=== PATIENT | male | born 1970 | race Caucasian/White ===

== ENCOUNTER → 2020-01-13 08:57 | Outpatient (CLI) | payer OTHER, SELFPAY ==
[2017-11-20 22:08] VITALS: BMI 32.3
--- NOTE | 2020-01-13 09:07 | RAD_ITS ---
STUDY: X-RAY - LUMBAR SPINE REASON FOR EXAM: Male, 49 years old. chronic low back pain radiating into left leg, numbness and tingling COMPARISON: Sagittal reconstruction images from the CT scan of the abdomen and pelvis obtained on 01/11/2015 TECHNIQUE: 4 view FINDINGS: Studies of the lumbar spine in 4 projections shows the superior 4 lumbar vertebrae to be in excellent anatomic position and alignment. The intervertebral disc spaces are all well maintained. There are bilateral spondylitic defects noted at L5, with 5 mm of spondylolisthesis of L5 on S1. RAD/L/S Spine Min 4 Views IMPRESSION: Bilateral spondylitic defects are noted of L5 with grade 1 spondylolisthesis of L5 on S1.. Electronically Signed: Pérez Galvan, at 16:32 EST Tel , Service support ,
== END ==
PROVIDERS: PCP Nurse Practitioner; Referring Provider Nurse Practitioner; Visit Provider Nurse Practitioner
DX: M54.5 Low back pain (principal)
CPT/HCPCS: 72110

== ENCOUNTER → 2020-02-06 16:52 | Outpatient (CLI) | payer OTHER, SELFPAY ==
--- NOTE | 2020-02-06 17:30 | MRI_ITS ---
STUDY: MRI LUMBAR SPINE WITHOUT CONTRAST REASON FOR EXAM: Male, 49 years old. Spondylolisthesis grade 1, LBP, left thigh radiculopathy TECHNIQUE: Standardized fat and water weighted pulse sequences were obtained in the sagittal and axial planes. COMPARISON: None FINDINGS: There is narrowing of T11-12 disc space with desiccation of the disc and minor annular bulge mildly narrowing the central canal only viewed on sagittal images. T12-L1: Normal endplates. Normal disc height, hydration and morphology. Normal bilateral facet joints. Normal central canal and bilateral lateral recesses. Normal bilateral intervertebral neural foramina. Normal lumbar lordosis. There is no substantial scoliosis. Normal conus medullaris that terminates at T12-L1 L1-2: Minor endplate spurring. Normal disc height, desiccation and normal morphology. Normal bilateral facet joints. Normal central canal and bilateral lateral recesses. Normal bilateral intervertebral neural foramina. L2-3: Normal endplates. Normal disc height, desiccation and normal morphology. Normal bilateral facet joints. Normal central canal and bilateral lateral recesses. Normal bilateral intervertebral neural foramina. L3-4: Normal endplates. Normal disc height, desiccation and normal morphology. Normal bilateral facet joints. Normal central canal and bilateral lateral recesses. Normal bilateral intervertebral neural foramina. L4-5: Grade 1 retrolisthesis. Narrowed disc space with desiccation of disc and mild bulging disc osteophyte complex associated with small central disc extrusion with inferior migration of disc fragment. Bilateral facet arthropathy slightly greater on the left.. Mild narrowing of the central canal.. Mild right lateral recess and mild neural foraminal encroachment. Moderate left lateral recess and moderate neural foraminal stenosis L5-S1: Normal endplates. Normal disc height, desiccation and mild annular bulge.. Bilateral facet arthropathy.. Normal central canal and bilateral lateral recesses. Mild bilateral neural foraminal encroachment.. Normal visualized sacral ala. Normal visualized paraspinous soft tissue structures. MRI/Spine Lumbar (Routine) IMPRESSION: No evidence for acute fracture or subluxation.. Multilevel disc degeneration. Spinal stenosis at L4-5 secondary to disc disease and bony hypertrophy exaggerated by shortened pedicles greater on the left. Mild spinal stenosis at L5-S1 secondary to bulging annulus and mild facet arthropathy Electronically Signed: Jose Luis Munoz MD at 18:32 EDT , Service support ,
== END ==
PROVIDERS: PCP Nurse Practitioner; Referring Provider Nurse Practitioner; Visit Provider Nurse Practitioner
DX: M43.10 Spondylolisthesis, site unspecified (principal)
CPT/HCPCS: 72148

== ENCOUNTER → 2020-09-30 09:55 | Outpatient (CLI) | payer OTHER, SELFPAY ==
[2017-11-20 22:08] VITALS: BMI 32.3
--- NOTE | 2020-09-30 09:58 | RAD_ITS ---
STUDY: X-RAY - LUMBAR SPINE REASON FOR EXAM: Male, 49 years old. Low back pain, sharp when going from sitting to standing-intermittent TECHNIQUE: 5 view(s) of the lumbar spine were obtained including oblique views. COMPARISON: None FINDINGS: Normal lumbar lordosis. There is no substantial scoliosis. There is a normal alignment of the vertebrae. There is multilevel endplate spondylosis of the lumbar vertebrae. There is multi-level degenerative disc disease with multi-level disc space narrowing. The soft tissue structures are unremarkable. RAD/L/S Spine Min 4 Views IMPRESSION: Degenerative changes of the spine, as detailed above. Electronically Signed: Yoseph Lewis, at 10:46 EST , Service support ,
--- NOTE | 2020-09-30 09:58 | RAD_ITS ---
STUDY: X-RAY - CERVICAL SPINE REASON FOR EXAM: Male, 49 years old. Left side head and neck pain, into left shoulder TECHNIQUE: 3 view(s) of the cervical spine were obtained. COMPARISON: None FINDINGS: Normal anterior atlantoaxial articulation. Normal odontoid process. There is straightening of the normal cervical lordosis. Minimal anterior spondylosis at the C5-C6 level. Normal disc space heights. Normal visualized intervertebral neuroforamina. The soft tissue structures are unremarkable. RAD/Cerv Spine 2 or 3 Views IMPRESSION: There is straightening of the normal cervical lordosis. Electronically Signed: Yoseph Lewis, at 10:48 EST , Service support ,
== END ==
PROVIDERS: PCP Nurse Practitioner; Referring Provider Family Medicine; Visit Provider Family Medicine
DX: M54.2 Cervicalgia (principal); M54.5 Low back pain
CPT/HCPCS: 72040; 72110

== ENCOUNTER 2021-01-17 14:40 | Emergency (ER) | payer OTHER, SELFPAY ==
[2021-01-17 14:43] VITALS: BP 156/90; PULSE 88; RESP 18; TEMP 36.4; O2SAT 94; BMI 38.2
[2021-01-17 15:01] VITALS: BP 139/80; PULSE 79; RESP 14; O2SAT 97
--- NOTE | 2021-01-17 15:01 | EKG12_ITS ---
Test Reason : Blood Pressure : / mmHG Vent. Rate : 086 BPM Atrial Rate : 086 BPM P-R Int : 156 ms QRS Dur : 096 ms QT Int : 368 ms P-R-T Axes : 061 028 037 degrees QTc Int : 440 ms Normal sinus rhythm Possible Left atrial enlargement Borderline ECG Confirmed by CONRAD HILLMAN, ROB ([id number]), editor producer LIZA TRAVIS ([id number]) on 01/18/2021 10:50:34 AM Referred By: BURT Confirmed By:ROB MARTINES MD
[2021-01-17 15:02] VITALS: O2SAT 94
--- NOTE | 2021-01-17 15:04 | ED.VISSUMM ---
- ER Visit Summary Date of Service: 01/17/21 Chief Complaint: Chest pain History of Present Illness: The patient is a 50 M presenting with chest pain. Patient states this started approximately 1 hour ago. He began having left-sided chest pain that worsened when he took a deep breath. He has associated mild shortness of breath. He states currently he has no pain unless he is taking a deep breath. He denies recent fever or cough. Denies PE/DVT risk factors. He is not a smoker. No family history of early heart disease. Physical Examination: Vitals are stable. Patient is afebrile. Alert no acute distress. HEENT exam is unremarkable. Neck is supple. Lungs are clear and equal bilaterally. Heart is regular rate and rhythm. Abdomen is soft nontender nondistended. Extremities are unremarkable. Skin is warm and dry. No focal neurologic deficit. Remainder of exam is unremarkable. Emergency Department Course and Treatment: Patient was given aspirin on arrival. EKG is sinus rhythm rate of 86 with no acute ischemic changes. CBC, chemistries unremarkable. Troponin is negative. D-dimer normal. Chest x-ray read by myself and radiology shows no acute process. Patient has a heart score of 1. He is resting comfortably on reevaluation. Delta troponin will be obtained and is pending at this time. Disposition: pending Impression: Chest pain This note was generated with [employer] software. It may contain incorrect words, spelling, and punctuation that were not noted in review of the chart prior to signing <Tonya Hollis - Last Filed: 01/17/21 18:17> - ER Visit Summary Date of Service: 01/17/21 Chief Complaint: [] History of Present Illness: The patient is a 50 M [] Physical Examination: [] Test Results: [] Emergency Department Course and Treatment: The patient's repeat troponin was still less than 0.015. CT of the chest is unremarkable as well. His heart score is 1. I feel the pain is either musculoskeletal or pleuritic in nature. Patient will be treated with NSAIDs. He will follow-up with her PCP. Treatment Plan: [] Disposition: Discharge Impression: Chest pain This note was generated with [employer] software. It may contain incorrect words, spelling, and punctuation that were not noted in review of the chart prior to signing <Jordon Colunga - Last Filed: 01/17/21 20:01> ED Disposition <Gretta Hollisson - Last Filed: 01/17/21 18:17> <Jordon Colunga - Last Filed: 01/17/21 20:01> - Plan for ED Patient: Disposition: Home or Assisted Living Instructions: ED Chest Pain, Uncertain Cause Prescriptions: Naproxen [Naprosyn] 500 mg PO BID PRN #20 tab Prescription Printed Referrals: Leticia Matos MUTUEL CASHIER, MUTUEL CASHIER-C [Primary Care Provider] -
[2021-01-17] MEDS: Aspirin 81 MG TAB.CHEW 324 MG PO (15:11)
--- NOTE | 2021-01-17 15:25 | RAD_ITS ---
STUDY: X-RAY CHEST REASON FOR EXAM: Male, 50 years old. chest pain TECHNIQUE: Single AP portable view of the chest. COMPARISON: None. FINDINGS: The lungs are clear and expanded. There is no demonstrated pleural abnormality. Normal size heart. Normal mediastinum and mary jane. Normal visualized pulmonary arteries. Normal visualized aortic arch and descending thoracic aorta. Normal visualized thoracic spine. Normal visualized ribs, clavicles, and shoulders. There is no demonstrated abnormality of the visualized soft tissue structures of the upper abdomen. RAD/Chest 1 View (Portable) IMPRESSION: Normal x-ray examination of the chest. Electronically Signed: Keith Cabrera MD at 16:02 EST Tel , Service support ,
[2021-01-17 15:46] LABS: Absolute Lymphocyte Count 1.11 X10^3/uL (0.83-4.51); Absolute Neutrophil Count 5.5 X10^3/uL (2.0-7.7); Basophil# 0.07 X10^3/uL; Basophil% 0.9 % (0-1); Eosinophil# 0.35 X10^3/uL; Eosinophils% 4.6 % (0-5); Hematocrit 50.9 % (40-54); Hemoglobin 16.2 g/dL (13.0-16.5); Lymphocyte # 1.11 X10^3/ul (4.0); Lymphocyte % 14.6 % (19-41); Mean Corp Hgb Conc 31.8 g/dL (32-36); Mean Corpuscular Volume 87.9 fL (80-94); Mean Platelet Vol. 10.7 fl (6.2-12.0); Monocyte# 0.59 X10^3/uL; Monocyte% 7.7 % (0-10); NRBC Flagged by Analyzer 0 % (0-5); Neutrophil # 5.46 X10^3/uL (2.7-7.7); Neutrophil % 71.7 % (47-70); Platelet Count 225 K/mm3 (150-450); RBC Distribution Width CV 13.2 % (11.6-14.6); RBC Distribution Width SD 42.9 fl (35.1-43.9); Red Blood Count 5.79 M/mm3 (4.6-6.2); White Blood Count 7.6 K/mm3 (4.4-11.0)
[2021-01-17 15:55] LABS: Anion Gap 6 (5-15); BUN 12 mg/dL (7-18); BUN/Creat Ratio 10.2 RATIO (10-20); Calcium,Total 8.8 mg/dL (8.5-10.1); Chloride 109 mmol/L (98-107); Creatinine, Serum 1.18 mg/dL (0.70-1.30); EST Glomerular Filtration Rate 70 mL/min (>60); Est Glom Filt Rate - Afr Amer 85 mL/min (>60); Estimated Creatinine Clearance 81.54 ml/min; Glucose 115 mg/dL (74-106); Potassium 3.6 mmol/L (3.5-5.1); Sodium Level 142 mmol/L (136-145)
[2021-01-17 15:57] LABS: D-Dimer Quantitative (DVT/PE) <= 0.27 FEU/ug/m (0.27-0.49)
[2021-01-17 16:59] VITALS: BP 135/41; PULSE 74; RESP 23; O2SAT 94
[2021-01-17 18:39] VITALS: BP 122/71; PULSE 64; RESP 16; TEMP 36.9; O2SAT 95
--- NOTE | 2021-01-17 18:49 | CT_ITS ---
STUDY: CTA CHEST REASON FOR EXAM: Male, 50 years old. r/o PE RADIATION DOSAGE (If Supplied By Facility): CTDIvol = ( 19.79 ) mGy, DLP = ( 574.29 ) mGycm TECHNIQUE: The examination was performed with the intravenous administration of IV 100mL Isovue-370. Post-processing of the angiographic images was performed, with multiplanar reformation and 3D reconstruction. Individualized dose optimization techniques were used for this CT. COMPARISON: None. FINDINGS: Normal enhancement of the main pulmonary artery and right and left pulmonary arteries. Normal enhancement of the bilateral peripheral pulmonary arteries. There is no demonstrated pulmonary embolism. Normal thoracic aorta and visualized great vessels. There is no demonstrated aortic dissection. Normal heart and pericardium. Normal mediastinum. Normal hilar regions. Normal visualized trachea and bronchi. The lungs are well expanded. Normal pulmonary parenchyma. Normal pleura. Azygos lobe which is a normal variant. Normal chest wall structures. Normal osseous structures. Normal visualized upper abdomen. CT/CTA Chest W/WO Contrast IMPRESSION: Normal CTA chest examination, without a demonstrated pulmonary embolism or arterial dissection. Electronically Signed: Keith Cabrera MD at 19:44 EST Tel , Service support ,
[2021-01-17 20:07] VITALS: RESP 18
== END 2021-01-17 20:08 | disposition home or self-care (01) ==
PROVIDERS: Emergency Provider Emergency Medicine; PCP Nurse Practitioner
DX: R07.9 Chest pain, unspecified (principal); R06.00 Dyspnea, unspecified; J45.909 Unspecified asthma, uncomplicated; Z87.891 Personal history of nicotine dependence
CPT/HCPCS: 71045; 71275; 80048; 84484; 85025; 85379; 93005; 99285; Q9967; A4216

== ENCOUNTER → 2021-03-11 12:14 | Outpatient (CLI) | payer OTHER, SELFPAY | PROVIDERS: PCP Nurse Practitioner; Referring Provider Nurse Practitioner; Visit Provider Nurse Practitioner | DX: R07.89 Other chest pain (principal) | CPT/HCPCS: 93225; 93226 ==

== ENCOUNTER → 2021-07-19 15:50 | Outpatient (CLI) | payer OTHER, SELFPAY ==
--- NOTE | 2021-07-19 15:52 | US_ITS ---
STUDY: SCROTUM ULTRASOUND REASON FOR EXAM: Male, 50 years old. TESTICULAR PAIN,RIGHT TECHNIQUE: Ultrasound evaluation of the scrotum was performed with color Doppler and static mohamud-scale imaging. COMPARISON: None. FINDINGS: RIGHT TESTICLE INTRATESTICULAR: There is a normal size of the right testicle. The right testicle measures 4.1 x 2.8 x 2.3 cm. There is a homogenous echotexture. There is normal arterial and normal venous vascularity. There is no demonstrated right testicular mass or cyst. EXTRATESTICULAR: The epididymis is normal in size. The epididymis head measures 0.8 x 1.3 x 0.9 cm. There is normal vascularity of the epididymis. There is no demonstrated epididymal cystic structure. There is a mild complex hydrocele. There is no demonstrated varicocele. There is no demonstrated extratesticular mass or cyst. LEFT TESTICLE INTRATESTICULAR: There is a normal size of the left testicle. The left testicle measures 4.6 x 2.9 x 2.1 cm. There is a homogenous echotexture. There is normal arterial and normal venous vascularity. There is no demonstrated left testicular mass or cyst. EXTRATESTICULAR: The epididymis is normal in size. The epididymis head measures 0.9 x 1.1 x 1.3 cm. There is normal vascularity of the epididymis. There is a 5 x 7 mm epididymal cyst. There is a small complex hydrocele. There is no demonstrated varicocele. There is no demonstrated extratesticular mass or cyst. US/Testicular with Arterial Flow IMPRESSION: Normal bilateral testicles. Small complex hydroceles bilaterally. Small left epididymal cyst. Electronically Signed: Wilton Cook DO at 17:33 EDT Tel [phone], Service support ,
== END ==
PROVIDERS: PCP Nurse Practitioner; Referring Provider Nurse Practitioner; Visit Provider Nurse Practitioner
DX: N50.811 Right testicular pain (principal)
CPT/HCPCS: 76870; 93976

== ENCOUNTER → 2021-08-08 16:48 | Outpatient (CLI) | payer OTHER, SELFPAY ==
--- NOTE | 2021-08-08 16:49 | CT_ITS ---
STUDY: CT ABDOMEN AND PELVIS WITHOUT CONTRAST REASON FOR EXAM: Male, 50 years old. Flank pain RADIATION DOSAGE (If Supplied By Facility): CTDIvol = ( 17.26 ) mGy, DLP = ( 1430.01 ) mGycm TECHNIQUE: Transaxial images were obtained from the dome of the diaphragm to the symphysis pubis without oral contrast, and without intravenous contrast. Sagittal and coronal images were reconstructed. Individualized dose optimization techniques were used for this CT. COMPARISON: 01/11/15 FINDINGS: Evaluation of the abdominal viscera is limited in the absence of intravenous contrast. The visualized lung bases are clear. The visualized portions of the heart and pericardium are within normal limits. There are no calcified gallstones present. The liver demonstrates an unremarkable unenhanced appearance. The spleen is normal in size. The pancreas demonstrates an unremarkable unenhanced appearance. The adrenal glands are within normal limits. There is a 3 mm nonobstructing right renal stone. There are no additional renal or ureteral stones. There is no hydronephrosis. Normal visualized stomach. There is no bowel obstruction or inflammation. The appendix is visualized and appears normal. The aorta is normal in caliber. There is no abdominal or pelvic free air, free fluid, fluid collection or lymphadenopathy. There are no destructive osseous lesions. There are mild degenerative changes noted in the spine. 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 CT/Abdomen/Pelvis without Cont IMPRESSION: 3 mm nonobstructing right renal stone. No additional urinary calculi. No hydronephrosis. No bowel obstruction or inflammation. Normal appendix. Electronically Signed: Los Murphy MD at 10:15 EDT Tel , Service support ,
== END ==
LOC: CT 16:48
PROVIDERS: PCP Nurse Practitioner; Referring Provider Nurse Practitioner; Visit Provider Nurse Practitioner
DX: R10.9 Unspecified abdominal pain (principal)
CPT/HCPCS: 74176

== ENCOUNTER 2022-01-05 12:50 | Outpatient (CLI) | payer OTHER, SELFPAY ==
--- NOTE | 2022-01-05 12:52 | NM_ITS ---
CLINICAL: 51-year-old male with reported history of postprandial nausea-emesis. SEMI-SOLID PHASE 99m Tc SULFUR COLLOID GASTRIC EMPTYING STUDY COMPARISON: None available FINDINGS: The patient was administered 1.1 mCi of 99m Tc sulfur colloid mixed with oatmeal and consumed per os. Image acquisitions in the anterior-posterior projections for a total of 60 minutes. There is prompt visualization of the stomach. There is no gastroesophageal reflux identified. There is no discernible emptying of the radiopharmaceutical on review of sequential image acquisitions. The T ? linear fit was not calculable, (Normal: 12-56 minutes). NM/Gastric Emptying Study IMPRESSION: 1. MARKEDLY ABNORMAL 99m Tc sulfur colloid semi-solid phase (oatmeal) gastric emptying imaging examination. A. There is severely delayed semi-solid phase gastric emptying compared to normal controls with no effectual emptying of the radiopharmaceutical identified as described above. (Rudi et al, J Nucl Med Tech 38: 186, 2010). Electronically Signed: Keith Roman DO at 22:34 EST ,
== END 2022-01-05 23:59 | disposition home or self-care (01) ==
PROVIDERS: PCP Family Medicine; Referring Provider Internal Medicine Gastroenterology; Visit Provider Internal Medicine Gastroenterology
DX: K31.84 Gastroparesis (principal)
CPT/HCPCS: 78264; A9541

== ENCOUNTER 2022-02-23 08:49 | Day surgery (SDC) | payer OTHER, SELFPAY ==
[2022-02-23] VITALS (7 sets, daily range): BP systolic 100–149; BP diastolic 64–105; PULSE 72–84; RESP 16–18; TEMP 35.8–36.9; O2SAT 94–95; BMI 40.1
[2022-02-23] MEDS: Lactated Ringers 1,000 ML 15 ML IV (09:05)
[2022-02-23] MEDS: Lidocaine Jelly 2% 20 ML Syringe (URO-JET) 1 APPLIC (09:30)
--- NOTE | 2022-02-23 09:49 | PCM.HP.BLA ---
History and Physical Date of Admission: 02/23/22 LISA MEDINA, is a 51 M who presents to the ofA knot in the back of his throat. He is also having problems with nausea vomiting. This has been going on for approximately a year. His brother has the same symptoms of a knot in the back of his throat and then getting a feeling of nausea associated in the vomit. He did have a esophagram did not show any signs of achalasia or esophageal stricture. It did show hiatal hernia. His other past medical history is pruritus, gastroesophageal reflux disease and asthma. His asthma is controlled. Initially he had thought that his symptoms were associated with a poor diet. However when he changes his diet is still does not fix the problem with the knot in the back of his throat and the need to have relief by vomiting. His weight has been stable. He denies any esophageal dysphagia. He denies any chest pain or shortness of breath. He denies any weakness or fatigue. He denies any rash. He denies any arthralgia or arthritis. He has not started any new medicines. He is worried that his hiatal hernia is getting worse. He does take 40 mg of omeprazole which is helping his reflux symptoms but it is not helping the feeling in the back of his throat. ROS Gastro GI: Positive for feeling full early and other ( knot in the back of his throat) Exam Musc Musculoskeletal: No muscle weakness Coding Level of Care Code Off vis,new,level 4 Diagnoses Gastroesophageal reflux disease K21.9 Difficulty swallowing R13.10 Assessment and Plan Assessment and Plan (1) Gastroesophageal reflux disease: Plan - Dr. Grijalva Friend, DO: Diagnosis for his refractory GERD disease to 20 mg of omeprazole needing 40 mg omeprazole would be gastroparesis, worsening hiatal hernia, obesity, poor diet. (2) Difficulty swallowing: Status: Acute Plan - Dr. Grijalva Friend, DO: He does not have any dysphagia odynophagia is not throwing up. On the differential diagnosis for his not diagnosed her would be a gastric inlet patch, atypical reflux disease, hypertensive esophagus or esophageal dysmotility disorder. He will need to undergo gastric emptying study, EGD with endoscopy and a manometry study. Plan Details Other Orders: Orders: Gastric Emptying Study Today K31.84 I have re-examined the patient. There are no clinical changes since date of exam.
--- NOTE | 2022-02-23 10:45 | IMM_PTH ---
PATIENT: LISA MEDINA LOC: EN U#:[id number] AGE/SX: 51/M ROOM: RE02/23/[address]: Dr. Rudi Dyer DO : 1970 BED: DIS: 02/23/2022 SPEC #: [id number] RECD: 02/23/22 16:07 STATUS: BARB GUSTAVO #: [id number] CLEMENTINE: 02/23/22 10:[address]: Rudi Dyer DEPT: IMMUNOHISTOCHEMISTRY RECD BY: Rhiannon Diggs ENTERED: 02/23/22 16:08 SP TYPE: IMMUNO OTHR DR: Dr. Christiano Barreto MD Tissues: B - Stomach, NOS Procedures: H Pylori (initial) PHYSICIAN & INSTITUTION [place] [id number] SPECIMEN INFORMATION: Tissue Source: B ? Gastric antrum Clinical Info: GERD, difficulty swallowing Specimen Number: [id number] CPT code: 13903 METHODOLOGY: Deparaffinized sections of prefer/formalin-fixed tissue or PAP/DQ stained slides are incubated with monoclonal/polyclonal antibodies/oligonucleotide probes. Localization is made via biotin free immunoperoxidase method. Appropriate controls are performed and reacted as expected. Results on target cell population are indicated in the following table: RESULTS: ANTIBODY / CLONE RESULT Block B H Pylori (polyclonal) negative These tests were developed and their performance characteristics determined by [facility]. They may not have been cleared or approved by the U.S. Food and Drug Administration. The FDA has determined that such clearance or approval is not necessary. INTERPRETATION: B. Gastric antrum, biopsy: Negative for Helicobacter pylori organisms. AM:lakshmi 02/24/2022
--- NOTE | 2022-02-23 10:45 | EGD_PTH ---
PATIENT: LISA MEDINA LOC: EN U#:[id number] AGE/SX: 51/M ROOM: RE02/23/[address]: Dr. Rudi Dyer DO : 1970 BED: DIS: 02/23/2022 SPEC #: [id number] RECD: 02/23/22 11:30 STATUS: BARB GUSTAVO #: [id number] CLEMENTINE: 02/23/22 10:[address]: Rudi Dyer DEPT: SURGICAL PATHOLOGY RECD BY: Heather Montiel ENTERED: 02/23/22 12:31 SP TYPE: EGD BIOPSY LICO DR: Dr. Christiano Barreto MD Tissues: A - Duodenum, NOS B - Gastric mucous membrane C - Esophagus, NOS Procedures: Special Stain Group II Surgery Specimen Level IV Alcian Blue/PAS (control) HEADER OPERATION: EGD ([facility]) PRE-OP DIAGNOSIS: GERD, difficulty swallowing TISSUE SUBMITTED: A ? Duodenum biopsy, B ? Gastric antrum biopsy for H. pylori and pathology, C ? Distal esophagus biopsy MICROSCOPIC DIAGNOSIS A. Duodenum, biopsy: No pathologic change. B. Gastric antrum, biopsy: Chronic gastritis with focal acute gastritis. See comment. C. Distal esophagus, biopsy: Gastroesophageal junctional mucosa with chronic inflammation. No evidence of goblet cell metaplasia. See comment. AM:lakshmi 02/24/2022 COMMENT B. The results of immunohistochemistry for Helicobacter pylori will be reported separately ([id number]). C. Alcian blue/PAS stain with matched control supports the above diagnosis. MICROSCOPIC DESCRIPTION Slides are reviewed. GROSS DESCRIPTION A - Received in fixative is one container labeled with the patient's name and designated duodenum. The specimen consists of one irregular fragment of light garcia soft tissue that measures 0.3 x 0.3 x 0.1 cm. The specimen is totally submitted in one cassette. B - Received in fixative is one container labeled with the patient's name and designated gastric antrum. The specimen consists of two irregular fragments of light garcia soft tissue that in aggregate measure 0.7 x 0.5 x 0.1 cm. The specimen is totally submitted in one cassette. C - Received in fixative is one container labeled with the patient's name and designated distal esophagus. The specimen consists of two irregular fragments of light garcia soft tissue that in aggregate measure 1 x 0.5 x 0.1 cm. The specimen is totally submitted in one cassette. / AM:lakshmi 02/23/2022 TC:3 CPT: 47000 x3, 62367
--- NOTE | 2022-02-23 11:18 | OP.EGD_ITS ---
Patient Name: Crow Easton Procedure Date: 02/23/2022 10:46 AM Date of : 1970 Age: 51 Procedure: Upper GI endoscopy Indications: Failure to respond to medical treatment Providers: Rudi Dyer DO Medicines: See the Anesthesia note for documentation of the administered medications Patient Profile: This is a 51 year old male. Refer to note in patient chart for documentation of history and physical. Patient has symptoms of chronic epigastric abdominal pain, chronic nausea and chronic vomiting. Complications: No immediate complications. Procedure: Pre-Anesthesia Assessment: - Prior to the procedure, a History and Physical was performed, and patient medications and allergies were reviewed. The patient is competent. The risks and benefits of the procedure and the sedation options and risks were discussed with the patient. All questions were answered and informed consent was obtained. Patient identification and proposed procedure were verified by the physician in the pre-procedure area. Mental Status Examination: alert and oriented. Airway Examination: normal oropharyngeal airway and neck mobility. Respiratory Examination: clear to auscultation. CV Examination: normal. Prophylactic Antibiotics: The patient does not require prophylactic antibiotics. Prior Anticoagulants: The patient has taken no previous anticoagulant or antiplatelet agents. ASA Grade Assessment: II - A patient with mild systemic disease. After reviewing the risks and benefits, the patient was deemed in satisfactory condition to undergo the procedure. The anesthesia plan was to use moderate sedation / analgesia (conscious sedation). Immediately prior to administration of medications, the patient was re-assessed for adequacy to receive sedatives. The heart rate, respiratory rate, oxygen saturations, blood pressure, adequacy of pulmonary ventilation, and response to care were monitored throughout the procedure. The physical status of the patient was re-assessed after the procedure. After obtaining informed consent, the endoscope was passed under direct vision. Throughout the procedure, the patient's blood pressure, pulse, and oxygen saturations were monitored continuously. The gastroscope was introduced through the mouth, and advanced to the second part of duodenum. The upper GI endoscopy was accomplished without difficulty. The patient tolerated the procedure well. Moderate Sedation: Moderate (conscious) sedation was administered by the endoscopy nurse and supervised by the endoscopist. The patient's oxygen saturation, heart rate, blood pressure and response to care were monitored. Total physician intraservice time was 15 minutes. Scope In: 10:53:34 AM Scope Out: 11:01:25 AM Total Procedure Duration Time 0 hours 7 minutes 51 seconds Findings: LA Grade A (one or more mucosal breaks less than 5 mm, not extending between tops of 2 mucosal folds) esophagitis with no bleeding was found 38 to 40 cm from the incisors. Biopsies were taken with a cold forceps for histology. Verification of patient identification for the specimen was done. Estimated blood loss was minimal. Patchy mildly erythematous mucosa without bleeding was found in the gastric antrum. The minor ampulla was present in seen at the 3 o'clock position in the second portion of the duodenum Patchy mildly erythematous mucosa without active bleeding and with no stigmata of bleeding was found in the duodenal bulb. Biopsies were taken with a cold forceps for histology. Verification of patient identification for the specimen was done. Estimated blood loss was minimal. Impression: - LA Grade A reflux esophagitis. Biopsied. - Erythematous mucosa in the antrum. - Erythematous duodenopathy. Biopsied. Recommendation: - Discharge patient to home. - Resume previous diet. - Continue present medications. - Await pathology results. - MRI of the pancreas with MRCP Procedure Code(s): --- Professional --- 69661, Esophagogastroduodenoscopy, flexible, transoral; with biopsy, single or multiple 90360, 59, Moderate sedation services provided by the same physician or other qualified health account executive healthcare performing the diagnostic or therapeutic service that the sedation supports, requiring the presence of an independent trained observer to assist in the monitoring of the patient's level of consciousness and physiological status; initial 15 minutes of intraservice time, patient age 5 years or older CPT copyright 2017 [employer]. All rights reserved. The codes documented in this report are preliminary and upon vp security review may be revised to meet current compliance requirements. Rudi Dyer DO 02/23/2022 11:17:52 AM This report has been signed electronically. Number of Addenda: 1 Note Initiated On: 02/23/2022 10:46 AM Addendum Number: 1 Addendum Date: 08/17/2022 6:44:52 AM MAC was used as sedation for this procedure. Rudi Dyer DO 08/17/2022 6:44:56 AM This report has been signed electronically.
--- NOTE | 2022-02-23 11:19 | OP.CCLET_ITS ---
08/17/2022 Avinash Barreto [address] [place] [address] Re : Upper GI endoscopy procedure for Crow Easton Dear Dr. Barreto This procedure was performed on February. My impressions and recommendations are as follows: Impressions : - LA Grade A reflux esophagitis. Biopsied. - Erythematous mucosa in the antrum. - Erythematous duodenopathy. Biopsied. Recommendations : - Discharge patient to home. - Resume previous diet. - Continue present medications. - Await pathology results. - MRI of the pancreas with MRCP My findings are described in the full procedure note, which is enclosed. If I can be of further assistance, please feel free to contact me at . Sincerely, Rudi Dyer, 02/23/2022 11:17:52 AM This report has been signed electronically.
== END 2022-02-23 23:59 | disposition home or self-care (01) ==
LOC: EN 08:50 → AC 08:51
PROVIDERS: PCP Family Medicine; Referring Provider Internal Medicine Gastroenterology; Visit Provider Internal Medicine Gastroenterology
PROC: F00ZJWZ Instrumental Swallowing and Oral Function Assessment using Swallowing Equipment (ICD-10-PCS; CPT 43235; principal; 2022-02-23 09:25)
PROC: 0DJ08ZZ Inspection of Upper Intestinal Tract, Via Natural or Artificial Opening Endoscopic (ICD-10-PCS; CPT 43235; principal; 2022-02-23 10:40)
DX: K31.89 Other diseases of stomach and duodenum (principal); K29.50 Unspecified chronic gastritis without bleeding; K21.00 Gastro-esophageal reflux disease with esophagitis, without bleeding; J45.909 Unspecified asthma, uncomplicated; G47.30 Sleep apnea, unspecified; Z86.16 Personal history of COVID-19; Z79.899 Other long term (current) drug therapy
CPT/HCPCS: 43239; 87811; 88305; 88313; 88342; C9803; J7120; J2405

== ENCOUNTER → 2022-04-10 | Outpatient (CLI) | payer OTHER, SELFPAY ==
--- NOTE | 2022-04-10 06:41 | MRI_ITS ---
EXAM: MR ABDOMEN WITHOUT INTRAVENOUS CONTRAST, MRCP PROTOCOL CLINICAL INDICATION: GASTROPARESIS TECHNIQUE: Multiplanar and multisequence MR images of the abdomen without intravenous contrast obtained with MRCP sequence. Three-dimensional post-processing reconstructions were performed. This report was created using [employer] report generation technology. COMPARISON: None. FINDINGS: LOWER THORAX: Unremarkable. No pleural effusion. LIVER: 7 mm cyst noted within hepatic segment 5 with additional 2 to 3 mm cyst within the right lobe. Otherwise normal morphology. GALLBLADDER AND BILE DUCTS: Unremarkable. No gallstones. No gallbladder distention or wall edema. No intra- or extrahepatic biliary ductal dilation. No choledochal filling defect. PANCREAS: Unremarkable. No focal cystic mass. No pancreatic duct dilation. SPLEEN: Unremarkable. Non-enlarged. ADRENALS: Unremarkable. No nodules. KIDNEYS AND URETERS: Unremarkable. Normal renal size and position. No hydronephrosis. INTRAPERITONEAL SPACE: Unremarkable. No ascites or other fluid collection. VASCULATURE: Unremarkable. Abdominal aorta is non-dilated. LYMPH NODES: No enlarged lymph nodes. MRI/MRCP Abdomen without Contrast IMPRESSION: Unremarkable MRCP. No biliary dilation or choledocholithiasis. Electronically Signed: Pepe Jenkins MD at 9:11 EDT ,
== END | disposition home or self-care (01) ==
PROVIDERS: PCP Family Medicine; Referring Provider Internal Medicine Gastroenterology; Visit Provider Internal Medicine Gastroenterology
DX: K31.84 Gastroparesis (principal)
CPT/HCPCS: 74181

== ENCOUNTER → 2023-08-14 | Outpatient (CLI) | payer OTHER, SELFPAY ==
--- NOTE | 2023-08-14 09:47 | NEURO ---
NCS and/or EMG Patient Report Ordering Doctor: Rodolfo Avendaño DATE OF SERVICE: 08/14/23 History: This is a 52 year old female presenting with complaints of numbness/tingling in both hands. This EMG/NCS was performed to evaluate for right/left carpal tunnel syndrome. Nerve Conductions Summary: The median-D2 SNAP distal latency was prolonged bilaterally with reduced amplitude on the left. The left median-APB CMAP distal latency was prolonged. The median motor conduction velocity was reduced in the forearm segment bilaterally. The right ulnar-ADM CMAP amplitude was reduced diffusely. The right ulnar-FDI CMAP amplitude was reduced below the elbow and could not be obtained above the elbow. The right median F-wave onset latency was prolonged. Needle Examination Summary: There was a higher proportion of motor unit action potentials with increased amplitude, increased duration, polyphasia, and reduced recruitment in the left C7 myotome and bilateral abductor pollicis brevis muscles. 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
--- NOTE | 2023-08-14 11:03 | NEURO ---
NCS and/or EMG Patient Report Ordering Doctor: Rodolfo Avendaño DATE OF SERVICE: 08/14/23 Clinical Summary: This a 52 year old male presenting with complaints of numbness/tingling in both hands. This EMG/NCS was performed to evaluate for right/left carpal tunnel syndrome. Nerve Conductions Summary: The median-D2 SNAP distal latency was prolonged bilaterally with reduced amplitude on the left side. The left median-APB CMAP distal latency was prolonged. The right-ADM CMAP amplitude was reduced diffusely. The left median F-wave onset latency was prolonged. Needle Examination Summary: There was a higher proportion of motor unit action potentials with increased amplitude, increased duration, polyphasia, and reduced recruitment in the right first dorsal interosseous muscle. Reduced motor unit firing rates were seen in the left medial gastrocnemius muscle, which can be seen in the setting of pain intolerance and/or reduced effort. Impression: There is electrodiagnostic evidence of the following - 1) Moderate to severe, left median mononeuropathy at the wrist (carpal tunnel syndrome), with secondary motor fiber axonal loss and motor fiber demyelination 2) Mild, right median mononeuropathy at the wrist (carpal tunnel syndrome), with sensory fiber demyelination. Comment: the right ulnar-ADM motor amplitudes were diffusely reduced and neurogenic changes were seen in the right first dorsal interosseous muscle, which could indicate the presence of a non-localizing right ulnar neuropathy. A neuromuscular ultrasound is recommended to better evaluate for an ulnar nerve lesion. Multi Select Codes Neurology Neurology Interp Codes: 18694-78 Musc test done w/n test comp (interp) (2) and 22622-60 Nrv cndj test 11-12 studies (interp)
== END | disposition home or self-care (01) ==
LOC: PSN 08:17
PROVIDERS: PCP Family Medicine; Referring Provider Orthopaedic Surgery; Visit Provider Orthopaedic Surgery
DX: R20.2 Paresthesia of skin (principal)
CPT/HCPCS: 95886; 95912

== ENCOUNTER → 2023-09-25 | Outpatient (CLI) | payer OTHER, SELFPAY ==
--- NOTE | 2023-09-25 12:48 | RAD_ITS ---
HISTORY: asthma. TECHNIQUE: XR Chest 2 Views. COMPARISON: 05/31/2021. FINDINGS: CARDIOMEDIASTINAL BORDERS: Cardiac silhouette within normal limits in size. Mediastinal contour unremarkable. LUNGS: Radiographically clear. Azygous lobe incidentally noted. PLEURA: No pleural effusion or pneumothorax seen. OSSEOUS STRUCTURES: Unremarkable. RAD/Chest PA and Lateral IMPRESSION: No acute cardiopulmonary process identified. Electronically Signed: Nicol Ramos MD at 8:25 EST ,
== END | disposition home or self-care (01) ==
LOC: MTRAD 12:43
PROVIDERS: PCP Family Medicine; Referring Provider Family Medicine; Visit Provider Family Medicine
DX: J45.909 Unspecified asthma, uncomplicated (principal)
CPT/HCPCS: 71046

== ENCOUNTER 2023-10-18 12:26 | Observation (INO) | payer OTHER, SELFPAY ==
[2023-10-18] VITALS (10 sets, daily range): BP systolic 113–158; BP diastolic 81–113; PULSE 72–92; RESP 16–20; TEMP 35.8–36.8; O2SAT 93–100; BMI 39.1; BMI 38.3
--- NOTE | 2023-10-18 12:41 | EKG12_ITS ---
Test Reason : Blood Pressure : / mmHG Vent. Rate : 086 BPM Atrial Rate : 086 BPM P-R Int : 144 ms QRS Dur : 096 ms QT Int : 370 ms P-R-T Axes : 061 027 167 degrees QTc Int : 442 ms Normal sinus rhythm with sinus arrhythmia ST & Marked T wave abnormality, consider anterolateral ischemia Abnormal ECG Confirmed by BRAVO HILLMAN, RUTHANN ([id number]), social media editor HANY ALBARRAN ([id number]) on 10/19/2023 9:32:37 AM Referred By: MICHELE Confirmed By:RUTHANN CORDON MD
--- NOTE | 2023-10-18 12:42 | EDS_ITS ---
HPI History of Present Illness Chief Complaint: Syncope Detail of Chief Complaint: Near-syncope. Patient did not lose consciousness. Informant: patient and spouse/S.O. Onset/Context/Timing Onset: Today Context: Sudden Onset Current Severity: Mild Maximum Severity: Moderate Narrative Narrative: 53-year-old male history of asthma and hereditary angioedema. States he had a bronchitis over the last month. He was on several courses of prednisone and Zithromax. He has had diarrhea for several days which is improving. He has had excessive thirst over the last month and has been drinking increased amounts of fluid with a 20 pound weight loss that is not specifically trying to lose weight. There is no family history of diabetes that he is aware of. Today he was at [facility]. Said he felt fine when he got up this morning. When he was in line at the checkout he said he started feeling lightheaded, getting tunnel vision and felt like he was in a pass out. He leaned over the cart to keep from falling to the ground. He denies any chest pain, headache or abdominal pain. He denies any prior events like this before. He has no history of cardiac disease or abnormal rhythm. He denies any melena. Prior similar symptoms: No Recent Illness/Hospitalization: No PFSH [facility] Medical History Alcohol use Anxiety Asthma Back pain COVID Former smoker Gastric reflux Gastroparesis History of diverticulitis History of hiatal hernia History of Holter monitoring History of irregular heartbeat History of pain when walking Joint stiffness Restless legs Shortness of breath on exertion Vertigo Home Medications albuterol sulfate 90 mcg/actuation aerosol inhaler (Ventolin HFA) 2 puff inhalat ion Q6H PRN SOB 12/26/21 [History Last Taken Unknown] danazol 200 mg capsule 200 mg PO BID 12/26/21 [History Last Taken Unknown] loratadine 10 mg tablet (Claritin) 10 mg PO DAILY PRN ALLERGIES 02/21/22 [History Last Taken Unknown] omeprazole 20 mg capsule,delayed release 20 mg PO DAILY 10/18/23 [History Last Taken Unknown] Allergy/AdvReac Type Severity Reaction Status Date / Time No Known Allergies Allergy Verified 10/18/23 13:40 Family History Mother Arthritis Hypertension High cholesterol Angioedema Uncle Melanoma Surgical History History of excision of pilonidal cyst Social History Smoking Status: Former smoker alcohol intake: current alcohol intake frequency: a few times a month Alcohol type: beer substance use type: does not use what type of physical activity do you participate in: none ROS ROS ED ROS Narrative Diarrhea. Increased thirst. Increased urination. Unintentional weight loss. Review of Systems ROS Unobtainable: Denies due to encephalopathy Constitutional Constitutional ED: Denies chills or fever(s) Eyes Eyes: Denies blurry vision ENT ENT ED: Denies ear pain, rhinorrhea or sore throat Cardiovascular Cardiovascular: Denies chest pain, palpitations or racing heartbeat Respiratory/Chest Respiratory/Chest: Denies cough Gastrointestinal Gastrointestinal: Reports diarrhea; Denies abdominal pain, constipation, melena, nausea or vomiting Genitourinary Genitourinary ED: Reports urinary frequency; Denies dysuria or hematuria Musculoskeletal Musculoskeletal: Denies arthralgias or back pain Integumentary Denies abscess Neurologic Neurologic: Denies headache(s) Psychiatric Psychiatric: Denies anxiety Endocrine Endocrinology: Denies cold intolerance Hematologic/Lymphatic Hematologic/Lymphatic: Reports none Allergic/Immunologic Allergic/Immunologic ED: Denies mouth swelling, tongue swelling, urticaria or other EXAM Physical Exam Narrative Exam Narrative: Well-appearing 53-year-old male. Sitting upright in bed. No distress. at bedside. HEENT Shows mildly dry mucous membranes. Tongue midline. Pupils round react to light. No facial droop or trauma. Normal speech. Neck nontender. No lymphadenopathy. Lungs clear to auscultation bilaterally. Heart regular rhythm rate about 90 no murmur. Chest wall and ribs nontender. Abdomen soft nontender. Moving all 4 extremities. Trace edema in both lower extremities which is chronic. Back nontender. Neurologically is awake and alert with no focal motor deficits. Answering questions following commands. Normal strength. Const Vital Signs: 10/18/23 12:27 10/18/23 12:58 10/18/23 13:42 Temperature 96.8 F L Temperature Source Temporal Pulse Rate 91 81 Pulse Rate [Lying] Pulse Rate [Sitting (for 1 minute prior to obtaining)] Pulse Rate [Standing (for 1 minute prior to obtaining)] Respiratory Rate 18 20 H Respiratory Effort Respiratory Pattern Blood Pressure 154/113 H Blood Pressure [Lying] Blood Pressure [Sitting (for 1 minute prior to obtaining)] Blood Pressure [Standing (for 1 minute prior to obtaining)] Blood Pressure Mean 126 Blood Pressure Mean [Lying] Blood Pressure Mean [Sitting (for 1 minute prior to obtaining)] Blood Pressure Mean [Standing (for 1 minute prior to obtaining)] Pulse Ox 100 95 Oxygen Delivery Method Room Air Room Air Room Air 10/18/23 13:45 10/18/23 13:45 10/18/23 14:20 Temperature Temperature Source Pulse Rate 77 Pulse Rate [Lying] 76 Pulse Rate [Sitting (for 1 minute prior to obtaining)] 90 Pulse Rate [Standing (for 1 minute prior to obtaining)] 92 Respiratory Rate 18 Respiratory Effort Normal Respiratory Pattern Normal Blood Pressure 146/102 H Blood Pressure [Lying] 141/81 H Blood Pressure [Sitting (for 1 minute prior to obtaining)] 150/95 H Blood Pressure [Standing (for 1 minute prior to obtaining)] 150/94 H Blood Pressure Mean 116 Blood Pressure Mean [Lying] 101 Blood Pressure Mean [Sitting (for 1 minute prior to obtaining)] 113 Blood Pressure Mean [Standing (for 1 minute prior to obtaining)] 112 Pulse Ox 95 Oxygen Delivery Method Room Air Positive well nourished and well developed; Negative for cachectic, contractures or unkempt General Appearance ED: well developed and NAD; Negative for unkempt, cachectic, contractures, cyanotic, diaphoretic or pallor Nutritional Appearance: Negative for cachectic HEENT Reports moist mucous membranes; Denies TM's clear or dry mucous membranes Negative for trauma or tenderness Tympanic Membrane ED: Negative for TM's clear Mouth ED: No dry mucous membranes Mouth: No dry mucous membranes Eyes PERRL and EOMs intact bilaterally General Eye ED: Negative for pale conjunctiva or scleral icterus Neck no lymphadenopathy, supple and no JVD General: Negative for tenderness Lymph Lymphatic: Negative for other Chest Wall inspection of chest normal and palpation of chest normal Chest: Negative for other Resp normal respiratory effort and clear to auscultation bilaterally Effort and Inspection: Negative for retractions Auscultation: Negative for rales, rhonchi or wheezes Cardio regular rate, regular rhythm, S1 normal heart sound, S2 normal heart sound and no murmurs Palpation: Negative for palpable S3 or palpable S4 Rate: Negative for bradycardia or tachycardic Rhythm: Negative for abnormal rhythm GI normal to inspection, nondistended, normoactive bowel sounds, non-tender, non- distended and no masses Inspection: Negative for abdominal distention Auscultation: normoactive bowel sounds Palpation: soft; Negative for tender or guarding Back/Spine no CVA tenderness General Back: Negative for CVA tenderness Cervical Spine: Negative for cervical spine tenderness Thoracic Spine / Upper Back: Negative for thoracic spinal tenderness Lumbar Spine / Lower Back: Negative for lumbar spinal tenderness Extremity normal to inspection Extremity Narrative: Trace edema. Nontender. Normal strength. Normal range of motion. General Extremety ED: Yes edema; Negative for tenderness General Extremity: edema Neuro oriented x3 and CN's II-XII intact bilaterally Sensorium / Orientation: alert; Negative for orientation impaired, lethargic or stuporous Motor Exam: strength 5/5 throughout; Negative for general weakness or strength abnormal Psych mental status grossly normal Appearance: Negative for unkempt Attitude: No agitated Mood & Affect: Negative for depressed, anxious or tearful Skin no rashes or lesions noted, no wounds and skin turgor normal General Skin Exam: Negative for elasticity normal, jaundice or pallor Lesions: No lesion noted Rashes: No rashes noted Trauma: Negative for abrasion Wounds: Negative for wounds noted MDM MDM MDM Narrative Medical decision making narrative: 53-year-old male near syncopal episode. Recent diarrhea and excessive thirst and weight loss. Concern would be dehydration, dysrhythmia, possible new onset diabetes versus other etiologies. Labs and chest x-ray are being obtained. Repeat exam patient is doing well at 2:35 PM. I discussed at length with him and his his new onset diabetes Mychel bigger acute concern is his significant EKG abnormalities with deep symmetrical T wave inversions in leads V2 through V6. This is new from an EKG done in March of this year. After further discussion he has had significant exertional dyspnea and some mild exertional chest pain. I think this needs to be admitted for further evaluation. I have the hospitalist on page. He will also be given a liter of normal saline for the hyperglycemia. I discussed the patient's case with Dr. José Miguel Wu of cardiology. Most likely the patient will need a cardiac catheterization tomorrow. History & Record Review Discussion w/independent historian: Patient and Family Additional record(s) reviewed:: Prior inpatient record, Prior outpatient record, Prior ED visit and Prior labs Lab Data Attestation: I reviewed the patient's lab results. Lab results narrative: CBC unremarkable. White count 7.5. H&H is 16 and 49. Platelets 218. Chemistries show sodium 133. Gap of 5 normal BUN of 12 creatinine of 1. Glucose is elevated 386 consistent with new onset diabetes. Troponin is normal at 40. Labs: Laboratory Results - last 24 hr 10/18/23 10/18/23 13:03 13:10 WBC 7.5 RBC 5.81 Hgb 16.8 H Hct 49.0 MCV 84.3 MCH 28.9 MCHC 34.3 RDW Std Deviation 41.6 RDW Coeff of Darrel 13.5 Plt Count 218 MPV 10.5 Immature Gran % (Auto) 0.800 Neut % (Auto) 74.9 H Lymph % (Auto) 14.9 L Duval % (Auto) 5.6 Eos % (Auto) 3.1 Baso % (Auto) 0.7 Absolute Neuts (auto) 5.6 Absolute Lymphs (auto) 1.11 Nucleated RBC % 0 Sodium 133 L Potassium 4.1 Chloride 101 Carbon Dioxide 27.0 Anion Gap 5 BUN 12 Creatinine 1.07 Estim Creat Clear Calc 84.33 Est GFR (MDRD) Af Amer 94 Est GFR (MDRD) Non-Af 77 BUN/Creatinine Ratio 11.2 Glucose 386 H Calcium 8.6 Troponin I High Sens 40 POC Glucose 381 H Radiography Chest X-Ray - ED: 1 View, Read by ED Physician, Read by Radiologist, Heart, Lungs, Mediastinum, Bony Structures, No Acute Disease and Chronic Changes Diagnostic Testing: Clinical Impression(s) from Imaging Studies Chest X-Ray 10/18/23 13:04 IMPRESSION: No acute abnormality is present. Electronically Signed: Yoseph Lewis MD at 13:19 EST , Chest x-ray, portable, single view shows no acute abnormality. Chronic changes. Normal cardiac silhouette. Normal mediastinum. Interpreted both by myself and the radiologist. Rhythm Strip Rhythm Strip: Sinus Rhythm Rate: 86 Ectopy: None EKG Initial EKG: Attestation: I personally reviewed and interpreted this EKG as follows: Interpretation: Sinus Rhythm and No Acute Injury Pattern Comments: Normal sinus rhythm rate 86. Patient does have deep symmetrical T wave inversions in V2 through V6 also lead I and II which is all new from a prior EKG from January of this year which was basically normal. Prior EKG tracings: available for review Prior: Changed Discharge Plan Dx/Rx/DC Orders Clinical Impression: Near syncope, Abnormal ECG, Exertional chest pain, Diabetes mellitus, new onset Disposition Disposition: Acute Care Hospital [facility]
--- NOTE | 2023-10-18 13:04 | RAD_ITS ---
STUDY: X-RAY CHEST REASON FOR EXAM: Male, 53 years old. Syncopal episode. TECHNIQUE: Single AP portable view of the chest. COMPARISON: Comparison is made with prior study of September 25, 2023. FINDINGS: EKG electrodes are seen. Azygos lobe. No acute infiltrate is seen. There is no demonstrated pleural abnormality. Normal size heart. Normal mediastinum and mary jane. Normal visualized pulmonary arteries. Normal visualized aortic arch and descending thoracic aorta. Normal visualized thoracic spine. Normal visualized ribs, clavicles, and shoulders. There is no demonstrated abnormality of the visualized soft tissue structures of the upper abdomen. RAD/Chest 1 View (Portable) IMPRESSION: No acute abnormality is present. Electronically Signed: Yoseph Lewis MD at 13:19 EST ,
[2023-10-18 13:23] LABS: Absolute Lymphocyte Count 1.11 X10^3/uL (0.83-4.51); Absolute Neutrophil Count 5.6 X10^3/uL (2.0-7.7); Basophil# 0.05 X10^3/uL; Basophil% 0.7 % (0-1); Eosinophil# 0.23 X10^3/uL; Eosinophils% 3.1 % (0-5); Hemoglobin 16.8 g/dL (13.0-16.5); Lymphocyte # 1.11 X10^3/ul (0.83-4.51); Lymphocyte % 14.9 % (19-41); Mean Corp Hgb Conc 34.3 g/dL (32-36); Mean Corpuscular Hgb 28.9 pg (27.0-32.0); Mean Corpuscular Volume 84.3 fL (80-94); Mean Platelet Vol. 10.5 fl (6.2-12.0); Monocyte# 0.42 X10^3/uL; Monocyte% 5.6 % (0-10); NRBC Flagged by Analyzer 0 % (0-5); Neutrophil # 5.59 X10^3/uL (2.7-7.7); Neutrophil % 74.9 % (47-70); Platelet Count 218 K/mm3 (150-450); RBC Distribution Width CV 13.5 % (11.6-14.6); RBC Distribution Width SD 41.6 fl (35.1-43.9); Red Blood Count 5.81 M/mm3 (4.6-6.2); White Blood Count 7.5 K/mm3 (4.4-11.0)
[2023-10-18 13:56] LABS: Anion Gap 5 (5-15); BUN 12 mg/dL (7-18); BUN/Creat Ratio 11.2 RATIO (10-20); Calcium,Total 8.6 mg/dL (8.5-10.1); Chloride 101 mmol/L (98-107); Creatinine, Serum 1.07 mg/dL (0.70-1.30); EST Glomerular Filtration Rate 77 mL/min (>60); Est Glom Filt Rate - Afr Amer 94 mL/min (>60); Estimated Creatinine Clearance 84.33 ml/min; Glucose 386 mg/dL (74-106); Potassium 4.1 mmol/L (3.5-5.1); Sodium Level 133 mmol/L (136-145); Troponin-I HS 40 pg/mL (3.0-78.0)
[2023-10-18 14:07] LABS: Bedside Glucose 381 mg/dL (74-106)
--- NOTE | 2023-10-18 14:41 | PCM.HP.STD ---
HPI - General General Date of Admission: 10/18/23 Date of Service: 10/18/23 Chief Complaint: Episode of near syncope, new onset diabetes mellitus HPI Narrative LISA MEDINA, is a 53 M who presented to [facility] ED on 10/18/2023 after a near syncope episode at the store. Patient seen at bedside in the ED. Sitting comfortably in bed, conversing normally, no acute distress. Patient states that he was at [facility] today doing grocery shopping, when he had an episode of severe lightheadedness with tunnel vision. States he sat himself on a shopping cart for short time, did not lose consciousness. Patient states he has had several concerning symptoms over the past month or so. He began having upper respiratory symptoms about 1 month ago and was prescribed azithromycin and prednisone by his PCP. Patient states that after starting these medications, he began to have severe polyuria and polydipsia. States he was urinating about every 1/2 hour and was drinking 6-8 large water bottles per day. Patient also states he has lost about 20 pounds in the last few months without trying to. Denies any previous history of diabetes or prediabetes noted on outpatient lab work. No family history of diabetes. Patient states he actually received a second round of a short course of steroids because his symptoms were ongoing. Patient states over that timeframe he has had some chest discomfort and shortness of breath on exertion. No known history of cardiac disease. Patient currently states that he feels fatigued but otherwise denies any acute pain or discomfort. Denies any chest pain, shortness of breath, fevers chills, abdominal pain or discomfort. No other acute concerns at this time. [facility] Medical History Alcohol use Anxiety Asthma Back pain Chest pain COVID CPAP (continuous positive airway pressure) dependence Former smoker Gastric reflux Gastroparesis History of diverticulitis History of hiatal hernia History of Holter monitoring History of irregular heartbeat History of pain when walking Joint stiffness Restless legs Shortness of breath on exertion Sleep apnea Vertigo Home Medications albuterol sulfate 90 mcg/actuation aerosol inhaler (Ventolin HFA) 2 puff inhalation Q6H PRN SOB 12/26/21 [History Last Taken Unknown] danazol 200 mg capsule 200 mg PO BID 12/26/21 [History Last Taken Unknown] loratadine 10 mg tablet (Claritin) 10 mg PO DAILY PRN ALLERGIES 02/21/22 [History Last Taken Unknown] omeprazole 20 mg capsule,delayed release 20 mg PO DAILY 10/18/23 [History Last Taken Unknown] Allergy/AdvReac Type Severity Reaction Status Date / Time No Known Allergies Allergy Verified 10/18/23 13:40 Family History Mother Arthritis Hypertension High cholesterol Angioedema Uncle Melanoma Surgical History History of excision of pilonidal cyst Social History Smoking Status: Former smoker alcohol intake: current alcohol intake frequency: a few times a month Alcohol type: beer substance use type: does not use what type of physical activity do you participate in: none ROS Constitutional Constitutional: Reports change in weight and fatigue; Denies chills, fever(s), malaise or weakness Eyes Eyes: Reports blurry vision; Denies change in vision, discharge from eye(s), double vision, eye pain or loss of vision Cardiovascular Cardiovascular: Reports dyspnea on exertion and lightheadedness; Denies chest pain, edema, palpitations or syncope Respiratory/Chest Respiratory/Chest: Denies cough, excessive phlegm production, shortness of breath at rest or wheezing Gastrointestinal Gastrointestinal: Denies abdominal pain, constipation, diarrhea, nausea or vomiting Genitourinary Genitourinary: Reports nocturia and urinary frequency; Denies dysuria, urinary hesitancy or urinary incontinence Endocrine Endocrinology: Reports polydipsia and polyuria Vital Signs Vital Signs Vital Signs: 10/18/23 12:27 10/18/23 12:58 10/18/23 13:42 Temperature 96.8 F L Temperature Source Temporal Pulse Rate 91 81 Pulse Rate [Lying] Pulse Rate [Sitting (for 1 minute prior to obtaining)] Pulse Rate [Standing (for 1 minute prior to obtaining)] Respiratory Rate 18 20 H Respiratory Effort Respiratory Pattern Blood Pressure 154/113 H Blood Pressure [Lying] Blood Pressure [Sitting (for 1 minute prior to obtaining)] Blood Pressure [Standing (for 1 minute prior to obtaining)] Blood Pressure Mean 126 Blood Pressure Mean [Lying] Blood Pressure Mean [Sitting (for 1 minute prior to obtaining)] Blood Pressure Mean [Standing (for 1 minute prior to obtaining)] Pulse Ox 100 95 Oxygen Delivery Method Room Air Room Air Room Air 10/18/23 13:45 10/18/23 13:45 10/18/23 14:20 Temperature Temperature Source Pulse Rate 77 Pulse Rate [Lying] 76 Pulse Rate [Sitting (for 1 minute prior to obtaining)] 90 Pulse Rate [Standing (for 1 minute prior to obtaining)] 92 Respiratory Rate 18 Respiratory Effort Normal Respiratory Pattern Normal Blood Pressure 146/102 H Blood Pressure [Lying] 141/81 H Blood Pressure [Sitting (for 1 minute prior to obtaining)] 150/95 H Blood Pressure [Standing (for 1 minute prior to obtaining)] 150/94 H Blood Pressure Mean 116 Blood Pressure Mean [Lying] 101 Blood Pressure Mean [Sitting (for 1 minute prior to obtaining)] 113 Blood Pressure Mean [Standing (for 1 minute prior to obtaining)] 112 Pulse Ox 95 Oxygen Delivery Method Room Air Weight Weight: 123.785 kg Body Mass Index (BMI) 39.1 Physical Exam Const alert, oriented x3, no apparent distress, healthy appearing and well nourished Constitutional Narrative: Pleasant middle-age male, obese, sitting comfortably in bed, conversing normally, no acute distress. General Appearance: cooperative and comfortable HEENT normocephalic, head/scalp atraumatic, hearing grossly normal bilaterally, nasal mucous membranes and turbinates normal and moist oral mucous membranes Eyes PERRL, EOMs intact bilaterally and conjunctivae normal Neck full ROM, no lymphadenopathy and supple Lymph Lymphatic: no lymphadenopathy noted Chest inspection of chest normal Resp normal respiratory effort, normal air movement, no use of accessory muscles and clear to auscultation bilaterally Cardio regular rate, regular rhythm, no murmurs and peripheral pulses 2+ throughout GI normal to inspection, nondistended, normoactive bowel sounds, soft to palpation, non-tender and non-distended Back/Spine normal ROM Extremity normal to inspection, full ROM and no pedal edema Skin no rashes or lesions noted Neuro moves all extremities and no focal motor deficits Speech: speech normal Psych mental status grossly normal Results Lab / Micro Data 10/18/23 13:10 10/18/23 13:10 Labs: Laboratory Results - last 24 hr 10/18/23 13:03: POC Glucose 381 H 10/18/23 13:10: WBC 7.5, RBC 5.81, Hgb 16.8 H, Hct 49.0, MCV 84.3, MCH 28.9, MCHC 34.3, RDW Std Deviation 41.6, RDW Coeff of Darrel 13.5, Plt Count 218, MPV 10.5, Immature Gran % (Auto) 0.800, Neut % (Auto) 74.9 H, Lymph % (Auto) 14.9 L, Peach % (Auto) 5.6, Eos % (Auto) 3.1, Baso % (Auto) 0.7, Absolute Neuts (auto) 5.6, Absolute Lymphs (auto) 1.11, Nucleated RBC % 0, Sodium 133 L, Potassium 4.1, Chloride 101, Carbon Dioxide 27.0, Anion Gap 5, BUN 12, Creatinine 1.07, Estim Creat Clear Calc 84.33, Est GFR (MDRD) Af Amer 94, Est GFR (MDRD) Non-Af 77, BUN/Creatinine Ratio 11.2, Glucose 386 H, Calcium 8.6, Troponin I High Sens 40 Rhythm Strip Rhythm Strip: Sinus Rhythm Rate: 86 Ectopy: None Imagaing Radiology Impression Chest X-Ray 10/18/23 13:04 IMPRESSION: No acute abnormality is present. Electronically Signed: Yoseph Lewis MD at 13:19 EST , Assessment & Plan Assessment/Plan (1) Diabetes mellitus, new onset: (2) Abnormal ECG: (3) Near syncope: PLAN: Plan Patient is a 53-year-old male who presented to [facility] ED on 10/18/2023 after an episode of near syncope while at the store. 1. Episode of near syncope, abnormal EKG findings Seemed most likely secondary to orthostatic hypotension in setting of volume depletion from excessive urination in setting of new onset diabetes. However, patient notes intermittent exertional chest pain over the past few weeks. Was recently treated for an upper respiratory tract infection with azithromycin and steroids, with some improvement in symptoms. EKG in ED showed significant T wave inversions in the precordial leads and lateral leads. Initial troponin negative, repeat pending. A1c of 11.4% in the ED. ? Admit under inpatient status to PCU. Cardiology consulted. Evaluated by Dr. Wu on admission, noted patient's markedly abnormal EKG and given newly diagnosed diabetes, plan is for left heart catheterization tomorrow to rule out coronary ischemia. N.p.o. at midnight. Orthostatic vital signs ordered. Lipid panel ordered. Follow-up a.m. labs. 2. Presumed new onset type 2 diabetes mellitus A1c of 11.4% on admission. No previously diagnosed history of diabetes. Patient reports excessive polyuria and polydipsia over the last 4 to 6 weeks. Suspect patient has new onset type 2 diabetes that was exacerbated by his recent short course of steroids prescribed by his PCP for an upper respiratory tract infection. BG 386 on admit. ? Will initiate patient on high?medium dosing of sliding-scale insulin for now. Given his very elevated A1c, suspect patient will need to be started on insulin on discharge. S/p 1 L bolus of IV fluids in the ED, encouraged p.o. intake going forward. 3. Pseudohyponatremia ? Sodium 133 on admit, corrected sodium of 136-137 in setting of hyperglycemia. Chronic medical conditions: ? Obesity: BMI 38 on admit. Encouraged lifestyle modifications. Complicates patient's care and prognosis. ? Hereditary angioedema: Continue home danazol, loratadine, albuterol inhaler as needed. ? GERD: Continue home PPI. DVT prophylaxis: Lovenox CODE STATUS: Full code, verified Expected disposition: Home, TBD Total clinical time spent by myself addressing the patient's medical issues, reviewing all the data, and collaborating with patient's care team: 55 minutes. Charges/Coding Visit Charges Inpatient E&M: 05270 Init Hosp L2
[2023-10-18] MEDS: Aspirin 325 MG Tablet PO (15:04)
--- NOTE | 2023-10-18 15:20 | NURSING ---
PCU MOSTELLER NEAR SYNCOPE, ABNORMAL EKGS
--- NOTE | 2023-10-18 17:05 | ECHOCS_ITS ---
Reason For Study: Chest Pain Procedure This was a 2D Doppler, Color Flow transthoracic echocardiogram. Contrast injection was performed. Exam performed portable in patient room. Left Ventricle Normal LV size. Apical hypertrophy. Left ventricular systolic function is normal. The left ventricular ejection fraction is 75 %. No regional wall motion abnormalities noted. Right Ventricle Normal RV size. Normal systolic function. Atria Normal left atrium. Normal right atrium. Mitral Valve Mitral valve not well visualized. Tricuspid Valve The tricuspid valve is not well visualized. Mild tricuspid valve insufficiency. Pulmonary artery systolic pressure is 20 mmHg. Aortic Valve The aortic valve is not well visualized. Pulmonic Valve Normal pulmonic valve. Great Vessels Normal aortic root. The pulmonary artery is normal size. Normal inferior vena cava. Pericardium/Pleural No pericardial effusion. Medication Diluted definity 3ml given slow IV push to enhance endocardial definition. MMode/2D Measurements & Calculations LVIDd: 4.5 cm IVSd: 1.00 cm Ao root diam: 3.7 cm LVIDs: 3.0 cm LVPWd: 1.2 cm RVDd: 4.0 cm FS: 34.7 % LAV(MOD-bp): 28.2 ml LVAd ap4: 31.2 cm2 SV(MOD-sp4): 71.2 ml LAV(MOD-bp) Indexed: 12.0 ml/m2 LVLd ap4: 8.7 cm LAV(MOD-sp2): 30.1 ml EDV(MOD-sp4): 94.3 ml LAV(MOD-sp4): 25.1 ml EDV(sp4-el): 95.0 ml LVAs ap4: 12.9 cm2 LVLs ap4: 6.4 cm ESV(MOD-sp4): 23.1 ml ESV(sp4-el): 22.3 ml EF(MOD-sp4): 75.5 % EF(sp4-el): 76.5 % SV(sp4-el): 72.7 ml LA A4 area: 12.4 cm2 LA dimension(2D): 3.4 cm RA A4 area: 15.3 cm2 TAPSE: 2.8 cm Time Measurements MV dec time: 0.21 sec Doppler Measurements & Calculations MV E max david: 63.3 cm/sec Lat Peak E' David: 8.3 cm/sec Med Peak E' David: 8.5 cm/sec MV A max david: 49.7 cm/sec E/E' lat: 7.6 E/E' med: 7.5 MV E/A: 1.3 MV dec slope: 306.7 cm/sec2 Ao V2 max: 140.5 cm/sec LV V1 max: 130.6 cm/sec Ao max P.9 mmHg LV V1 max P.8 mmHg Ao V2 mean: 107.1 cm/sec LV V1 mean P.7 mmHg Ao mean P.9 mmHg LV V1 mean: 91.5 cm/sec Ao V2 VTI: 25.7 cm LV V1 VTI: 23.7 cm AV (velocity ratio): 0.92 PA V2 max: 75.5 cm/sec TR max david: 202.1 cm/sec TR max P.3 mmHg ECHO/Echo Complete W/ Contrast Interpretation Summary Normal LV size. Left ventricular systolic function is normal. The left ventricular ejection fraction is 75 %. Pulmonary artery systolic pressure is 20 mmHg. Apical hypertrophy Ordering Physician: Andrew Brown Referring Physician: Christiano Barreto Performed By: Lillian Maynard, ROBERTA, RVT
[2023-10-18 17:55] LABS: Hemoglobin A1c 11.4 % (3.8-5.6)
[2023-10-18] MEDS: Lactated Ringers 1,000 ML 999 ML IV (18:00)
[2023-10-18] MEDS: Acetaminophen 325 MG Tablet 650 MG PO (18:05)
[2023-10-18] MEDS: Insulin Lispro 100 UNIT/ML INSULN.PEN SC ×2 (18:07→22:44)
[2023-10-18 18:18] LABS: Bedside Glucose 257 mg/dL (74-106)
--- NOTE | 2023-10-18 18:42 | PCM.CONS.C ---
Assessment & Plan Assessment/Plan (1) Abnormal ECG: PLAN: He has a markedly abnormal EKG with T wave inversions across the precordium. With his newly documented and diagnosed diabetes we need to exclude coronary ischemia. Hypertrophic cardiomyopathy especially of the apical variety cannot be completely excluded and an echocardiogram should be performed to exclude the above. I will also recommend invasive cardiac catheterization. The risk benefits alternatives of been explained to him he understands and agrees to proceed. Depending on those findings further recommendations will be made. Thank you for allowing me to participate in the care of your patient. Please don't hesitate to call if any issues arise. HPI Consult Data Date of Consult: 10/18/23 HPI Narrative HPI Narrative: LISA MEDINA, is a 53 M who presents to the emergency room after having a near syncopal spell while he was checking out of [employer]. He says that he only has a history of asthma and hereditary angioedema. He has noted a 20 pound weight loss and has been drinking a significant amount of fluid as well as increased thirst. He got lightheaded with tunnel vision and had to lean over his cart to prevent him from falling. He presented to the emergency room after denying any chest pain paroxysmal nocturnal dyspnea palpitations, or pedal edema. An EKG was done which demonstrated diffuse T wave inversions. Cardiology was called for further evaluation and management. Blood work further reviewed that his blood sugar was noted to be markedly elevated and his hemoglobin A1c was over 11. He has previously been on diagnosed diabetic. [facility] Medical History Alcohol use Anxiety Asthma Back pain Chest pain COVID CPAP (continuous positive airway pressure) dependence Former smoker Gastric reflux Gastroparesis History of diverticulitis History of hiatal hernia History of Holter monitoring History of irregular heartbeat History of pain when walking Joint stiffness Restless legs Shortness of breath on exertion Sleep apnea Vertigo Home Medications albuterol sulfate 90 mcg/actuation aerosol inhaler (Ventolin HFA) 2 puff inhalation Q6H PRN SOB 12/26/21 [History Last Taken Unknown] danazol 200 mg capsule 200 mg PO BID 12/26/21 [History Last Taken Unknown] loratadine 10 mg tablet (Claritin) 10 mg PO DAILY PRN ALLERGIES 02/21/22 [History Last Taken Unknown] omeprazole 20 mg capsule,delayed release 20 mg PO DAILY 10/18/23 [History Last Taken Unknown] Allergy/AdvReac Type Severity Reaction Status Date / Time No Known Allergies Allergy Verified 10/18/23 13:40 Family History Mother Arthritis Hypertension High cholesterol Angioedema Uncle Melanoma Surgical History History of excision of pilonidal cyst Social History Smoking Status: Former smoker alcohol intake: current alcohol intake frequency: a few times a month Alcohol type: beer substance use type: does not use what type of physical activity do you participate in: none ROS Constitutional Constitutional: Denies fever(s) or weight loss Eyes Eyes: Reports systems reviewed and no addt'l complaints, except as documented ENT HEENT: Reports systems reviewed and no addt'l complaints, except as documented Cardiovascular Cardiovascular: Denies chest pain at rest, chest pain with activity, dyspnea at rest, dyspnea on exertion, edema, palpitations or paroxysmal nocturnal dyspnea Respiratory/Chest Respiratory/Chest: Denies dyspnea on exertion, productive cough, shortness of breath at rest or shortness of breath with exertion Gastrointestinal Gastrointestinal: Denies change in bowel habits, nausea, vomiting or weight changes Genitourinary Genitourinary: Denies difficulty urinating Musculoskeletal Musculoskeletal: Denies joint stiffness or muscle weakness Integumentary Integumentary: Denies lesions Neurologic Neurologic: Denies dizziness or syncope Psychiatric Psychiatric: Denies anxiety Endocrine Endocrinology: Denies excessive sweating or fatigue Hematologic/Lymphatic Hematologic/Lymphatic: Denies anemia Allergic/Immunologic Allergic/Immunologic: Denies seasonal rhinorrhea Physical Exam Const alert, oriented x3 and no apparent distress General Appearance: cooperative HEENT hearing grossly normal bilaterally Head and Scalp: atraumatic Eyes EOMs intact bilaterally Neck General: normal visual inspection Chest inspection of chest normal and palpation of chest normal Resp normal respiratory effort Auscultation: clear to auscultation bilaterally Cardio regular rate, regular rhythm, S1 normal heart sound and S2 normal heart sound Jugular Venous Distention: JVD GI normal to inspection, nondistended, normoactive bowel sounds Extremity normal capillary refill and no pedal edema Peripheral Pulses: Yes pulses 2+ throughout and femoral pulses present Skin no rashes or lesions noted Neuro oriented x3 and CN's II-XII intact bilaterally Psych Appearance: grossly normal and appropriate Risk Stratification Risk Stratification Applicable: No Objective Data Vital Signs: Vital Signs Temp Pulse Resp BP Pulse Ox O2 Del Method 97.9 F 78 18 134/87 H 98 Room Air 10/18/23 16:36 10/18/23 16:36 10/18/23 16:36 10/18/23 16:36 10/18/23 16:36 10/18/23 16:36 Oxygen Delivery Method Room Air Weight: 267 lb 6.731 oz Body Mass Index (BMI) 38.3 Lab / Micro Data 10/18/23 13:10 10/18/23 13:10 Labs: Laboratory Results - last 24 hr 10/18/23 13:03: POC Glucose 381 H 10/18/23 13:10: WBC 7.5, RBC 5.81, Hgb 16.8 H, Hct 49.0, MCV 84.3, MCH 28.9, MCHC 34.3, RDW Std Deviation 41.6, RDW Coeff of Darrel 13.5, Plt Count 218, MPV 10.5, Immature Gran % (Auto) 0.800, Neut % (Auto) 74.9 H, Lymph % (Auto) 14.9 L, Robertson % (Auto) 5.6, Eos % (Auto) 3.1, Baso % (Auto) 0.7, Absolute Neuts (auto) 5.6, Absolute Lymphs (auto) 1.11, Nucleated RBC % 0, Sodium 133 L, Potassium 4.1, Chloride 101, Carbon Dioxide 27.0, Anion Gap 5, BUN 12, Creatinine 1.07, Estim Creat Clear Calc 84.33, Est GFR (MDRD) Af Amer 94, Est GFR (MDRD) Non-Af 77, BUN/Creatinine Ratio 11.2, Glucose 386 H, Hemoglobin A1c 11.4 H, Calcium 8.6, Troponin I High Sens 40 10/18/23 17:58: POC Glucose 257 H Rhythm Strip Rhythm Strip: Sinus Rhythm Rate: 86 Ectopy: None and - (Deep T waves noted symmetrically throughout the precordium) Cardiology Labs/Tests 10/18/23 13:10: WBC 7.5, RBC 5.81, Hgb 16.8 H, Hct 49.0, MCV 84.3, MCH 28.9, MCHC 34.3, Plt Count 218, MPV 10.5, Immature Gran % (Auto) 0.800, Neut % (Auto) 74.9 H, Lymph % (Auto) 14.9 L, Robertson % (Auto) 5.6, Eos % (Auto) 3.1, Baso % (Auto) 0.7, Absolute Neuts (auto) 5.6, Nucleated RBC % 0, Sodium 133 L, Potassium 4.1, Chloride 101, Carbon Dioxide 27.0, Anion Gap 5, BUN 12, Creatinine 1.07, Est GFR (MDRD) Af Amer 94, Est GFR (MDRD) Non-Af 77, BUN/Creatinine Ratio 11.2, Glucose 386 H, Hemoglobin A1c 11.4 H, Calcium 8.6 Rhythm: EKG: ECHO: Stress Test: Cardiac Cath: PCI: CT Surgery: Holter monitor: EPS: PPM: CXR: Chest CT Scan: Radiography Diagnostic Testing: Radiology Impression Chest X-Ray 10/18/23 13:04 IMPRESSION: No acute abnormality is present. Electronically Signed: Yoseph Lewis MD at 13:19 EST ,
[2023-10-18] MEDS: 0.9% Normal Saline (1000mL) 1,000 ML 15 ML IV (19:46)
[2023-10-18] MEDS: 0.9% Saline Lock 10 ML Syringe IV (19:48)
[2023-10-18 21:38] LABS: Cholesterol 196 mg/dL (200); High Density Lipoprotein 14 mg/dL; Thyroid Stim Hormone (TSH) 0.97 uIU/mL (0.358-3.74); Triglycerides 420 mg/dL
[2023-10-18 23:07] LABS: Bedside Glucose 389 mg/dL (74-106)
[2023-10-19] VITALS (13 sets, daily range): BP systolic 106–139; BP diastolic 61–95; PULSE 63–86; RESP 16–18; TEMP 36.3–36.6; O2SAT 95–99
[2023-10-19] MEDS: Insulin Lispro 100 UNIT/ML INSULN.PEN SC ×2 (03:20→11:29)
[2023-10-19 03:59] LABS: Bedside Glucose 254 mg/dL (74-106)
[2023-10-19 04:44] LABS: Hematocrit 47.9 % (40-54); Hemoglobin 15.8 g/dL (13.0-16.5); Mean Corpuscular Hgb 28.6 pg (27.0-32.0); Mean Corpuscular Volume 86.6 fL (80-94); Mean Platelet Vol. 10.8 fl (6.2-12.0); Platelet Count 215 K/mm3 (150-450); RBC Distribution Width CV 13.4 % (11.6-14.6); RBC Distribution Width SD 42.5 fl (35.1-43.9); Red Blood Count 5.53 M/mm3 (4.6-6.2); White Blood Count 8.8 K/mm3 (4.4-11.0)
[2023-10-19 05:17] LABS: Anion Gap 5 (5-15); BUN 12 mg/dL (7-18); BUN/Creat Ratio 12.6 RATIO (10-20); Calcium,Total 7.8 mg/dL (8.5-10.1); Chloride 104 mmol/L (98-107); Creatinine, Serum 0.95 mg/dL (0.70-1.30); EST Glomerular Filtration Rate 89 mL/min (>60); Est Glom Filt Rate - Afr Amer 108 mL/min (>60); Estimated Creatinine Clearance 94.99 ml/min; Glucose 270 mg/dL (74-106); Potassium 3.9 mmol/L (3.5-5.1); Sodium Level 137 mmol/L (136-145)
--- NOTE | 2023-10-19 05:55 | EKG12_ITS ---
Test Reason : AM EKG Blood Pressure : / mmHG Vent. Rate : 069 BPM Atrial Rate : 069 BPM P-R Int : 158 ms QRS Dur : 094 ms QT Int : 420 ms P-R-T Axes : 059 023 178 degrees QTc Int : 450 ms Normal sinus rhythm ST & Marked T wave abnormality, consider anterolateral ischemia Abnormal ECG When compared with ECG of 18-OCT-2023 12:54, MANUAL COMPARISON REQUIRED, DATA IS UNCONFIRMED Confirmed by BRAVO HILLMAN, RUTHANN ([id number]), clinical editor LIZA TRAVIS ([id number]) on 10/19/2023 1:57:36 PM Referred By: ROSANA Confirmed By:RUTHANN CORDON MD
[2023-10-19 07:07] LABS: Bedside Glucose 237 mg/dL (74-106)
--- NOTE | 2023-10-19 08:13 | PN.CARD_ITS ---
Subjective Subjective Patient seen and evaluated. Doing well. Underwent cardiac catheterization today. Objective Data Vital Signs: Vital Signs Temp Pulse Resp BP Pulse Ox O2 Del Method 97.5 F L 65 18 138/95 H 97 Room Air 10/19/23 06:30 10/19/23 06:30 10/19/23 06:30 10/19/23 06:30 10/19/23 06:30 10/19/23 06:30 Oxygen Delivery Method Room Air Weight: 267 lb 6.731 oz Body Mass Index (BMI) 38.3 Intake & Output: Intake and Output for Last 24 Hours 10/17/23 10/18/23 10/19/23 23:59 23:59 23:59 Intake Total 1240 / 1240 Balance 1240 / 1240 Lab / Micro Data 10/19/23 04:25 10/19/23 04:25 Labs: Laboratory Results - last 24 hr 10/18/23 13:03: POC Glucose 381 H 10/18/23 13:10: WBC 7.5, RBC 5.81, Hgb 16.8 H, Hct 49.0, MCV 84.3, MCH 28.9, MCHC 34.3, RDW Std Deviation 41.6, RDW Coeff of Darrel 13.5, Plt Count 218, MPV 10.5, Immature Gran % (Auto) 0.800, Neut % (Auto) 74.9 H, Lymph % (Auto) 14.9 L, Liberty % (Auto) 5.6, Eos % (Auto) 3.1, Baso % (Auto) 0.7, Absolute Neuts (auto) 5.6, Absolute Lymphs (auto) 1.11, Nucleated RBC % 0, Sodium 133 L, Potassium 4.1, Chloride 101, Carbon Dioxide 27.0, Anion Gap 5, BUN 12, Creatinine 1.07, Estim Creat Clear Calc 84.33, Est GFR (MDRD) Af Amer 94, Est GFR (MDRD) Non-Af 77, BUN/Creatinine Ratio 11.2, Glucose 386 H, Hemoglobin A1c 11.4 H, Calcium 8.6, Troponin I High Sens 40, Triglycerides 420 H, Cholesterol 196, LDL Cholesterol TNP, VLDL Cholesterol TNP, HDL Cholesterol 14 L, TSH 0.97 10/18/23 17:58: POC Glucose 257 H 10/18/23 22:31: POC Glucose 389 H 10/19/23 03:19: POC Glucose 254 H 10/19/23 04:25: WBC 8.8, RBC 5.53, Hgb 15.8, Hct 47.9, MCV 86.6, MCH 28.6, MCHC 33.0, RDW Std Deviation 42.5, RDW Coeff of Darrel 13.4, Plt Count 215, MPV 10.8, Sodium 137, Potassium 3.9, Chloride 104, Carbon Dioxide 28.0, Anion Gap 5, BUN 12, Creatinine 0.95, Estim Creat Clear Calc 94.99, Est GFR (MDRD) Af Amer 108, Est GFR (MDRD) Non-Af 89, BUN/Creatinine Ratio 12.6, Glucose 270 H, Calcium 7.8 L 10/19/23 06:35: POC Glucose 237 H Rhythm Strip Rhythm Strip: Sinus Rhythm Rate: 86 Ectopy: None and - (Deep T waves noted symmetrically throughout the precordium) Cardiology Labs/Tests 10/18/23 13:10: WBC 7.5, RBC 5.81, Hgb 16.8 H, Hct 49.0, MCV 84.3, MCH 28.9, MCHC 34.3, Plt Count 218, MPV 10.5, Immature Gran % (Auto) 0.800, Neut % (Auto) 74.9 H, Lymph % (Auto) 14.9 L, Liberty % (Auto) 5.6, Eos % (Auto) 3.1, Baso % (Auto) 0.7, Absolute Neuts (auto) 5.6, Nucleated RBC % 0, Sodium 133 L, Potassium 4.1, Chloride 101, Carbon Dioxide 27.0, Anion Gap 5, BUN 12, Creatinine 1.07, Est GFR (MDRD) Af Amer 94, Est GFR (MDRD) Non-Af 77, BUN/Creatinine Ratio 11.2, Glucose 386 H, Hemoglobin A1c 11.4 H, Calcium 8.6, Triglycerides 420 H, Cholesterol 196, LDL Cholesterol TNP, VLDL Cholesterol TNP, HDL Cholesterol 14 L 10/19/23 04:25: WBC 8.8, RBC 5.53, Hgb 15.8, Hct 47.9, MCV 86.6, MCH 28.6, MCHC 33.0, Plt Count 215, MPV 10.8, Sodium 137, Potassium 3.9, Chloride 104, Carbon Dioxide 28.0, Anion Gap 5, BUN 12, Creatinine 0.95, Est GFR (MDRD) Af Amer 108, Est GFR (MDRD) Non-Af 89, BUN/Creatinine Ratio 12.6, Glucose 270 H, Calcium 7.8 L Rhythm: EKG: ECHO: Stress Test: Cardiac Cath: PCI: CT Surgery: Holter monitor: EPS: PPM: CXR: Chest CT Scan: Radiography Diagnostic Testing: Radiology Impression Chest X-Ray 10/18/23 13:04 IMPRESSION: No acute abnormality is present. Electronically Signed: Yoseph Lewis MD at 13:19 EST , Physical Exam Const alert, oriented x3 and no apparent distress General Appearance: cooperative HEENT hearing grossly normal bilaterally Head and Scalp: atraumatic Eyes EOMs intact bilaterally Neck General: normal visual inspection Chest inspection of chest normal and palpation of chest normal Resp normal respiratory effort Auscultation: clear to auscultation bilaterally Cardio regular rate, regular rhythm, S1 normal heart sound and S2 normal heart sound Jugular Venous Distention: JVD GI normal to inspection, nondistended, normoactive bowel sounds Extremity normal capillary refill and no pedal edema Peripheral Pulses: Yes pulses 2+ throughout and femoral pulses present Skin no rashes or lesions noted Neuro oriented x3 and CN's II-XII intact bilaterally Psych Appearance: grossly normal and appropriate Assessment & Plan Assessment/Plan (1) Abnormal ECG: PLAN: He has a markedly abnormal EKG with T wave inversions across the precordium. With his newly documented and diagnosed diabetes we need to exclude coronary ischemia. Hypertrophic cardiomyopathy especially of the apical variety cannot be completely excluded and an echocardiogram should be performed to exclude the above. Cardiac catheterization demonstrated the following: Normal coronary arteries. Left ventricular hypertrophy with apical spade like configuration consistent with hypertrophic cardiomyopathy of the apical variety. We will recommend beta-blockers. Thank you for allowing me to participate in the care of your patient. Please don't hesitate to call if any issues arise.
--- NOTE | 2023-10-19 08:25 | CL.D_ITS ---
Patient Name: LISA MEDINA Study Date: 10/19/2023 Performing: José Miguel Wu MD Ht: 70 inches 177.8 cm : 1970 Wt: 267.42 lbs 121.3 kg Age: 53 Gender: male BSA: 2.36 PROCEDURE(S) PERFORMED [id number]-([id number])LHC/COR/LV CLINICAL PROFILE AND INDICATIONS Indications: Suspected CAD Heart Failure: None Stress/Imaging Stress/Image Study Performed: No CAD Presentations: No Sxs, no angina. CONCLUSIONS Normal coronary arteries Normal LV size, wall motion,and systolic function RECOMMENDATIONS Medical therapy DESCRIPTION OF PROCEDURE The patient arrived to the procedure lab. The risks and benefits of the procedure as well as a full description of our services here and current unavailability of surgical backup were fully explained to the patient and/or their significant other prior to the catheterization. The Timeout was completed, verifying the correct patient and procedure. The patient's procedural site was prepped and draped in the usual fashion. Local anesthetic was given subcutaneously to right radial region with Lidocaine 2%. Using a modified Seldinger technique, arterial access was obtained via the right radial artery, a 6Fr sheath was inserted. Right Coronary Artery selective angiography was then performed in multiple views using a 5 Fr. 4.0 Horn[place] catheter. Left Coronary Artery selective angiography was performed in multiple views using a 5 Fr. 4.0 [place] catheter. Left Ventriculography was performed in ZAMORA projection using a 5 Fr. Pigtail catheter. LV to AO pullback pressures were then recorded.The arterial sheath was pulled and a TR Band was applied for hemostasis CORONARY ANGIOGRAPHY DOMINANCE: Right Dominant LEFT HEART ASSESSMENT Left Ventricular Ejection Fraction: by LV Gram 75 % Normal LV wall motion Cardiomyopathy: Hypertrophic Apical hypertrophy noted LEFT MAIN: Angiographically normal LEFT ANTERIOR DESCENDING ARTERY: Angiographically normal CIRCUMFLEX ARTERY: Angiographically normal RIGHT CORONARY ARTERY: Angiographically normal COMPLICATIONS No Complications PROCEDURE MEDICATIONS Versed 1 mg IV Fentanyl 50 mcg IV Versed 1 mg IV Oxygen: 2 L/min via nasal cannula Baby Aspirin (81mg) 1 Tabs PO @ 10/19/2023 07:39:10 Heparin given IA 10/19/2023 07:56:13 Verapamil 2.5mg, Ntg 200mcgs, 2000 units of Heparin given IA 10/19/2023 07:56:13 SUMMARY OF HEMODYNAMIC DATA Time AIR REST AO 120/88 (104) SA 07:57:26 LV 125/14, 26 08:06:31 LV 124/18, 25 08:06:40 LV 125/13, 23 08:07:11 LV 122/16, 24 08:07:19 LVp 120/13, 23 08:07:28 AOp 0/0 (66) 08:07:35 ECG 08:21:29 AIR REST 08:21:29 Signed By José Miguel Wu MD On 10/19/2023 08:24:15 José Miguel Wu MD
--- NOTE | 2023-10-19 09:52 | CASEMGMT ---
Social Work As per admitting e merchant, pt does not have LW/POA and declined further information. IRIS Pantoja
[2023-10-19] MEDS: Pantoprazole Sodium 20 MG Tablet PO (10:52)
[2023-10-19] MEDS: Metoprolol(XL)Succ 50 MG Tablet PO (10:52)
--- NOTE | 2023-10-19 10:55 | CASEMGMT ---
RN CM Face to Face with patient for initial transition planning/care coordination assessment. RN CM introduced self and role at [facility]. Patient lying in bed, alert and oriented. Patient willing to participate in assessment and is able to answer all questions appropriately. Care providers, pharmacy, and demographics verified. Patient wishes to discharge home, denies need for home health at this time. Patient states he has no further needs or concerns at this time. CM to follow for discharge planning needs that may arise. PCP: Estevan Specialists: benedicto ANDERSON Pharmacy: [facility] Insurance: MMO Prescription Benefit: yes Living Will/HPOA: none LNOK: Living Arrangements: Patient lives with in a 2 story home. Patient is independent and able to ambulate stairs. Transportation: self, DME/HHC: Patient has cpap and nebulizer at home. No previous HHC or SNF. Patient will benefit from glucometer at discharge, CM to assist with obtaining script Disposition Plan: Patient to discharge home with family support and follow-up plans in place. Holli GARNICA, RN, CM
[2023-10-19] MEDS: Insulin Glargine-YFGN 100 UNIT/ML Pen 7 UNIT SC (11:04)
[2023-10-19 11:57] LABS: Bedside Glucose 261 mg/dL (74-106)
--- NOTE | 2023-10-19 13:32 | CASEMGMT ---
Patient discharging on insulin and will need glucometer at discharge. Script received and provided to patient. Patient denied further needs or concerns at discharge. in nurse and able to assist with care if needed. Patient had no further questions.
--- NOTE | 2023-10-19 14:44 | DCINST_ITS ---
Discharge Instructions Diet Discharge Diet: Carb Control Diet Activity Discharge Activity: - (Increase activity as tolerated) Follow Up Care Test Results: Test results from this visit will be discussed in further detail at your follow- up appointment, if applicable. Discharge Plan Admission Admit Date/Time: 10/18/23 15:43 Primary Reason for Your Visit: Lightheaded episode Attending Provider: Lissy Goel Primary Care Provider: Avinash Barreto Consulting Providers: José Miguel Wu; Andrew Brown Instructions Patient Instructions: Insulin How To Use Where Inject, Injection Pens Dc, Insulin Pen Clear Insulin Steps, ED Using an Injection Pen Additional Instructions / Restrictions: DISCHARGE INSTRUCTIONS PLEASE READ *Please take this with you to your next doctors appointment* -You will be discharged on long-acting insulin, 10 units, and will likely need further adjustments on an outpatient basis so please check your blood glucose daily and take this log with you at your next primary care physician appointment -You will also be started on metoprolol, please take this as prescribed -Please follow-up with an eye doctor upon discharge -You will need to follow-up with cardiology upon discharge, please call the office of Dr. Wu upon discharge to schedule your hospital follow-up appointment ) -Please call your primary care provider's office upon discharge to schedule a hospital follow up within 1 week. -For any concerning signs or symptoms please call 911 or proceed to the nearest emergency department Discharge Orders/Prescriptions Prescriptions: New metoprolol succinate 50 mg Tablet Extended Release 24 Hr 50 mg PO DAILY Qty: 30 0RF (DME) pen needle, diabetic [BD Ultra-Fine Short Pen Needle] 31 gauge x 5/16 needle See Rx Instructions .Route Qty: 100 3RF Rx Instructions: As directed insulin glargine-yfgn 100 unit/mL (3 mL) Insulin Pen 10 unit subcut DAILY Qty: 15 0RF Rx Instructions: Inject 10 u daily Continued albuterol sulfate [Ventolin HFA] 90 mcg/actuation HFA aerosol inhaler 2 puff inhalation Q6H PRN (Reason: SOB) danazol 200 mg capsule 200 mg PO BID Patient Comments: loratadine [Claritin] 10 mg Tablet 10 mg PO DAILY PRN (Reason: ALLERGIES) omeprazole 20 mg capsule,delayed release(DR/EC) 20 mg PO DAILY Referrals / Follow Up: José Miguel Wu MD [Med Staff - Active Staff] - Avinash Barreto MD [Primary Care Provider] - Within 1 Week Disposition Disposition (needs filled in before D/C Order can be placed): Home, Self Care
--- NOTE | 2023-10-19 14:49 | PCM.DC.SUM ---
Providers Date of Admission: 10/18/23 Date of Discharge: 10/19/23 Primary Care Physician: Dr. Avinash Barreto MD Consultations 10/18/23 17:05 Consult: Cardiology Routine Consulting Provider: José Miguel Wu Reason for Consult: Ischemic EKG changes, rule out ACS EMERGENT Consult: No MD Notified: Yes Date Notified: 10/18/23 Time Notified: 17:18 Method of Notification: Text Reason For Visit: NEAR SNYCOPE WITH EKG CHANGES/NEW ONSET DIABETES Diagnosis Discharge Diagnosis (1) Abnormal ECG: Status: Acute Code(s): R94.31 - Abnormal electrocardiogram [ECG] [EKG] (2) HOCM (hypertrophic obstructive cardiomyopathy): Status: Acute Code(s): I42.1 - Obstructive hypertrophic cardiomyopathy (3) New onset type 2 diabetes mellitus: Status: Acute Code(s): E11.9 - Type 2 diabetes mellitus without complications Plan #Apical HOCM #New onset DMII Medications at Discharge Home Medications albuterol sulfate 90 mcg/actuation aerosol inhaler (Ventolin HFA) 2 puff inhalation Q6H PRN SOB 12/26/21 danazol 200 mg capsule 200 mg PO BID hormones 12/26/21 loratadine 10 mg tablet (Claritin) 10 mg PO DAILY PRN ALLERGIES 02/21/22 omeprazole 20 mg capsule,delayed release 20 mg PO DAILY reflux 10/18/23 insulin glargine-yfgn 100 unit/mL (3 mL) subcutaneous pen 10 unit (0.1 mL) subcut DAILY #15 mL 10/19/23 metoprolol succinate 50 mg tablet,extended release 24 hr 50 mg PO DAILY #30 tabs 10/19/23 pen needle, diabetic 31 gauge x 5/16 (BD Ultra-Fine Short Pen Needle) #100 ea 10/19/23 Hospital Course Procedures Cardiac catheterization Summary of Care Provided Minutes Spent on Discharge: 32 Hospital Course: 53-year-old male history of NEREIDA with CPAP, GERD, asthma, anxiety presented to [facility] 10/18/2023 after near syncopal episode at the store. He was at the grocery store and had an episode of lightheadedness and tunnel vision but did not lose consciousness. He has had similar episodes several times over the past few months and was admitted and cardiology consulted with plan for heart catheter patient. Additionally patient with new onset type 2 diabetes with an A1c of 11.4 and glucose 386 on admit. Patient had cardiac cath, discussed with residential caregiver and patient has HOCM, it is advised to be started on a beta-laly and follow-up outpatient for further monitoring and management. Patient discharged home in stable condition on beta-laly and insulin. Physical Exam Narrative General: Alert, oriented, no apparent distress HEENT: Atraumatic, normocephalic Eyes: Anicteric, normal conjunctiva, extraocular movements grossly intact Neck: Supple Respiratory: Clear to auscultation bilaterally, normal respiratory effort Cardiovascular: Regular rate and rhythm GI: Soft, nontender, nondistended Extremities: No edema Musculoskeletal: Moving all extremities Neuro: No overt focal neurological deficits Skin: No rashes appreciated Psych: Cooperative Weight / BMI Weight Weight: 121.3 kg Body Mass Index (BMI) 38.3 ABG / Lab / Microbiology Data 10/19/23 04:25 10/19/23 04:25 Laboratory: Laboratory Results - last 24 hr 10/18/23 13:10: Hemoglobin A1c 11.4 H, Triglycerides 420 H, Cholesterol 196, LDL Cholesterol TNP, VLDL Cholesterol TNP, HDL Cholesterol 14 L, TSH 0.97 10/18/23 17:58: POC Glucose 257 H 10/18/23 22:31: POC Glucose 389 H 10/19/23 03:19: POC Glucose 254 H 10/19/23 04:25: WBC 8.8, RBC 5.53, Hgb 15.8, Hct 47.9, MCV 86.6, MCH 28.6, MCHC 33.0, RDW Std Deviation 42.5, RDW Coeff of Darrel 13.4, Plt Count 215, MPV 10.8, Sodium 137, Potassium 3.9, Chloride 104, Carbon Dioxide 28.0, Anion Gap 5, BUN 12, Creatinine 0.95, Estim Creat Clear Calc 94.99, Est GFR (MDRD) Af Amer 108, Est GFR (MDRD) Non-Af 89, BUN/Creatinine Ratio 12.6, Glucose 270 H, Calcium 7.8 L 10/19/23 06:35: POC Glucose 237 H 10/19/23 11:25: POC Glucose 261 H Radiography Diagnostic Testing: Radiology Impression Echocardiogram 10/18/23 17:05 Interpretation Summary Normal LV size. Left ventricular systolic function is normal. The left ventricular ejection fraction is 75 %. Pulmonary artery systolic pressure is 20 mmHg. Apical hypertrophy Ordering Physician: Andrew Brown Referring Physician: Christiano Barreto Performed By: Lillian Maynard, ROBERTA, RVT D/C Instructions Discharge Diet: Carb Control Diet Meaningful Use Info Meaningful Use Diagnoses (Choose all that apply): None applicable Discharge Plan Admission Admit Date/Time: 10/18/23 15:43 Primary Reason for Your Visit: Lightheaded episode Attending Provider: Lissy Goel Primary Care Provider: Avinash Barreto Consulting Providers: José Miguel Wu; Andrew Brown Instructions Patient Instructions: Insulin How To Use Where Inject, Injection Pens Dc, Insulin Pen Clear Insulin Steps, ED Using an Injection Pen Additional Instructions / Restrictions: DISCHARGE INSTRUCTIONS PLEASE READ *Please take this with you to your next doctors appointment* -You will be discharged on long-acting insulin, 10 units, and will likely need further adjustments on an outpatient basis so please check your blood glucose daily and take this log with you at your next primary care physician appointment -You will also be started on metoprolol, please take this as prescribed -Please follow-up with an eye doctor upon discharge -You will need to follow-up with cardiology upon discharge, please call the office of Dr. Wu upon discharge to schedule your hospital follow-up appointment (ph [phone]) -Please call your primary care provider's office upon discharge to schedule a hospital follow up within 1 week. -For any concerning signs or symptoms please call 911 or proceed to the nearest emergency department Discharge Orders/Prescriptions Prescriptions: New metoprolol succinate 50 mg Tablet Extended Release 24 Hr 50 mg PO DAILY Qty: 30 0RF (DME) pen needle, diabetic [BD Ultra-Fine Short Pen Needle] 31 gauge x 5/16 needle See Rx Instructions .Route Qty: 100 3RF Rx Instructions: As directed insulin glargine-yfgn 100 unit/mL (3 mL) Insulin Pen 10 unit subcut DAILY Qty: 15 0RF Rx Instructions: Inject 10 u daily Continued albuterol sulfate [Ventolin HFA] 90 mcg/actuation HFA aerosol inhaler 2 puff inhalation Q6H PRN (Reason: SOB) danazol 200 mg capsule 200 mg PO BID Patient Comments: loratadine [Claritin] 10 mg Tablet 10 mg PO DAILY PRN (Reason: ALLERGIES) omeprazole 20 mg capsule,delayed release(DR/EC) 20 mg PO DAILY Referrals / Follow Up: José Miguel Wu MD [Med Staff - Active Staff] - Avinash Barreto MD [Primary Care Provider] - Within 1 Week Disposition Disposition (needs filled in before D/C Order can be placed): Home, Self Care Charges/Coding Visit Charges Inpatient E&M: 27338 Disch Hosp >30min
--- NOTE | 2023-10-19 15:58 | PHA.DC_ITS ---
Pharmacy [facility] has performed discharge medication reconciliation and counseling for this patient. The patient's discharge medication list was reviewed for discrepancies and discrepancies were resolved. The patient was counseled on the following discharge medications and changes in medications for homegoing were reviewed. The Reason for Use, instructions for use, and potential side effects were reviewed for all new medications. The patient's questions regarding all of their medications were answered. 1. Insulin glargine 10 units subcutaneous daily 2. Metoprolol succinate 50 mg PO daily The patient was able to verbally demonstrate an understanding of their discharge medications. Medications at Discharge Home Medications albuterol sulfate 90 mcg/actuation aerosol inhaler (Ventolin HFA) 2 puff inhalation Q6H PRN SOB 12/26/21 danazol 200 mg capsule 200 mg PO BID hormones 12/26/21 loratadine 10 mg tablet (Claritin) 10 mg PO DAILY PRN ALLERGIES 02/21/22 omeprazole 20 mg capsule,delayed release 20 mg PO DAILY reflux 10/18/23 insulin glargine-yfgn 100 unit/mL (3 mL) subcutaneous pen 10 unit (0.1 mL) subcut DAILY #15 mL 10/19/23 metoprolol succinate 50 mg tablet,extended release 24 hr 50 mg PO DAILY #30 tabs 10/19/23 pen needle, diabetic 31 gauge x 5/16 (BD Ultra-Fine Short Pen Needle) #100 ea 10/19/23
== END 2023-10-19 16:31 | disposition home or self-care (01) | DRG 287 ==
LOC: ED 14:39 → PCU 10-19 07:02
PROVIDERS: Admitting Provider Hospitalist; Emergency Provider Emergency Medicine; PCP Family Medicine; Visit Provider Internal Medicine
DX: I42.1 Obstructive hypertrophic cardiomyopathy (principal); E11.65 Type 2 diabetes mellitus with hyperglycemia; R94.31 Abnormal electrocardiogram [ECG] [EKG]; R55 Syncope and collapse; K21.9 Gastro-esophageal reflux disease without esophagitis; G47.33 Obstructive sleep apnea (adult) (pediatric); E66.9 Obesity, unspecified; Z87.891 Personal history of nicotine dependence; Z86.16 Personal history of COVID-19; Z68.38 Body mass index [BMI] 38.0-38.9, adult; J45.909 Unspecified asthma, uncomplicated; Z79.899 Other long term (current) drug therapy
CPT/HCPCS: 36415; 71045; 80048; 80061; 82962; 83036; 84443; 84484; 85025; 85027; 93005; 93306; 93458; 94668; 96360; 97802; 99152; 99153; 99221; 99252; 99285; J7030; J7120; Q9957; Q9967; A4216; C1769; C1894; C8929; G0378; G0463

== ENCOUNTER → 2023-12-20 | Outpatient (CLI) | payer OTHER, SELFPAY ==
[2023-12-20 16:52] LABS: AST(SGOT) 19 U/L (15-37); Alanine Aminotransfer ALT/SGPT 52 U/L (16-61); Albumin, Serum 3.6 g/dL (3.2-5.0); Alkaline Phosphatase 55 U/L (45-117); Bilirubin, Direct 0.19 mg/dL (0.00-0.30); Cholesterol 172 mg/dL (200); Globulin 3.5 g/dL (2.2-4.2); High Density Lipoprotein 25 mg/dL; Protein, Total 7.1 g/dL (6.4-8.2); Triglycerides 160 mg/dL; Very Low Density Lipoprotein 32 mg/dL (5-40)
== END | disposition home or self-care (01) ==
LOC: LAB 14:58
PROVIDERS: PCP Family Medicine; Visit Provider Nurse Practitioner Gerontology
DX: E78.5 Hyperlipidemia, unspecified (principal)
CPT/HCPCS: 36415; 80061; 80076

== ENCOUNTER 2024-02-26 17:05 | Emergency (ER) | payer OTHER, SELFPAY ==
[2024-02-26 17:06] VITALS: BP 138/93; PULSE 74; RESP 16; TEMP 36.4; O2SAT 95; BMI 36.3
--- NOTE | 2024-02-26 17:41 | EKG12_ITS ---
Test Reason : DIZZINESS Blood Pressure : / mmHG Vent. Rate : 073 BPM Atrial Rate : 073 BPM P-R Int : 170 ms QRS Dur : 096 ms QT Int : 392 ms P-R-T Axes : 006 046 -08 degrees QTc Int : 431 ms Normal sinus rhythm Nonspecific T wave abnormality Abnormal ECG Confirmed by Karan Aparicio ([id number]), manager editorial LIZA TRAVIS ([id number]) on 02/27/2024 10:34:32 AM Referred By: Confirmed By:Karan Aparicio
--- NOTE | 2024-02-26 17:53 | ED.RN ---
verbal order from Dr. Montgomery for CT head and CTA head on patient in triage, patient denies kidney problems, nothing found in chart. Dr. Montgomery aware patient is diabetic.
--- NOTE | 2024-02-26 17:54 | CT_ITS ---
STUDY: CTA HEAD AND NECK WITH CONTRAST REASON FOR EXAM: Male, 53 years old. NEURO SYMPTOMS RADIATION DOSAGE (If Supplied By Facility): CTDIvol = ( 28.29 ) mGy, DLP = ( 1659.65 ) mGycm TECHNIQUE: CT angiography was performed with a multi-detector CT scanner. Data acquisition was obtained from the skull base through the vertex following intravenous administration of IV 100mL Isovue-370. MIP images were reconstructed from the axial data set. Post-processing of the angiographic images was performed, with multiplanar reformation and 3D reconstruction. Individualized dose optimization techniques were used for this CT. COMPARISON: No relevant priors. FINDINGS: Normal bilateral petrous carotid arteries. Normal right cavernous carotid artery with a normal supraclinoid bifurcation. Normal left cavernous carotid artery with a normal supraclinoid bifurcation. Normal right A1 segments of the anterior cerebral artery. Normal left A1 segments of the anterior cerebral artery. Normal intact anterior communicating artery (ACOM). Normal bilateral A2 segments of the anterior cerebral arteries. Normal right M1 and M2 segments of the middle cerebral arteries, with a normal M1 bifurcation. Normal left M1 and M2 segments of the middle cerebral arteries, with a normal M1 bifurcation. Normal right posterior communicating artery (PCOM). Normal left posterior communicating artery (PCOM). Normal bilateral vertebral arteries. Normal basilar artery with a normal basilar bifurcation. The visualized bilateral superior cerebellar (SCA) arteries are normal. Normal bilateral P1, P2 and visualized P3 segments of the posterior cerebral arteries. There is no demonstrated aneurysm of the [place]. There is no demonstrated abnormality of the visualized brain. AORTIC ARCH: Normal visualized aortic arch. Normal origins of the brachiocephalic, left common carotid, and left subclavian arteries. RIGHT CAROTID ARTERIES: Normal right common carotid artery (CCA). Normal right common carotid bulb. Normal origin of the right internal carotid (ICA) artery without a hemodynamically significant stenosis. There is atherosclerotic tortuous elongation of the cervical portion of the right internal carotid artery. Normal origin of the right external carotid artery (ECA). LEFT CAROTID ARTERIES: Normal left common carotid artery (CCA). Normal left common carotid bulb. Normal origin of the left internal carotid (ICA) artery without a hemodynamically significant stenosis. There is atherosclerotic tortuous elongation of the cervical portion of the left internal carotid artery. Normal origin of the left external carotid artery (ECA). VERTEBRAL ARTERIES: Normal bilateral vertebral arteries. CT/CTA Head AND Neck W/ Contrast IMPRESSION: Normal CTA Head and neck with contrast. No aneurysm or large vessel occlusion. No internal carotid artery stenosis. Electronically Signed: Quang Olson MD at 19:48 EDT ,
[2024-02-26 18:00] LABS: Absolute Neutrophil Count 5.8 X10^3/uL (2.0-7.7); Basophil# 0.07 X10^3/uL; Basophil% 0.9 % (0-1); Eosinophil# 0.17 X10^3/uL; Eosinophils% 2.1 % (0-5); Hematocrit 53.3 % (40-54); Hemoglobin 17.1 g/dL (13.0-16.5); Lymphocyte % 16.3 % (19-41); Mean Corp Hgb Conc 32.1 g/dL (32-36); Mean Corpuscular Hgb 27.9 pg (27.0-32.0); Mean Corpuscular Volume 86.9 fL (80-94); Mean Platelet Vol. 10.6 fl (6.2-12.0); Monocyte# 0.55 X10^3/uL; Monocyte% 6.9 % (0-10); NRBC Flagged by Analyzer 0 % (0-5); Neutrophil # 5.84 X10^3/uL (2.7-7.7); Neutrophil % 73.2 % (47-70); Platelet Count 204 K/mm3 (150-450); RBC Distribution Width CV 13.5 % (11.6-14.6); RBC Distribution Width SD 42.8 fl (35.1-43.9); Red Blood Count 6.13 M/mm3 (4.6-6.2)
[2024-02-26 18:09] LABS: Partial Thromboplast Time 23.8 Seconds (24.1-36.2); Prothrombin Time (Protime)PT. 13.4 SECONDS (11.7-14.9)
[2024-02-26 18:23] VITALS: BP 130/80; PULSE 68; RESP 12; O2SAT 96
--- NOTE | 2024-02-26 18:33 | EX.ED.DYSGE1 ---
HPI History of Present Illness Chief Complaint: Neuro S/Sx Informant: patient Onset/Context/Timing Onset: Today and Hours Context: Sudden Onset Timing: Continuous Current Severity: Gone Maximum Severity: Moderate Narrative Narrative: 53-year-old male history of diabetes and familial angioedema. Was sitting at work today look at his computer screen that he felt dizzy and he got blurred vision in his left eye on the left lateral peripheral field. This occurred around 4 PM. He denied any headache. No chest pain. No shortness of breath. Denies any recent illness. He said did not want to both eyes he does have blurry vision bilaterally. This whole episode lasted about 45 minutes. Coworker took him to the urgent care urgent care said he had normal vital signs and a blood sugar of 83 at that time and seen in the ER. Currently says he is feeling fine. His visual disturbance has resolved. He had no weakness in his arms or legs. He had tingling in the left side of his face which is resolved also. No history of stroke or mini stroke. No history of dysrhythmia. Prior similar symptoms: No Recent Illness/Hospitalization: No PFSH PFSH Medical History Alcohol use Anxiety Asthma Back pain Chest pain COVID CPAP (continuous positive airway pressure) dependence Exertional chest pain Former smoker Gastric reflux Gastroparesis History of diverticulitis History of hiatal hernia History of Holter monitoring History of irregular heartbeat History of pain when walking Joint stiffness Restless legs Shortness of breath on exertion Sleep apnea Vertigo Home Medications albuterol sulfate 90 mcg/actuation aerosol inhaler (Ventolin HFA) 2 puff inhalation Q6H PRN SOB 12/26/21 [History Last Taken Unknown] danazol 200 mg capsule 200 mg PO BID hormones 12/26/21 [History Last Taken Unknown] loratadine 10 mg tablet (Claritin) 10 mg PO DAILY PRN ALLERGIES 02/21/22 [History Last Taken Unknown] insulin glargine-yfgn 100 unit/mL (3 mL) subcutaneous pen 10 unit (0.1 mL) subcut DAILY #15 mL 10/19/23 [Rx Last Taken Unknown] pen needle, diabetic 31 gauge x 5/16 (BD Ultra-Fine Short Pen Needle) #100 ea 10/19/23 [Rx Last Taken Unknown] metoprolol succinate 50 mg tablet,extended release 24 hr 50 mg PO DAILY #30 tabs 10/30/23 [Rx Last Taken Unknown] losartan 25 mg tablet 25 mg PO DAILY #30 tabs 12/14/23 [Rx Last Taken Unknown] Allergy/AdvReac Type Severity Reaction Status Date / Time Environmental Allergies: Allergy Mild Other Verified 12/14/23 15:09 Uncoded metformin Allergy Mild Rash Verified 12/14/23 15:09 Family History Mother Arthritis Hypertension High cholesterol Angioedema Uncle Melanoma Surgical History History of excision of pilonidal cyst Social History Smoking Status: Former smoker alcohol intake: current alcohol intake frequency: a few times a month Alcohol type: beer substance use type: does not use what type of physical activity do you participate in: none ROS ROS ED ROS Narrative Denies recent illness. Review of Systems ROS Unobtainable: Denies due to encephalopathy Constitutional Constitutional ED: Denies chills or fever(s) Eyes Eyes: Denies blurry vision Cardiovascular Cardiovascular: Denies chest pain Respiratory/Chest Respiratory/Chest: Denies cough or dyspnea Gastrointestinal Gastrointestinal: Denies abdominal pain, nausea or vomiting Genitourinary Genitourinary ED: Denies dysuria or hematuria Musculoskeletal Musculoskeletal: Denies arthralgias Integumentary Denies abscess or Abrasions Neurologic Neurologic: Denies headache(s) Psychiatric Psychiatric: Denies anxiety or depression Endocrine Endocrinology: Denies cold intolerance Hematologic/Lymphatic Hematologic/Lymphatic: Reports none Allergic/Immunologic Allergic/Immunologic ED: Denies mouth swelling, tongue swelling or urticaria EXAM Physical Exam Narrative Exam Narrative: Well-appearing 53-year-old male. Vital signs stable afebrile. Initial blood pressure 138/93. Pulse ox 95%. He does not look septic toxic. He is sitting upright in bed. Significant other at bedside. He is in no distress. HEENT exam normal. Pupils round react to light his motions are intact. No facial droop. Tongue midline. Normal speech. Lungs clear to auscultation bilaterally. Heart regular rhythm no murmur. Abdomen is soft and nontender. Extremities moving all 4. 5 out of 5 shipping and receiving material handler strength. Dorsi and plantarflexion intact. NIH is 0. Const Vital Signs: 02/26/24 17:06 02/26/24 18:22 02/26/24 18:23 Temperature 97.6 F L Temperature Source Temporal Pulse Rate 74 68 Respiratory Rate 16 12 Blood Pressure 138/93 H 130/80 H Blood Pressure Mean 108 96 Pulse Ox 95 96 Oxygen Delivery Method Room Air Room Air Room Air 02/26/24 19:05 Temperature Temperature Source Pulse Rate 61 Respiratory Rate 15 Blood Pressure 134/84 H Blood Pressure Mean 100 Pulse Ox 93 Oxygen Delivery Method Room Air Positive well nourished and well developed; Negative for cachectic, contractures or unkempt General Appearance ED: well developed and NAD; Negative for unkempt, cachectic, contractures, cyanotic, diaphoretic or pallor Nutritional Appearance: Negative for cachectic HEENT Reports moist mucous membranes; Denies dry mucous membranes Negative for trauma or tenderness Mouth ED: No dry mucous membranes Mouth: No dry mucous membranes Eyes PERRL and EOMs intact bilaterally General Eye ED: Negative for pale conjunctiva, scleral icterus or other Neck no lymphadenopathy, supple and no JVD General: Negative for tenderness Lymph Lymphatic: Negative for other Chest Wall inspection of chest normal and palpation of chest normal Chest: Negative for other Resp normal respiratory effort and clear to auscultation bilaterally Effort and Inspection: Negative for retractions Auscultation: Negative for rales, rhonchi or wheezes Cardio regular rate, regular rhythm, S1 normal heart sound, S2 normal heart sound and no murmurs Palpation: Negative for palpable S3 or palpable S4 Rate: Negative for bradycardia or tachycardic Rhythm: Negative for abnormal rhythm GI normal to inspection, nondistended, normoactive bowel sounds, non-tender, non-distended and no masses Inspection: Negative for abdominal distention Auscultation: normoactive bowel sounds Palpation: soft; Negative for tender, guarding or rebound tenderness present Back/Spine no CVA tenderness General Back: Negative for CVA tenderness Cervical Spine: Negative for cervical spine tenderness Thoracic Spine / Upper Back: Negative for thoracic spinal tenderness or paraspinal muscle tenderness Lumbar Spine / Lower Back: Negative for lumbar spinal tenderness Extremity General Extremety ED: Negative for edema or tenderness General Extremity: Negative for edema Neuro oriented x3, CN's II-XII intact bilaterally and no sensory deficits noted Neuro Narrative: Awake alert and oriented. Normal speech. No facial droop. Pupils round reactive light. Bilateral shipping and receiving material handler strength. Bilateral dorsi plantarflexion. Fingertip to nose and [id number] within normal limits. NIH 0. Sensorium / Orientation: alert; Negative for orientation impaired, lethargic or stuporous Sensory Exam: No sensory level loss detected Motor Exam: strength 5/5 throughout Psych mental status grossly normal Appearance: Negative for unkempt Attitude: No agitated Mood & Affect: Negative for depressed, anxious or tearful Skin no rashes or lesions noted, no wounds and skin turgor normal General Skin Exam: Negative for jaundice, pallor or other Lesions: No lesion noted Rashes: No rashes noted Trauma: Negative for abrasion Wounds: Negative for wounds noted MDM MDM MDM Narrative Medical decision making narrative: 53-year-old male with acute vision change initially left eye then right with some left-sided facial tingling that is now resolved. No prior history. Normal exam and normal normal neurologic exam at this time. Will undergo a stroke workup. Repeat exam patient doing well at 830. No complaints. No symptoms. His neurologic exam remains normal. His vital signs are stable. We discussed all his test results. He and his are comfortable with him being discharged home. With outpatient follow-up. I have Dr. James Ji on-call for the patient's primary care physician and Dr. Sean Dumont. History & Record Review Discussion w/independent historian: Patient Additional record(s) reviewed:: Prior inpatient record, Prior outpatient record, Prior ED visit and Prior labs Lab Data Attestation: I reviewed the patient's lab results. Lab results narrative: CBC white count 8. H&H 17 and 53. Platelets 204. PT INR and PTT are 13, 1 and 23. Electrolytes unremarkable gap 6. Normal BUN and creatinine. Glucose 112. CT of his brain and CTA of his head and neck shows no acute abnormality. Labs: Laboratory Results - last 24 hr 02/26/24 17:50 WBC 8.0 RBC 6.13 Hgb 17.1 H Hct 53.3 MCV 86.9 MCH 27.9 MCHC 32.1 RDW Std Deviation 42.8 RDW Coeff of Darrel 13.5 Plt Count 204 MPV 10.6 Immature Gran % (Auto) 0.600 Neut % (Auto) 73.2 H Lymph % (Auto) 16.3 L [place] % (Auto) 6.9 Eos % (Auto) 2.1 Baso % (Auto) 0.9 Absolute Neuts (auto) 5.8 Absolute Lymphs (auto) 1.30 Nucleated RBC % 0 PT 13.4 INR 1.0 APTT 23.8 L Sodium 139 Potassium 3.9 Chloride 108 H Carbon Dioxide 25.0 Anion Gap 6 BUN 11 Creatinine 0.91 Estim Creat Clear Calc 122.00 Est GFR (MDRD) Af Amer 112 Est GFR (MDRD) Non-Af 93 BUN/Creatinine Ratio 12.0 Glucose 112 H Calcium 9.4 Radiography Diagnostic Testing: Clinical Impression(s) from Imaging Studies Head/Neck CTA 02/26/24 17:54 IMPRESSION: Normal CTA Head and neck with contrast. No aneurysm or large vessel occlusion. No internal carotid artery stenosis. Electronically Signed: Quang Olson MD at 19:48 EDT Reading Location ID and State: [address] [place] [address] , Service support , Rhythm Strip Rhythm Strip: Sinus Rhythm Rate: 73 Ectopy: None EKG Initial EKG: Attestation: I personally reviewed and interpreted this EKG as follows: Interpretation: Sinus Rhythm and No Acute Injury Pattern Comments: Normal sinus rhythm rate 73 no acute signs of TN or ischemia. Discharge Plan Triage Chief Complaint: Neuro S/Sx ED Provider: Eduardo Montgomery Dx/Rx/DC Orders Clinical Impression: Dizziness, Near syncope, History of diabetes mellitus Instructions: ED Dizziness, Uncertain Cause Prescriptions: No Action albuterol sulfate [Ventolin HFA] 90 mcg/actuation HFA aerosol inhaler 2 puff inhalation Q6H PRN (Reason: SOB) losartan 25 mg tablet 25 mg PO DAILY Qty: 30 11RF danazol 200 mg capsule 200 mg PO BID Patient Comments: loratadine [Claritin] 10 mg Tablet 10 mg PO DAILY PRN (Reason: ALLERGIES) (DME) pen needle, diabetic [BD Ultra-Fine Short Pen Needle] 31 gauge x 5/16 needle See Rx Instructions .Route Qty: 100 3RF Rx Instructions: As directed insulin glargine-yfgn 100 unit/mL (3 mL) Insulin Pen 10 unit subcut DAILY Qty: 15 0RF Rx Instructions: Inject 10 u daily metoprolol succinate 50 mg tablet extended release 24 hr 50 mg PO DAILY Qty: 30 11RF Primary Care Provider: Christiano Barreto Referrals: Christiano Barreto MD [Primary Care Provider] - As soon as possible Activity Restrictions/Additional Instructions: Your tests and CAT scan and EKG were unremarkable tonight. No specific cause for your dizziness. Follow-up with your primary care physician. I will contact the physician on-call for them tonight so that they know you are in the ER and will need follow-up. Disposition Disposition: Home, Self Care
[2024-02-26 18:39] LABS: Anion Gap 6 (5-15); BUN 11 mg/dL (7-18); Calcium,Total 9.4 mg/dL (8.5-10.1); Chloride 108 mmol/L (98-107); Creatinine, Serum 0.91 mg/dL (0.70-1.30); EST Glomerular Filtration Rate 93 mL/min (>60); Est Glom Filt Rate - Afr Amer 112 mL/min (>60); Glucose 112 mg/dL (74-106); Potassium 3.9 mmol/L (3.5-5.1); Sodium Level 139 mmol/L (136-145)
[2024-02-26 19:05] VITALS: BP 134/84; PULSE 61; RESP 15; O2SAT 93
[2024-02-26 20:33] VITALS: BP 112/81; PULSE 69; RESP 16; TEMP 36.4; O2SAT 95
== END 2024-02-26 20:44 | disposition home or self-care (01) ==
PROVIDERS: Emergency Provider Emergency Medicine; PCP Family Medicine; Visit Provider Emergency Medicine
DX: R42 Dizziness and giddiness (principal); E11.9 Type 2 diabetes mellitus without complications; Z79.4 Long term (current) use of insulin; R55 Syncope and collapse; Z87.891 Personal history of nicotine dependence; G47.30 Sleep apnea, unspecified; Z99.89 Dependence on other enabling machines and devices
CPT/HCPCS: 70496; 70498; 80048; 85025; 85610; 85730; 93005; 99283; Q9967

== ENCOUNTER → 2024-12-03 | Outpatient (CLI) | payer OTHER, SELFPAY ==
[2024-12-03 10:00] LABS: AST(SGOT) 25 U/L (15-37); Alanine Aminotransfer ALT/SGPT 46 U/L (16-61); Albumin, Serum 3.5 g/dL (3.2-5.0); Alkaline Phosphatase 62 U/L (45-117); Bilirubin, Direct 0.15 mg/dL (0.00-0.30); Globulin 3.2 g/dL (2.2-4.2); Protein, Total 6.7 g/dL (6.4-8.2)
[2024-12-03 10:10] LABS: AST(SGOT) 25 U/L (15-37); Alanine Aminotransfer ALT/SGPT 45 U/L (16-61); Albumin, Serum 3.4 g/dL (3.2-5.0); Alkaline Phosphatase 63 U/L (45-117); Anion Gap 5 (5-15); BUN 12 mg/dL (7-18); BUN/Creat Ratio 14.8 RATIO (10-20); Calcium,Total 8.5 mg/dL (8.5-10.1); Chloride 110 mmol/L (98-107); Cholesterol 140 mg/dL (200); Creatinine, Serum 0.81 mg/dL (0.70-1.30); EST Glomerular Filtration Rate 106 mL/min (>60); Est Glom Filt Rate - Afr Amer 128 mL/min (>60); Globulin 3.3 g/dL (2.2-4.2); Glucose 97 mg/dL (74-106); High Density Lipoprotein 27 mg/dL; PSA,Total - Annual Screen 0.67 ng/mL (0.00-4.00); Potassium 4.2 mmol/L (3.5-5.1); Protein, Total 6.7 g/dL (6.4-8.2); Sodium Level 140 mmol/L (136-145); Triglycerides 108 mg/dL; Very Low Density Lipoprotein 22 mg/dL (5-40)
== END | disposition home or self-care (01) ==
LOC: LAB 08:50
PROVIDERS: Nurse Practitioner Gerontology; PCP Family Medicine; Referring Provider Family Medicine; Visit Provider Family Medicine
DX: Z12.5 Encounter for screening for malignant neoplasm of prostate (principal); E11.9 Type 2 diabetes mellitus without complications; E78.00 Pure hypercholesterolemia, unspecified
CPT/HCPCS: 36415; 80053; 80061; 80076; 84153; 84403; 84443; G0103

== ENCOUNTER 2025-01-30 07:29 | Day surgery (SDC) | payer OTHER, SELFPAY ==
--- NOTE | 2025-01-29 16:33 | PAT.ANESEVAL ---
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 When Was Last Pacemaker Check QUESTION #4 FULL TEXT: You/Your Family Experience fever (hyperthermia) with Anesthesia Last Oral Intake Last Oral intake: Last Oral Intake NPO since Meds taken in AM with sips of water? Meds patient instructed to take am of surgery PONV PONV - wrapper leaf inspector: PONV - wrapper leaf inspector Female No 01/29/25 15:12 HX of Motion Sickness No 01/29/25 15:12 HX of N/V After Surgery No 01/29/25 15:12 Non-Smoker Yes 01/29/25 15:12 Duration of Surgery greater No 01/29/25 15:12 than 60 minutes Number of Risk Factors 1 01/29/25 15:12 PONV Score Low Risk 01/29/25 15:12 Height & Weight Height & Weight: Anesthesia: Height & Weight Height 5 ft 10 in 01/05/25 14:11 Respiratory Assessment Respiratory Assessment - wrapper leaf inspector: Respiratory Tract Infection Hx - wrapper leaf inspector Hx Respiratory Tract Infection No 01/29/25 15:12 STOP Sleep Apnea STOP Sleep Apnea - wrapper leaf inspector: STOP Sleep Apnea - wrapper leaf inspector Hx Hypertension Yes 01/29/25 15:12 Hx Sleep Apnea Yes 01/29/25 15:12 CPAP Yes 01/29/25 15:12 BIPAP No 01/29/25 15:12 Do you snore loudly (louder than talking or can be heard Do you often feel tired/ fatigued/ sleepy during daytime? Has anyone observed you stop breathing during sleep? STOP Results Positive 01/29/25 15:12 QUESTION #5 FULL TEXT : Do you snore loudly (louder than talking or can be heard through closed doors)? 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 Specify any problems Hx of Preganancy in last 3 N/A 01/29/25 15:12 Months Nurse Filling Out Transfusion [facility] 01/29/25 15:12 & Questions: Date: 01/29/25 01/29/25 15:12 Time: 15:20 01/29/25 15:12 Patient unable to answer at this time (ie. confused, unrespo /Reproduction History /Reproductive History - wrapper leaf inspector: /Reproductive Hx- wrapper leaf inspector Hx Now Gestational Age (in weeks): EDC: Hx Hx Para Hx Section SAB No 02/21/22 15:40 PFSH Medical History (Updated 01/29/25 @ 15:19 by Ines Calderon) Wears glasses Diabetes Dietary restriction History of echocardiogram Cardiology follow-up encounter Sleep apnea CPAP (continuous positive airway pressure) dependence Exertional chest pain COVID Anxiety Alcohol use Joint stiffness Restless legs Back pain Vertigo History of hiatal hernia Gastric reflux History of diverticulitis Former smoker Asthma Shortness of breath on exertion History of pain when walking History of irregular heartbeat History of Holter monitoring Gastroparesis Home Medications ?Medication ?Instructions ?Recorded ?Last Taken ?Type albuterol sulfate 90 mcg/actuation 2 puff inhalation Q6H PRN SOB 12/26/21 Unknown History aerosol inhaler (Ventolin HFA) danazol 200 mg capsule 200 mg PO BID hormones 12/26/21 Unknown History pen needle, diabetic 31 gauge x #100 ea 10/19/23 Unknown Rx 04/03 (BD Ultra-Fine Short Pen Needle) losartan 25 mg tablet 25 mg PO DAILY #90 tabs 11/04/24 Unknown Rx metoprolol succinate 50 mg 50 mg PO DAILY #90 tabs 09/22/24 Unknown Rx tablet,extended release 24 hr semaglutide 1 mg/dose (4 mg/3 mL) 1 mg subcut QWEEK 01/05/25 01/19/25 History subcutaneous pen injector (Ozempic) Allergy/AdvReac Type Severity Reaction Status Date / Time cephalexin (From Keflex) Allergy Intermediate Hives Verified 01/29/25 15:08 Environmental Allergies: Allergy Mild Other Verified 01/29/25 15:08 Uncoded metformin Allergy Mild Rash Verified 01/29/25 15:08 Family History (Updated 01/05/25 @ 14:11 by Leticia Sexton) Mother Arthritis Hypertension High cholesterol Angioedema Uncle Melanoma Angioedema Daughter Angioedema Surgical History (Updated 01/29/25 @ 15:19 by Ines Calderon) History of cardiac catheterization History of excision of pilonidal cyst Social History Smoking Status: Former smoker alcohol intake: current alcohol intake frequency: a few times a month Alcohol type: beer substance use type: does not use what type of physical activity do you participate in: none Audit: Pertinent Findings Pertinent Findings EKG Perinent findings: Normal sinus rhythm Nonspecific T wave abnormality Echo (EF%) pertinent findings: Normal LV, LV systolic normal, EF 75%, PASP 20, apical hypertrophy Heart catheterization pertinent findings: WNL Additional pertinent findings: Patient has a history of hypertrophic obstructive cardiomyopathy. Recommendation Anesthesia Recommendation Anesthesia recommendation: OPTIMIZED for anesthesia (The patient has a MODERATE risk for periprocedural complications secondary to his cardiac status, but is cleared to proceed with anesthesia. )
[2025-01-30] VITALS (7 sets, daily range): BP systolic 99–108; BP diastolic 70–81; PULSE 73–772; RESP 16–18; TEMP 36.2–36.8; O2SAT 84–99; BMI 33.1
--- NOTE | 2025-01-30 07:47 | PCM.PRE.AN2 ---
ASA Classification* ASA Classification ASA Classification: 2 Assessment & Plan Anesthesia* Anesthesia Assessment Anesthesia Assessment: Discussed sedation and/or anesthesia options, risks, benefits, and alternatives with patient/parents/legal guardian/POA. Questions invited. The patient/parents/legal guardian/POA seems to understand and agrees to proceed with anesthesia plan. Reviewed the physical assessment, medical history, allergy history and patient home medications list prior to surgery/procedure/anesthetic and documented any changes. Performed airway and anesthesia risk assessments. Anesthesia Type Anesthesia Type: MAC Anesthesia Focused Assessment* Airway Assessment Mouth opens: >3 cm Mallampati Score: II Focused Labs Anesthesia Preop lab: CBC WBC 8.0 K/mm3 (4.4-11.0) 02/26/24 17:50 02/26/24 RBC 6.13 M/mm3 (4.6-6.2) 02/26/24 17:50 02/26/24 Hgb 17.1 g/dL (13.0-16.5) H 02/26/24 17:50 02/26/24 Hct 53.3 % (40-54) 02/26/24 17:50 02/26/24 Plt Count 204 K/mm3 (150-450) 02/26/24 17:50 02/26/24 CHEMISTRY Potassium 4.2 mmol/L (3.5-5.1) 12/03/24 08:56 12/03/24 Sodium 140 mmol/L (136-145) 12/03/24 08:56 12/03/24 BUN 12 mg/dL (7-18) 12/03/24 08:56 12/03/24 Creatinine 0.81 mg/dL (0.70-1.30) 12/03/24 08:56 12/03/24 Glucose 97 mg/dL (74-106) 12/03/24 08:56 12/03/24 POC Glucose 261 mg/dL (74-106) H 10/19/23 11:25 10/19/23 TSH 1.720 uIU/mL (0.358-3.740) 12/03/24 08:56 12/03/24 COAG PT 13.4 SECONDS (11.7-14.9) 02/26/24 17:50 02/26/24 Pre-Assessment Diagnosis/Proposed Procedure Planned Operative Procedure(s): COLONOSCOPY Anesthesia History 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 When Was Last Pacemaker Check QUESTION #4 FULL TEXT: You/Your Family Experience fever (hyperthermia) with Anesthesia Last Oral Intake Last Oral intake: Last Oral Intake NPO since Meds taken in AM with sips of water? 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 technician Female No 01/29/25 15:12 HX of Motion Sickness No 01/29/25 15:12 HX of N/V After Surgery No 01/29/25 15:12 Non-Smoker Yes 01/29/25 15:12 Duration of Surgery greater No 01/29/25 15:12 than 60 minutes Number of Risk Factors 1 01/29/25 15:12 PONV Score Low Risk 01/29/25 15:12 Height & Weight Height & Weight: Anesthesia: Height & Weight Height 5 ft 10 in 01/05/25 14:11 Respiratory Assessment Respiratory Assessment - hazardous materials waste technician: Respiratory Tract Infection Hx - hazardous materials waste technician Hx Respiratory Tract Infection No 01/29/25 15:12 STOP Sleep Apnea STOP Sleep Apnea - hazardous materials waste technician: STOP Sleep Apnea - hazardous materials waste technician Hx Hypertension Yes 01/29/25 15:12 Hx Sleep Apnea Yes 01/29/25 15:12 CPAP Yes 01/29/25 15:12 BIPAP No 01/29/25 15:12 Do you snore loudly (louder than talking or can be heard Do you often feel tired/ fatigued/ sleepy during daytime? Has anyone observed you stop breathing during sleep? STOP Results Positive 01/29/25 15:12 QUESTION #5 FULL TEXT : Do you snore loudly (louder than talking or can be heard through closed doors)? 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 Specify any problems Hx of Preganancy in last 3 N/A 01/29/25 15:12 Months Nurse Filling Out Transfusion [facility] 01/29/25 15:12 & Questions: Date: 01/29/25 01/29/25 15:12 Time: 15:20 01/29/25 15:12 Patient unable to answer at this time (ie. 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: /Reproductive Hx- hazardous materials waste technician Hx Now Gestational Age (in weeks): EDC: Hx Hx Para Hx Section SAB No 02/21/22 15:40 PFSH Medical History Wears glasses Diabetes Dietary restriction History of echocardiogram Cardiology follow-up encounter Sleep apnea CPAP (continuous positive airway pressure) dependence Exertional chest pain COVID Anxiety Alcohol use Joint stiffness Restless legs Back pain Vertigo History of hiatal hernia Gastric reflux History of diverticulitis Former smoker Asthma Shortness of breath on exertion History of pain when walking History of irregular heartbeat History of Holter monitoring Gastroparesis Home Medications ?Medication ?Instructions ?Recorded ?Last Taken ?Type albuterol sulfate 90 mcg/actuation 2 puff inhalation Q6H PRN SOB 12/26/21 Unknown History aerosol inhaler (Ventolin HFA) danazol 200 mg capsule 200 mg PO BID hormones 12/26/21 Unknown History pen needle, diabetic 31 gauge x #100 ea 10/19/23 Unknown Rx 5/16 (BD Ultra-Fine Short Pen Needle) losartan 25 mg tablet 25 mg PO DAILY #90 tabs 09/22/24 Unknown Rx metoprolol succinate 50 mg 50 mg PO DAILY #90 tabs 09/22/24 Unknown Rx tablet,extended release 24 hr semaglutide 1 mg/dose (4 mg/3 mL) 1 mg subcut QWEEK 01/05/25 01/19/25 History subcutaneous pen injector (Ozempic) Allergy/AdvReac Type Severity Reaction Status Date / Time cephalexin (From Keflex) Allergy Intermediate Hives Verified 01/29/25 15:08 Environmental Allergies: Allergy Mild Other Verified 01/29/25 15:08 Uncoded metformin Allergy Mild Rash Verified 01/29/25 15:08 Family History Mother Arthritis Hypertension High cholesterol Angioedema Uncle Melanoma Angioedema Daughter Angioedema Surgical History History of cardiac catheterization History of excision of pilonidal cyst Social History Smoking Status: Former smoker alcohol intake: current alcohol intake frequency: a few times a month Alcohol type: beer substance use type: does not use what type of physical activity do you participate in: none Review of Systems (Anesthesia) ROS Narrative System reviewed and no additional complaints, except as documented.
--- NOTE | 2025-01-30 08:19 | PCM.HP.BLA ---
History and Physical Date of Admission: 01/30/25 Intake Vital Signs 09/22/2415:24 01/05/2514:11 Height 5 ft 10 in 5 ft 10 in Weight: 244 lb BMI 34.9 BP 129/77 H Blood Pressure Location Rt brachial Position Sitting Respiration 18 Pulse 58 L Pulse Source Monitor Pulse Oximetry (%) 92 Oxygen Delivery Method room air Intake Visit Reasons: SCOPE - CONSTIPATION Chief Complaint: c-scope /constipation Is patient in pain?: No Allergies cephalexin (From Keflex) Allergy (Intermediate, Verified 01/05/25 14:13) HivesEnvironmental Allergies: Uncoded Allergy (Mild, Verified 01/05/25 14:13) Othermetformin Allergy (Mild, Verified 01/05/25 14:13) Rash Medications ?Medication ?Instructions ?Recorded ?Confirmed ?Type albuterol sulfate 90 mcg/actuation 2 puff inhalation Q6H PRN SOB 12/26/21 01/05/25 History aerosol inhaler (Ventolin HFA) danazol 200 mg capsule 200 mg PO BID hormones 12/26/21 01/05/25 History loratadine 10 mg tablet (Claritin) 10 mg PO DAILY PRN ALLERGIES 02/21/22 01/05/25 History pen needle, diabetic 31 gauge x #100 ea 10/19/23 09/22/24 Rx 5/16 (BD Ultra-Fine Short Pen Needle) losartan 25 mg tablet 25 mg PO DAILY #90 tabs 09/22/24 01/05/25 Rx metoprolol succinate 50 mg 50 mg PO DAILY #90 tabs 09/22/24 01/05/25 Rx tablet,extended release 24 hr semaglutide 1 mg/dose (4 mg/3 mL) 1 mg subcut QWEEK 01/05/25 01/05/25 History subcutaneous pen injector (Ozempic) PFSH Medical History Sleep apnea CPAP (continuous positive airway pressure) dependence Chest pain Exertional chest pain COVID Anxiety Alcohol use Joint stiffness Restless legs Back pain Vertigo History of hiatal hernia Gastric reflux History of diverticulitis Former smoker Asthma Shortness of breath on exertion History of pain when walking History of irregular heartbeat History of Holter monitoring Gastroparesis Surgical History History of excision of pilonidal cyst Family History (Updated 01/05/25 @ 14:11 by Leticia Sexton) Mother Arthritis Hypertension High cholesterol AngioedemaUncle Melanoma AngioedemaDaughter Angioedema Social History Smoking Status: Former smoker alcohol intake: current alcohol intake frequency: a few times a month Alcohol type: beer substance use type: does not use what type of physical activity do you participate in: none HPI HPI HPI: Patient is a 54-year-old male here for colonoscopy. He has never had a colonoscopy in the past. He denies abdominal pain or blood in the stool. He does have an issue with constipation but he believes that was his Ozempic and ever since stopping Ozempic he has been having regular bowel movements. He has no family history of colon cancer. ROS General General: No weight change, appetite, fatigue, colon cancer, breast cancer or weakness HEENT HEENT: No difficulty swallowing, eye injury, eye surgery, swollen glands or hoarseness Endo Endocrine: Yes diabetes mellitus; No thyroid disease, thyroid cancer, Hair loss, heat intolerance or cold intolerance Skin Skin: No rash or changing moles Musc Musculoskeletal: No back problems, arthritis, rheumatoid arthritis, gout or joint pain Cardio Cardiovascular: Yes high blood pressure; No murmur, pacemaker, heart disease, atrial fibrillation, heart attack, heart stent, palpitations, shortness of breat with exertion or chest pain Psych Psychiatric: No depression, anxiety or hearing voices Resp Respiratory: No shortness of breath, Yes sleep apnea, No cough, No COPD, Yes asthma, No emphysema and No wheezing Gastro Gastrointestinal: No abdominal pain, No nausea or vomiting, Yes diarrhea, Yes constipation, Yes blood in stool, No acid reflux, No hemorrhoids, No ulcers, No gallbladder problem and No black,tarry stools Romel Hematologic: No blood thinners, No blood disorders, No bleeding, No anemia and No blood clots Neuro Neurologic: No system reviewed and no additional complaints, except as documented, No as per HPI, No abnormal gait, No abnormal hearing, No abnormal movements, No abnormal speech, No behavioral changes, No burning sensations, No confusion, No convulsions, No disequilibrium, No dizziness, No localized weakness, No frequent falls, No headache(s), No lack of coordination, No loss of vision, No memory loss, No numbness, No other visual disturbances, No radicular pain, No restless legs, No sensory deficit, No syncope, No tingling, No tremor(s), No weakness and No other Exam Const General: cooperative Orientation: alert and oriented x3 HENMT Head: normal to inspection Neck Neck: normal visual inspection and full ROM Chest Chest palpation & inspection: normal inspection of the chest Resp Effort & Inspection: normal respiratory effort Auscultation: clear to auscultation bilaterally Cardio Rate: regular rate Rhythm: regular rhythm GI Inspection: non-distended Palpation: soft and nontender Skin General: no rashes or lesions noted Neuro General: patient alert and patient oriented x3 Extrem General: full ROM Psych Appearance: grossly normal Mental Status: mental status grossly normal Assessment and Plan Assessment and Plan (1) Screening for malignant neoplasm of colon: Status: Acute Plan: I explained endoscopy in detail to the patient. I explained the risks including but not limited to stroke or heart attack with anesthesia, perforation of the GI tract, bleeding, infection. I explained that any of these could necessitate further emergency surgery. The patient understands and all questions were answered sufficiently. The patient wishes to proceed with procedure. Abiel Smith MD Pager: [facility] [address] [place] [address], [address] [place] [address] Office: I have examined the patient and the H&P has been reviewed. There are no clinical changes since date of exam.
[2025-01-30 08:22] LABS: Bedside Glucose 87 mg/dL (74-106)
--- NOTE | 2025-01-30 09:44 | OP.CCLET_ITS ---
01/30/2025 Avinash Barreto [address] [place] [address] Re : Colonoscopy procedure for Crow Easton Dear Dr. Barreto This procedure was performed on Thursday, January 30, 2025. My impressions and recommendations are as follows: Impressions : - The entire examined colon is normal on direct and retroflexion views. - No specimens collected. Recommendations : - Discharge patient to home. - Resume previous diet. - Continue present medications. - Repeat colonoscopy in 10 years for screening purposes. My findings are described in the full procedure note, which is enclosed. If I can be of further assistance, please feel free to contact me at Doctor phone number(s): , Work: . Sincerely, Abiel Smith MD 01/30/2025 9:43:41 AM This report has been signed electronically.
--- NOTE | 2025-01-30 09:44 | OP.COLON_ITS ---
Patient Name: Crow Easton Procedure Date: 01/30/2025 8:45 AM Date of : 1970 Age: 54 Procedure: Colonoscopy Indications: Screening for colorectal malignant neoplasm Providers: Abiel Smith MD Referring MD: Avinsah Barreto Medicines: Propofol per Anesthesia Patient Profile: This is a 54 year old male. Refer to note in patient chart for documentation of history and physical. Last Colonoscopy: none. The patient's first colonoscopy is today. Complications: No immediate complications. Procedure: Pre-Anesthesia Assessment: - Prior to the procedure, a History and Physical was performed, and patient medications and allergies were reviewed. The patient's tolerance of previous anesthesia was also reviewed. The risks and benefits of the procedure and the sedation options and risks were discussed with the patient. All questions were answered, and informed consent was obtained. Prior Anticoagulants: The patient has taken no anticoagulant or antiplatelet agents. After reviewing the risks and benefits, the patient was deemed in satisfactory condition to undergo the procedure. After I obtained informed consent, the scope was passed under direct vision. Throughout the procedure, the patient's blood pressure, pulse, and oxygen saturations were monitored continuously. The Colonoscope was introduced through the anus and advanced to the cecum, identified by appendiceal orifice and ileocecal valve. The colonoscopy was performed without difficulty. The patient tolerated the procedure well. The quality of the bowel preparation was good. Anatomical landmarks were photographed. Scope In: 9:30:36 AM Scope Withdrawal Time 0 hours 6 minutes 14 seconds Scope Out: 9:39:30 AM Total Procedure Duration Time 0 hours 8 minutes 54 seconds Findings: The entire examined colon appeared normal on direct and retroflexion views. Impression: - The entire examined colon is normal on direct and retroflexion views. - No specimens collected. Recommendation: - Discharge patient to home. - Resume previous diet. - Continue present medications. - Repeat colonoscopy in 10 years for screening purposes. Procedure Code(s): --- Professional --- 45174, Colonoscopy, flexible; diagnostic, including collection of specimen(s) by brushing or washing, when performed (separate procedure) Diagnosis Code(s): --- Professional --- Z12.11, Encounter for screening for malignant neoplasm of colon CPT copyright 2021 [employer]. All rights reserved. The codes documented in this report are preliminary and upon line fixer review may be revised to meet current compliance requirements. Abiel Smith MD 01/30/2025 9:43:41 AM This report has been signed electronically. Number of Addenda: 0 Note Initiated On: 01/30/2025 8:45 AM
--- NOTE | 2025-01-30 09:47 | PCM.POST.ANE ---
Anesthesia: Postop Eval I Current Vital Signs Temperature: 97.4 F Pulse Rate: 87 Blood Pressure: 103/70 Respiratory Rate: 16 Pulse Ox: 93 Oxygen Delivery Method: Room Air Assessment Airway patent: Yes Spontaneous unlabored respirations: Yes Mental status: Asleep nausea: No Vomiting: No Anesthesia Complication: No Fluid Hydration Crystalloid volume administer (ml): 40 Total IV fluid infused: 40 Progress Note Anesthesia document: Postop Eval 1 completed: Yes
--- NOTE | 2025-01-30 14:43 | PCM.POSTANE2 ---
Anesthesia Postop Eval I Sum Postop Eval Completion status Anesthesia document: Postop Eval 1 completed: Yes Anesthesia Postop Eval I Summary Anesthesia Postop Eval I Summary: Anesthesia Postop Eval I: Assessment Summary Airway patent Yes 01/30/25 09:47 [email or web address] Spontaneous unlabored Yes 01/30/25 09:47 [email or web address] respirations Mental status Asleep 01/30/25 09:47 [email or web address] nausea No 01/30/25 09:47 [email or web address] Vomiting No 01/30/25 09:47 [email or web address] Anesthesia Postop Eval I: Fluid Summary Crystalloid volume administer 40 01/30/25 09:47 [email or web address] (ml) Colloids volume administered ( ml) Blood Product volume administered (ml) Total IV fluid infused 40 01/30/25 09:47 [email or web address] Anesthesia Postop Eval I: Summary Notes Anesthesia Complication No 01/30/25 09:47 [email or web address] Anesthesia Complication Comment: Post-operative progress note Anesthesia: Postop Eval II Evaluation Mental status: Awake Pain Level: 0 nausea: No Vomiting: No
== END 2025-01-30 10:35 | disposition home or self-care (01) ==
LOC: EN 07:29 → AC 07:30
PROVIDERS: PCP Family Medicine; Referring Provider Family Medicine; Visit Provider Surgery
PROC: 0DJD8ZZ Inspection of Lower Intestinal Tract, Via Natural or Artificial Opening Endoscopic (ICD-10-PCS; CPT 45378; principal; 2025-01-30 08:25)
DX: Z12.11 Encounter for screening for malignant neoplasm of colon (principal); E11.9 Type 2 diabetes mellitus without complications; Z87.891 Personal history of nicotine dependence; G47.30 Sleep apnea, unspecified; Z99.89 Dependence on other enabling machines and devices
CPT/HCPCS: 45378; 82962; A4216; J2405

== ENCOUNTER 2025-08-03 07:39 | Outpatient (CLI) | payer OTHER, SELFPAY ==
--- NOTE | 2025-08-03 07:43 | CT_ITS ---
PROCEDURE: LIMITED CHEST CT CARDIAC ONLY 08/03/2025 REASON FOR EXAM: DYSLIPIDEMIA, HTN, HOCM TECHNIQUE: Procedure Code: [id number] Modality: CT Procedure: LIMITED CHEST CT CARDIAC ONLY CONTRAST: None One or more dose reduction techniques were used (e.g., Automated exposure control, adjustment of the mA and/or kV according to patient size, use of iterative reconstruction technique). RADIATION DOSE SUMMARY: CTDlvol: 12.19 mGy DLP: 219.42 mGycm COMPARISON: None FINDINGS: No coronary artery calcification is seen. The heart is nonenlarged. The lungs are clear. CT/Limited Chest CT Cardiac Only IMPRESSION: No coronary artery calcification seen. Reading Location: [place] [address]
--- NOTE | 2025-08-06 11:35 | CA.SCORE ---
Calcium Scoring Date of Study:: 08/03/25 Indications Indications: Hypertension Coronary Calcium Scoring: High-resolution Computed Tomographic imaging of the chest was performed on [08/03/2025], with particular attention paid to the coronary arteries. Images from the examination were analyzed for the presence and extent of coronary artery calcification , using coronary calcium quantification software. The patient tolerated the procedure well and there were no complications. The results of the coronary calcification analysis are provided below. Findings Coronary Artery Left Main (LM): 0 Left Anterior Descending (LAD): 0 Left Circumflex (LCX): 0 Right Coronary Artery (RCA): 4.77 Total Agatston Score: 4.77 Percentile Rankin-50 Calcium Scoring Interpretation: Different methods to categorize the overall amount of coronary plaque. Overall amount CAC SIS Visual of coronary plaque P1 Mild -100 <2 1-2 vessels with mild amount of plaque P2 Moderate 101-300 3-4 1-2 vessels with moderate amount, 3 vessels with mild amount of plaque P3 Severe 301-999 5-7 3 vessels with moderate amount, 1 vessel with severe amount of plaque P4 Extensive >1000 >8 2-3 vessels with severe amount of plaque Calcium Score: Mild: 1-2 vessels w/mild amount of plaque Conclusion: Mild single-vessel atherosclerotic plaquing present
== END 2025-08-03 23:59 | disposition home or self-care (01) ==
LOC: CT 07:41
PROVIDERS: PCP Family Medicine; Referring Provider Family Medicine; Visit Provider Family Medicine
DX: E78.5 Hyperlipidemia, unspecified (principal)
CPT/HCPCS: 75571; 76380

== ENCOUNTER → 2025-11-13 | Outpatient (CLI) | payer OTHER, SELFPAY ==
--- NOTE | 2025-11-13 07:50 | ECHOCS_ITS ---
Reason For Study Reason For Study: EVALUATE HOCM Procedure This was a 2D Doppler, Color Flow transthoracic echocardiogram. Contrast injection was performed. Exam performed in department. Left Ventricle Normal size and thickness. The left ventricular ejection fraction is 65 %. No evidence for diastolic dysfunction. Right Ventricle Normal right ventricle. Atria The left and right atria are normal. Mitral Valve Mild (1+) mitral valve insufficiency. Tricuspid Valve Trivial tricuspid valve insufficiency. Unable to estimate RV systolic pressure due to insufficient tricuspid regurgitant envelope. Aortic Valve Trisinus/trileaflet aortic valve. Trivial aortic valve insufficiency. Pulmonic Valve The pulmonic valve is not well visualized. Great Vessels Normal sized aortic root. Pericardium/Pleural No pericardial effusion. Medication 22 gauge I.V. with prn adaptor inserted into left arm. Diluted definity 1.5ml given slow IV push to enhance endocardial definition. MMode/2D Measurements & Calculations LVIDd: 4.6 cm IVSd: 0.84 cm asc Aorta Diam: 3.6 cm LVIDs: 2.7 cm LVPWd: 0.92 cm RVDd: 3.3 cm FS: 40.0 % LAV(MOD-bp): 34.9 ml LVAd ap4: 32.4 cm2 LVAd ap2: 33.6 cm2 LAV(MOD-bp) Indexed: 15.4 ml/m2 LVLd ap4: 9.4 cm LVLd ap2: 9.6 cm LAV(MOD-sp2): 36.9 ml EDV(MOD-sp4): 92.8 ml EDV(MOD-sp2): 97.5 ml LAV(MOD-sp4): 28.3 ml EDV(sp4-el): 94.8 ml EDV(sp2-el): 99.7 ml LVAs ap4: 17.9 cm2 LVAs ap2: 18.8 cm2 LVLs ap4: 7.9 cm LVLs ap2: 8.7 cm ESV(MOD-sp4): 33.3 ml ESV(MOD-sp2): 35.8 ml ESV(sp4-el): 34.7 ml ESV(sp2-el): 34.4 ml EF(MOD-sp4): 64.2 % EF(MOD-sp2): 63.3 % EF(sp4-el): 63.3 % SV(MOD-sp4): 59.6 ml SV(MOD-sp2): 61.7 ml EDV(MOD-bp): 96.8 ml SI(MOD-sp4): 26.3 ml/m2 SI(MOD-sp2): 27.2 ml/m2 ESV(MOD-bp): 34.5 ml EF(MOD-bp): 64.3 % SV(sp4-el): 60.0 ml LA A4 area: 14.3 cm2 LA dimension(2D): 3.5 cm RA A4 area: 16.1 cm2 TAPSE: 2.1 cm Time Measurements MV dec time: 0.23 sec Doppler Measurements & Calculations MV E max david: 55.9 cm/sec Lat Peak E' David: 12.7 cm/sec Med Peak E' David: 10.4 cm/sec MV A max david: 43.4 cm/sec E/E' lat: 4.4 E/E' med: 5.4 MV E/A: 1.3 MV dec slope: 245.7 cm/sec2 Ao V2 max: 122.9 cm/sec LV V1 max: 119.2 cm/sec Ao max P.0 mmHg LV V1 max P.7 mmHg Ao V2 mean: 85.4 cm/sec LV V1 mean P.2 mmHg Ao mean P.4 mmHg LV V1 mean: 85.2 cm/sec Ao V2 VTI: 25.7 cm LV V1 VTI: 23.2 cm AV (velocity ratio): 0.91 PA V2 max: 74.7 cm/sec ECHO/Echo Complete W/ Contrast Interpretation Summary The left ventricular ejection fraction is 65 %. No evidence for diastolic dysfunction. Mild (1+) mitral valve insufficiency. Ordering Physician: Pérez Maynard Referring Physician: Christiano Barreto Performed By: Kiki Winter RDCS
--- OUTSIDE RECORDS SUMMARY | 2025-11-13 08:04 | XMS RPT_ITS | CCD ---
Author Organization [facility] Care Team Providers Care Deputy Brand Inspector Name Role Phone Leticia Matos Unavailable Akash Meyers Unavailable Cara Snow Unavailable Chris Santana Unavailable Unavailable Unavailable Unavailable Jade Thompson Unavailable Unavailable Kishan Ji Unavailable Unavailable Jacki Moran Unavailable Elvie Bhakta Unavailable Omari, Krystin Unavailable Unavailable Kishan Sanchez Unavailable Unavailable Unavailable Unavailable CiLeticia carmichael CNP Unavailable Yony Elvie Unavailable Jacki Moran Unavailable Omari RAMON, Krystin Unavailable Unavailable Kishan Sanchez LPN Unavailable Unavailable Unavailable Unavailable Harshad CARDIAC REHAB NURSEAshley Unavailable Unavailable Jhoan CARDIAC REHAB NURSE, Genet Unavailable Unavailable Friend, Dr. Grijalva Attending Provider Dr. Avinash Barreto Primary Care Provider [phone] Dr. Avinash Barreto Referring Provider Friend, Dr. Grijalva Referring Provider Friend, Dr. Grijalva Other Provider Carlo Leticia Unavailable Dr. Avinash Barreto Primary Care Provider Dr. Rodolfo Avendaño Referring Provider Dr. Rodolfo Avendaño Other Provider [phone] Harjinder, Dr. Grande Attending Provider Dr. Avinash Barreto Primary Care Provider Dr. Rodolfo Avendaño Referring Provider Dr. Rodolfo Avendaño Other Provider [phone] Harjinder, Dr. Grande Attending Provider Dr. Eduardo Montgomery Emergency Provider Stephanie, Dr. Morales Admit Provider [phone] Dr. Andrew Brown Other Provider [phone] Dr. José Miguel Wu Attending Provider Dr. José Miguel Wu Other Provider Dr. Lissy Goel Other Provider Dr. Christiano Barreto Primary Care Provider [phone] Dr. Christiano Barreto Referring Provider [phone] Justin MEDICAL DEVICE SALES CONSULTANT, MEDICAL DEVICE SALES CONSULTANT-C Chris Attending Provider Unavailable Primary Care Provider Unavailabl e Estevan HILLMAN, Dr. Alvarado Primary Care Provider Estevan HILLMAN, Dr. Alvarado Attending Provider Estevan HILLMAN, Dr. Alvarado Referring Provider [phone] Dr. Abiel Smith MD Attending Provider Dr. Abiel Smith MD Other Provider Estevan HILLMAN, Dr. Alvarado Primary Care Provider Estevan HILLMAN, Dr. Alvarado Referring Provider Aleyda CHILD-Pérez Figueroa Attending Provider Christiano Barreto Referring Unavailable Christiano Barreto Primary Care Unavailable Christiano Barreto Attending Unavailable Christiano Barreto Primary Care Unavailable Christiano Barreto Attending Unavailable Christiano Barreto Referring Unavailable Chris Ventura Attending Unavailable Christiano Barreto Primary Care Unavailable Christiano Barreto Referring Unavailable Abiel Smith Attending Unavailable Christiano Barreto Primary Care Unavailable Christiano Barreto Referring Unavailable Christiano Barreto Referring Unavailable Abiel Smith Attending Unavailable Christiano Barreto Primary Care Unavailable Abiel Smith Consulting Unavailable José Miguel Wu Attending Unavailable Estevan, Christiano Referring Unavailable Ranvaleriy, Christiano Primary Care Unavailable Christiano Barreto Consulting Unavailable Estevan, Christiano Referring Unavailable Estevan, Christiano Primary Care Unavailable Roof MEDICAL DEVICE SALES CONSULTANT, Pérez Toth Attending Unavailable Christiano Barreto Referring Unavailable Abiel Smith Attending Unavailable Christiano Barreto Primary Care Unavailable Estevan HILLMAN, Dr. Alvarado Primary Care Physicia n Aleyda MEDICAL DEVICE SALES CONSULTANT-C, Pérez Toth Attending Physician [phone] Bryce HILLMAN, Dr. Valdez Attending Physician [phone] Estevan HILLMAN, Dr. Alvarado Attending Physician Estevan HILLMAN, Dr. Alvarado Nurse Practitioner Allergies Allergy Classification Reported Allergen(s) Allergy Type Date of Onset Reaction(s) Facility (1 source) allergy to substance [facility] Work Phone: (20 sources) cats (Renamed from Betadine) allergy to substance [facility] Work Phone: (5 sources) metFORMIN Drug Allergy 4 [facility] (5 sources) Environmental Allergies: Uncoded; Translations: [Environmental Allergies: Uncoded] Allergy to substance 4 Other [facility] (3 sources) Cephalexin Drug Allergy 5 [facility] (1 source) Cephalexin Drug Allergy 5 [facility] (1 source) metFORMIN Drug Allergy 5 [facility] Medications Current Medications Medication Drug Class(es) Dates Sig (Normalized) Sig (Original) Albuterol Sulfate (20 sources) beta2-Adrenergic Agonist Start: 12-26-2021 take 1 puff(s) by inhalation every six hours Albuterol Sulfate (Ventolin Hfa) 90 mcg/actuation HFA aerosol inhaler Active 2 PUFF INHALATION EVERY 6 HOURS December 26, 2021 4:22pm Start: 12-26-2021 Start: 12-26-2021 take 1 puff(s) by in halation every six hours Albuterol Sulfate (Ventolin Hfa) 90 mcg/actuation HFA aerosol inhaler Active 2 PUFF INHALATION EVERY 6 HOURS December 26, 2021 1:00am Start: 05-31-2021 Albuterol Sulf ate (2.5 MG/3ML) 0.083% Inhalation Nebulization Solution 1 (one) Milliliter tid prn for 0 days Quantity: 1 {Box} Refills: 3 Ordered: 31-May-2021 Krystin Salcido LPN Start : 31-May-2021 Active Comments: Mail order. Start: 05-31-2021 ProAir HFA 108 (90 Base) MCG/ACT Inhalation Aerosol Solution 2 (two) Puff tid or qid prn cough for 0 days Quantity: 1 {Inhaler} Refills: 3 Ordered: 31-May-2021 Leticia Matos Mary Start : 31-May-2021 Active Comments: Mail order. Start: 11-29-2020 ProAir HFA 108 (90 Base) MCG/ACT Inhalation Aerosol Solution 2 (two) Puff tid or qid prn cough for 0 days Quantity: 1 {Inhaler} Refills: 3 Ordered: 29-Nov-2020 Leticia Matos CNP, CNP Lillian Start : 29-Nov-2020 Active Comments: Mail order. Start: 11-29-2020 ProAir HFA 108 (90 Base) MCG/ACT Inhalation Aerosol Solution 2 (two) Puff tid or qid prn cough for 0 days Quantity: 1 {Inhaler} Refills: 3 Ordered: 29-Nov-2020 Carlo TAI Leticia Prado Carlo TAI Leticia Prado Start : 29-Nov-2020 Active Comments: Mail order. Start: 09-16-2019 End: 01-13-2020 Albuterol Sulfate (2.5 MG/3M L) 0.083% Inhalation Nebulization Solution 1 (one) Milliliter one time dose for 0 days Quantity: 1 {Ampule} Refills: 0 Ordered: 13-Jan-2020 Kishan Sanchez LPN Start : 16-Sep-2019 End : 13-Jan-2020 Inactive Start: 09-16-2019 ProAir HFA 108 (90 Base) MCG/ACT Inhalation Aerosol Solution 2 (two) Puff tid or qid prn cough for 0 days Quantity: 1 {Inhaler} Refills: 3 Ordered: 16-Sep-2019 Leticia Matos CNP, CNP, Mary E Start : 16-Sep-2019 Active Start: 09-28-2016 ProAir HFA 108 (90 Base) MCG/ACT Inhalation Aerosol Solution 2 (two) Aerosol Soln q 6 hr prn for 0 days Quantity: 1 {Inhaler} Refills: 0 Ordered: 28-Sep-2016 Jade Thompson Start : 28-Sep-2016 Active Comment on above: Mail order. Semaglutide (3 sources) Start: 01-05-2025 Start: 01-05-2025 Semaglutide (O zempic) 1 mg/dose (4 mg/3 mL) pen injector Active 1 mg SC EVERY WEEK January 05, 2025 1:00am Completed/Discontinued Medications Medication Drug Class(es) Dates Sig (Normalized) Sig (Original) amoxicillin 500 mg / clavulanate 125 mg oral tablet (20 sources) Penicillin-class Antibacterial Start: 03-15-2021 End: 03-25-2021 take 1 tablet by mouth twice daily Augmentin 500-125 MG Oral Tablet 1 (one) Tablet bid for 10 days Quantity: 20 {Tablet} Refills: 0 Ordered: 15-Mar-2021 Kishan Sanchez LPN Start : 15-Mar-2021 End : 25-Mar-2021 Inactive Comments: or generic Start: 09-27-2015 End: 10-07-2015 take 1 tablet by mouth twice daily AUGMENTIN, 875-125MG (Oral Tablet) 1 (one) Tablet bid for 10 days Quantity: 20 {Tablet} Refills: 0 Ordered: 27-Sep-2015 Leticia Matos Mary Start : 27-Sep-2015 End : 07-Oct-2015 Inactive Comment on above: or generic azithromycin 250 mg oral tablet (20 sources) Macrolide Antimicrobial Start: 02-03-20 End: 07-13-20 15 take 1 tablet by mouth once daily ZITHROMAX Z-MARIO, 250MG (Oral Tablet) uad Tablet qd until gone for 0 days Quantity: 1 {Package} Refills: 0 Ordered: 13-Jul-2015 Jennifer Rodriguez LPN Start : 02-Feb-2015 End : 13-Jul-2015 Discontinued benzonatate 100 mg oral capsule (20 sources) Non-narcotic Antitussive Start: 05-31-20 End: 06-21-20 take 1 capsule by mouth three times daily as needed for cough Tessalon Perles 100 MG Oral Capsule 1 Capsule tid prn cough for 0 days Quantity: 30 {Capsule} Refills: 1 Ordered: 21-Jun-2021 Krystin Salcido LPN Start : 31-May-2021 End : 21-Jun-2021 Inactive Comments: or generic Start: 09-16-2019 End: 01-13-2020 take 1 capsule by mouth three times daily as needed for cough Tessalon Perles 100 MG Oral Capsule 1 Capsule tid prn cough for 0 days Quantity: 30 {Capsule} Refills: 0 Ordered: 13-Jan-2020 Kishan Sanchez LPN Start : 16-Sep-2019 End : 13-Jan-2020 Inactive Comments: or generic Start: 10-08-2012 End: 02-19-2013 take 1 capsule by mouth three times daily as needed for cough TESSALON PERLES, 100MG (Oral Capsule) 1 Capsule tid prn cough for 0 days Quantity: 30 {Capsule} Refills: 0 Ordered: 19-Feb-2013 Jennifer Rodriguez LPN Start : 08-Oct-2012 End : 19-Feb-2013 Inactive Comment on above: or generic clarithromycin 500 mg oral tablet (20 sources) Macrolide Antimicrobial Start: 016 End: take 1 tablet by mouth twice daily Clarithromycin 500 MG Oral Tablet 1 (one) Tablet bid for 0 days Quantity: 20 {Tablet} Refills: 0 Ordered: 01-Apr-2019 Start : 28-Sep-2016 End : 01-Apr-2019 Inactive codeine phosphate 2 mg/ml / guaiFENesin 20 mg/ml oral solution (19 sources) Opioid Agonist Start: End: take 5-10 mL by mouth before mealtime Cheratussin AC 100-10 MG/5ML Oral Syrup 5-10 Milliliter q3-4 times per day for 0 days Quantity: 280 {Milliliter} Refills: 0 Ordered: 13-Jan-2020 Kishan Sanchez LPN Start : 16-Sep-2019 End : 13-Jan-2020 Inactive danazol 200 mg oral capsule (20 sources) Androgen Start: 024 danazol (DANOCRINE) 200 mg capsule Start: 06-02-2022 take 1 capsule by mo ut twice daily Danazol 200 MG Oral Capsule 1 Capsule bid for 0 days Quantity: 180 {Capsule} Refills: 3 Ordered: 02-Jun-2022 Yanique Pineda CNP Start : 02-Jun-2022 Active Comments: Mail order. Start: 12-26-2021 take 1 capsule by mo ut twice daily Start: 05-31-2021 take 1 capsule by mo ut twice daily Danazol 200 MG Oral Capsule 1 Capsule bid for 0 days Quantity: 180 {Capsule} Refills: 3 Ordered: 31-May-2021 Carlo TAI, Lillian Carlo TAI, Lillian Start : 31-May-2021 Active Comments: Mail order. Start: 11-29-2020 take 1 capsule by ri ut twice daily Danazol 200 MG Oral Capsule 1 Capsule bid for 0 days Quantity: 180 {Capsule} Refills: 3 Ordered: 29-Nov-2020 Carlo TAI, LillianJohan Matos CNP, Lillian Start : 29-Nov-2020 Active Comments: Mail order. Start: 04-01-2019 take 1 capsule by [facility] twice daily Danazol 200 MG Oral Capsule 1 Capsule bid for 0 days Quantity: 180 {Capsule} Refills: 3 Ordered: 01-Apr-2019 Sabi Morris MD Start : 01-Apr-2019 Active Comments: Mail order. Start: 11-20-2017 End: 12-26-2021 take 1 capsule by mouth once daily Danazol 200 MG capsule Discontinued 1 {tbl} PO DAILY November 20, 2017 1:00am December 26, 2021 4:23pm Comment on above: Mail order. fluticasone propionate 0.05 mg/actuat metered dose nasal spray (20 sources) Corticosteroid Start: 07-28-20 End: 01-13-20 take 1 spray(s) nasal route once daily Flonase Allergy Relief 50 MCG/ACT Nasal Suspension 1 (one) [place] each nostril daily for 0 days Quantity: 1 {Container} Refills: 0 Ordered: 13-Jan-2020 Kishan Sanchez LPN Start : 28-Jul-2019 End : 13-Jan-2020 Inactive 60 actuat fluticasone propionate 0.1 mg/actuat / salmeterol 0.05 mg/actuat dry powder inhaler (20 sources) Corticosteroid, beta2-Adrenergic Agonist Start: 10-08-20 End: 01-11-20 15 take 2 puff(s) by inhalation once daily ADVAIR DISKUS, 100-50MCG/DOSE (Inhalation Aerosol Powder Breath Activated) 2 (two) Puff(s) daily for 0 days Quantity: 1 {Aero_Pow_Br_Act} Refills: 0 Ordered: 11-Jan-2015 Rustam RAMON Jennifer Start : 08-Oct-2012 End : 11-Jan-2015 Discontinued Insulin Glargine-Yfgn (5 sources) Start: 10-19-20 End: 03-13-20 Insulin Glargine-Yfgn 100 unit/mL (3 mL) Insulin Pen Discontinued 10 U SC DAILY October 19, 2023 1:00am March 13, 2024 3:22pm Inject 10 u daily Start: 10-19-2023 End: 03-13-2024 Insulin Glargine-Yfgn 100 un it/mL (3 mL) Insulin Pen Discontinued 10 U SC DAILY October 19, 2023 1:00am March 13, 2024 3:22pm Inject 10 u daily Start: 10-19-2023 Insulin Glargi ne-Yfgn Active 10 UNIT SC DAILY October 19, 2023 1:00am Inject 10 u daily Start: 10-19-2023 Insulin Glargi ne-Yfgn Active 10 UNIT SC DAILY October 19, 2023 12:00am Inject 10 u daily ketorolac tromethamine 10 mg oral tablet (20 sources) Nonsteroidal Anti-inflammatory Drug, Cyclooxygenase Inhibitor Start: 01-13-2020 End: 01-15-2020 take 1 tablet by mouth every six hours Ketorolac Tromethamine 10 MG Oral Tablet 1 (one) Tablet q 6hrs for 2 days Quantity: 8 {Tablet} Refills: 0 Ordered: 13-Jan-2020 Leticia Matos Mary Start : 13-Jan-2020 End : 15-Jan-2020 Inactive Comments: Lizeth Lebron M54.32 Start: 01-11-2015 End: 01-13-2015 take 1 tablet by mouth every six hours KETOROLAC TROMETHAMINE, 10MG (Oral Tablet) 1 (one) Tablet q 6hrs for 2 days Quantity: 8 {Tablet} Refills: 0 Ordered: 11-Jan-2015 Leticia Matos CNP, CNP, Mary E Start : 11-Jan-2015 End : 13-Jan-2015 Inactive Comment on above: Lizeth Lebron M 54.32 loratadine 10 mg oral tablet (9 sources) Start: 2 End: 5 take 1 tablet by mouth once daily as needed Loratadine (Claritin) 10 mg Tablet Discontinued 10 mg PO DAILY as needed for ALLERGIES February 21, 2022 12:00am January 29, 2025 3:09pm 24 hr loratadine 10 mg / pseudoephedrine sulfate 240 mg extended release oral tablet (20 sources) alpha-Adrenergic Agonist Start: 1 take 10-240 mg by mouth every twenty-four hours Claritin-D 24 Hour 10-240 MG Oral Tablet Extended Release 24 Hour 1 Tablet ER 24HR daily for 0 days Quantity: 30 {Tablet_ER_24HR} Refills: 0 Ordered: 21-Mar-2021 Leticia Matos Mary Start : 21-Mar-2021 Active Start: 07-18-2013 End: 11-21-2013 take 5-120 mg by mouth every twelve hours CLARITIN-D 12 HOUR, 5-120MG (Oral Tablet Extended Release 12 Hour) 1 Tablet ER 12HR q 12 hr for 0 days Quantity: 1 {Tablet_ER_12HR} Refills: 0 Ordered: 21-Nov-2013 Jennifer Rodriguez LPN Start : 18-Jul-2013 End : 21-Nov-2013 Inactive Start: 07-03-2011 End: 01-13-2020 take 10-240 mg by mouth every twenty-four hours Claritin-D 24 Hour 10-240 MG Oral Tablet Extended Release 24 Hour 1 Tablet ER 24HR daily for 0 days Quantity: 30 {Tablet_ER_24HR} Refills: 0 Ordered: 13-Jan-2020 Kishan Sanchez LPN Start : 03-Jul-2011 End : 13-Jan-2020 Inactive losartan potassium 25 mg oral tablet (11 sources) Angiotensin 2 Receptor Mely Start: 12-14-2023 End: 09-22-2024 take 1 tablet by mouth once daily Losartan 25 mg tablet Discontinued 25 mg PO DAILY 90 March 13, 2024 3:49pm September 22, 2024 4:56pm Comment on above: Take 1 tablet by leno th every afternoon. meclizine hydrochloride 25 mg oral tablet (20 sources) Antiemetic Start: 07-28-2019 End: 01-13-2020 take 1 tablet by mouth every eight hours as needed Meclizine HCl 25 MG Oral Tablet 1 (one) Tablet q8hr prn dizzy for 0 days Quantity: 20 {Tablet} Refills: 0 Ordered: 13-Jan-2020 Kishna Sanchez LPN Start : 28-Jul-2019 End : 13-Jan-2020 Inactive Start: 07-03-2011 End: 02-13-2012 take 1 tablet by mouth every eight hours as needed for dizziness ANTIVERT, 12.5MG (Oral Tablet) 1 Tablet q8hrs prn dizziness for 0 days Quantity: 30 {Tablet} Refills: 0 Ordered: 13-Feb-2012 Jennifer Rodriguez LPN Start : 03-Jul-2011 End : 13-Feb-2012 Inactive metaxalone 800 mg oral tablet (17 sources) Start: 01-13-2020 End: 11-29-2020 Metaxalone 800 MG Oral Tablet 1 (one) Tablet q6-8hr prn form muscle relaxant for 0 days Quantity: 60 {Tablet} Refills: 0 Ordered: 29-Nov-2020 Krystin Salcido LPN Start : 13-Jan-2020 End : 29-Nov-2020 Inactive metoclopramide 5 mg oral tablet (9 sources) Dopamine-2 Receptor Antagonist Start: 03-09-2022 End: 10-18-2023 take 1 tablet by mouth 30 minutes before mealtime Metoclopramide Hcl (Reglan) 5 mg tablet Discontinued 5 mg PO before meals 90 March 09, 2022 12:00am October 18, 2023 2:41pm administer 30 minutes before meals 24 hr metoprolol succinate 50 mg extended release oral tablet (16 sources) beta-Adrenergic Mely Start: 02-08-2024 take 1 tablet by mouth every hour metoprolol succinate ER (TOPROL XL) 50 mg 24 hr tablet Take 1 tablet by mouth every afternoon. 0 02/08/2024 Active Start: 10-19-2023 End: 09-22-2024 take 1 tablet by mouth once daily Metoprolol Succinate 50 mg tablet extended release 24 hr Discontinued 50 mg PO DAILY 18 10October 30, 2023 9:27am March 13, 2024 3:50pm Comment on above: [facility] mometasone furoate 0.05 mg/actuat metered dose nasal spray (20 sources) Corticosteroid Start: 07-18-20 13 End: 01-11-20 15 NASONEX, 50MCG/ACT (Nasal Suspension) 2 (two) Puff(s) daily for 0 days Quantity: 1 {Suspension} Refills: 0 Ordered: 11-Jan-2015 Jennifer Rodriguez LPN Start : 18-Jul-2013 End : 11-Jan-2015 Discontinued naproxen 500 mg oral tablet (20 sources) Nonsteroidal Anti-inflammatory Drug Start: 01-18-20 21 End: 12-26-19 22 take 1 tablet by mouth twice daily as needed Naproxen 500 MG tablet Discontinued 500 mg PO TWICE DAILY NEEDED January 17, 2021 1:00am December 26, 2021 4:23pm omeprazole 20 mg delayed release oral capsule (9 sources) Proton Pump Inhibitor Start: 10-18-20 End: 12-14-19 24 take 1 capsule by mouth once daily Omeprazole 20 mg capsule,delayed release(DR/EC) Discontinued 20 mg PO DAILY October 18, 2023 1:00am December 14, 2023 3:52pm reflux Start: 05-31-2021 take 1 capsule by [facility] once daily 30 minutes before mealtime Omeprazole 40 MG Oral Capsule Delayed Release 1 (one) Capsule daily 30 min before a meal for 0 days Quantity: 30 {Capsule} Refills: 1 Ordered: 31-May-2021 Krystin Salcido LPN Start : 31-May-2021 Active OZEMPIC 0.25 mg or 0.5 mg (2 mg/3 mL) pen (1 source) Start: 11-13-2023 OZEMPIC 0.25 m g or 0.5 mg (2 mg/3 mL) pen INJECT 0.25MG SUBCUTANEOUSLY ONCE A WEEK 0 11/13/2023 Active Comment on above: INJECT 0.25MG SUBCUT ANEOUSLY ONCE A WEEK pantoprazole 40 mg delayed release oral tablet (20 sources) Proton Pump Inhibitor Start: 03-09-2022 End: 10-18-2023 Pantoprazole 40 mg tablet,delayed release (DR/EC) Discontinued 40 mg PO TWICE A DAY 60 2 March 09, 2022 3:52pm October 18, 2023 2:41pm take two times a day for eight weeks then once a day. Start: 12-26-2021 End: 03-09-2022 take 1 tablet by mouth once daily Pantoprazole 40 mg tablet,delayed release (DR/EC) Discontinued 40 mg PO DAILY December 26, 2021 1:00am March 09, 2022 3:53pm Start: 09-27-2015 End: 09-28-2016 Protonix 40 MG Oral Tablet D elayed Release [address] daily for 0 days Quantity: 30 {Tablet} Refills: 0 Ordered: 28-Sep-2016 Chris Santana RN Start : 27-Sep-2015 End : 28-Sep-2016 Inactive predniSONE 10 mg oral tablet (20 sources) Start: 05-31-2021 End: 06-21-2021 predniSONE 10 MG Oral Tablet 1 (one) Tablet bid x 3 days then 1 daily x 3 days then 1/2 daily x 3 days for 0 days Quantity: 12 {Tablet} Refills: 0 Ordered: 21-Jun-2021 Krystin Salcido LPN Start : 31-May-2021 End : 21-Jun-2021 Inactive Comments: with food Start: 01-18-2021 End: 03-01-2021 predniSONE 10 MG Oral Tablet 1 (one) Tablet bid x 3 days then 1 daily x 3 days then 1/2 daily x 3 days for 0 days Quantity: 12 {Tablet} Refills: 0 Ordered: 01-Mar-2021 Start : 18-Jan-2021 End : 01-Mar-2021 Inactive Comments: with food Start: 11-20-2017 End: 12-26-2021 take 3 tablets by mouth once daily as needed Prednisone 20 MG tablet Discontinued 60 mg PO DAILY NEEDED as needed for Angioedema January 17, 2021 4:03pm December 26, 2021 4:23pm With food Start: 11-20-2017 End: 12-26-2021 take 60 mg by mouth once daily as needed Prednisone Discontinued 60 MG PO DAILY NEEDED January 17, 2021 4:03pm December 26, 2021 4:23pm With food Comment on above: with food Semaglutide (3 sources) Start: 024 End: 025 Semaglutide (Ozempic) 0.25 mg or 0.5 mg (2 mg/3 mL) pen injector Discontinued 0.25 mg SC EVERY WEEK March 13, 2024 12:00am January 05, 2025 3:13pm for 4 weeks sucralfate 100 mg/ml oral suspension (9 sources) Aluminum Complex Start: 022 End: take 1 mL by mouth three times daily 1 hour(s) before mealtime Sucralfate 100 mg/mL suspension Discontinued 10 mL PO before meals 1000 0 March 09, 2022 12:00am October 18, 2023 2:42pm take three times a day, one hour before meals on an empty stomach and two hours away from other medications. sulfacetamide sodium 100 mg/ml ophthalmic solution (20 sources) Sulfonamide Antibacterial Start: 013 End: BLEPH-10, 10% (Ophthalmic Solution) 1-2 Drop(s) q2-3 hs for 7 days Quantity: 1 {Solution} Refills: 0 Ordered: 18-Jul-2013 Leticia Matos Mary Start : 18-Jul-2013 End : 25-Jul-2013 Inactive sulfamethoxazole 800 mg / trimethoprim 160 mg oral tablet (20 sources) Dihydrofolate Reductase Inhibitor Antibacterial, Sulfonamide Antimicrobial Start: 012 End: 012 take 1 tablet by mouth twice daily BACTRIM DS, 800-160MG (Oral Tablet) 1 Tablet bid for 7 days Quantity: 14 {Tablet} Refills: 0 Ordered: 06-Aug-2012 Leticia Matos Mary Start : 06-Aug-2012 End : 13-Aug-2012 Inactive triamcinolone acetonide 0.055 mg/actuat metered dose nasal spray (20 sources) Corticosteroid Start: 015 End: 019 Nasacort Allergy 24HR 55 MCG/ACT Nasal Aerosol 2 (two) Puff Puff daily for 0 days Quantity: 1 {Bottle} Refills: 0 Ordered: 01-Apr-2019 Start : 27-Sep-2015 End : 01-Apr-2019 Inactive Problems Active Problems Problem Classification Problem Date Documented Date Episodic/Chronic Abdominal hernia (20 sources) Hiatal hernia; Translations: [Hiatal hernia] 09-28-2016 Episodic Abdominal pain (20 sources) Abdominal pain; Translations: [Abdominal pain in male] Resolved: 6 09-28-2016 Episodic Comment on above: gallbladder vs appen dicitis ? 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 Asthma (9 sources) Asthma; Translations: [Unspecified asthma, uncomplicated] 12-26-2021 Chronic Blindness and vision defects (1 source) Eye / vision finding; Translations: [Unspecified visual disturbance] 02-26-2024 Episodic Calculus of urinary tract (20 sources) Kidney stone; Translations: [Kidney stone] 09-28-2016 Episodic Comment on above: 3mm Rt calculus midp ole calyx rt kidney and bladder wall thickening Cardiac dysrhythmias (5 sources) Palpitations; Translations: [Palpitations] 12-14-2023 Episodic Chronic obstructive pulmonary disease and bronchiectasis (20 sources) Bronchitis; Translations: [Bronchitis] Resolved: 6 09-28-2016 Episodic Chronic obstructive pulmonary disease and bronchiectasis (15 sources) Chronic obstructive pulmonary disease and bronchiectasis Conditions associated with dizziness or vertigo (20 sources) Vertigo; Translations: [Benign paroxysmal positional vertigo] 09-28-2016 Episodic Comment on above: Doing Epleys Diabetes mellitus without complication (12 sources) Newly diagnosed diabetes; Translations: [Type 2 diabetes mellitus without complications] 10-18-2023 Chronic Digestive congenital anomalies (20 sources) Congenital hiatus hernia; Translations: [HIATUS HERNIA, CONGENITAL] 09-28-2016 Chronic Disorders of lipid metabolism (8 sources) Dyslipidemia; Translations: [Hyperlipidemia, unspecified] Onset: 5 12-14-2023 Chronic Diverticulosis and diverticulitis (13 sources) Diverticular disease of colon; Translations: [Diverticulosis of large intestine] 09-28-2016 Chronic Esophageal disorders (20 sources) Gastroesophageal reflux disease; Translations: [GERD (gastroesophageal reflux disease)] 09-28-2016 Chronic Inflammation; infection of eye (except that caused by tuberculosis or sexually transmitteddisease) (20 sources) Serous conjunctivitis; Translations: [Acute conjunctivitis] 09-28-2016 Episodic Nausea and vomiting (20 sources) Vomiting; Translations: [Vomiting] Resolved: 6 09-28-2016 Episodic Comment on above: after meal vomiting Neoplasms of unspecified nature or uncertain behavior (20 sources) Neoplasm of uncertain behavior of skin; Translations: [Neoplasm of uncertain behavior of skin] 09-28-2016 Episodic Comment on above: left ring finger Nonspecific chest pain (20 sources) Atypical chest pain; Translations: [Chest pain, atypical] 01-18-2021 Episodic Comment on above: ER notes reviewed ? pleurisy musculoskeletal vs o ther? had ER work up and normal lasts 15 min to 1 hr musculoskeletal vs other? had ER work up and normal, troponin neg and sed and crp neg, suggest Dr. 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 Comment on above: of the pars interart icularis of the L5 Vertebrae Other acquired deformities (17 sources) Spondylolisthesis, grade 1; Translations: [Spondylolisthesis, grade 1] 11-29-2020 Episodic Comment on above: Bilateral spondyliti c defects L5 and S1, on xray low back pain for years, now with flare 4 times per year, has seen chiropracter and other, has had nsaids.MRI to determine if need spinal surgeon Other acquired deformities (10 sources) Spondylolysis; Translations: [Spondylolysis] 03-07-2021 Episodic Comment on above: of the pars interart icularis of the L5 Vertebrae Other aftercare (14 sources) Patient encounter status; Translations: [Therapeutic drug monitoring] 03-07-2021 Episodic Other circulatory disease (20 sources) Other specified symptoms and signs involving the circulatory and respiratory systems; Translations: [Abnormal chest sounds] 09-28-2016 Episodic Other congenital anomalies (20 sources) Unspecified anomaly of eye; Translations: [Eye abnormality] 09-28-2016 Chronic Other connective tissue disease (20 sources) Pain in lower limb; Translations: [Bilateral pain of leg and foot] 09-28-2016 Episodic Comment on above: suspect plantar fasc iitis Other disorders of stomach and duodenum (9 sources) Gastroparesis syndrome; Translations: [Gastroparesis] 12-26-2021 Episodic Other disorders of stomach and duodenum (9 sources) Indigestion; Translations: [Functional dyspepsia] 12-26-2021 Episodic Other disorders of stomach and duodenum (1 source) Gastroparesis; Translations: [Gastroparesis] Episodic Other ear and sense organ disorders (9 sources) Tinnitus; Translations: [Tinnitus, unspecified ear] 12-26-2021 Episodic Other gastrointestinal disorders (20 sources) Abdominal wind pain; Translations: [Gas pain] Resolved: 6 09-28-2016 Episodic Other gastrointestinal disorders (9 sources) Dysphagia; Translations: [Dysphagia, unspecified] 12-26-2021 Episodic Other gastrointestinal disorders (2 sources) Dysphagia, unspecified; Translations: [Dysphagia, unspecified] Episodic Other hematologic conditions (11 sources) Erythrocytosis; Translations: [Polycythemia] 03-02-2021 Episodic Other hereditary and degenerative nervous system conditions (9 sources) Restless legs; Translations: [Restless legs syndrome] 12-26-2021 Chronic Other injuries and conditions due to external causes (20 sources) Angioneurotic edema, not elsewhere classified; Translations: [ANGIOEDEMA, NOS] 09-28-2016 Episodic Comment on above: hereditary Angioedem a diagnosed Dr. Montiel at [facility] on danozol for this consider Orladeyoher editary Angioedema diagnosed Dr. Montiel at [facility] on danozol for this Other injuries and conditions due to external causes (9 sources) Angioedema; Translations: [Angioneurotic edema, initial encounter] 12-26-2021 Episodic Other lower respiratory disease (20 sources) Wheezing; Translations: [Wheezing] Resolved: 6 09-28-2016 Episodic Other lower respiratory disease (20 sources) Cough; Translations: [Cough] Resolved: 6 09-28-2016 Episodic Comment on above: improving, suggest u sing spirometry Other lower respiratory disease (20 sources) Persistent cough; Translations: [Cough, persistent] 09-28-2016 Episodic Other lower respiratory disease (9 sources) Dyspnea; Translations: [Shortness of breath] 12-26-2021 Episodic Other lower respiratory disease (9 sources) Difficulty breathing; Translations: [Other abnormalities of breathing] 12-26-2021 Episodic Other male genital disorders (2 sources) Pain of right testicle; Translations: [Testicular pain, right] 07-20-2021 Episodic Other nervous system disorders (9 sources) Tremor; Translations: [Tremor, unspecified] 12-26-2021 Episodic Other non-traumatic joint disorders (9 sources) Joint pain; Translations: [Pain in unspecified joint] 12-26-2021 Episodic Other nutritional; endocrine; and metabolic disorders (20 sources) Body mass index 30+ - obesity; Translations: [BMI 35.0-35.9,adult] Resolved: 1 07-28-2019 Chronic Other nutritional; endocrine; and metabolic disorders (4 sources) H/O: diabetes mellitus; Translations: [Personal history of other endocrine, nutritional and metabolic disease] 02-26-2024 Episodic Other upper respiratory disease (20 sources) Allergic rhinitis; Translations: [Allergic rhinitis] 09-28-2016 Chronic Other upper respiratory disease (20 sources) Allergic rhinitis due to other allergen Chronic Other upper respiratory disease (9 sources) Allergy to pollen; Translations: [Allergic rhinitis due to pollen] 12-26-2021 Chronic Other upper respiratory disease (20 sources) Nasal congestion; Translations: [Nasal congestion] 03-15-2021 Episodic Other upper respiratory disease (9 sources) Congestion of nasal sinus; Translations: [Nasal congestion] 12-26-2021 Episodic Other upper respiratory disease (9 sources) Hoarse; Translations: [Dysphonia] 12-26-2021 Episodic Other upper respiratory infections (20 sources) Chronic sinusitis, unspecified; Translations: [Bacterial sinusitis] 09-28-2016 Chronic Other upper respiratory infections (20 sources) Acute sinusitis; Translations: [Pharyngitis] 09-28-2016 Episodic Tracie-; endo-; and myocarditis; cardiomyopathy (except that caused by tuberculosis or sexually transmitted disease) (8 sources) Hypertrophic obstructive cardiomyopathy; Translations: [Obstructive hypertrophic cardiomyopathy] Onset: 5 10-19-2023 Chronic Pleurisy; pneumothorax; pulmonary collapse (20 sources) Atelectasis; Translations: [Pleurisy] 09-28-2016 Episodic Comment on above: use incentive spirom eter vs other ? pericardi tis will add prednisone and if not better to return and do echo Residual codes; unclassified (10 sources) Non-smoker; Translations: [Non-smoker] 03-07-2021 Episodic Residual codes; unclassified (10 sources) Sensation of being cold; Translations: [Sensation of feeling cold] 03-07-2021 Episodic Residual codes; unclassified (5 sources) Abnormal sensation; Translations: [Facial pressure] 03-21-2021 Episodic Spondylosis; intervertebral disc disorders; other back problems (20 sources) Sciatica; Translations: [Low back pain] 11-29-2020 Episodic Comment on above: suspect sciatica claudio l rule out stone, urine neg for blood Syncope (12 sources) Near syncope; Translations: [Syncope and collapse] 10-18-2023 Episodic Unclassified (20 sources) Unclassified (20 sources) Non-smoker; Translations: [Non-smoker] 07-28-2019 Unclassified (19 sources) ANGIOEDEMA, NOS Unclassified (20 sources) BMI 35.0-35.9,adult Unclassified (20 sources) Chest pain, atypical Unclassified (10 sources) Sensation of feeling cold Unclassified (10 sources) BRONCHITIS, NOT SPECIFIED ACUTE OR CHRONIC (490.) Past or Other Problems Problem Classification Problem Date Documented Date Episodic/Chronic Bacterial infection; unspecified site (2 sources) Bacterial upper respiratory infection; Translations: [Sinusitis, bacterial] 09-28-2016 Episodic Conditions associated with dizziness or vertigo (20 sources) Conditions associated with dizziness or vertigo Diverticulosis and diverticulitis (12 sources) Diverticulosis of large intestine; Translations: [Diverticula, colon] 07-28-2019 Other connective tissue disease (20 sources) Foot pain; Translations: [Acute foot pain] Resolved: 09-28-2016 09-28-2016 Episodic Other screening for suspected conditions (not mental disorders or infectious disease) (10 sources) Electrocardiogram abnormal; Translations: [Abnormal electrocardiogram [ECG] [EKG]] Onset: 12-25-2024 10-18-2023 Episodic Unclassified (20 sources) Diverticula, colon Unclassified (20 sources) Abnormal lung sounds Unclassified (20 sources) ANGIOEDEMA, NOS (995.1) Unclassified (20 sources) Lesion-Unknown behavior (238.2) Unclassified (20 sources) Cough, persistent Unclassified (20 sources) Therapeutic drug monitoring; Translations: [Drug therapy finding] 09-28-2016 Unclassified (20 sources) Abdominal pain in male Unclassified (20 sources) Sinusitis, bacterial Unclassified (20 sources) Acute foot pain Unclassified (20 sources) Bilateral pain of leg and foot Unclassified (20 sources) BMI 38.0-38.9,adult Unclassified (19 sources) Viral URI Unclassified (20 sources) BMI 39.0-39.9,adult Unclassified (20 sources) Sciatica, left side Unclassified (17 sources) Left low back pain Unclassified (20 sources) Spondylolisthesis, grade 1 Unclassified (11 sources) Polycythemia Unclassified (10 sources) BPV (benign positional vertigo), bilateral Unclassified (5 sources) Facial pressure Unclassified (4 sources) Testicular pain, right Results Test Name Value Interpretation Reference Range Facility Coronary Angiography CTon Coronary Angiography CT [facility] Imaging Services [address] [place] [address] 08/06/25 1135 MR#: [id number] Acct: [id number] Name: LISA RODRIGUEZ Rep #: [id number] : 1970 54 From: Jsoé Miguel Wu MD PCP: Dr. Christiano Barreto MD Status:REG [facility] Location: CT Calcium Scoring Date of Study:: 08/03/25 Indications Indications: Hypertension Coronary Calcium Scoring: High-resolution Computed Tomographic imaging of the chest was performed on [08/03/2025], with particular attention paid to the coronary arteries. Images from the examination were analyzed for the presence and extent of coronary artery calcification , using coronary calcium quantification software. The patient tolerated the procedure well and there were no complications. The results of the coronary calcification analysis are provided below. Findings Coronary Artery Left Main (LM): 0 Left Anterior Descending (LAD): 0 Left Circumflex (LCX): 0 Right Coronary Artery (RCA): 4.77 Total Agatston Score: 4.77 Percentile Rankin-50 Calcium Scoring Interpretation: Different methods to categorize the overall amount of coronary plaque. Overall amount CAC SIS Visual of coronary plaque P1 Mild -100 <2 1-2 vessels with mild amount of plaque P2 Moderate 101-300 3-4 1-2 vessels with moderate amount, 3 vessels with mild amount of plaque P3 Severe 301-999 5-7 3 vessels with moderate amount, 1 vessel with severe amount of plaque P4 Extensive >1000 >8 2-3 vessels with severe amount of plaque Calcium Score: Mild: 1-2 vessels w/mild amount of plaque Conclusion: Mild single-vessel atherosclerotic plaquing present 08/06/25 1136 Date José Miguel Stuartignwillie Signature (if applicable): Date CC: Dr. Christiano Barreto MD; Dr. José Miguel Wu MD Signed Normal [facility] Limited Chest CT Cardiac Onl yon 08-03-[address] Cardiac Only [facility] Imaging Services [address] [place] [id number] Cardiac Only MR#: [id number] Acct: [id number] Name: LISA RODRIGUEZ Rep #: [id number] : 1970 M 54 From: Yoseph orourke MD PCP: Dr. Christiano Barreto MD Status: [facility] Study: Limited Chest CT Cardiac Only Date of Exam: Exam# [id number] Ordering Dr: Christiano Barreto PROCEDURE: LIMITED CHEST CT CARDIAC ONLY 08/03/2025 REASON FOR EXAM: DYSLIPIDEMIA, HTN, HOCM TECHNIQUE: Procedure Code: CTCCTACHLIM Modality: CT Procedure: LIMITED CHEST CT CARDIAC ONLY CONTRAST: None One or more dose reduction techniques were used (e.g., Automated exposure control, adjustment of the mA and/or kV according to patient size, use of iterative reconstruction technique). RADIATION DOSE SUMMARY: CTDlvol: 12.19 mGy DLP: 219.42 mGycm COMPARISON: None FINDINGS: No coronary artery calcification is seen. The heart is nonenlarged. The lungs are clear. CT/Limited Chest CT Cardiac Only IMPRESSION: No coronary artery calcification seen. Reading Location: [place] [address] CC: Dr. Christiano Barreto MD Framing Consultant: Signed Normal [facility] Cardiology Visit Reporton Cardiology Visit Report [facility] [address] [place] [address] OFFICE VISIT Date of Service: 07/06/25 MR#: [id number] Acct: [id number] Name: LISA RODRIGUEZ Rep #: [id number] : 1970 Provider: YUKO hennessy Age/Sex: 54/M Location[place] [facility] Status: Signed HPI HPI History of Present Illness Details: LISA RODRIGUEZ, is a 54 M who presents to the office today for a cardiovascular follow-up visit. He had presented to the emergency room on 10/18/2023 after having a near syncopal spell while he was checking out of [employer]. He says that he only has a history of asthma and hereditary angioedema. He has noted a 20 pound weight loss and has been drinking a significant amount of fluid as well as increased thirst. He got lightheaded with tunnel vision and had to lean over his cart to prevent him from falling. He presented to the emergency room after denying any chest pain paroxysmal nocturnal dyspnea palpitations, or pedal edema. An EKG was done which demonstrated diffuse T wave inversions. Cardiology was called for further evaluation and management. Blood work further reviewed that his blood sugar was noted to be markedly elevated and his hemoglobin A1c was over 11. He has previously been on diagnosed diabetic. His echocardiogram at that time demonstrated ejection fraction of 75%, and apical hypertrophy. His cardiac catheterization from 10/19/2023 demonstrated normal coronary arteries, and apical hypertrophy. He was started on metoprolol succinate 50 mg daily. He denies chest, arm, jaw, or neck discomfort. He denies palpitations. He states intermittent, mild bilateral lower extremity edema. He denies claudication. He states shortness of breath with activity such walking long distances. It is intermittent. He states shortness of breath at rest on occasion depending on weather that he attributes to asthma history. He denies orthopnea or PND. He denies chronic cough. He denies significant, sudden weight gain. He states lightheadedness and dizziness. He denies near-syncope or syncope. He denies blood in urine, blood in stool, or epistaxis. He denies fever with chills. He denies myalgia. He states fatigue that he attributes to sleep related issues. His exercise level has remained stable. He notes vision changes when looking at a bright light. He states aura related migraines associated with dizziness and lightheadedness that improves with darkening the room and rest. 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 Required: No Is patient in pain?: No Allergies cephalexin (From Keflex) Allergy (Intermediate, Verified 07/06/25 15:24) Hives Environmental Allergies: Uncoded Allergy (Mild, Verified 07/06/25 15:24) Other metformin Allergy (Mild, Verified 07/06/25 15:24) Rash Medications ???Medication ???Instructions ???Recorded ???Confirmed ???Type albuterol sulfate 90 mcg/actuation 2 puff inhalation Q6H PRN SOB 07/06/25 History aerosol inhaler (Ventolin HFA) danazol 200 mg capsule 200 mg PO BID hormones 12/26/21 History pen needle, diabetic 31 gauge x #100 ea 10/19/23 09/22/24 Rx 5/16 (BD Ultra-Fine Short Pen Needle) losartan 25 mg tablet 25 mg PO DAILY #90 tabs 09/22/24 0 07/06/25 Rx metoprolol succinate 50 mg 50 mg PO DAILY #90 tabs 09/22/24 0 07/06/25 Rx tablet,extended release 24 hr semaglutide 1 mg/dose (4 mg/3 mL) 1 mg subcut QWEEK 01/05/25 History subcutaneous pen injector (Ozempic) Ejection fraction %: 75 Have you fallen in the past year?: No PFSH Medical History Wears glasses Diabetes Dietary restriction History of echocardiogram Cardiology follow-up encounter Sleep apnea CPAP (continuous positive airway pressure) dependence Exertional chest pain COVID Anxiety Alcohol use Joint stiffness Restless legs Back pain Vertigo History of hiatal hernia Gastric reflux History of diverticulitis Former smoker Asthma Shortness of breath on exertion History of pain when walking History of irregular heartbeat History of Holter monitoring Gastroparesis Surgical History History of cardiac catheterization History of excision of pilonidal cyst Family History Mother Arthritis Hypertension High cholesterol Angioedema Uncle Melanoma Angioedema Daughter Angioedema Social History Smoking Status: Former smoker alcohol inta (more content not included)... Normal [facility] Bedside Glucoseon 01-30-2025 FINGERSTICK GLU 87 mg/dL Normal 74-106 [facility] Comment on above: Result Comment: BOBBI PABLO OF PATIENT CARE PER NURSING PROTOCOL Performed By: #### L 501.080 #### [facility] [address] [facility] [place], [address] Colonoscopy Reporton 025 Colonoscopy Report [facility] Medical Records Department [address] [place] [address] Colonoscopy Report MR#: [id number] Acct: [id number] Name: LISA RODRIGUEZ Rep #: [id number] : 1970 54 From: Abiel Smith MD PCP: Dr. Christiano Barreto MD Status:[facility] Patient Name: Lisa Rodriguez Procedure Date: 01/30/2025 8:45 AM Date of : 1970 Age: 54 Procedure: Colonoscopy Indications: Screening for colorectal malignant neoplasm Providers: Abiel Smith MD Referring MD: Avinash Barreto Medicines: Propofol per Anesthesia Patient Profile: This is a 54 year old male. Refer to note in patient chart for documentation of history and physical. Last Colonoscopy: none. The patient's first colonoscopy is today. Complications: No immediate complications. Procedure: Pre-Anesthesia Assessment: - Prior to the procedure, a History and Physical was performed, and patient medications and allergies were reviewed. The patient's tolerance of previous anesthesia was also reviewed. The risks and benefits of the procedure and the sedation options and risks were discussed with the patient. All questions were answered, and informed consent was obtained. Prior Anticoagulants: The patient has taken no anticoagulant or antiplatelet agents. After reviewing the risks and benefits, the patient was deemed in satisfactory condition to undergo the procedure. After I obtained informed consent, the scope was passed under direct vision. Throughout the procedure, the patient's blood pressure, pulse, and oxygen saturations were monitored continuously. The Colonoscope was introduced through the anus and advanced to the cecum, identified by appendiceal orifice and ileocecal valve. The colonoscopy was performed without difficulty. The patient tolerated the procedure well. The quality of the bowel preparation was good. Anatomical landmarks were photographed. Scope In: 9:30:36 AM Scope Withdrawal Time 0 hours 6 minutes 14 seconds Scope Out: 9:39:30 AM Total Procedure Duration Time 0 hours 8 minutes 54 seconds Findings: The entire examined colon appeared normal on direct and retroflexion views. Impression: - The entire examined colon is normal on direct and retroflexion views. - No specimens collected. Recommendation: - Discharge patient to home. - Resume previous diet. - Continue present medications. - Repeat colonoscopy in 10 years for screening purposes. Procedure Code(s): --- Professional --- 10748, Colonoscopy, flexible; diagnostic, including collection of specimen(s) by brushing or washing, when performed (separate procedure) Diagnosis Code(s): --- Professional --- Z12.11, Encounter for screening for malignant neoplasm of colon CPT copyright 2021 [employer]. All rights reserved. The codes documented in this report are preliminary and upon senior living sales counselor review may be revised to meet current compliance requirements. Abiel Smith MD 01/30/2025 9:43:41 AM This report has been signed electronically. Number of Addenda: 0 Note Initiated On: 01/30/2025 8:45 AM 01/30/25 0943 Date Abiel Smith MD Cosigner Signature: Date (if indicated) CC: Dr. Abiel Smith MD; Dr. Christiano Barreto MD Date Dictated: 01/30/25844 Date Transcribed: Framing Consultant: Signed [facility] Glucose measurement at [facility] deOrdered By: Abiel Smith on 01-30-2025 [facility] 87 mg/dL 74-106 [facility] Comment on above: MANAGEMENT OF PATIEN T CARE PER NURSING PROTOCOL MR/POSTOP.ANEon 01-30-2025 MR/POSTOP.ANE [facility] Medical Records Department [address] [place] [address] Anesthesia Postop Eval I 01/30/25946 MR#: [id number] Acct: [id number] Name: LISA RODRIGUEZ Rep #: [id number] : 1970 54 From: Markus Arango PCP: Dr. Christiano Barreto MD Status:[facility] Y Race: C Location: [facility] Anesthesia: Postop Eval I Current Vital Signs Temperature: 97.4 F Pulse Rate: 87 Blood Pressure: 103/70 Respiratory Rate: 16 Pulse Ox: 93 Oxygen Delivery Method: Room Air Assessment Airway patent: Yes Spontaneous unlabored respirations: Yes Mental status: Asleep nausea: No Vomiting: No Anesthesia Complication: No Fluid Hydration Crystalloid volume administer (ml): 40 Total IV fluid infused: 40 Progress Note Anesthesia document: Postop Eval 1 completed: Yes 01/30/25946 Date Markus Quinteros Signature: Date CC: Signed [facility] MR/[id number] 01-30-2025 MR/POSTOPAN2 [facility] Medical Records Department [address] [facility] [address] Anesthesia Postop Eval II 01/30/25 1443 MR#: [id number] Acct: [id number] Name: LISA RODRIGUEZ Rep #: [id number] : 1970 54 From: Andrei Burgess MD PCP: Dr. Christiano Barreto MD Status:[facility] Y Race: C Location: EN Anesthesia Postop Eval I Sum Postop Eval Completion status Anesthesia document: Postop Eval 1 completed: Yes Anesthesia Postop Eval I Summary Anesthesia Postop Eval I Summary: Anesthesia Postop Eval I: Assessment Summary Airway patent Yes 01/30/25 09:47 [email or web address] Spontaneous unlabored Yes 01/30/25 09:47 [email or web address] respirations Mental status Asleep 01/30/25 09:47 [email or web address] nausea No 01/30/25 09:47 [email or web address] Vomiting No 01/30/25 09:47 [email or web address] Anesthesia Postop Eval I: Fluid Summary Crystalloid volume administer 40 01/30/25 09:47 [email or web address] (ml) Colloids volume administered ( ml) Blood Product volume administered (ml) Total IV fluid infused 40 01/30/25 09:47 [email or web address] Anesthesia Postop Eval I: Summary Notes Anesthesia Complication No 01/30/25 09:47 [email or web address] Anesthesia Complication Comment: Post-operative progress note Anesthesia: Postop Eval II Evaluation Mental status: Awake Pain Level: 0 nausea: No Vomiting: No 01/30/25 1443 Date [facility] Signature: Date CC: Signed [facility] MR/Harish 01-29-2025 MR/DERRICK [facility] Medical Records Department [address] [place], [place] [address] [address] PAT - Anesthesia 01/29/25 1633 MR#: [id number] Acct: [id number] Name: LISA RODRIGUEZ Rep #: [id number] : 1970 54 From: Song Thakkar MD PCP: Dr. Christiano Barreto MD Status:PRE SD Y Race: C Location: EN Pre-Assessment Diagnosis/Proposed Procedure Planned Operative Procedure(s): COLONOSCOPY Anesthesia History Anesthesia History - high reach 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 When Was Last Pacemaker Check QUESTION #4 FULL TEXT: You/Your Family Experience fever (hyperthermia) with Anesthesia Last Oral Intake Last Oral intake: Last Oral Intake NPO since Meds taken in AM with sips of water? Meds patient instructed to take am of surgery PONV PONV - high reach operator: PONV - high reach operator Female No 01/29/25 15:12 HX of Motion Sickness No 01/29/25 15:12 HX of N/V After Surgery No 01/29/25 15:12 Non-Smoker Yes 01/29/25 15:12 Duration of Surgery greater No 01/29/25 15:12 than 60 minutes Number of Risk Factors 1 01/29/25 15:12 PONV Score Low Risk 01/29/25 15:12 Height Weight Height Weight: Anesthesia: Height Weight Height 5 ft 10 in 01/05/25 14:11 Respiratory Assessment Respiratory Assessment - high reach operator: Respiratory Tract Infection Hx - high reach operator Hx Respiratory Tract Infection No 01/29/25 15:12 STOP Sleep Apnea STOP Sleep Apnea - high reach operator: STOP Sleep Apnea - high reach operator Hx Hypertension Yes 01/29/25 15:12 Hx Sleep Apnea Yes 01/29/25 15:12 CPAP Yes 01/29/25 15:12 BIPAP No 01/29/25 15:12 Do you snore loudly (louder than talking or can be heard Do you often feel tired/ fatigued/ sleepy during daytime? Has anyone observed you stop breathing during sleep? STOP Results Positive 01/29/25 15:12 QUESTION #5 FULL TEXT : Do you snore loudly (louder than talking or can be heard through closed doors)? 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 Specify any problems Hx of Preganancy in last 3 N/A 01/29/25 15:12 Months Nurse Filling Out Transfusion [facility] 01/29/25 15:12 Questions: Date: 01/29/25 01/29/25 15:12 Time: 15:20 01/29/25 15:12 Patient unable to answer at this time (ie. 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: /Reproductive Hx- high reach operator Hx Now Gestational Age (in weeks): EDC: Hx Hx Para Hx Section SAB No 02/21/22 15:40 PFSH Medical History (Updated 01/29/25 @ 15:19 by Ines Calderon) Wears glasses Diabetes Dietary restriction History of echocardiogram Cardiology follow-up encounter Sleep apnea CPAP (continuous positive airway pressure) dependence Exertional chest pain COVID Anxiety Alcohol use Joint stiffness Restless legs Back pain Vertigo History of hiatal hernia Gastric reflux History of diverticulitis Former smoker Asthma Shortness of breath on exertion History of pain when walking History of irregular heartbeat History of Holter monitoring Gastroparesis Home Medications ???Medication ???Instructions ???Recorded ???Last Taken ???Type albuterol sulfate 90 mcg/actuation 2 puff inhalation Q6H PRN SOB Unknown History aerosol inhaler (Ventolin HFA) danazol 200 mg capsule 200 mg PO BID hormones 12/26/21 Un known History pen needle, diabetic 31 gauge x #100 ea (more content not included)... Normal [facility] Surgery Visit Reporton 01-05 Surgery Visit Report [facility] [address] [place] [address] OFFICE VISIT Date of Service: 01/05/25 MR#: [id number] Acct: [id number] Name: LISA RODRIGUEZ Rep #: [id number] : 1970 Provider: Dr. Abiel elena MD Age/Sex: 54/M Location: [facility] Status: Signed Intake Vital Signs 09/22/24 15:24 01/05/25 14:11 Height 5 ft 10 in 5 ft 10 in Weight: 244 lb BMI 34.9 BP 129/77 H Blood Pressure Location Rt brachial Position Sitting Respiration 18 Pulse 58 L Pulse Source Monitor Pulse Oximetry (%) 92 Oxygen Delivery Method room air Intake Visit Reasons: SCOPE - CONSTIPATION Chief Complaint: c-scope /constipation Is patient in pain?: No Allergies cephalexin (From Keflex) Allergy (Intermediate, Verified 01/05/25 14:13) Hives Environmental Allergies: Uncoded Allergy (Mild, Verified 01/05/25 14:13) Other metformin Allergy (Mild, Verified 01/05/25 14:13) Rash Medications ???Medication ???Instructions ???Recorded ???Confirmed ???Type albuterol sulfate 90 mcg/actuation 2 puff inhalation Q6H PRN SOB 01/05/25 History aerosol inhaler (Ventolin HFA) danazol 200 mg capsule 200 mg PO BID hormones 12/26/21 History loratadine 10 mg tablet (Claritin) 10 mg PO DAILY PRN ALLERGIES 04/0901/05/25 History pen needle, diabetic 31 gauge x #100 ea 10/19/23 09/22/24 Rx 5/16 (BD Ultra-Fine Short Pen Needle) losartan 25 mg tablet 25 mg PO DAILY #90 tabs 09/22/24 0 01/05/25 Rx metoprolol succinate 50 mg 50 mg PO DAILY #90 tabs 09/22/24 0 01/05/25 Rx tablet,extended release 24 hr semaglutide 1 mg/dose (4 mg/3 mL) 1 mg subcut QWEEK 01/05/25 History subcutaneous pen injector (Ozempic) PFS Medical History (Reviewed 09/22/24 @ 16:14 by Chris Ventura MEDICAL DEVICE SALES CONSULTANT, MEDICAL DEVICE SALES CONSULTANT-C) Sleep apnea CPAP (continuous positive airway pressure) dependence Chest pain Exertional chest pain COVID Anxiety Alcohol use Joint stiffness Restless legs Back pain Vertigo History of hiatal hernia Gastric reflux History of diverticulitis Former smoker Asthma Shortness of breath on exertion History of pain when walking History of irregular heartbeat History of Holter monitoring Gastroparesis Surgical History History of excision of pilonidal cyst Family History (Updated 01/05/25 @ 14:11 by Leticia Sexton) Mother Arthritis Hypertension High cholesterol Angioedema Uncle Melanoma Angioedema Daughter Angioedema Social History Smoking Status: Former smoker alcohol intake: current alcohol intake frequency: a few times a month Alcohol type: beer substance use type: does not use what type of physical activity do you participate in: none HPI HPI HPI: Patient is a 54-year-old male here for colonoscopy. He has never had a colonoscopy in the past. He denies abdominal pain or blood in the stool. He does have an issue with constipation but he believes that was his Ozempic and ever since stopping Ozempic he has been having regular bowel movements. He has no family history of colon cancer. ROS General General: No weight change, appetite, fatigue, colon cancer, breast cancer or weakness HEENT HEENT: No difficulty swallowing, eye injury, eye surgery, swollen glands or hoarseness Endo Endocrine: Yes diabetes mellitus; No thyroid disease, thyroid cancer, Hair loss, heat intolerance or cold intolerance Skin Skin: No rash or changing moles Musc Musculoskeletal: No back problems, arthritis, rheumatoid arthritis, gout or joint pain Cardio Cardiovascular: Yes high blood pressure; No murmur, pacemaker, heart disease, atrial fibrillation, heart attack, heart stent, palpitations, shortness of breat with exertion or chest pain Psych Psychiatric: No depression, anxiety or hearing voices Resp Respiratory: No shortness of breath, Yes sleep apnea, No cough, No COPD, Yes asthma, No emphysema and No wheezing Gastro Gastrointestinal: No abdominal pain, No nausea or vomiting, Yes diarrhea, Yes constipation, Yes blood in stool, No acid reflux, No hemorrhoids, No ulcers, No gallbladder problem and No black,tarry stools Romel Hematologic: No blood thinners, No blood disorders, No bleeding, No anemia and No blood clots Neuro Neurologic: No system reviewed and no additional complaints, except as documented, No as per HPI, No abnormal gait, No abnormal hearing, No abnormal movements, No abnormal speech, No behavioral changes, No burning sensations, No confusion, No convulsions, No disequilibrium, No dizziness, No localized weakness, No frequent falls, No headache(s), No lack of coordination, No loss of vision, No memory loss, No numbness, No other visual dis (more content not included)... Normal [facility] Albumin to globulin ratioOrd ered By: Christiano Barreto on 12-03-2024 Albumin/Globulin [Mass ratio] 1.0 {ratio} 0.9-2.4 [facility] Bilirubin directOrdered By: Chris Ventura on 12-03-2024 Bilirubin.direct [Mass/Vol] 0.15 mg/dL Normal 0.00-0.30 [facility] Comment on above: Order Comment: DR. 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 CHRIS VENTURA ORDERED LIVER, LIPID Performed By: #### L 500.3400 #### [facility] [address] [place], [address] Bilirubin, totalOrdered By: Christiano Barreto on 12-03-2024 Bilirubin [Mass/Vol] 0.80 mg/dL 0.20-1.00 [facility] Comment on above: For patients on eltr ombopag therapy, use of Dimension [place] TBIL is not recommended. Blood urea nitrogen (BUN)/cr eatinine ratioOrdered By: Christiano Barreto on 12-03-2024 Urea nitrogen/Creatinine [Mass ratio] 14.8 mg/mg 10-20 [facility] Carbon dioxide measurementOr dered By: Christiano Barreto on 12-03-2024 CO2 [Moles/Vol] 25.0 mmol/L 21.0-32.0 [facility] Chloride measurementOrdered By: Christiano Barreto on 12-03-2024 Chloride [Moles/Vol] 110 mmol/L High 98-107 [facility] Comprehensive Metabolic Prof ilon 12-03-2024 Albumin [Mass/Vol] 3.4 g/dL Normal 3.2-5.0 [facility] Comment on above: Order Comment: DR. 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 CHRIS VENTURA ORDERED LIVER, LIPID Order Date: 11/26/24 Order Info: [id number] - CMP Order Info: - LIPID Order Info: [id number] - TSH Order Info: [id number] - PSA Performed By: #### L 509.3000, L500.4050, L500.4100, L501.9520, L501.9910 #### [facility] [address] [place], [address] Albumin/Globulin [Mass ratio] 1.0 {ratio} Normal 0.9-2.4 [facility] Comment on above: Order Comment: DR. 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 CHRIS VENTURA ORDERED LIVER, LIPID Order Date: 11/26/24 Order Info: [id number] - CMP Order Info: - LIPID Order Info: [id number] - TSH Order Info: [id number] - PSA Performed By: #### L 509.3000, L500.4050, L500.4100, L501.9520, L501.9910 #### [facility] [address] [place], [address] ALK P 63 U/L Normal 45-117 [facility] Comment on above: Order Comment: DR. 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 CHRIS VENTURA ORDERED LIVER, LIPID Order Date: 11/26/24 Order Info: [id number] - CMP Order Info: - LIPID Order Info: [id number] - TSH Order Info: [id number] - PSA Performed By: #### L 509.3000, L500.4050, L500.4100, L501.9520, L501.9910 #### [facility] [address] [place], [address] ALT [Catalytic activity/Vol] 45 U/L Normal 16-61 [facility] Comment on above: Order Comment: DR. 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 CHRIS VENTURA ORDERED LIVER, LIPID Order Date: 11/26/24 Order Info: [id number] - CMP Order Info: - LIPID Order Info: [id number] - TSH Order Info: [id number] - PSA Performed By: #### L 509.3000, L500.4050, L500.4100, L501.9520, L501.9910 #### [facility] [address] [place], [address] AST [Catalytic activity/Vol] 25 U/L Normal 15-37 [facility] Comment on above: Order Comment: DR. 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 CHRIS VENTURA ORDERED LIVER, LIPID Order Date: 11/26/24 Order Info: [id number] - CMP Order Info: - LIPID Order Info: [id number] - TSH Order Info: [id number] - PSA Performed By: #### L 509.3000, L500.4050, L500.4100, L501.9520, L501.9910 #### [facility] [address] [place] [place], [address] Bilirubin [Mass/Vol] 0.80 mg/dL Normal 0.20-1.00 [facility] Comment on above: Order Comment: DR. 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 CHRIS VENTURA ORDERED LIVER, LIPID Order Date: 11/26/24 Order Info: [id number] - CMP Order Info: - LIPID Order Info: [id number] - TSH Order Info: [id number] - PSA Result Comment: For patients on eltrombopag therapy, use of Dimension [place] TBIL is not recommended. Performed By: #### L 509.3000, L500.4050, L500.4100, L501.9520, L501.9910 #### [facility] [address] [place], [address] BUN/CRE 14.8 RATIO Normal 10-20 [facility] Comment on above: Order Comment: DR. 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 CHRIS VENTURA ORDERED LIVER, LIPID Order Date: 11/26/24 Order Info: [id number] - CMP Order Info: - LIPID Order Info: [id number] - TSH Order Info: [id number] - PSA Performed By: #### L 509.3000, L500.4050, L500.4100, L501.9520, L501.9910 #### [facility] [address] [place], [address] CA,Total 8.5 mg/dL Normal 8.5-10.1 [facility] Comment on above: Order Comment: DR. 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 CHRIS VENTURA ORDERED LIVER, LIPID Order Date: 11/26/24 Order Info: [id number] - CMP Order Info: - LIPID Order Info: [id number] - TSH Order Info: [id number] - PSA Performed By: #### L 509.3000, L500.4050, L500.4100, L501.9520, L501.9910 #### [facility] [address] [place], [address] Chloride [Moles/Vol] 110 mmol/L High 98-107 [facility] Comment on above: Order Comment: DR. 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 CHRIS VENTURA ORDERED LIVER, LIPID Order Date: 11/26/24 Order Info: [id number] - CMP Order Info: - LIPID Order Info: [id number] - TSH Order Info: [id number] - PSA Performed By: #### L 509.3000, L500.4050, L500.4100, L501.9520, L501.9910 #### [facility] [address] [place], [address] CO2 [Moles/Vol] 25.0 mmol/L Normal 21.0-32.0 [facility] Comment on above: Order Comment: DR. 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 CHRIS VENTURA ORDERED LIVER, LIPID Order Date: 11/26/24 Order Info: [id number] - CMP Order Info: - LIPID Order Info: [id number] - TSH Order Info: [id number] - PSA Performed By: #### L 509.3000, L500.4050, L500.4100, L501.9520, L501.9910 #### [facility] [address] [place], [address] Creatinine [Mass/Vol] 0.81 mg/dL Normal 0.70-1.30 [facility] Comment on above: Order Comment: DR. 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 CHRIS VENTURA ORDERED LIVER, LIPID Order Date: 11/26/24 Order Info: [id number] - CMP Order Info: - LIPID Order Info: [id number] - TSH Order Info: [id number] - PSA Result Comment: The validity of the calculated GFR GFRAA in patients over 70 years has not been determined. Clinical correlation is essential. Performed By: #### L 509.3000, L500.4050, L500.4100, L501.9520, L501.9910 #### [facility] [address] [place], [address] EST GFR - AA 128 mL/min Normal >60 [facility] Comment on above: Order Comment: DR. 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 CHRIS VENTURA ORDERED LIVER, LIPID Order Date: 11/26/24 Order Info: [id number] - CMP Order Info: - LIPID Order Info: [id number] - TSH Order Info: [id number] - PSA Result Comment: Afri can Georgian GFR Calc Performed By: #### L 509.3000, L500.4050, L500.4100, L501.9520, L501.9910 #### [facility] [address] [place], [address] GAP 5 Normal 5-15 [facility] Comment on above: Order Comment: DR. 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 CHRIS VENTURA ORDERED LIVER, LIPID Order Date: 11/26/24 Order Info: [id number] - CMP Order Info: - LIPID Order Info: 3 - TSH Order Info: [id number] - PSA Performed By: #### L 509.3000, L500.4050, L500.4100, L501.9520, L501.9910 #### [facility] [address] [place], [address] GFR/1.73 sq M.predicted among non-blacks MDRD (S/P/Bld) [Vol rate/Area] 106 mL/min/{1.73_m2} Normal >60 [facility] Comment on above: Order Comment: DR. 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 CHRIS VENTURA ORDERED LIVER, LIPID Order Date: 11/26/24 Order Info: [id number] - CMP Order Info: - LIPID Order Info: [id number] - TSH Order Info: [id number] - PSA Result Comment: Non- GFR Calc Performed By: #### L 509.3000, L500.4050, L500.4100, L501.9520, L501.9910 #### [facility] [address] [place], [address] Globulin (S) [Mass/Vol] 3.3 g/dL Normal 2.2-4.2 [facility] Comment on above: Order Comment: DR. 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 CHRIS VENTURA ORDERED LIVER, LIPID Order Date: 11/26/24 Order Info: [id number] - CMP Order Info: [id number] - LIPID Order Info: [id number] - TSH Order Info: [id number] - PSA Performed By: #### L 509.3000, L500.4050, L500.4100, L501.9520, L501.9910 #### [facility] [address] [place], [address] Glucose [Mass/Vol] 97 mg/dL Normal 74-106 [facility] Comment on above: Order Comment: DR. 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 CHRIS VENTURA ORDERED LIVER, LIPID Order Date: 11/26/24 Order Info: [id number] - CMP Order Info: - LIPID Order Info: [id number] - TSH Order Info: [id number] - PSA Performed By: #### L 509.3000, L500.4050, L500.4100, L501.9520, L501.9910 #### [facility] [address] [place], [address] Potassium [Moles/Vol] 4.2 mmol/L Normal 3.5-5.1 [facility] Comment on above: Order Comment: DR. 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 CHRIS VENTURA ORDERED LIVER, LIPID Order Date: 11/26/24 Order Info: [id number] - CMP Order Info: - LIPID Order Info: [id number] - TSH Order Info: [id number] - PSA Performed By: #### L 509.3000, L500.4050, L500.4100, L501.9520, L501.9910 #### [facility] [address] [place], [address] Sodium [Moles/Vol] 140 mmol/L Normal 136-145 [facility] Comment on above: Order Comment: DR. 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 CHRIS VENTURA ORDERED LIVER, LIPID Order Date: 11/26/24 Order Info: [id number] - CMP Order Info: - LIPID Order Info: [id number] - TSH Order Info: [id number] - PSA Performed By: #### L 509.3000, L500.4050, L500.4100, L501.9520, L501.9910 #### [facility] [address] [place], [address] T PROT 6.7 g/dL Normal 6.4-8.2 [facility] Comment on above: Order Comment: DR. 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 CHRIS VENTURA ORDERED LIVER, LIPID Order Date: 11/26/24 Order Info: [id number] - CMP Order Info: - LIPID Order Info: [id number] - TSH Order Info: [id number] - PSA Performed By: #### L 509.3000, L500.4050, L500.4100, L501.9520, L501.9910 #### [facility] [address] [place], [place], [address] Order Comment: DR. 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 CHRIS VENTURA ORDERED LIVER, LIPID Performed By: #### L 500.3400 #### [facility] [address] [place], [address] Urea nitrogen [Mass/Vol] 12 mg/dL Normal 7-18 [facility] Comment on above: Order Comment: DR. 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 CHRIS VENTURA ORDERED LIVER, LIPID Order Date: 11/26/24 Order Info: [id number] - CMP Order Info: - LIPID Order Info: [id number] - TSH Order Info: [id number] - PSA Performed By: #### L 509.3000, L500.4050, L500.4100, L501.9520, L501.9910 #### [facility] [address] [place], [address] Estimated glomerular filtrat ion rate (GFR) AmericanOrdered By: Christiano Barreto on 12-03-2024 Estimated GFR (MDRD) Amer 128 mL/min >60 [facility] Comment on above: GFR Calc Glomerular filtration rate ( GFR) estimationOrdered By: Christiano Barreto on 12-03-2024 Estimated GFR (MDRD) Non-Af Amer 106 mL/min >60 [facility] Comment on above: Non- GFR Calc Glucose measurementOrdered B y: Christiano Barreto on 12-03-2024 Glucose [Mass/Vol] 97 mg/dL 74-106 [facility] High density lipoprotein (HD L) measurementOrdered By: Christiano Barreto on 12-03-2024 Cholesterol in HDL [Mass/Vol] 27 mg/dL Low >40 [facility] Comment on above: The drugs N-Acetylcy steine and Metamizole may falsely depress this assay. Reference Range HDL <40 mg/dL Low HDL Cholesterol HDL >or= 60 mg/dL High HDL Cholesterol Lipid Profileon 12-03-2024 Cholesterol [Mass/Vol] 140 mg/dL Normal 200 [facility] Comment on above: Order Comment: DR. 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 CHRIS VENTURA ORDERED LIVER, LIPID Order Date: 11/26/24 Order Info: [id number] - CMP Order Info: - LIPID Order Info: [id number] - TSH Order Info: [id number] - PSA Result Comment: <200 mg/dL Desirable 200-240 mg/dL Borderline >240 mg/dL High Risk Performed By: #### L 509.3000, L500.4050, L500.4100, L501.9520, L501.9910 #### [facility] [address] [facility] [place], [address] Cholesterol in HDL [Mass/Vol] 27 mg/dL Low [facility] Comment on above: Order Comment: DR. 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 CHRIS VENTURA ORDERED LIVER, LIPID Order Date: 11/26/24 Order Info: [id number] - CMP Order Info: [id number] - LIPID Order Info: [id number] - TSH Order Info: [id number] - PSA Result Comment: The drugs N-Acetylcysteine and Metamizole may falsely depress this assay. Reference Range HDL <40 mg/dL Low HDL Cholesterol HDL >or= 60 mg/dL High HDL Cholesterol Performed By: #### L 509.3000, L500.4050, L500.4100, L501.9520, L501.9910 #### [facility] [address] [place], [address] Cholesterol in LDL [Mass/Vol] 91 mg/dL Normal 0-130 [facility] Comment on above: Order Comment: DR. 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 CHRIS VENTURA ORDERED LIVER, LIPID Order Date: 11/26/24 Order Info: [id number] - CMP Order Info: - LIPID Order Info: [id number] - TSH Order Info: [id number] - PSA Performed By: #### L 509.3000, L500.4050, L500.4100, L501.9520, L501.9910 #### [facility] [address] [place], [address] Cholesterol in VLDL [Mass/Vol] 22 mg/dL Normal 5-40 [facility] Comment on above: Order Comment: DR. 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 CHRIS VENTURA ORDERED LIVER, LIPID Order Date: 11/26/24 Order Info: [id number] - CMP Order Info: - LIPID Order Info: [id number] - TSH Order Info: [id number] - PSA Performed By: #### L 509.3000, L500.4050, L500.4100, L501.9520, L501.9910 #### [facility] [address] [place], [address] Triglyceride [Mass/Vol] 108 mg/dL Normal [facility] Comment on above: Order Comment: DR. 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 CHRIS VENTURA ORDERED LIVER, LIPID Order Date: 11/26/24 Order Info: [id number] - CMP Order Info: - LIPID Order Info: [id number] - TSH Order Info: [id number] - PSA Result Comment: The drugs N-Acetylcysteine and Metamizole may falsely depress this assay. Serum Triglycerides Reference Interval Normal <150 mg/dL Borderline high 150 - 199 mg/dL High 200 - 499 mg/dL Very High > or = 500 mg/dL Performed By: #### L 509.3000, L500.4050, L500.4100, L501.9520, L501.9910 #### [facility] [address] [place], [address] Liver Profileon 12-03-2024 Albumin [Mass/Vol] 3.5 g/dL Normal 3.2-5.0 [facility] Comment on above: Order Comment: DR. 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 CHRIS VENTURA ORDERED LIVER, LIPID Performed By: #### L 500.3400 #### [facility] [address] [place], [address] ALK P 62 U/L Normal 45-117 [facility] Comment on above: Order Comment: DR. 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 CHRIS VENTURA ORDERED LIVER, LIPID Performed By: #### L 500.3400 #### [facility] [address] [place], [address] ALT [Catalytic activity/Vol] 46 U/L Normal 16-61 [facility] Comment on above: Order Comment: DR. 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 CHRIS VENTURA ORDERED LIVER, LIPID Performed By: #### L 500.3400 #### [facility] [address] [place], [address] Bilirubin [Mass/Vol] 0.60 mg/dL Normal 0.20-1.00 [facility] Comment on above: Order Comment: DR. Kristie JMI ORDERED PSA, KIPID,CMP,TSH TEST MEDICAL DEVICE SALES CONSULTANT. CHRIS VENTURA ORDERED LIVER, LIPID Result Comment: For patients on eltrombopag therapy, use of Dimension Hitchita TBIL is not recommended. Performed By: #### L 500.3400 #### [facility] [address] [place], [address] Globulin (S) [Mass/Vol] 3.2 g/dL Normal 2.2-4.2 [facility] Comment on above: Order Comment: DR. 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 CHRIS VENTURA ORDERED LIVER, LIPID Performed By: #### L 500.3400 #### [facility] [address] [place], [address] Liver ProfileOrdered By: Carolyn Barreto on 12-03-2024 AST [Catalytic activity/Vol] 25 U/L Normal 15-37 [facility] Comment on above: Order Comment: DR. 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 CHRIS VENTURA ORDERED LIVER, LIPID Performed By: #### L 500.3400 #### [facility] [address] [place], [place], [id number] Low density lipoprotein (LDL ) cholesterol measurementOrdered By: Christiano Barreto on 12-03-2024 Cholesterol in LDL [Mass/Vol] 91 mg/dL 0-130 [facility] PSA,Total - Annual Screenon 12-03-2024 PSA,TOT SCREEN 0.67 ng/mL Normal 0.00-4.00 [facility] Comment on above: Order Comment: DR. 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 CHRIS VENTURA ORDERED LIVER, LIPID Order Date: 11/26/24 Order Info: [id number] - CMP Order Info: [id number] - LIPID Order Info: [id number] - TSH Order Info: [id number] - PSA Result Comment: This test was performed using the TPSA assay method for the [employer] chemistry system. Values obtained with different assay methods cannot be used interchangably. When changing PSA assays in the course of monitoring a patient, additional sequential testing should be carried out to confirm baseline values. Performed By: #### L 509.3000, L500.4050, L500.4100, L501.9520, L501.9910 #### [facility] [address] [place], [address] Potassium measurementOrdered By: Christiano Barreto on 12-03-2024 Potassium [Moles/Vol] 4.2 mmol/L 3.5-5.1 [facility] Screening prostate specific antigen (PSA) measurementOrdered By: Christiano Barreto on 12-03-2024 Prostate Specific Antigen Screen 0.67 ng/mL 0.00-4.00 [facility] Comment on above: This test was perfor med using the TPSA assay method for the[employer] chemistry system. Values obtained with differentassay methods cannot be used interchangably.When changing PSA assays in the course of monitoring apatient, additional sequential testing should be carriedout to confirm baseline values. Serum anion gap measurementO rdered By: Christiano Barreto on 12-03-2024 Anion gap [Moles/Vol] 5 mmol/L 5-15 [facility] Serum globulin measurementOr dered By: Christiano Barreto on 12-03-2024 Globulin (S) [Mass/Vol] 3.3 g/dL 2.2-4.2 [facility] Serum or plasma alanine carpio otransferase (ALT) measurementOrdered By: Christiano Barreto on 12-03-2024 ALT [Catalytic activity/Vol] 45 U/L 16-61 [facility] Serum or plasma albumin criss urement (mass/volume)Ordered By: Christiano Barreto on 12-03-2024 Albumin [Mass/Vol] 3.4 g/dL 3.2-5.0 [facility] Serum or plasma alkaline celi sphatase measurementOrdered By: Christiano Barreto on 12-03-2024 ALP [Catalytic activity/Vol] 63 U/L 45-117 [facility] Serum or plasma calcium criss urement (mass/volume)Ordered By: Christiano Barreto on 12-03-2024 Calcium [Mass/Vol] 8.5 mg/dL 8.5-10.1 [facility] Serum or plasma cholesterol measurement (mass/volume)Ordered By: Christiano Barreto on 12-03-2024 Cholesterol [Mass/Vol] 140 mg/dL <200 [facility] Comment on above: <200 mg/dL Desirable 200-240 mg/dL Borderline >240 mg/dL High Risk Serum or plasma creatinine m easurement (mass/volume)Ordered By: Christiano Barreto on 12-03-2024 Creatinine [Mass/Vol] 0.81 mg/dL 0.70-1.30 [facility] Comment on above: The validity of the calculated GFR & GFRAA in patients over 70 years has not been determined. Clinical correlation is essential. Serum or plasma urea nitroge n measurement (mass/volume)Ordered By: Christiano Barreto on 12-03-2024 Urea nitrogen [Mass/Vol] 12 mg/dL 7-18 [facility] Sodium levelOrdered By: Martine Barreto on 12-03-2024 Sodium [Moles/Vol] 140 mmol/L 136-145 [facility] TSH QnOrdered By: Avinash Barreto on 12-03-2024 Thyroid Stimulating Hormone (TSH) 1.720 uIU/mL 0.358-3.74 0 [facility] Testosterone, Serum Totalon 12-03-2024 Testosterone [Mass/Vol] 79.38 ng/dL Normal [facility] Comment on above: Order Comment: DR. 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 CHRIS VENTURA ORDERED LIVER, LIPID Order Date: 11/26/24 Order Info: [id number] - JESUS Result Comment: CENT RAL 90% REFERENCE RANGES MALE AGE <50 197.44 - 669.58 ng/dL MALE AGE > or = 50 187.72 - 684.19 ng/dL FEMALE AGE <50 8.38 - 35.01 ng/dL FEMALE AGE > or = 50 <7.00 - 35.92 ng/dL Effective as of 06/14/21 Performed By: #### L 509.3000, L500.4050, L500.4100, L501.9520, L501.9910 #### [facility] [address] [place], [place], [address] Testosterone, totalOrdered B y: Christiano Barreto on 12-03-2024 Testosterone [Mass/Vol] 79.38 ng/dL [facility] Comment on above: CENTRAL 90% REFERENC E RANGES MALE AGE <50 197.44 - 669.58 ng/dL MALE AGE > or = 50 187.72 - 684.19 ng/dL FEMALE AGE <50 8.38 - 35.01 ng/dL FEMALE AGE > or = 50 <7.00 - 35.92 ng/dL Effective as of 06/14/21 Thyroid Stim Hormone (TSH)on 12-03-2024 TSH 1.720 uIU/mL Normal 0.358-3.74 0 [facility] Comment on above: Order Comment: DR. 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 CHRIS VENTURA ORDERED LIVER, LIPID Order Date: 11/26/24 Order Info: [id number] - CMP Order Info: [id number] - LIPID Order Info: [id number] - TSH Order Info: [id number] - PSA Performed By: #### L 509.3000, L500.4050, L500.4100, L501.9520, L501.9910 #### [facility] [address] [place], [place], [address] Total proteinOrdered By: Carolyn Barreto on 12-03-2024 Protein [Mass/Vol] 6.7 g/dL 6.4-8.2 [facility] Triglycerides measurementOrd ered By: Christiano Barreto on 12-03-2024 Triglyceride [Mass/Vol] 108 mg/dL <199 [facility] Comment on above: The drugs N-Acetylcy steine and Metamizole may falsely depress this assay.Serum Triglycerides Reference Interval Normal <150 mg/dL Borderline high 150 - 199 mg/dL High 200 - 499 mg/dL Very High > or = 500 mg/dL Very low density lipoprotein (VLDL) cholesterol measurementOrdered By: Christiano Barreto on 12-03-2024 VLDL Cholesterol 22 mg/dL 5-40 [facility] Cardiology Visit Reporton Cardiology Visit Report [facility] [address] [place], [place] [address] OFFICE VISIT Date of Service: 09/22/24 MR#: [id number] Acct: [id number] Name: LISA RODRIGUEZ Rep #: [id number] : 1970 Provider: YUKO staples Age/Sex: 53/M [place] [facility] Status: Signed HPI HPI History of Present Illness Details: LISA RODRIGUEZ, is a 53 M who presents to the office today for a cardiovascular follow-up visit. He had presented to the emergency room on 10/18/2023 after having a near syncopal spell while he was checking out of [employer]. He says that he only has a history of asthma and hereditary angioedema. He has noted a 20 pound weight loss and has been drinking a significant amount of fluid as well as increased thirst. He got lightheaded with tunnel vision and had to lean over his cart to prevent him from falling. He presented to the emergency room after denying any chest pain paroxysmal nocturnal dyspnea palpitations, or pedal edema. An EKG was done which demonstrated diffuse T wave inversions. Cardiology was called for further evaluation and management. Blood work further reviewed that his blood sugar was noted to be markedly elevated and his hemoglobin A1c was over 11. He has previously been on diagnosed diabetic. His echocardiogram at that time demonstrated ejection fraction of 75%, and apical hypertrophy. His cardiac catheterization from 10/19/2023 demonstrated normal coronary arteries, and apical hypertrophy. He was started on metoprolol succinate 50 mg daily. From a cardiac standpoint, the patient is doing well. He denies any palpitations, chest pain, pressure or heaviness. He does acknowledge asthma related SOB. He denies Orthopnea, and PND. He does wear his CPAP nightly. He does not have bleeding issues; no blood in urine, stool or nosebleeds. He does acknowledge fatigue-he attributes this to not sleeping well. He denies myalgias, or claudication. He does not have edema, or sudden weight gain. He does have occasional lightheadedness with quick positional changes. He denies dizziness, syncopal or near syncopal episodes, and headaches. 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 Is patient in pain?: No Allergies Environmental Allergies: Uncoded Allergy (Mild, Verified 09/22/24 15:55) Other metformin Allergy (Mild, Verified 09/22/24 15:55) Rash Medications ???Medication ???Instructions ???Recorded ???Confirmed ???Type albuterol sulfate 90 mcg/actuation 2 puff inhalation Q6H PRN SOB 12/26/21 09/22/24 History aerosol inhaler (Ventolin HFA) danazol 200 mg capsule 200 mg PO BID hormones 12/26/21 09/22/24 History loratadine 10 mg tablet (Claritin) 10 mg PO DAILY PRN ALLERGIES 02/21/22 09/22/24 History pen needle, diabetic 31 gauge x #100 ea 10/19/23 09/22/24 Rx /16 (BD Ultra-Fine Short Pen Needle) semaglutide 0.25 mg or 0.5 mg (2 0.25 mg subcut QWEEK 03/13/24 09/22/24 History mg/3 mL) subcutaneous pen injector (Declara) losartan 25 mg tablet 25 mg PO DAILY #90 tabs 09/22/24 09/22/24 Rx metoprolol succinate 50 mg 50 mg PO DAILY #90 tabs 09/22/24 09/22/24 Rx tablet,extended release 24 hr PFSH Medical History Sleep apnea CPAP (continuous positive airway pressure) dependence Chest pain Exertional chest pain COVID Anxiety Alcohol use Joint stiffness Restless legs Back pain Vertigo History of hiatal hernia Gastric reflux History of diverticulitis Former smoker Asthma Shortness of breath on exertion History of pain when walking History of irregular heartbeat History of Holter monitoring Gastroparesis Surgical History History of excision of pilonidal cyst Family History Mother Arthritis Hypertension High cholesterol Angioedema Uncle Melanoma Social History Smoking Status: Former smoker alcohol intake: current alcohol intake frequency: a few times a month Alcohol type: beer substance use type: does not use what type of physical activity do you participate in: none ROS Const Const: Positive for fatigue; Negative for weakness, fever(s), headache(s), chills, frequent falls, weight gain or weight loss Eyes Eyes: Negative for blind spots, loss of peripheral vision, transient loss of vision, blurry vision, change in vision, double vision, floaters or tunn (more content not included)... Normal [facility] Absolute lymphocyte countOrd ered By: ED PROVIDER on 02-26-2024 Lymphocytes Auto (Unsp spec) [#/Vol] 1.30 10*3/uL 0.83-4.51 [facility] Activated partial thrombopla stin time (aPTT) in platelet poor plasma by coagulation aOrdered By: ED PROVIDER on 02-26-2024 aPTT Coag (PPP) [Time] 23.8 s 24.1-36.2 [facility] Automated lymphocyte count a s percentage of total leukocytesOrdered By: ED PROVIDER on 02-26-2024 Lymphocytes/100 WBC Auto (Unsp spec) 16.3 % 19-41 [facility] Basophil percentageOrdered B y: ED PROVIDER on 02-26-2024 Basophils/100 WBC (Bld) 0.9 % 0-1 [facility] Eosinophils/100 WBC (Bld) 2.1 % 0-5 [facility] Hemoglobin (Bld) [Mass/Vol] 17.1 g/dL 13.0-16.5 [facility] Monocytes/100 WBC (Bld) 6.9 % 0-10 [facility] Neutrophils (Bld) [#/Vol] 5.8 10*3/uL 2.0-7.7 [facility] Neutrophils/100 WBC (Bld) 73.2 % 47-70 [facility] WBC (Bld) [#/Vol] 8.0 10*3/uL 4.4-11.0 [facility] Basophil percentageOrdered B y: Eduardo Montgomery on 02-26-2024 Chloride [Moles/Vol] 108 mmol/L 98-107 [facility] Glucose [Mass/Vol] 112 mg/dL 74-106 [facility] Comment on above: Fasting Glucose resu lt from 100 to 125 mg/dL suggests IMPAIRED HOMEOSTASIS per A.D.A. criteria. Potassium [Moles/Vol] 3.9 mmol/L 3.5-5.1 [facility] Sodium [Moles/Vol] 139 mmol/L 136-145 [facility] ([facility] ) LISA RODRIGUEZ ([id number]) 1970 M Date Time Provider Department 02/26/24 4:45 PM JULY ANDERSON [facility] During your visit today, we recorded the following information about you: Temperature Pulse Respiration Blood pressure 97.1 degrees 76/minute 16/minute 122/72 Weight 114.7 kg July Anderson APRN.[facility] 02/26/2024 5:18 PM Addendum Subjective Dizziness Associated symptoms include dizziness. Pertinent negatives include no abdominal pain, fever, headaches, nausea or vomiting. Lisa Rodriguez is a 53 year old male who presents with concern that his blood sugar is low. He was at work and suddenly felt dizzy, and lightheaded and has flashing lights in his left eye/visual field. When he looked at his computer screen it looked like it was underwater. He denies fever, nausea or vomiting. He viewed the eclipse yesterday but was wearing solar glasses. He was diagnosed with T2DM in October. He has been on Ozempic for 3 weeks. He states he has lost 45 lbs since starting this medication. Review of Systems Constitutional: Negative for chills and fever. Eyes: Flashing lights in his left eye Respiratory: Negative. Cardiovascular: Negative. Gastrointestinal: Negative for abdominal pain, diarrhea, nausea and vomiting. Musculoskeletal: Negative. Neurological: Positive for dizziness. Negative for headaches. Psychiatric/Behavioral: The patient is nervous/anxious. BP 122/72 Pulse 76 Temp 36.2 ?C (97.1 ?F) Resp 16 Wt 114.7 kg (252 lb 13.9 oz) SpO2 95% No past medical history on file. No past surgical history on file. ALLERGIES Metformin MEDICATIONS danazol (DANOCRINE) 200 mg capsule OZEMPIC 0.25 mg or 0.5 mg (2 mg/3 mL) pen INJECT 0.25MG SUBCUTANEOUSLY ONCE A WEEK metoprolol succinate ER (TOPROL XL) 50 mg 24 hr tablet Take 1 tablet by mouth every afternoon. losartan (COZAAR) 25 mg tablet Take 1 tablet by mouth every afternoon. No family history on file. Objective Physical Exam Vitals and nursing note reviewed. Constitutional: General: He is not in acute distress. Appearance: Normal appearance. He is not ill-appearing. Cardiovascular: Rate and Rhythm: Normal rate and regular rhythm. Heart sounds: Normal heart sounds. Pulmonary: Effort: Pulmonary effort is normal. No respiratory distress. Breath sounds: Normal breath sounds. No wheezing or rales. Skin: General: Skin is warm and dry. Findings: No erythema or rash. Neurological: Mental Status: He is alert. Psychiatric: Mood and Affect: Mood normal. Behavior: Behavior normal. ASSESSMENT/PLAN: 1. Lightheaded - ICD9: 780.4, ICD10: R42 (primary diagnosis) - GLUCOSE, BLOOD (POC) Office Visit on 02/26/2024 Component Date Value Ref Range Status Glucose, Point of Care 02/26/2024 83 74 - 99 mg/dL Final Comment: Location:[address], [place], [address] The Accu-Chek Inform II glucose meter has not been approved for testing on patients receiving intensive medical intervention or therapy and results from this point of care glucose test should not be used for patient management decisions in these cases. Inaccurate results may also occur from other interfering factors, such as N-acetylcysteine (blood concentrations of greater than 5mg/dL), galactose, extremes of hematocrit (<10 or >65), or high doses of ascorbic acid (vitamin C) greater than 3mg/dL. Consider alternate testing mechanisms (e.g. core lab, blood gas instrument) in the above situations. - likely due to Ozempic but cannot rule out other more serious causes in Express [facility]. 2. Visual changes - ICD9: 368.9, ICD10: H53.9 - referred to ER for further evaluation and treatment. Patient agreeable. Coworker will drive him there. July Anderson APRN.[employer]ODUCT DEMONSTR[employer] Allergies As of Date: 02/26/2024 Noted Allergy Reaction METFORMIN 02/26/2024 4 - Hives Date Reviewed: Never Reviewed Reason for Visit: Dizziness [36] Cmt: blurred vision x today Primary Visit Diagnosis:Lightheaded [R42] Other Visit Diagnosis:Visual changes [H53.9] Order(s):GLUCOSE, BLOOD (POC) [8605881] Order #: [id number]. #:[id number] Prescriptions as of 02/26/2024 - danazol (DANOCRINE) 200 mg capsule - OZEMPIC 0.25 mg or 0.5 mg (2 mg/3 mL) pen INJECT 0.25MG SUBCUTANEOUSLY ONCE A WEEK - metoprolol succinate ER (TOPROL XL) 50 mg 24 hr tablet Take 1 tablet by mouth every afternoon. - losartan (COZAAR) 25 mg tablet Take 1 tablet by mouth every afternoon. Problem List As Of Date: 02/26/2024 (None) Follow-up and Disposition History for Encounter Date Provider Department Center 02/26/2024 [id number], KA*[facility] Encounter Status:Closed by JULY ANDERSON on 02/26/24 Normal [facility] Determination of erythrocyte mean corpuscular volume (MCV)Ordered By: ED PROVIDER on 02-26-2024 MCV (RBC) [Entitic vol] 86.9 fL 80-94 [facility] Erythrocyte distribution wid th ratioOrdered By: ED PROVIDER on 02-26-2024 Erythrocyte distribution width (RBC) [Ratio] 13.5 % 11.6-14.6 [facility] Erythrocyte distribution wid th standard deviationOrdered By: ED PROVIDER on 02-26-2024 Erythrocyte distribution width (RBC) [Entitic vol] 42.8 fL 35.1-43.9 [facility] GLUCOSE, BLOOD (POC)on 02-25 Glucose [Mass/Vol] 83 mg/dL 74 - 99 mg/dL [facility] Hematocrit Auto (Bld) [Volum e fraction]Ordered By: ED PROVIDER on 02-26-2024 Hematocrit (Bld) [Volume fraction] 53.3 % 40-54 [facility] Immature granulocytes/100 WB C Auto (Bld)Ordered By: ED PROVIDER on 02-26-2024 Immature granulocytes/100 WBC (Bld) 0.600 % 0.0-0.9 [facility] Comment on above: IG% - Immature Granu locytes (promyelocytes, myelocytes and metamyelocytes) > 1% indicates that a LEFT SHIFT is Present. Laboratory - Chemistry and C hemistry - challengeOrdered By: Eduardo Montgomery on 02-26-2024 CO2 [Moles/Vol] 25.0 mmol/L 21.0-32.0 [facility] Urea nitrogen/Creatinine [Mass ratio] 12.0 mg/mg 10-20 [facility] - CoagulationOrde red By: ED PROVIDER on 02-26-2024 INR Coag (Bld) [Relative time] 1.0 {INR} [facility] PT Coag (PPP) [Time] 13.4 s 11.7-14.9 [facility] - Hematology and Cell countsOrdered By: ED PROVIDER on 02-26-2024 MCH (RBC) [Entitic mass] 27.9 pg 27.0-32.0 [facility] MCHC (RBC) [Mass/Vol] 32.1 g/dL 32-36 [facility] Nucleated RBC/100 WBC (Bld) [Ratio] 0 % 0-5 [facility] Platelet mean volume (Bld) [Entitic vol] 10.6 fL 6.2-12.0 [facility] Platelets (Bld) [#/Vol] 204 10*3/uL 150-450 [facility] No Panel InformationOrdered By: Eduardo Montgomery on 02-26-2024 Estimated Creatinine Clearance Calc 122.00 ml/min [facility] Estimated GFR (MDRD) Amer 112 mL/min >60 [facility] Comment on above: GFR Calc Estimated GFR (MDRD) Non-Af Amer 93 mL/min >60 [facility] Comment on above: Non- GFR Calc RBC Auto (Bld) [#/Vol]Ordere d By: ED PROVIDER on 02-26-2024 RBC (Bld) [#/Vol] 6.13 10*6/uL 4.6-6.2 [facility] Serum or plasma calcium criss urement (mass/volume)Ordered By: Eduardo Montgomery on 02-26-2024 Calcium [Mass/Vol] 9.4 mg/dL 8.5-10.1 [facility] Serum or plasma creatinine m easurement (mass/volume)Ordered By: Eduardo Montgomery on 02-26-2024 Creatinine [Mass/Vol] 0.91 mg/dL 0.70-1.30 [facility] Comment on above: The validity of the calculated GFR & GFRAA in patients over 70 years has not been determined. Clinical correlation is essential. Serum or plasma urea nitroge n measurement (mass/volume)Ordered By: Eduardo Montgomery on 02-26-2024 Urea nitrogen [Mass/Vol] 11 mg/dL 7-18 [facility] Thin prep Papanicolaou smear with manual screeningOrdered By: Eduardo Montgomery on 02-26-2024 Thin prep Papanicolaou smear with manual screening 6 5-15 [facility] Basophil percentageOrdered B y: Chris Ventura on 12-20-2023 Bilirubin [Mass/Vol] 0.60 mg/dL 0.20-1.00 [facility] Comment on above: For patients on eltr ombopag therapy, use of Dimension Hitchita TBIL is not recommended. Cholesterol [Mass/Vol] 172 mg/dL <200 [facility] Comment on above: <200 mg/dL Desirable 200-240 mg/dL Borderline >240 mg/dL High Risk Protein [Mass/Vol] 7.1 g/dL 6.4-8.2 [facility] Triglyceride [Mass/Vol] 160 mg/dL <199 [facility] Comment on above: The drugs N-Acetylcy steine and Metamizole may falsely depress this assay.Serum Triglycerides Reference Interval Normal <150 mg/dL Borderline high 150 - 199 mg/dL High 200 - 499 mg/dL Very High > or = 500 mg/dL Direct bilirubinOrdered By: Chris Ventura on 12-20-2023 Bilirubin.direct [Mass/Vol] 0.19 mg/dL 0.00-0.30 [facility] - Chemistry and C hemistry - challengeOrdered By: Chris Ventura on 12-20-2023 ALP [Catalytic activity/Vol] 55 U/L 45-117 [facility] ALT [Catalytic activity/Vol] 52 U/L 16-61 [facility] Cholesterol in HDL (Body fld) [Mass/Vol] 25 mg/dL >40 [facility] Comment on above: The drugs N-Acetylcy steine and Metamizole may falsely depress this assay. Reference Range HDL <40 mg/dL Low HDL Cholesterol HDL >or= 60 mg/dL High HDL Cholesterol Cholesterol in LDL (Body fld) [Moles/Vol] 115 mg/dL 0-130 [facility] Cholesterol in VLDL Calc [Moles/Vol] 32 mg/dL 5-40 [facility] Globulin (S) [Mass/Vol] 3.5 g/dL 2.2-4.2 [facility] Thin prep Papanicolaou smear with manual screeningOrdered By: Chris Ventura on 12-20-2023 Thin prep Papanicolaou smear with manual screening 3.6 g/dL 3.2-5.0 [facility] Thin prep Papanicolaou smear with manual screening 19 U/L 15-37 [facility] Basophil percentageOrdered B y: Andrew Brown on 10-19-2023 Chloride [Moles/Vol] 104 mmol/L 98-107 [facility] Glucose [Mass/Vol] 270 mg/dL 74-106 [facility] Comment on above: Glucose result great er than or equal to 200 mg/dLsuggests DIABETES MELLITUS per A.D.A. criteria. Potassium [Moles/Vol] 3.9 mmol/L 3.5-5.1 [facility] Sodium [Moles/Vol] 137 mmol/L 136-145 [facility] WBC (Bld) [#/Vol] 8.8 10*3/uL 4.4-11.0 [facility] Blood erythrocytes count (nu mber/volume)Ordered By: Andrew Brown on 10-19-2023 RBC (Bld) [#/Vol] 5.53 10*6/uL 4.6-6.2 [facility] Blood hemoglobin measurement (mass/volume)Ordered By: Andrew Brown on 10-19-2023 Hemoglobin (Bld) [Mass/Vol] 15.8 g/dL 13.0-16.5 [facility] Blood platelet mean volumeOr dered By: Andrew Brown on 10-19-2023 Platelet mean volume (Bld) [Entitic vol] 10.8 fL 6.2-12.0 [facility] [facility] Determination of erythrocyte mean corpuscular volume (MCV)Ordered By: Andrew Brown on 10-19-2023 MCV (RBC) [Entitic vol] 86.6 fL 80-94 [facility] Glucose Glucometer (BldC) [M ass/Vol]Ordered By: Lissy Goel on 10-19-2023 Glucose [Mass/Vol] 261 mg/dL 74-106 [facility] Comment on above: MANAGEMENT OF PATIEN T CARE PER NURSING PROTOCOL Hematocrit Auto (Bld) [Volum e fraction]Ordered By: Andrew Brown on 10-19-2023 Hematocrit (Bld) [Volume fraction] 47.9 % 40-54 [facility] Laboratory - Chemistry and C hemistry - challengeOrdered By: Andrew Brown on 10-19-2023 CO2 [Moles/Vol] 28.0 mmol/L 21.0-32.0 [facility] Urea nitrogen/Creatinine [Mass ratio] 12.6 mg/mg 10-20 [facility] - Hematology and Cell countsOrdered By: Andrew Brown on 10-19-2023 Erythrocyte distribution width (RBC) [Entitic vol] 42.5 fL 35.1-43.9 [facility] Erythrocyte distribution width (RBC) [Ratio] 13.4 % 11.6-14.6 [facility] MCH (RBC) [Entitic mass] 28.6 pg 27.0-32.0 [facility] MCHC Auto (RBC) [Mass/Vol]Or dered By: Andrew Brown on 10-19-2023 MCHC (RBC) [Mass/Vol] 33.0 g/dL 32-36 [facility] No Panel InformationOrdered By: Andrew Brown on 10-19-2023 Estimated Creatinine Clearance Calc 94.99 ml/min [facility] Estimated GFR (MDRD) Amer 108 mL/min >60 [facility] Comment on above: GFR Calc Estimated GFR (MDRD) Non-Af Amer 89 mL/min >60 [facility] Comment on above: Non- GFR Calc Platelets bldOrdered By: Alejandra Brown on 10-19-2023 Platelets (Bld) [#/Vol] 215 10*3/uL 150-450 [facility] Serum or plasma calcium criss urement (mass/volume)Ordered By: Andrew Brown on 10-19-2023 Calcium [Mass/Vol] 7.8 mg/dL 8.5-10.1 [facility] Serum or plasma creatinine m easurement (mass/volume)Ordered By: Andrew Brown on 10-19-2023 Creatinine [Mass/Vol] 0.95 mg/dL 0.70-1.30 [facility] Comment on above: The validity of the calculated GFR & GFRAA in patients over 70 years has not been determined. Clinical correlation is essential. Serum or plasma urea nitroge n measurement (mass/volume)Ordered By: Andrew Brown on 10-19-2023 Urea nitrogen [Mass/Vol] 12 mg/dL 7-18 [facility] Thin prep Papanicolaou smear with manual screeningOrdered By: Andrew Brown on 10-19-2023 Thin prep Papanicolaou smear with manual screening 5 5-15 [facility] Absolute lymphocyte countOrd ered By: Eduardo Montgomery on 10-18-2023 Lymphocytes Auto (Unsp spec) [#/Vol] 1.11 10*3/uL 0.83-4.51 [facility] Basophil percentageOrdered B y: Eduardo Montgomery on 10-18-2023 Basophils/100 WBC (Bld) 0.7 % 0-1 [facility] Chloride [Moles/Vol] 101 mmol/L 98-107 [facility] Eosinophils/100 WBC (Bld) 3.1 % 0-5 [facility] Glucose [Mass/Vol] 386 mg/dL 74-106 [facility] Comment on above: Glucose result great er than or equal to 200 mg/dLsuggests DIABETES MELLITUS per A.D.A. criteria. Neutrophils (Bld) [#/Vol] 5.6 10*3/uL 2.0-7.7 [facility] Neutrophils/100 WBC (Bld) 74.9 % 47-70 [facility] Potassium [Moles/Vol] 4.1 mmol/L 3.5-5.1 [facility] Sodium [Moles/Vol] 133 mmol/L 136-145 [facility] WBC (Bld) [#/Vol] 7.5 10*3/uL 4.4-11.0 [facility] Basophil percentageOrdered B y: Andrew Brown on 10-18-2023 Cholesterol [Mass/Vol] 196 mg/dL <200 [facility] Comment on above: <200 mg/dL Desirable 200-240 mg/dL Borderline >240 mg/dL High Risk Triglyceride [Mass/Vol] 420 mg/dL <199 [facility] Comment on above: The drugs N-Acetylcy steine and Metamizole may falsely depress this assay. TRIGLYCERIDE IS GREATER THAN 400 mg/dL. LDL RESULT IS INVALID AND WILL NOT BE REPORTED.Serum Triglycerides Reference Interval Normal <150 mg/dL Borderline high 150 - 199 mg/dL High 200 - 499 mg/dL Very High > or = 500 mg/dL Blood erythrocytes count (nu mber/volume)Ordered By: Eduardo Montgomery on 10-18-2023 RBC (Bld) [#/Vol] 5.81 10*6/uL 4.6-6.2 [facility] Blood hemoglobin measurement (mass/volume)Ordered By: Eduardo Montgomery on 10-18-2023 Hemoglobin (Bld) [Mass/Vol] 16.8 g/dL 13.0-16.5 [facility] Blood lymphocytes/100 leukoc ytesOrdered By: Eduardo Montgomery on 10-18-2023 Lymphocytes/100 WBC (Bld) 14.9 % 19-41 [facility] Blood monocytes/100 leukocyt esOrdered By: Eduardo Montgomery on 10-18-2023 Monocytes/100 WBC (Bld) 5.6 % 0-10 [facility] Blood platelet mean volumeOr dered By: Eduardo Montgomery on 10-18-2023 Platelet mean volume (Bld) [Entitic vol] 10.5 fL 6.2-12.0 [facility] Determination of erythrocyte mean corpuscular volume (MCV)Ordered By: Eduardo Montgomery on 10-18-2023 MCV (RBC) [Entitic vol] 84.3 fL 80-94 [facility] Glucose Glucometer (BldC) [M ass/Vol]Ordered By: Eduardo Montgomery on 10-18-2023 Glucose [Mass/Vol] 381 mg/dL 74-106 [facility] Comment on above: MANAGEMENT OF PATIEN T CARE PER NURSING PROTOCOL Hematocrit Auto (Bld) [Volum e fraction]Ordered By: Eduardo Montgomery on 10-18-2023 Hematocrit (Bld) [Volume fraction] 49.0 % 40-54 [facility] - Chemistry and C hemistry - challengeOrdered By: Eduardo Montgomery on 10-18-2023 CO2 [Moles/Vol] 27.0 mmol/L 21.0-32.0 [facility] Urea nitrogen/Creatinine [Mass ratio] 11.2 mg/mg 10-20 [facility] - Hematology and Cell countsOrdered By: Eduardo Montgomery on 10-18-2023 Erythrocyte distribution width (RBC) [Entitic vol] 41.6 fL 35.1-43.9 [facility] Erythrocyte distribution width (RBC) [Ratio] 13.5 % 11.6-14.6 [facility] Immature granulocytes/100 WBC (Bld) 0.800 % 0.0-0.9 [facility] Comment on above: IG% - Immature Granu locytes (promyelocytes, myelocytes and metamyelocytes) > 1% indicates that a LEFT SHIFT is Present. MCH (RBC) [Entitic mass] 28.9 pg 27.0-32.0 [facility] Nucleated RBC/100 WBC (Bld) [Ratio] 0 % 0-5 [facility] MCHC Auto (RBC) [Mass/Vol]Or dered By: Eduardo Montgomery on 10-18-2023 MCHC (RBC) [Mass/Vol] 34.3 g/dL 32-36 [facility] No Panel InformationOrdered By: Eduardo Montgomery on 10-18-2023 Estimated Creatinine Clearance Calc 84.33 ml/min [facility] Estimated GFR (MDRD) Amer 94 mL/min >60 [facility] Comment on above: GFR Calc Estimated GFR (MDRD) Non-Af Amer 77 mL/min >60 [facility] Comment on above: Non- GFR Calc Troponin I High Sensitivity 40 pg/mL 3.0-78.0 [facility] Comment on above: Please Note: New Jesus t Units and Gender Specific Reference Ranges. For more information see Policy Stat Procedure [place] High Sensitivity Troponin (TNIH) and attachments. No Panel InformationOrdered By: Andrew Brown on 10-18-2023 Thyroid Stimulating Hormone (TSH) 0.97 uIU/mL 0.358-3.74 [facility] Platelets bldOrdered By: Dennis Montgomery on 10-18-2023 Platelets (Bld) [#/Vol] 218 10*3/uL 150-450 [facility] Serum or plasma calcium criss urement (mass/volume)Ordered By: Eduardo Montgomery on 10-18-2023 Calcium [Mass/Vol] 8.6 mg/dL 8.5-10.1 [facility] Serum or plasma cholesterol in HDL measurement (mass/volume)Ordered By: Andrew Brown on 10-18-2023 Cholesterol in HDL [Mass/Vol] 14 mg/dL >40 [facility] Comment on above: The drugs N-Acetylcy steine and Metamizole may falsely depress this assay. Reference Range HDL <40 mg/dL Low HDL Cholesterol HDL >or= 60 mg/dL High HDL Cholesterol Serum or plasma cholesterol in VLDL measurement (mass/volume)Ordered By: Andrew Brown on 10-18-2023 Cholesterol in VLDL [Mass/Vol] [facility] Comment on above: Test not performed Serum or plasma creatinine m easurement (mass/volume)Ordered By: Eduardo Montgomery on 10-18-2023 Creatinine [Mass/Vol] 1.07 mg/dL 0.70-1.30 [facility] Comment on above: The validity of the calculated GFR & GFRAA in patients over 70 years has not been determined. Clinical correlation is essential. Serum or plasma low density lipoprotein (LDL) cholesterol measurement (mass/volume)Ordered By: Andrew Brown on 10-18-2023 Cholesterol in LDL [Mass/Vol] [facility] Comment on above: Test not performed Serum or plasma urea nitroge n measurement (mass/volume)Ordered By: Eduardo Montgomery on 10-18-2023 Urea nitrogen [Mass/Vol] 12 mg/dL 7-18 [facility] Thin prep Papanicolaou smear with manual screeningOrdered By: Eduardo Montgomery on 10-18-2023 Thin prep Papanicolaou smear with manual screening 5 5-15 [facility] Whole blood hemoglobin A1c/t otal hemoglobin ratio (mass fraction)Ordered By: Andrew Brown on 10-18-2023 HbA1c (Bld) [Mass fraction] 11.4 % 3.8-5.6 [facility] Comment on above: Normal < 5.7 % Predi abetic 5.7 - 6.4 % Diabetic >or= 6.5 % Please note range changes. CBC & PLATELETS (AUTO) ([id number])Ordered By: Still Operator Gin on 07-19-2021 Erythrocyte distribution width (RBC) [Ratio] 13.1 % Normal 11.6-15.4 [facility]; [facility] Work Phone: Comment on above: PATIENT NOT FASTINGP ERFORMED BY: CRIS [facility] Almanzar[address]ublin [place] [id number] Hematocrit (Bld) [Volume fraction] 51.6 % Abnormal 37.5-51.0 [facility]; [facility] Work Phone: Comment on above: PATIENT NOT FASTINGP ERFORMED BY: CB [facility] Ndggob[address]Dublin [place] [id number] Hemoglobin (Bld) [Mass/Vol] 17.1 g/dL Normal 13.0-17.7 [facility]; [facility] Work Phone: Comment on above: PATIENT NOT FASTINGP ERFORMED BY: CRIS [facility] Tqsine[address]bl[address] [place] [id number] MCH (RBC) [Entitic mass] 28.5 pg Normal 26.6-33.0 [facility]; [facility] Work Phone: Comment on above: PATIENT NOT FASTINGP ERFORMED BY: CRIS [facility] Kjuxgy[address] [place] [id number] MCHC (RBC) [Mass/Vol] 33.1 g/dL Normal 31.5-35.7 [facility]; [facility] Work Phone: Comment on above: PATIENT NOT FASTINGP ERFORMED BY: CB [facility] Suphtz[address] [facility] [place] [id number] MCV (RBC) [Entitic vol] 86 fL Normal 79-97 [facility]; [facility] Work Phone: Comment on above: PATIENT NOT FASTINGP ERFORMED BY: CRIS [facility] [address] [facility]bl[facility] [place] [id number] Platelets (Bld) [#/Vol] 215 10*3/uL Normal 150-450 [facility]; [facility] Work Phone: Comment on above: PATIENT NOT FASTINGP ERFORMED BY: CRIS [facility] Hegjom[address]Dublin [place] [id number] RBC (Bld) [#/Vol] 6.00 10*6/uL Abnormal 4.14-5.80 [facility]; [facility] Work Phone: Comment on above: PATIENT NOT FASTINGP ERFORMED BY: CB [facility] Sjvvec[address]Dublin [place] [id number] WBC (Bld) [#/Vol] 8.7 10*3/uL Normal 3.4-10.8 [facility]; [facility] Work Phone: Comment on above: PATIENT NOT FASTINGP ERFORMED BY: CB [facility] Yihlmt[address] [facility] HospitalD[place] [id number] PSA, TOTAL - DIAGNOSTIC ([id number])Ordered By: Still Operator Gin on 07-19-2021 Prostate specific Ag [Mass/Vol] 0.7 ng/mL Normal 0.0-4.0 [facility]; [facility] Work Phone: Comment on above: Tyshawn ECLIA methodol ogy. .According to the [employer], Serum PSA shoulddecrease and remain at undetectable levels after radicalprostatectomy. The AUA defines biochemical recurrence as an initialPSA value 0.2 ng/mL or greater followed by a subsequent confirmatoryPSA value 0.2 ng/mL or greater.Values obtained with different assay methods or kits cannot be usedinterchangeably. Results cannot be interpreted as absolute evidenceof the presence or absence of malignant disease. PATIENT NOT FASTINGP ERFORMED BY: CB [facility] Cuyycq[address] [facility] HospitalD[facility] [place] [id number] RENAL FUNCTION PANEL ([id number]) Ordered By: Still Operator Gin on 07-19-2021 Albumin [Mass/Vol] 4.4 g/dL Normal 4.0-5.0 [facility]; [facility] Work Phone: Comment on above: PATIENT NOT FASTINGP ERFORMED BY: CB [facility] Pydzze[address] [place] [id number] Calcium [Mass/Vol] 9.5 mg/dL Normal 8.7-10.2 [facility]; [facility] Work Phone: Comment on above: PATIENT NOT FASTINGP ERFORMED BY: [facility] Thntie[address] [place] [id number] Chloride [Moles/Vol] 105 mmol/L Normal 96-106 [facility]; [facility] Work Phone: Comment on above: PATIENT NOT FASTINGP ERFORMED BY: CB [facility] Zwuxdf[address] [place] [id number] CO2 [Moles/Vol] 24 mmol/L Normal 20-29 [facility]; [facility] Work Phone: Comment on above: PATIENT NOT FASTINGP ERFORMED BY: [facility] Xrdvof[address]Person [facility] [id number] Creatinine [Mass/Vol] 1.16 mg/dL Normal 0.76-1.27 [facility]; [facility] Work Phone: Comment on above: PATIENT NOT FASTINGP ERFORMED BY: [facility] [address]jkd[address] [facility] [id number] GFR/1.73 sq M.predicted among blacks CKD-EPI (S/P/Bld) [Vol rate/Area] 86 mL/min/1.73 Normal [facility]; [facility] Work Phone: Comment on above: [facility] currently reports eGFR in compliance with the current recommendations of the National Kid[employer]. [facility] will update reporting as new guidelines are published from the NKF-ASN Task force. PATIENT NOT FASTINGP ERFORMED BY: [facility] Kadcwq[address] [facility] Centerin [place] [id number] GFR/1.73 sq M.predicted among non-blacks CKD-EPI (S/P/Bld) [Vol rate/Area] 74 mL/min/1.73 Normal [facility]; [facility] Work Phone: Comment on above: PATIENT NOT FASTINGP ERFORMED BY: [facility] Tsiser[address]Person [facility] Hospital [id number] Glucose [Mass/Vol] 120 mg/dL Abnormal 65-99 [facility]; [facility] Work Phone: Comment on above: PATIENT NOT FASTINGP ERFORMED BY: CB [facility] Gfpdbx[address]Dublin [place] [id number] Phosphate [Mass/Vol] 2.5 mg/dL Abnormal 2.8-4.1 [facility]; [facility] Work Phone: Comment on above: PATIENT NOT FASTINGP ERFORMED BY: CB [facility] Oillhx[address] RoadDublin [place] [id number] Potassium [Moles/Vol] 4.4 mmol/L Normal 3.5-5.2 [facility]; [facility] Work Phone: Comment on above: PATIENT NOT FASTINGP ERFORMED BY: CB [facility] Aclbtt[address]Dublin [place] [id number] Sodium [Moles/Vol] 142 mmol/L Normal 134-144 [facility]; [facility] Work Phone: Comment on above: PATIENT NOT FASTINGP ERFORMED BY: CB [facility] Rdpuan[address]Dublin [place] [id number] Urea nitrogen [Mass/Vol] 10 mg/dL Normal 6-24 [facility]; [facility] Work Phone: Comment on above: PATIENT NOT FASTINGP ERFORMED BY: CB [facility] Wxpgeq[address] [place] [id number] Urea nitrogen/Creatinine [Mass ratio] 9 mg/mg Normal 9-20 [facility]; [facility] Work Phone: Comment on above: PATIENT NOT FASTINGP ERFORMED BY: CB [facility] Vgzygu[address] [place] [id number] Urinalysis, Office ([id number])Or dered By: Genet Staples on 07-19-2021 Bilirubin Ql (U) Negative Normal [facility]; [facility] Work Phone: Glucose Test strip (U) [Mass/Vol] Negative Normal [facility]; [facility] Work Phone: Hemoglobin Ql (U) Negative Normal [facility]; [facility] Work Phone: Ketones Ql (U) Negative Normal [facility]; [facility] Work Phone: Leukocyte esterase Test strip Ql (U) Negative Normal [facility]; [facility] Work Phone: Nitrite Ql (U) Negative Normal [facility]; [facility] Work Phone: pH (U) 6.0 [pH] Normal [facility]; [facility] Work Phone: Protein Ql (U) Negative Normal [facility]; [facility] Work Phone: Specific gravity (U) [Rel density] 1.020 1 Normal [facility]; [facility] Work Phone: Urobilinogen (24H U) [Mass/Time] Normal Normal [facility]; [facility] Work Phone: 2018 Novel Coronavirus (COVI D-19), CHRISTINE ([id number])Ordered By: Still Operator Gin on 03-15-20212018 Novel Coronavirus (COVID-19), CHRISTINE ([id number]) Not detected Normal [facility]; [facility] Work Phone: Comment on above: This nucleic acid am plification test was developed and its performancecharacteristics determined by [employer]. Nucleic acidamplification tests include RT-PCR and TMA. This test has not beenFDA cleared or approved. This test has been authorized by FDA underan Emergency Use Authorization (EUA). This test is only authorizedfor the duration of time the declaration that circumstances existjustifying the authorization of the emergency use of in vitrodiagnostic tests for detection of SARS-CoV-2 virus and/or diagnosisof COVID-19 infection under section 564(b)(1) of the Act, 21 U.S.C.360bbb-3(b) (1), unless the authorization is terminated or revokedsooner.When diagnostic testing is negative, the possibility of a falsenegative result should be considered in the context of a patient'srecent exposures and the presence of clinical signs and symptomsconsistent with COVID-19. An individual without symptoms of COVID-19and who is not shedding SARS-CoV-2 virus would expect to have anegative (not detected) result in this assay. PATIENT NOT FASTINGP ERFORMED BY: Ge[employer] [id number] ERYTHROPOIETIN ([id number])Ordere d By: Still Operator Gin on 03-04-2021 Erythropoietin (EPO) Qn 9.0 m[iU]/mL Normal 2.6-18.5 [facility]; [facility] Work Phone: Comment on above: [employer] D[employer] 800 Immunoassay System .Values obtained with different assay methods or kits cannot be usedinterchangeably. Results cannot be interpreted as absolute evidenceof the presence or absence of malignant disease. PATIENT WAS FASTINGP ERFORMED BY: [employer] [id number] BY: [employer] Companieston1447 [facility] [id number] TESTOSTERONE FREE ([id number])Ord ered By: Still Operator Gin on 03-04-2021 Testosterone Free [Mass/Vol] >50.0 Abnormal 6.8-21.5 [facility]; [facility] Work Phone: Comment on above: PATIENT WAS FASTINGP ERFORMED BY: [employer] [id number] BY: [employer] [address] [id number] C-Reactive Protein ([id number])Or dered By: Still Operator Gin on 03-01-2021 CRP [Mass/Vol] mg/L Normal 0-10 [facility]; [facility] Work Phone: Comment on above: PATIENT NOT FASTINGP ERFORMED BY: Ge[employer]ender[address] [id number] CRP [Mass/Vol] mg/L Normal 0-10 [facility]; [facility] Work Phone: Comment on above: PATIENT NOT FASTINGP ERFORMED BY: CRIS [facility] Mnypaz[address] [place] [id number] CBC, Platelets & Auto Diff ( [id number])Ordered By: Still Operator Gin on 03-01-2021 Basophils (Bld) [#/Vol] 0.1 {x10E3/uL} Normal 0.0-0.2 [facility]; [facility] Work Phone: Comment on above: PATIENT NOT FASTINGP ERFORMED BY: CB [facility] Mjpdaz[address] [place] [id number] Basophils (Bld) [#/Vol] 0.1 10*3/uL Normal 0.0-0.2 [facility]; [facility] Work Phone: Comment on above: PATIENT NOT FASTINGP ERFORMED BY: CRIS [facility] Xkwhfm[address] [place] [id number] Basophils/100 WBC (Bld) 1 % Normal [facility]; [facility] Work Phone: Comment on above: PATIENT NOT FASTINGP ERFORMED BY: CB [facility] Yytjnc23[address] [place] [id number] Eosinophils (Bld) [#/Vol] 0.3 {x10E3/uL} Normal 0.0-0.4 [facility]; [facility] Work Phone: Comment on above: PATIENT NOT FASTINGP ERFORMED BY: CB [facility] Qkvfig[address] [place] [id number] Eosinophils (Bld) [#/Vol] 0.3 10*3/uL Normal 0.0-0.4 [facility]; [facility] Work Phone: Comment on above: PATIENT NOT FASTINGP ERFORMED BY: CB [facility] Nfvxsq9844 [address] RoadDublin [place] [id number] Eosinophils/100 WBC (Bld) 4 % Normal [facility]; [facility] Work Phone: Comment on above: PATIENT NOT FASTINGP ERFORMED BY: CB [facility] Arsepy[address] [place] [id number] Erythrocyte distribution width (RBC) [Ratio] 12.9 % Normal 11.6-15.4 [facility]; [facility] Work Phone: Comment on above: PATIENT NOT FASTINGP ERFORMED BY: CRIS Almanzar[address] [facility] [id number] Hematocrit (Bld) [Volume fraction] 52.7 % Abnormal 37.5-51.0 [facility]; [facility] Work Phone: Comment on above: PATIENT NOT FASTINGP ERFORMED BY: CRIS Garberlin[address] [id number] Hemoglobin (Bld) [Mass/Vol] 17.4 g/dL Normal 13.0-17.7 [facility]; [facility] Work Phone: Comment on above: PATIENT NOT FASTINGP ERFORMED BY: CRIS Garberlin[address] [id number] Immature granulocytes (Bld) [#/Vol] 0.0 {x10E3/uL} Normal 0.0-0.1 [facility]; [facility] Work Phone: Comment on above: PATIENT NOT FASTINGP ERFORMED BY: CRIS Almanzar[address] [id number] Immature granulocytes (Bld) [#/Vol] 0.0 10*3/uL Normal 0.0-0.1 [facility]; [facility] Work Phone: Comment on above: PATIENT NOT FASTINGP ERFORMED BY: CRIS Garberlin[address] [id number] Immature granulocytes/100 WBC (Bld) 0 % Normal [facility]; [facility] Work Phone: Comment on above: PATIENT NOT FASTINGP ERFORMED BY: CRIS Garberlin[address] [id number] Lymphocytes (Bld) [#/Vol] 1.6 {x10E3/uL} Normal 0.7-3.1 [facility]; [facility] Work Phone: Comment on above: PATIENT NOT FASTINGP ERFORMED BY: CB [facility] Bsciej[address] [place] [id number] Lymphocytes (Bld) [#/Vol] 1.6 10*3/uL Normal 0.7-3.1 [facility]; [facility] Work Phone: Comment on above: PATIENT NOT FASTINGP ERFORMED BY: CB [facility] Rcllll[address] [place] [id number] Lymphocytes/100 WBC (Bld) 22 % Normal [facility]; [facility] Work Phone: Comment on above: PATIENT NOT FASTINGP ERFORMED BY: CB [facility] Wygghe[address] [place] [id number] MCH (RBC) [Entitic mass] 28.7 pg Normal 26.6-33.0 [facility]; [facility] Work Phone: Comment on above: PATIENT NOT FASTINGP ERFORMED BY: CB [facility] Igvgsv[address] [place] [id number] MCHC (RBC) [Mass/Vol] 33.0 g/dL Normal 31.5-35.7 [facility]; [facility] Internal Medicine Work Phone: Comment on above: PATIENT NOT FASTINGP ERFORMED BY: CB [facility] Zdxqsw1835 [address] RoadDublin [place] [id number] MCV (RBC) [Entitic vol] 87 fL Normal 79-97 [facility]; [facility] Work Phone: Comment on above: PATIENT NOT FASTINGP ERFORMED BY: CB [facility] Nbjlgk0229 [address] RoadDublin [place] [id number] Monocytes (Bld) [#/Vol] 0.5 {x10E3/uL} Normal 0.1-0.9 [facility]; [facility] Work Phone: Comment on above: PATIENT NOT FASTINGP ERFORMED BY: CB [facility] Flpeku3174 [address] RoadDublin [place] [id number] Monocytes (Bld) [#/Vol] 0.5 10*3/uL Normal 0.1-0.9 [facility]; [facility] Work Phone: Comment on above: PATIENT NOT FASTINGP ERFORMED BY: CRIS LabCopricila AlmanzarNywrwi7726 [address] RoadDublin [place] [id number] Monocytes/100 WBC (Bld) 7 % Normal [facility]; [facility] Work Phone: Comment on above: PATIENT NOT FASTINGP ERFORMED BY: CB [facility] Usjajd6[address] RoadDublin [place] [id number] Neutrophils (Bld) [#/Vol] 4.8 {x10E3/uL} Normal 1.4-7.0 [facility]; [facility] Work Phone: Comment on above: PATIENT NOT FASTINGP ERFORMED BY: CB [facility] Wuqwmi9908 [address] RoadDublin [place] [id number] Neutrophils (Bld) [#/Vol] 4.8 10*3/uL Normal 1.4-7.0 [facility]; [facility] Work Phone: Comment on above: PATIENT NOT FASTINGP ERFORMED BY: CB [facility] Oascbq5[address] RoadDublin [place] [id number] Neutrophils/100 WBC (Bld) 66 % Normal [facility]; [facility] Work Phone: Comment on above: PATIENT NOT FASTINGP ERFORMED BY: CB [facility] Lnzzhc0610 [address] RoadDublin [place] [id number] Platelets (Bld) [#/Vol] 225 {x10E3/uL} Normal 150-450 [facility]; [facility] Work Phone: Comment on above: PATIENT NOT FASTINGP ERFORMED BY: CB [facility] Plvndx0214 [address] RoadDublin [place] [id number] Platelets (Bld) [#/Vol] 225 10*3/uL Normal 150-450 [facility]; [facility] Work Phone: Comment on above: PATIENT NOT FASTINGP ERFORMED BY: CB [facility] Ikqmwr2248 [address] RoadDublin [place] [id number] RBC (Bld) [#/Vol] 6.07 {x10E6/uL} Abnormal 4.14-5.80 [facility]; [facility] Work Phone: Comment on above: PATIENT NOT FASTINGP ERFORMED BY: CRIS [facility] Lqpmes9697 [address] RoadDublin [place] [id number] RBC (Bld) [#/Vol] 6.07 10*6/uL Abnormal 4.14-5.80 [facility] Work Phone: Comment on above: PATIENT NOT FASTINGP ERFORMED BY: [facility] Gghids[address] [facility]in [place] [id number] WBC (Bld) [#/Vol] 7.3 {x10E3/uL} Normal 3.4-10.8 [facility] Internal Medicine; [facility] Work Phone: Comment on above: PATIENT NOT FASTINGP ERFORMED BY: [facility] Dxjjxr15[address] [facility]in [place] [id number] WBC (Bld) [#/Vol] 7.3 10*3/uL Normal 3.4-10.8 [facility] Internal Medicine; [facility] Work Phone: Comment on above: PATIENT NOT FASTINGP ERFORMED BY: [facility] Ztydqw[address] [facility] [place] [id number] SED RATE ERYTHROCYTE (11036) Ordered By: Still Operator Gin on 03-01-2021 ESR (Bld) [Velocity] 2 mm/h Normal 0-15 [facility]; [facility] Work Phone: Comment on above: PATIENT NOT FASTINGP ERFORMED BY: [facility] Msedkx2846 [facility] [place] [place] [id number] Troponin I ([id number])Ordered By : Still Operator Gin on 03-01-2021 Troponin I.cardiac [Mass/Vol] ng/mL Normal 0.00-0.04 [facility]; [facility] Work Phone: Comment on above: Effective April 18, 2021 Troponin I (512313) will be made non-orderable. [facility] offers Troponin T Highly Sensitive (610662). Note that this test has a different specimen requirement of FROZEN green-top (lithium-heparin) plasma and has very different patient management criteria. PATIENT NOT FASTINGP ERFORMED BY: Stio Hembqz[address] [id number] Troponin I.cardiac [Mass/Vol] ng/mL Normal 0.00-0.04 [facility]; [facility] Work Phone: Comment on above: Effective April 18, 2021 Troponin I (260464) will be made non-orderable. [facility] offers Troponin T Highly Sensitive (530130). Note that this test has a different specimen requirement of FROZEN green-top (lithium-heparin) plasma and has very different patient management criteria. PATIENT NOT FASTINGP ERFORMED BY: Stio Ememwc9337 [address] [id number] CBC, Platelets & Auto Diff ( 65161)Ordered By: Still Operator Gin on 12-03-2020 Basophils (Bld) [#/Vol] 0.1 {x10E3/uL} Normal 0.0-0.2 [facility]; [facility] Work Phone: Comment on above: PATIENT WAS FASTINGP ERFORMED BY: Stio Jagbgp5647 [facility] [address] [id number] Basophils (Bld) [#/Vol] 0.1 10*3/uL Normal 0.0-0.2 [facility]; [facility] Work Phone: Comment on above: PATIENT WAS FASTINGP ERFORMED BY: Stio Uslrxh8449 [facility] [address] [address] [id number] Basophils/100 WBC (Bld) 1 % Normal [facility]; [facility] Work Phone: Comment on above: PATIENT WAS FASTINGP ERFORMED BY: StioPSE&G [facility] HospitalZogwed8902 [address] [id number] Eosinophils (Bld) [#/Vol] 0.5 {x10E3/uL} Abnormal 0.0-0.4 [facility]; [facility] Work Phone: Comment on above: PATIENT WAS FASTINGP ERFORMED BY: [facility] Letyke2765 [address] RoadDublin [place] [id number] Eosinophils (Bld) [#/Vol] 0.5 10*3/uL Abnormal 0.0-0.4 [facility]; [facility] Work Phone: Comment on above: PATIENT WAS FASTINGP ERFORMED BY: CB [facility] Oadhdm7584 [address] RoadDublin [place] [id number] Eosinophils/100 WBC (Bld) 5 % Normal [facility]; [facility] Work Phone: Comment on above: PATIENT WAS FASTINGP ERFORMED BY: [facility] Xqstdv5637 [address] RoadErlanger [facility] Hospitalin [place] [id number] Erythrocyte distribution width (RBC) [Ratio] 13.7 % Normal 11.6-15.4 [facility]; [facility] Work Phone: Comment on above: PATIENT WAS FASTINGP ERFORMED BY: [facility] Ysigjm[address]blin [place] [id number] Hematocrit (Bld) [Volume fraction] 52.1 % Abnormal 37.5-51.0 [facility]; [facility] Work Phone: Comment on above: PATIENT WAS FASTINGP ERFORMED BY: [facility] Dhscmn5979 [address] RoadDublin [place] [id number] Hemoglobin (Bld) [Mass/Vol] 17.7 g/dL Normal 13.0-17.7 [facility]; [facility] Work Phone: Comment on above: PATIENT WAS FASTINGP ERFORMED BY: [facility] Enlvrb1322 [address] RoadDublin [place] [id number] Immature granulocytes (Bld) [#/Vol] 0.1 {x10E3/uL} Normal 0.0-0.1 [facility]; [facility] Work Phone: Comment on above: PATIENT WAS FASTINGP ERFORMED BY: [facility] Zpfrac9540 [address] RoadDublin [place] [id number] Immature granulocytes (Bld) [#/Vol] 0.1 10*3/uL Normal 0.0-0.1 [facility]; [facility] Work Phone: Comment on above: PATIENT WAS FASTINGP ERFORMED BY: CRIS Dede Almanzar[address] [facility] [place] [id number] Immature granulocytes/100 WBC (Bld) 1 % Normal [facility]; [facility] Work Phone: Comment on above: PATIENT WAS FASTINGP ERFORMED BY: CRIS [facility] Sppmzx8[address] [facility] [id number] Lymphocytes (Bld) [#/Vol] 1.4 {x10E3/uL} Normal 0.7-3.1 [facility]; [facility] Work Phone: Comment on above: PATIENT WAS FASTINGP ERFORMED BY: CRIS [facility] Qglncu0942 [address] [facility] [id number] Lymphocytes (Bld) [#/Vol] 1.4 10*3/uL Normal 0.7-3.1 [facility]; [facility] Work Phone: Comment on above: PATIENT WAS FASTINGP ERFORMED BY: CRIS [facility] Yrdbgw4925 [address] [facility] [id number] Lymphocytes/100 WBC (Bld) 16 % Normal [facility]; [facility] Work Phone: Comment on above: PATIENT WAS FASTINGP ERFORMED BY: CRIS [facility] Vkbbqg5504 [address] [facility] [id number] MCH (RBC) [Entitic mass] 28.9 pg Normal 26.6-33.0 [facility]; [facility] Work Phone: Comment on above: PATIENT WAS FASTINGP ERFORMED BY: CRIS [facility] Esehpx[address] [facility]in [place] [id number] MCHC (RBC) [Mass/Vol] 34.0 g/dL Normal 31.5-35.7 [facility]; [facility] Work Phone: Comment on above: PATIENT WAS FASTINGP ERFORMED BY: [facility] Aosiaw1313 [facility] [id number] MCV (RBC) [Entitic vol] 85 fL Normal 79-97 [facility]; [facility] Work Phone: Comment on above: PATIENT WAS FASTINGP ERFORMED BY: CRIS Dede Almanzar6[address] [facility] [address] [id number] Monocytes (Bld) [#/Vol] 0.6 {x10E3/uL} Normal 0.1-0.9 [facility]; [facility] Work Phone: Comment on above: PATIENT WAS FASTINGP ERFORMED BY: CRIS [facility] Sajkys1019 [address] [id number] Monocytes (Bld) [#/Vol] 0.6 10*3/uL Normal 0.1-0.9 [facility]; [facility] Work Phone: Comment on above: PATIENT WAS FASTINGP ERFORMED BY: CRIS Garberlin6[address] [facility] [address] [id number] Monocytes/100 WBC (Bld) 7 % Normal [facility]; [facility] Work Phone: Comment on above: PATIENT WAS FASTINGP ERFORMED BY: CRIS Garberlin6[address] [facility] [address] [id number] Neutrophils (Bld) [#/Vol] 6.0 {x10E3/uL} Normal 1.4-7.0 [facility]; [facility] Work Phone: Comment on above: PATIENT WAS FASTINGP ERFORMED BY: CRIS [facility] Bgejgn3626 [address] [id number] Neutrophils (Bld) [#/Vol] 6.0 10*3/uL Normal 1.4-7.0 [facility]; [facility] Work Phone: Comment on above: PATIENT WAS FASTINGP ERFORMED BY: CRIS Renaldo Gazboj72[address] [id number] Neutrophils/100 WBC (Bld) 70 % Normal [facility]; [facility] Work Phone: Comment on above: PATIENT WAS FASTINGP ERFORMED BY: CB [facility] Ununti4604 [address] RoadDublin [place] [id number] Platelets (Bld) [#/Vol] 215 {x10E3/uL} Normal 150-450 [facility]; [facility] Work Phone: Comment on above: PATIENT WAS FASTINGP ERFORMED BY: CB [facility] Hsymoc8304 [address] RoadD[address] [place] [id number] Platelets (Bld) [#/Vol] 215 10*3/uL Normal 150-450 [facility]; [facility] Work Phone: Comment on above: PATIENT WAS FASTINGP ERFORMED BY: CB [facility] Gjlcgt3324 [address] RoadD[address] [place] [id number] RBC (Bld) [#/Vol] 6.13 {x10E6/uL} Abnormal 4.14-5.80 [facility] Servicesehensive [facility]; [facility] Work Phone: Comment on above: PATIENT WAS FASTINGP ERFORMED BY: CB [facility] Czvrzl0390 [address] RoadD[address] [place] [id number] RBC (Bld) [#/Vol] 6.13 10*6/uL Abnormal 4.14-5.80 [facility]; [facility] Work Phone: Comment on above: PATIENT WAS FASTINGP ERFORMED BY: CB [facility] Fgwuuk9431 [address] RoadDublin [place] [id number] WBC (Bld) [#/Vol] 8.6 {x10E3/uL} Normal 3.4-10.8 [facility] prehensive Internal Medicine; [facility] Work Phone: Comment on above: PATIENT WAS FASTINGP ERFORMED BY: CB [facility] Isrnyc3042 [address] RoadD[address] [place] [id number] WBC (Bld) [#/Vol] 8.6 10*3/uL Normal 3.4-10.8 [facility] Internal Medicine; [facility] Work Phone: Comment on above: PATIENT WAS FASTINGP ERFORMED BY: CB [facility] Uzadep1262 [address] RoadDublin [place] [id number] Lipid Panel (86148)Ordered B y: Still Operator Gin on 12-03-2020 Cholesterol [Mass/Vol] 162 mg/dL Normal 100-199 [facility]; [facility] Work Phone: Comment on above: PATIENT WAS FASTINGP ERFORMED BY: CRIS [facility] Vswzoy9180 [address] RoadD[address] [place] [id number] Cholesterol in HDL [Mass/Vol] 27 mg/dL Abnormal [facility]; [facility] Work Phone: Comment on above: PATIENT WAS FASTINGP ERFORMED BY: CRIS [facility] Wqqpsd6133 [address] RoadD[address] [place] [id number] Cholesterol in LDL/Cholesterol in HDL [Mass ratio] 4.3 {ratio} Abnormal 0.0-3.6 [facility]; [facility] Work Phone: Comment on above: LDL/HDL Ratio Men Wo men 1/2 Avg.Risk 1.0 1.5 Avg.Risk 3.6 3.2 2X Avg.Risk 6.2 5.0 3X Avg.Risk 8.0 6.1 PATIENT WAS FASTINGP ERFORMED BY: CRIS [facility] Fvxuon4897 [address] RoadDublin [place] [id number] Triglyceride [Mass/Vol] 107 mg/dL Normal 0-149 [facility]; [facility] Work Phone: Comment on above: PATIENT WAS FASTINGP ERFORMED BY: CRIS [facility] Shgner1943 [address] RoadD[address] [place] [id number] Lipid Panel (21980) 20 mg/dL Normal 5-40 Compr ehensive Internal Medicine; [facility] Work Phone: Comment on above: PATIENT WAS FASTINGP ERFORMED BY: CB [facility] Zqvbxd0733 [address] RoadD[address] [place] [id number] Lipid Panel (14806) 115 mg/dL Abnormal 0-99 Compr ehensive Internal Medicine; [facility] Work Phone: Comment on above: PATIENT WAS FASTINGP ERFORMED BY: CB [facility] Rsmfxu1577 [address] RoadD[address] [place] [id number] Lipid Panel (60648) 4.3 {ratio} Abnormal 0.0-3.6 [facility]; [facility] Work Phone: Comment on above: LDL/HDL Ratio Men Wo men 1/2 Avg.Risk 1.0 1.5 Avg.Risk 3.6 3.2 2X Avg.Risk 6.2 5.0 3X Avg.Risk 8.0 6.1 PATIENT WAS FASTINGP ERFORMED BY: CB [facility] Grghnr5972 [address] RoadDublin [place] [id number] Metabolic Panel, Comprehensi ve (80339)Ordered By: Still Operator Gin on 12-03-2020 Albumin [Mass/Vol] 4.4 g/dL Normal 4.0-5.0 [facility] Internal Medicine; [facility] Work Phone: Comment on above: PATIENT WAS FASTINGP ERFORMED BY: CRIS [facility] Aervhj2367 [address] RoadDublin [place] [id number] Albumin/Globulin [Mass ratio] 1.9 {ratio} Normal 1.2-2.2 [facility]; [facility] Work Phone: Comment on above: PATIENT WAS FASTINGP ERFORMED BY: CB [facility] Wlpyej2383 [address] RoadDublin [place] [id number] ALP [Catalytic activity/Vol] 79 [iU]/L Normal 39-117 [facility]; [facility] Work Phone: Comment on above: PATIENT WAS FASTINGP ERFORMED BY: CB [facility] Zhnsso2500 [address] RoadD[address] [place] [id number] ALP [Catalytic activity/Vol] 79 U/L Normal 39-117 [facility]; [facility] Work Phone: Comment on above: PATIENT WAS FASTINGP ERFORMED BY: CB [facility] Rzncra8608 [address] RoadD[address] [place] [id number] ALT [Catalytic activity/Vol] 50 [iU]/L Abnormal 0-44 [facility]; [facility] Work Phone: Comment on above: PATIENT WAS FASTINGP ERFORMED BY: CB [facility] Fgvqdw9435 [address] RoadDublin [place] [id number] ALT [Catalytic activity/Vol] 50 U/L Abnormal 0-44 [facility]; [facility] Work Phone: Comment on above: PATIENT WAS FASTINGP ERFORMED BY: CB [facility] Hebudl9952 [address] RoadD[address] [place] [id number] AST [Catalytic activity/Vol] 38 [iU]/L Normal 0-40 [facility]; [facility] Work Phone: Comment on above: PATIENT WAS FASTINGP ERFORMED BY: CB [facility] Ntdxsh5786 [address] RoadDublin [place] [id number] AST [Catalytic activity/Vol] 38 U/L Normal 0-40 [facility]; [facility] Work Phone: Comment on above: PATIENT WAS FASTINGP ERFORMED BY: CB [facility] Ikxvyk6238 [address] [place] [id number] Bilirubin [Mass/Vol] 0.8 mg/dL Normal 0.0-1.2 [facility]; [facility] Work Phone: Comment on above: PATIENT WAS FASTINGP ERFORMED BY: CB [facility] Jygxvn3394 [address] RoadD[address] [place] [id number] Calcium [Mass/Vol] 9.4 mg/dL Normal 8.7-10.2 [facility] Internal Medicine; [facility] Work Phone: Comment on above: PATIENT WAS FASTINGP ERFORMED BY: CB [facility] Mhevhn1402 [address] [place] [id number] Chloride [Moles/Vol] 104 mmol/L Normal 96-106 [facility]; [facility] Work Phone: Comment on above: PATIENT WAS FASTINGP ERFORMED BY: CB [facility] Nivwhh0361 [address] RoadD[address] [place] [id number] CO2 [Moles/Vol] 23 mmol/L Normal 20-29 [facility] Internal Medicine; [facility] Work Phone: Comment on above: PATIENT WAS FASTINGP ERFORMED BY: CB [facility] Orampu0376 [address] [place] [id number] Creatinine [Mass/Vol] 1.20 mg/dL Normal 0.76-1.27 [facility]; [facility] Work Phone: Comment on above: PATIENT WAS FASTINGP ERFORMED BY: [facility] Hleemi7203 [address]bl[address] [place] [id number] GFR/1.73 sq M predicted among blacks CKD-EPI (S/P/Bld) [Vol rate/Area] 82 mL/min/1.73 Normal [facility]; [facility] Work Phone: Comment on above: PATIENT WAS FASTINGP ERFORMED BY: [facility] Bmmgpm0849 [address] [facility]bl[facility] [place] [id number] GFR/1.73 sq M predicted among non-blacks CKD-EPI (S/P/Bld) [Vol rate/Area] 71 mL/min/1.73 Normal [facility]; [facility] Work Phone: Comment on above: PATIENT WAS FASTINGP ERFORMED BY: [facility]6[address] [id number] Globulin (S) [Mass/Vol] 2.3 g/dL Normal 1.5-4.5 [facility]; [facility] Work Phone: Comment on above: PATIENT WAS FASTINGP ERFORMED BY: [facility] Gbppgd2296 [facility] Centerbl[facility] [place] [id number] Glucose [Mass/Vol] 109 mg/dL Abnormal 65-99 [facility] Internal Medicine; [facility] Work Phone: Comment on above: PATIENT WAS FASTINGP ERFORMED BY: [facility] Wydker[address] [facility]in [place] [id number] Potassium [Moles/Vol] 4.8 mmol/L Normal 3.5-5.2 [facility]; [facility] Work Phone: Comment on above: PATIENT WAS FASTINGP ERFORMED BY: [facility] Ulvasg5455 [address] [facility]bl[facility] [place] [id number] Protein [Mass/Vol] 6.7 g/dL Normal 6.0-8.5 [facility] Internal [facility]; [facility] Work Phone: Comment on above: PATIENT WAS FASTINGP ERFORMED BY: CRIS [facility] Axxccl6266 [address] [place] [id number] Sodium [Moles/Vol] 140 mmol/L Normal 134-144 [facility] Internal [facility]; [facility] Work Phone: Comment on above: PATIENT WAS FASTINGP ERFORMED BY: [facility] Kfyenz[address] [facility] HospitalD[facility] [place] [id number] Urea nitrogen [Mass/Vol] 10 mg/dL Normal 6-24 [facility]; [facility] Work Phone: Comment on above: PATIENT WAS FASTINGP ERFORMED BY: CB [facility] Uyenyc2371 [address] [place] [id number] Urea nitrogen/Creatinine [Mass ratio] 8 mg/mg Abnormal 9-20 [facility]; [facility] Work Phone: Comment on above: PATIENT WAS FASTINGP ERFORMED BY: [facility] Viraxg6164 [address] [facility] [id number] TSH ([id number])Ordered By: Estrogen Gene Teste m Medicare Interviewer on 12-03-2020 TSH Qn 1.470 {uIU/mL} Normal 0.450-4.50 0 [facility]; [facility] Work Phone: Comment on above: PATIENT WAS FASTINGP ERFORMED BY: CRIS [facility] Tesxin[address] [facility]in [place] [id number] URINE YOLANDA CULTURE-IDENTIFICA [place] ([id number])Ordered By: Still Operator Gin on 01-13-2020 Bacteria identified Cx Nom (U) NG36 Normal [facility]; [facility] Work Phone: Comment on above: No growth in 36 - 48 hours. PATIENT NOT FASTINGP ERFORMED BY: CB [facility] Poqfdx8385 [address] RoadD[address] [place] [id number] Information: SRC:UC Bacteria identified Cx Nom (U) Final report Normal [facility]; [facility] Work Phone: Comment on above: PATIENT NOT FASTINGP ERFORMED BY: [facility] Yjnkcm9227 [address] [facility]in [place] [id number] Information: SRC:BOWEN Urinalysis, Office (06692)Or dered By: Krystin Salcido on 01-13-2020 Bilirubin Ql (U) Negative Normal Comprehe nsive Internal Medicine; [facility] Work Phone: Bilirubin Ql (U) Negative Normal Comprehe nsive Internal Medicine; [facility] Work Phone: Glucose Test strip (U) [Mass/Vol] Negative Normal [facility]; [facility] Work Phone: Glucose Test strip (U) [Mass/Vol] Negative Normal [facility]; [facility] Work Phone: Hemoglobin Ql (U) Negative Normal Compreh ensive Internal Medicine; [facility] Work Phone: Hemoglobin Ql (U) Negative Normal Compreh ensive Internal Medicine; [facility] Work Phone: Ketones Ql (U) Negative Normal [facility] [place] [facility]; [facility] Work Phone: Ketones Ql (U) Negative Normal Comprehens [facility]; [facility] Work Phone: Leukocyte esterase Test strip Ql (U) Negative Normal [facility]; [facility] Work Phone: Leukocyte esterase Test strip Ql (U) Negative Normal [facility]; [facility] Work Phone: Nitrite Ql (U) Negative Normal Comprehens [place] [facility]; [facility] Work Phone: Nitrite Ql (U) Negative Normal Comprehens [place] [facility]; [facility] Work Phone: pH (U) 6 [pH] Abnormal [facility]; [facility] Work Phone: Protein Ql (U) Negative Normal Comprehens [place] [facility]; [facility] Work Phone: Protein Ql (U) Negative Normal Comprehens [place] [facility]; [facility] Work Phone: Specific gravity (U) [Rel density] 1.025 1 Normal [facility]; [facility] Work Phone: Urobilinogen (24H U) [Mass/Time] Normal Normal [facility]; [facility] Work Phone: Rapid Flu (59178 x 2)on 08-20 FLUAV Ag IA Ql (Throat) Negative Normal [facility] Work Phone: Comment on above: neg FLUAV Ag IA Ql (Throat) Negative Normal [facility]; [facility] Work Phone: Comment on above: neg Sputum Culture (59524)Ordere d By: Still Operator Gin on 09-16-2019 Epithelial cells.squamous LM Ql (Sput) Few Normal [facility]; [facility] Work Phone: Comment on above: PATIENT NOT FASTINGP ERFORMED BY: CRIS LabCopricila Caneaa5125 PlacecastPerson [facility] Hospital [id number] Information: SRC:SP Microscopic observation Gram stain Nom (Sput) GNRF Normal [facility]; [facility] Work Phone: Comment on above: Few gram negative ro ds.Few gram positive cocci PATIENT NOT FASTINGP ERFORMED BY: CRIS [facility] Rpxagy5533 [facility] SystemsFormerly [facility] [id number] Information: SRC:SP Microscopic observation Gram stain Nom (Sput) GSACC Normal [facility]; [facility] Work Phone: Comment on above: This specimen is of good quality and is acceptable for routinebacterial culture. PATIENT NOT FASTINGP ERFORMED BY: CRIS [facility] [id number] [facility] [id number] Information: SRC:SP WBC LM Ql (Sput) Few Normal Comprehe nsive Internal Medicine; [facility] Work Phone: Comment on above: PATIENT NOT FASTINGP ERFORMED BY: CRIS [facility] Rwcety6292 [facility] [id number] Information: SRC:SP CBC, Platelets & Auto Diff ( [id number])Ordered By: Still Operator Gin on 01-11-2015 Basophils (Bld) [#/Vol] 0.1 {x10E3/uL} Normal 0.0-0.2 [facility] Work Phone: Comment on above: PATIENT NOT FASTINGP ERFORMED BY: CRIS Garberlin[address] [id number] Information: [id number] Basophils (Bld) [#/Vol] 0.1 10*3/uL Normal 0.0-0.2 [facility]; [facility] Work Phone: Comment on above: PATIENT NOT FASTINGP ERFORMED BY: CRIS Macario Xktgjx6984 [address] [id number] Information: [id number] Basophils/100 WBC (Bld) 1 % Normal [facility] Work Phone: Comment on above: PATIENT NOT FASTINGP ERFORMED BY: CRIS Garberlin[address] [id number] Information: [id number] Eosinophils (Bld) [#/Vol] 0.2 {x10E3/uL} Normal 0.0-0.4 [facility] Work Phone: Comment on above: PATIENT NOT FASTINGP ERFORMED BY: CRIS Macario Pnecsn37[address] [id number] Information: [id number] Eosinophils (Bld) [#/Vol] 0.2 10*3/uL Normal 0.0-0.4 [facility]; [facility] Work Phone: Comment on above: PATIENT NOT FASTINGP ERFORMED BY: CRIS Macario Hlolrp1382 [address] [id number] Information: [id number] Eosinophils/100 WBC (Bld) 3 % Normal [facility] Work Phone: Comment on above: PATIENT NOT FASTINGP ERFORMED BY: CRIS Garberlin[address] [id number] Information: [id number] Erythrocyte distribution width (RBC) [Ratio] 13.5 % Normal 12.3-15.4 [facility] Work Phone: Comment on above: PATIENT NOT FASTINGP ERFORMED BY: CRIS Macario Jkyztg8052 [address] [id number] Information: [id number] Hematocrit (Bld) [Volume fraction] 48.8 % Normal 37.5-51.0 [facility] Work Phone: Comment on above: PATIENT NOT FASTINGP ERFORMED BY: CRIS [address] [id number] Information: [id number] Hemoglobin (Bld) [Mass/Vol] 16.6 g/dL Normal 12.6-17.7 [facility] Work Phone: Comment on above: PATIENT NOT FASTINGP ERFORMED BY: CRIS Macario Jdutsh[address] [id number] Information: [id number] Immature granulocytes (Bld) [#/Vol] 0.0 {x10E3/uL} Normal 0.0-0.1 [facility] Work Phone: Comment on above: PATIENT NOT FASTINGP ERFORMED BY: CRIS [facility] Pgmlue65[address] [id number] Information: [id number] Immature granulocytes (Bld) [#/Vol] 0.0 10*3/uL Normal 0.0-0.1 [facility]; [facility] Work Phone: Comment on above: PATIENT NOT FASTINGP ERFORMED BY: CRIS CedeñoMark [place] 9[address]67[address] [id number] Information: [id number] Immature granulocytes/100 WBC (Bld) 0 % Normal [facility] Work Phone: Comment on above: PATIENT NOT FASTINGP ERFORMED BY: CRIS MacarioJason V[place] [id number] [id number] Information: [id number] Lymphocytes (Bld) [#/Vol] 1.7 {x10E3/uL} Normal 0.7-3.1 [facility] Work Phone: Comment on above: PATIENT NOT FASTINGP ERFORMED BY: [place] [id number] [id number] Information: [id number] Lymphocytes (Bld) [#/Vol] 1.7 10*3/uL Normal 0.7-3.1 [facility]; [facility] Work Phone: Comment on above: PATIENT NOT FASTINGP ERFORMED BY: [place] [id number] [id number] Information: [id number] Lymphocytes/100 WBC (Bld) 23 % Normal [facility] Work Phone: Comment on above: PATIENT NOT FASTINGP ERFORMED BY: [address] [id number] Information: [id number] MCH (RBC) [Entitic mass] 29.5 pg Normal 26.6-33.0 [facility] Work Phone: Comment on above: PATIENT NOT FASTINGP ERFORMED BY: [address] [id number] Information: [id number] MCHC (RBC) [Mass/Vol] 34.0 g/dL Normal 31.5-35.7 [facility] Work Phone: Comment on above: PATIENT NOT FASTINGP ERFORMED BY: [address] [id number] Information: [id number] MCV (RBC) [Entitic vol] 87 fL Normal 79-97 [facility] Work Phone: Comment on above: PATIENT NOT FASTINGP ERFORMED BY: [facility] [id number] Information: [id number] Monocytes (Bld) [#/Vol] 0.5 {x10E3/uL} Normal 0.1-0.9 [facility] Work Phone: Comment on above: PATIENT NOT FASTINGP ERFORMED BY: CRIS Almanzar[address] [id number] Information: [id number] Monocytes (Bld) [#/Vol] 0.5 10*3/uL Normal 0.1-0.9 [facility]; [facility] Work Phone: Comment on above: PATIENT NOT FASTINGP ERFORMED BY: CRIS [place] [address] [id number] Information: [id number] Monocytes/100 WBC (Bld) 7 % Normal [facility] Work Phone: Comment on above: PATIENT NOT FASTINGP ERFORMED BY: CRIS Garberlin[address] [id number] Information: [id number] Neutrophils (Bld) [#/Vol] 4.9 {x10E3/uL} Normal 1.4-7.0 [facility] Work Phone: Comment on above: PATIENT NOT FASTINGP ERFORMED BY: CRIS Garberlin[address] [id number] Information: [id number] Neutrophils (Bld) [#/Vol] 4.9 10*3/uL Normal 1.4-7.0 [facility]; [facility] Work Phone: Comment on above: PATIENT NOT FASTINGP ERFORMED BY: CRIS Garberlin[address] [id number] Information: [id number] Neutrophils/100 WBC (Bld) 66 % Normal [facility] Work Phone: Comment on above: PATIENT NOT FASTINGP ERFORMED BY: CRIS Garberlin[address] [id number] Information: [id number] Platelets (Bld) [#/Vol] 193 {x10E3/uL} Normal 150-379 [facility] Work Phone: Comment on above: PATIENT NOT FASTINGP ERFORMED BY: CRIS Almanzar[address] [place] [id number] Information: [id number] Platelets (Bld) [#/Vol] 193 10*3/uL Normal 150-379 [facility]; [facility] Work Phone: Comment on above: PATIENT NOT FASTINGP ERFORMED BY: CB Lab[facility]ila AlmanzarMidben[address] [place] [id number] Information: [id number] RBC (Bld) [#/Vol] 5.63 {x10E6/uL} Normal 4.14-5.80 [facility] Work Phone: Comment on above: PATIENT NOT FASTINGP ERFORMED BY: CRIS Almanzar[address] [place] [id number] Information: [id number] RBC (Bld) [#/Vol] 5.63 10*6/uL Normal 4.14-5.80 [facility]; [facility] Work Phone: Comment on above: PATIENT NOT FASTINGP ERFORMED BY: CRIS Almanzar[address] [place] [id number] Information: [id number] WBC (Bld) [#/Vol] 7.4 {x10E3/uL} Normal 3.4-10.8 [facility] Work Phone: Comment on above: PATIENT NOT FASTINGP ERFORMED BY: CRIS [facility] Jkkfqm[address] PedroErl[facility] Hospitalin [place] [id number] Information: [id number] WBC (Bld) [#/Vol] 7.4 10*3/uL Normal 3.4-10.8 [facility]; [facility] Work Phone: Comment on above: PATIENT NOT FASTINGP ERFORMED BY: CRIS [facility] Ddcuqu264[address] [facility]in [place] [id number] Information: [id number] Metabolic Panel, Comprehensi ve (81062)Ordered By: Still Operator Gin on 01-11-2015 Albumin [Mass/Vol] 4.5 g/dL Normal 3.5-5.5 [facility] Work Phone: Comment on above: PATIENT NOT FASTINGP ERFORMED BY: CB [facility] Ajhmqf[address] RoadDublin [place] [id number] Albumin/Globulin [Mass ratio] 1.9 {ratio} Normal 1.1-2.5 [facility] Work Phone: Comment on above: PATIENT NOT FASTINGP ERFORMED BY: CB [facility] Rdzkxo7974 [address] RoadDublin [place] [id number] ALP [Catalytic activity/Vol] 74 [iU]/L Normal 39-117 [facility] Work Phone: Comment on above: PATIENT NOT FASTINGP ERFORMED BY: CB [facility] Hhyleg6093 [address] RoadDublin [place] [id number] ALP [Catalytic activity/Vol] 74 U/L Normal 39-117 [facility]; [facility] Work Phone: Comment on above: PATIENT NOT FASTINGP ERFORMED BY: CB [facility] Wytanm9[address] RoadDublin [place] [id number] ALT [Catalytic activity/Vol] 43 [iU]/L Normal 0-44 [facility] Work Phone: Comment on above: PATIENT NOT FASTINGP ERFORMED BY: CB [facility] Zadlbd[address] Road[address]ublin [place] [id number] ALT [Catalytic activity/Vol] 43 U/L Normal 0-44 [facility]; [facility] Work Phone: Comment on above: PATIENT NOT FASTINGP ERFORMED BY: CB [facility] Rsazcc7[address] RoadDublin [place] [id number] AST [Catalytic activity/Vol] 32 [iU]/L Normal 0-40 [facility] Work Phone: Comment on above: PATIENT NOT FASTINGP ERFORMED BY: CB [facility] Fqzusv24[address] RoadDublin [place] [id number] AST [Catalytic activity/Vol] 32 U/L Normal 0-40 [facility]; [facility] Work Phone: Comment on above: PATIENT NOT FASTINGP ERFORMED BY: CB [facility] Nyucsy5[address] RoadDublin [place] [id number] Bilirubin [Mass/Vol] 0.5 mg/dL Normal 0.0-1.2 [facility] Work Phone: Comment on above: PATIENT NOT FASTINGP ERFORMED BY: CB [facility] Aatyqh24[address] RoadDublin [place] [id number] Calcium [Mass/Vol] 9.9 mg/dL Normal 8.7-10.2 [facility] Internal Medicine Work Phone: Comment on above: PATIENT NOT FASTINGP ERFORMED BY: CB [facility] Xslwpg6[address] RoadDublin [place] [id number] Chloride [Moles/Vol] 101 mmol/L Normal 97-108 [facility] Work Phone: Comment on above: PATIENT NOT FASTINGP ERFORMED BY: CB [facility] Csnabr[address] RoadDublin [place] [id number] CO2 [Moles/Vol] 26 mmol/L Normal 18-29 [facility] Internal Medicine Work Phone: Comment on above: PATIENT NOT FASTINGP ERFORMED BY: CB [facility] Cpojau[address] Road[address] [place] [id number] Creatinine [Mass/Vol] 1.05 mg/dL Normal 0.76-1.27 [facility] Internal Medicine Work Phone: Comment on above: PATIENT NOT FASTINGP ERFORMED BY: CB [facility] Drueid0048 [address] RoadDublin [place] [id number] GFR/1.73 sq M predicted among blacks CKD-EPI (S/P/Bld) [Vol rate/Area] 101 mL/min/1.73 Normal [facility] Work Phone: Comment on above: PATIENT NOT FASTINGP ERFORMED BY: CB [facility] Xfyvbf91[address] RoadDublin [place] [id number] GFR/1.73 sq M predicted among non-blacks CKD-EPI (S/P/Bld) [Vol rate/Area] 87 mL/min/1.73 Normal [facility] Work Phone: Comment on above: PATIENT NOT FASTINGP ERFORMED BY: CRIS [facility] Epuhll6457 [address] RoadDublin [place] [id number] Globulin (S) [Mass/Vol] 2.4 g/dL Normal 1.5-4.5 [facility] Work Phone: Comment on above: PATIENT NOT FASTINGP ERFORMED BY: CB [facility] Lbnlqk5523 [address] RoadDublin [place] [id number] Glucose [Mass/Vol] 86 mg/dL Normal 65-99 [facility] Internal Medicine Work Phone: Comment on above: Specimen received he molyzed. Clinical correlation indicated. PATIENT NOT FASTINGP ERFORMED BY: [facility] Bqgiti05[address] Road[address]ublin [place] [id number] Potassium [Moles/Vol] 5.4 mmol/L Abnormal 3.5-5.2 [facility] Work Phone: Comment on above: PATIENT NOT FASTINGP ERFORMED BY: [facility] Kvkkal3718 [address] RoadDublin [place] [id number] Protein [Mass/Vol] 6.9 g/dL Normal 6.0-8.5 [facility] Work Phone: Comment on above: PATIENT NOT FASTINGP ERFORMED BY: CB [facility] Rnegqs5647 Aprk RoadDublin [place] [id number] Sodium [Moles/Vol] 140 mmol/L Normal 134-144 [facility] Work Phone: Comment on above: PATIENT NOT FASTINGP ERFORMED BY: CB [facility] Nxrirs9[address] RoadDublin [place] [id number] Urea nitrogen [Mass/Vol] 9 mg/dL Normal 6-24 [facility] Work Phone: Comment on above: PATIENT NOT FASTINGP ERFORMED BY: CB [facility] Igeevb8096 [address] RoadDublin [place] [id number] Urea nitrogen/Creatinine [Mass ratio] 9 mg/mg Normal 9-20 [facility] Work Phone: Comment on above: PATIENT NOT FASTINGP ERFORMED BY: CRIS [facility] Ifefhk[address] [facility] [id number] Urinalysis, Office ([id number])Or dered By: Jennifer Rodriguez on 01-11-2015 Bilirubin Ql (U) Negative Normal Comprehe nsive Internal Medicine Work Phone: Bilirubin Ql (U) Negative Normal Comprehe nsive Internal Medicine; [facility] Work Phone: Glucose Test strip (U) [Mass/Vol] Negative Normal [facility] Work Phone: Glucose Test strip (U) [Mass/Vol] Negative Normal [facility]; [facility] Work Phone: Hemoglobin Ql (U) Negative Normal Compreh ensive Internal Medicine Work Phone: Hemoglobin Ql (U) Negative Normal Compreh ensive Internal [facility]; [facility] Work Phone: Ketones Ql (U) Negative Normal [facility] Work Phone: Ketones Ql (U) Negative Normal [facility]; [facility] Work Phone: Leukocyte esterase Test strip Ql (U) Negative Normal [facility] Work Phone: Leukocyte esterase Test strip Ql (U) Negative Normal [facility]; [facility] Work Phone: Nitrite Ql (U) Negative Normal [facility] Work Phone: Nitrite Ql (U) Negative Normal [facility]; [facility] Work Phone: pH (U) 6.0 [pH] Normal [facility] Work Phone: Protein Ql (U) Negative Normal [facility] Work Phone: Protein Ql (U) Negative Normal [facility]; [facility] Work Phone: Specific gravity (U) [Rel density] 1.015 1 Normal [facility] Work Phone: Urobilinogen (24H U) [Mass/Time] 2 mg/dL Normal [facility] Work Phone: YOLANDA CULTURE-OTHER ([id number])Ord ered By: Still Operator Gin on 07-18-2013 Bacteria identified Respiratory culture Nom (Unsp spec) RRF Normal [facility] Work Phone: Comment on above: Routine respiratory jenny PATIENT NOT FASTINGP ERFORMED BY: [facility]Former[facility] [id number] Information: SRC: THROAT Bacteria identified Respiratory culture Nom (Unsp spec) Final report Normal [facility] Work Phone: Comment on above: PATIENT NOT FASTINGP ERFORMED BY: [facility]Former[facility] [id number] Information: SRC: THROAT Rapid Strep Test, Office ([phone])on 07-18-2013 S. pyogenes Ag EIA Ql (Throat) Negative Normal [facility]; [facility] Work Phone: S. pyogenes Ag IA Ql (Unsp spec) Negative Normal [facility] Work Phone: Vital Signs Date Time Vital Sign Value Performing Clinician Facility 07-06-2025 15:20-0400 Body height 177.[address] Christiano Barreto MD Work Phone: [facility] 07-06-2025 15:20-0400 Body mass index (BMI) [Ratio] 34.8 kg/m2 Dr. Christiano Barreto MD Work Phone: [facility] 07-06-2025 15:20-0400 Body weight 110.[address] Christiano Barreto MD Work Phone: [facility] 07-06-2025 15:20-0400 Diastolic blood pressure 81 mm[Hg] Dr. Christiano Barreto MD Work Phone: [facility] 07-06-2025 15:20-0400 Heart rate 80 /min Dr. Christiano Barreto MD Work Phone: [facility] 07-06-2025 15:20-0400 Respiratory rate 16 /min Dr. Christiano Barreto MD Work Phone: [facility] 07-06-2025 15:20-0400 Systolic blood pressure 119 mm[Hg] Dr. Christiano Barreto MD Work Phone: 5(016)232-253722 [address] 01-30-2025 10:00-0400 Body temperature 98.3 [degF] Dr. Christiano Barreto MD Work Phone: 0(437)215-202816 [place] [address] 01-30-2025 10:00-0400 Diastolic blood pressure 78 mm[Hg] Dr. Christiano Barreto MD Work Phone: 7(051)891-278222 [address] 01-30-2025 10:00-0400 Heart rate 73 /min Dr. Christiano Barreto MD Work Phone: 9(989)135-989216 [place] [address] 01-30-2025 10:00-0400 Respiratory rate 18 /min Dr. Christiano Barreto MD Work Phone: [facility] 01-30-2025 10:00-0400 SaO2% (BldA) [Mass fraction] 94 % Dr. Christiano Barreto MD Work Phone: [facility] 01-30-2025 10:00-0400 Systolic blood pressure 103 mm[Hg] Dr. Christiano Barreto MD Work Phone: 7(830)192-102216 [place] [address] 01-30-2025 09:55-0400 Inhaled oxygen flow rate 3 L/min Dr. Christiano Barreto MD Work Phone: [facility] 01-30-2025 07:56-0400 Body height 177.[address] Christiano Barreto MD Work Phone: 3(612)625-725332 [place] [address] 01-30-2025 07:56-0400 Body mass index (BMI) [Ratio] 33.1 kg/m2 Dr. Christiano Barreto MD Work Phone: 3(562)238-640216 [place] [address] 01-30-2025 07:56-0400 Body weight 104.[address] Christiano Barreto MD Work Phone: [facility] 01-05-2025 14:11-0500 Body mass index (BMI) [Ratio] 34.9 kg/m2 Dr. Christiano Barreto MD Work Phone: [facility] 01-05-2025 14:11-0500 Body weight 110.[address] Christiano Barreto MD Work Phone: [facility] 01-05-2025 14:11-0500 Diastolic blood pressure 77 mm[Hg] Dr. Christiano Barreto MD Work Phone: [facility] 01-05-2025 14:11-0500 Heart rate 58 /min Dr. Christiano Barreto MD Work Phone: [facility] 01-05-2025 14:11-0500 Respiratory rate 18 /min Dr. Christiano Barreto MD Work Phone: [facility] 01-05-2025 14:11-0500 SaO2% (BldA) [Mass fraction] 92 % Dr. Christiano Barreto MD Work Phone: [facility] 01-05-2025 14:11-0500 Systolic blood pressure 129 mm[Hg] Dr. Christiano Barreto MD Work Phone: [facility] 02-26-2024 20:33-0400 Body temperature 97.6 [degF] Dr. Christiano Barreto Work Phone: [facility] 02-26-2024 20:33-0400 Diastolic blood pressure 81 mm[Hg] Dr. Christiano Barreto Work Phone: [facility] 02-26-2024 20:33-0400 Heart rate 69 /min Dr. Christiano Barreto Work Phone: [facility] 02-26-2024 20:33-0400 Respiratory rate 16 /min Dr. Christiano Barreto Work Phone: [facility] 02-26-2024 20:33-0400 SaO2% (BldA) [Mass fraction] 95 % Dr. Christiano Barreto Work Phone: [facility] 02-26-2024 20:33-0400 Systolic blood pressure 112 mm[Hg] Dr. Christiano Barreto Work Phone: [facility] 02-26-2024 17:06-0400 Body height 177.[address] Christiano Barreto Work Phone: [facility] 02-26-2024 17:06-0400 Body mass index (BMI) [Ratio] 36.3 kg/m2 Dr. Christiano Barreto Work Phone: [facility] 02-26-2024 17:06-0400 Body weight 115.[address] Christiano Barreto Work Phone: [facility] 02-26-2024 16:41-0400 Body temperature 97.11 [degF] July [employer]ING CONSULTANT.PRODUCT DEMONSTRATOR Work Phone: [facility] 02-26-2024 16:41-0400 Body weight 114.7 kg July [employer] MOVING CONSULTANT.PRODUCT DEMONSTRATOR Work Phone: [facility] 02-26-2024 16:41-0400 Diastolic blood pressure 72 mm[Hg] July [employer] MOVING CONSULTANT.PRODUCT DEMONSTRATOR Work Phone: [facility] 02-26-2024 16:41-0400 Heart rate 76 /min July [employer] MOVING CONSULTANT.PRODUCT DEMONSTRATOR Work Phone: [facility] 02-26-2024 16:41-0400 Respiratory rate 16 /min July [employer] MOVING CONSULTANT.PRODUCT DEMONSTRATOR Work Phone: [facility] 02-26-2024 16:41-0400 SaO2% (BldA) [Mass fraction] 95 % July [employer] MOVING CONSULTANT.PRODUCT DEMONSTRATOR Work Phone: [facility] 02-26-2024 16:41-0400 Systolic blood pressure 122 mm[Hg] July [employer] MOVING CONSULTANT.PRODUCT DEMONSTRATOR Work Phone: [facility] 12-14-2023 14:50-0500 Body mass index (BMI) [Ratio] 38.1 kg/m2 Dr. Christiano Barreto Work Phone: [facility] 12-14-2023 14:50-0500 Body weight 120.[address] Christiano Barreto Work Phone: [facility] 12-14-2023 14:50-0500 Diastolic blood pressure 84 mm[Hg] Dr. Christiano Barreto Work Phone: [facility] 12-14-2023 14:50-0500 Heart rate 57 /min Dr. Christiano Barreto Work Phone: [facility] 12-14-2023 14:50-0500 Respiratory rate 18 /min Dr. Christiano Barreto Work Phone: [facility] 12-14-2023 14:50-0500 SaO2% (BldA) [Mass fraction] 92 % Dr. Christiano Barreto Work Phone: [facility] 12-14-2023 14:50-0500 Systolic blood pressure 139 mm[Hg] Dr. Christiano Barreto Work Phone: [facility] 10-19-2023 12:46-0500 Body temperature 98 [degF] Dr. Avinash Barreto Work Phone: [facility] 10-19-2023 12:46-0500 Diastolic blood pressure 75 mm[Hg] Dr. Avinash Barreto Work Phone: [facility] 10-19-2023 12:46-0500 Heart rate 74 /min Dr. Avinash Barreto Work Phone: [facility] 10-19-2023 12:46-0500 Respiratory rate 18 /min Dr. Avinash Barreto Work Phone: [facility] 10-19-2023 12:46-0500 SaO2% (BldA) [Mass fraction] 97 % Dr. Avinash Barreto Work Phone: 9(932)859-395716 [place] [address] 10-19-2023 12:46-0500 Systolic blood pressure 124 mm[Hg] Dr. Avinash Barreto Work Phone: 8(923)273-743122 [address] 10-19-2023 11:33-0500 Body height 177.[address] Avinash Barreto Work Phone: 5(489)334-636132 [place] [address] 10-19-2023 11:33-0500 Body weight 121.[address] Avinash Barreto Work Phone: 5(876)174-454132 [place] [address] 10-18-2023 16:44-0500 Body mass index (BMI) [Ratio] 38.3 kg/m2 Dr. Avinash Barreto Work Phone: 6(298)847-653832 [place] [address] 10-18-2023 16:00-0500 Diastolic blood pressure 89 mm[Hg] Dr. Avinash Barreto Work Phone: 0(943)955-833032 [place] [address] 10-18-2023 16:00-0500 Heart rate 83 /min Dr. Avinash Barreto Work Phone: 0(512)240-418532 [place] [address] 10-18-2023 16:00-0500 Respiratory rate 17 /min Dr. Avinash Barreto Work Phone: 3(035)422-081032 [place] [address] 10-18-2023 16:00-0500 SaO2% (BldA) [Mass fraction] 95 % Dr. Avinash Barreto Work Phone: 3(262)538-464032 [place] [address] 10-18-2023 16:00-0500 Systolic blood pressure 146 mm[Hg] Dr. Avinash Barreto Work Phone: 2(079)856-300632 [place] [address] 10-18-2023 12:27-0500 Body height 177.[address] Avinash Brareto Work Phone: 6(017)444-323632 [place] [address] 10-18-2023 12:27-0500 Body mass index (BMI) [Ratio] 39.1 kg/m2 Dr. Avinash Barreto Work Phone: 6(235)881-905532 [place] [address] 10-18-2023 12:27-0500 Body temperature 96.8 [degF] Dr. Avinash Barreto Work Phone: [facility] 10-18-2023 12:27-0500 Body weight 123.[address] Avinash Barreto Work Phone: [facility] 02-23-2022 11:25-0400 Body temperature 97.9 [degF] Dr. Rudi Dyer Work Phone: [facility] Work Phone: 02-23-2022 11:25-0400 Diastolic blood pressure 64 mm[Hg] Dr. Rudi Dyer Work Phone: [facility] Work Phone: 02-23-2022 11:25-0400 Heart rate 72 /min Dr. Rudi Dyer Work Phone: [facility] Work Phone: 02-23-2022 11:25-0400 Respiratory rate 16 /min Dr. Rudi Dyer Work Phone: [facility] Work Phone: 02-23-2022 11:25-0400 SaO2% (BldA) [Mass fraction] 95 % Dr. Rudi Dyer Work Phone: [facility] Work Phone: 02-23-2022 11:25-0400 Systolic blood pressure 108 mm[Hg] Dr. Rudi Dyer Work Phone: [facility] Work Phone: 02-23-2022 09:22-0400 Body height 177.[address] Rudi Dyer Work Phone: [facility] Work Phone: 02-23-2022 09:22-0400 Body mass index (BMI) [Ratio] 40.1 kg/m2 Dr. Rudi Dyer Work Phone: [facility] Work Phone: 02-23-2022 09:22-0400 Body weight [address] Rudi Dyer Work Phone: [facility] Work Phone: 12-26-2021 14:38-0500 Body weight 123.[address] Rudi Dyer Work Phone: [facility] Work Phone: 07-19-2021 14:24-0400 Body height 177.8 cm Genet Staples LPN [facility] Work Phone: 07-19-2021 14:24-0400 Body mass index (BMI) [Ratio] 39.22 kg/m2 Genet Staples LPN [facility]; [facility] Work Phone: 07-19-2021 14:24-0400 Body surface area Derived from formula 2.38 m2 Genet Staples LPN [facility]; [facility] Work Phone: 07-19-2021 14:24-0400 Body temperature 97.3 [degF] Genet Staples LPN [facility]; [facility] Work Phone: Comment on above: Method: Temporal 07-19-2021 14:24-0400 Body weight 124 kg Genet Staples LPN [facility]; [facility] Work Phone: 07-19-2021 14:24-0400 Diastolic blood pressure 90 mm[Hg] Genet Staples LPN [facility]; [facility] Work Phone: Comment on above: Patient Position: Sitting; Cuff Location : Left Arm; Cuff Size: Standard 07-19-2021 14:24-0400 Heart rate 97 /min Genet Staples LPN [facility]; [facility] Work Phone: Comment on above: Pattern: Regular 07-19-2021 14:24-0400 Respiratory rate 16 /min Genet Staples LPN [facility]; [facility] Work Phone: Comment on above: Pattern: Unlabored 07-19-2021 14:24-0400 SaO2% (BldA) [Mass fraction] 95 % Genet Staples TRIST[facility]; [facility] Work Phone: Comment on above: Room air 07-19-2021 14:24-0400 Systolic blood pressure 148 mm[Hg] Genet Staples [facility]STEN [facility]; [facility] Work Phone: Comment on above: Patient Position: Sitting; Cuff Location : Left Arm; Cuff Size: Standard 06-21-2021 09:25-0400 Body height 177.8 cm Krystin Slarb CARDI[employer] REHAB NURSE [facility]; [facility] Work Phone: 06-21-2021 09:25-0400 Body mass index (BMI) [Ratio] 38.31 kg/m2 Krystin Slarb CARDIAC REHAB NURSE [facility]; [facility] Work Phone: 06-21-2021 09:25-0400 Body surface area Derived from formula 2.36 m2 Krystin Slarb CARDIAC REHAB NURSE [facility]; [facility] Work Phone: 06-21-2021 09:25-0400 Body temperature 97.5 [degF] Krystin Slarb CARDIAC REHAB NURSE [facility]; [facility] Work Phone: 06-21-2021 09:25-0400 Body weight 121.11 kg Krystin Slarb CARDIAC REHAB NURSE [facility]; [facility] Work Phone: 06-21-2021 09:25-0400 Diastolic blood pressure 80 mm[Hg] Krystin Slarb CARDIAC REHAB NURSE [facility]; [facility] Work Phone: Comment on above: Patient Position: Sitting; Cuff Location : Left Arm; Cuff Size: Standard 06-21-2021 09:25-0400 Heart rate 70 /min Krystin Slarb CARDIAC REHAB NURSE [facility]; [facility] Work Phone: Comment on above: Pattern: Regular 06-21-2021 09:25-0400 Respiratory rate 17 /min Krystin Slarb CARDIAC REHAB NURSE [facility]; [facility] Work Phone: Comment on above: Pattern: Unlabored 06-21-2021 09:25-0400 SaO2% (BldA) [Mass fraction] 95 % Krystin Slarb CARDIAC REHAB NURSE [facility]; [facility] Work Phone: Comment on above: Room air 06-21-2021 09:25-0400 Systolic blood pressure 130 mm[Hg] Krystin Slarb CARDIAC REHAB NURSE [facility]; [facility] Work Phone: Comment on above: Patient Position: Sitting; Cuff Location : Left Arm; Cuff Size: Standard 05-31-2021 10:01-0400 Body height 177.8 cm Krystin Slarb CARDIAC REHAB NURSE [facility]; [facility] Work Phone: 05-31-2021 10:01-0400 Body mass index (BMI) [Ratio] 38.02 kg/m2 Krystin Slarb CARDIAC REHAB NURSE [facility]; [facility] Work Phone: 05-31-2021 10:01-0400 Body surface area Derived from formula 2.35 m2 Krystin Slarb CARDIAC REHAB NURSE [facility]; [facility] Work Phone: 05-31-2021 10:01-0400 Body temperature 96.9 [degF] Krystin Slarb CARDIAC REHAB NURSE [facility]; [facility] Work Phone: 05-31-2021 10:01-0400 Body weight 120.2 kg Krystin Slarb CARDIAC REHAB NURSE [facility]; [facility] Work Phone: 05-31-2021 10:01-0400 Diastolic blood pressure 78 mm[Hg] Krystin Slarb CARDIAC REHAB NURSE [facility]; [facility] Work Phone: Comment on above: Patient Position: Sitting; Cuff Location : Left Arm; Cuff Size: Standard 05-31-2021 10:01-0400 Heart rate 80 /min Krystin Slarb CARDIAC REHAB NURSE [facility]; [facility] Work Phone: Comment on above: Pattern: Regular 05-31-2021 10:01-0400 Respiratory rate 17 /min Krystin Slarb CARDIAC REHAB NURSE [facility]; [facility] Work Phone: Comment on above: Pattern: Unlabored 05-31-2021 10:01-0400 SaO2% (BldA) [Mass fraction] 97 % Krystin Salcido [facility]; [facility] Work Phone: Comment on above: Room air 05-31-2021 10:01-0400 Systolic blood pressure 122 mm[Hg] Krystin Garciaever RAMON [facility]; [facility] Work Phone: Comment on above: Patient Position: Sitting; Cuff Location : Left Arm; Cuff Size: Standard 03-21-2021 10:50-0400 Body height 177.8 cm Leticia Campofrancois [facility] Work Phone: [facility]; [facility] Work Phone: 03-21-2021 10:50-0400 Body mass index (BMI) [Ratio] 35.87 kg/m2 Leticia Campofrancois [facility] Work Phone: [facility]; [facility] Work Phone: 03-21-2021 10:50-0400 Body surface area Derived from formula 2.3 m2 Leticia Campofrancois [facility] Work Phone: [facility]; [facility] Work Phone: 03-21-2021 10:50-0400 Body temperature 97.4 [degF] Leticia Matos [employer]ATOR Work Phone: [facility]; [facility] Work Phone: 03-21-2021 10:50-0400 Body weight 113.4 kg Leticia Matos [employer] DEM[employer] Work Phone: [facility]; [facility] Work Phone: 03-21-2021 10:50-0400 Diastolic blood pressure 78 mm[Hg] Leticia Campofrancois [employer] DEMON[employer]ATOR Work Phone: [facility]; [facility] Work Phone: Comment on above: Patient Position: Supine; Cuff Location: Right Arm; Cuff Size: Standard 03-21-2021 10:50-0400 Heart rate 70 /min Leticia Matos CNP Work Phone: [facility]; [facility] Work Phone: Comment on above: Pattern: Regular 03-21-2021 10:50-0400 SaO2% (BldA) [Mass fraction] 95 % Leticia Matos CNP Work Phone: [facility]; [facility] Work Phone: Comment on above: Room air 03-21-2021 10:50-0400 Systolic blood pressure 110 mm[Hg] Leticia Matos CNP Work Phone: [facility]; [facility] Work Phone: Comment on above: Patient Position: Supine; Cuff Location: Right Arm; Cuff Size: Standard 03-15-2021 09:02-0400 Body height 177.8 cm Leticia Matos CNP Work Phone: [facility]; [facility] Work Phone: 03-15-2021 09:02-0400 Body mass index (BMI) [Ratio] 35.87 kg/m2 Leticia Matos CNP Work Phone: [facility]; [facility] Work Phone: 03-15-2021 09:02-0400 Body surface area Derived from formula 2.3 m2 Leticia Matos CNP Work Phone: [facility]; [facility] Work Phone: 03-15-2021 09:02-0400 Body temperature 98.1 [degF] Leticia Matos CNP Work Phone: [facility]; [facility] Work Phone: 03-15-2021 09:02-0400 Body weight 113.4 kg Leticia Matos CNP Work Phone: [facility]; [facility] Work Phone: 03-07-2021 08:28-0400 Body height 177.8 cm Leticia Matos CNP Work Phone: [facility]; [facility] Work Phone: Comment on above: pt did not report 03-07-2021 08:28-0400 Body mass index (BMI) [Ratio] 35.87 kg/m2 Leticia Matos CNP Work Phone: [facility]; [facility] Work Phone: Comment on above: pt did not report 03-07-2021 08:28-0400 Body surface area Derived from formula 2.3 m2 Leticia Matos CNP Work Phone: [facility]; [facility] Work Phone: Comment on above: pt did not report 03-07-2021 08:28-0400 Body weight 113.4 kg Leticia Matos CNP Work Phone: [facility]; [facility] Work Phone: Comment on above: pt did not report 03-07-2021 08:28-0400 Diastolic blood pressure 82 mm[Hg] Leticia Matos CNP Work Phone: [facility]; [facility] Work Phone: Comment on above: Patient Position: Supine; Cuff Location: Right Arm; Cuff Size: Standard pt did not report 03-07-2021 08:28-0400 Heart rate 73 /min Leticia Matos CNP Work Phone: [facility]; [facility] Work Phone: Comment on above: Pattern: Regular pt did not report 03-07-2021 08:28-0400 SaO2% (BldA) [Mass fraction] 96 % Leticia Matos CNP Work Phone: [facility]; [facility] Work Phone: Comment on above: Room air pt did not report 03-07-2021 08:28-0400 Systolic blood pressure 112 mm[Hg] Leticia Matos CNP Work Phone: [facility]; [facility] Work Phone: Comment on above: Patient Position: Supine; Cuff Location: Right Arm; Cuff Size: Standard pt did not report 03-01-2021 14:08-0400 BMI (Body Mass Index) 35.87 kg/m2 Genet Staples [facility]ST[facility]; [facility] Work Phone: 03-01-2021 14:08-0400 Body Temperature 98 [degF] Genet Mckinneyza RAMON [facility]; [facility] Work Phone: Comment on above: Method: Infrared 03-01-2021 14:08-0400 Body weight 113.4 kg Genet Staples TRISTEN [facility]; [facility] Work Phone: 03-01-2021 14:08-0400 BP Diastolic 84 mm[Hg] Genet Staples TRISTEN [facility]; [facility] Work Phone: Comment on above: Patient Position: Sitting; Cuff Location : Left Arm; Cuff Size: Standard 03-01-2021 14:08-0400 BP Systolic 142 mm[Hg] Genet Staples TRISTEN [facility]; [facility] Work Phone: Comment on above: Patient Position: Sitting; Cuff Location : Left Arm; Cuff Size: Standard 03-01-2021 14:08-0400 BSA (Body Surface Area) 2.3 m2 Genet Staples [facility]STEN [facility]; [facility] Work Phone: 03-01-2021 14:08-0400 Height 177.8 cm Genet Staples LPN [facility]; [facility] Work Phone: 03-01-2021 14:08-0400 Pulse (Heart Rate) 69 /min [facility] Work Phone: Comment on above: Pattern: Regular 03-01-2021 14:08-0400 Pulse Oximetry 96 % Leticia Matos [facility]; [facility] Work Phone: Comment on above: Room air 03-01-2021 14:08-0400 Respiratory Rate 16 /min Genet Staples LPN [facility]; [facility] Work Phone: Comment on above: Pattern: Unlabored 03-01-2021 14:08-0400 SaO2% (BldA) [Mass fraction] 96 % Genet Staples LPN [facility]; [facility] Work Phone: Comment on above: Room air 01-18-2021 15:11-0500 BMI (Body Mass Index) 35.87 kg/m2 Kishan Sanchez LPN [facility]; [facility] Work Phone: 01-18-2021 15:11-0500 Body Temperature 97.9 [degF] Kishan Sanchez LPN [facility]; [facility] Work Phone: Comment on above: Method: Infrared 01-18-2021 [id number] Body weight 113.4 kg Kishan Sanchez LPN [facility]; [facility] Work Phone: 01-18-2021 15:11-0500 BP Diastolic 82 mm[Hg] Kishan Sanchez LPN [facility]; [facility] Work Phone: Comment on above: Patient Position: Sitting; Cuff Location : Left Arm; Cuff Size: Standard 01-18-2021 15:11-0500 BP Systolic 126 mm[Hg] Kishan Sanchez LPN [facility]; [facility] Work Phone: Comment on above: Patient Position: Sitting; Cuff Location : Left Arm; Cuff Size: Standard 01-18-2021 15:11-0500 BSA (Body Surface Area) 2.3 m2 Kishan Sanchez LPN [facility]; [facility] Work Phone: 01-18-2021 15:11-0500 Height 177.8 cm Kishan Sanchez LPN [facility]; [facility] Work Phone: 01-18-2021 15:11-0500 Pulse (Heart Rate) 76 /min Kishan Sanchez LPN [facility]; [facility] Work Phone: Comment on above: Pattern: Regular 01-18-2021 15:11-0500 Pulse Oximetry 96 % Leticia Matos [facility]; [facility] Work Phone: Comment on above: Room air 01-18-2021 15:11-0500 Respiratory Rate 16 /min Kishan Sanchez LPN [facility]; [facility] Work Phone: Comment on above: Pattern: Unlabored 01-18-2021 15:11-0500 SaO2% (BldA) [Mass fraction] 96 % Kishan Sanchez LPN [facility]; [facility] Work Phone: Comment on above: Room air 11-29-2020 14:47-0500 BMI (Body Mass Index) 35.87 kg/m2 Krystin Salcido LPN [facility]; [facility] Work Phone: Comment on above: patient reported 11-29-2020 14:47-0500 Body weight 113.4 kg Krystin Omari JIMENEZN [facility]; [facility] Work Phone: Comment on above: patient reported 11-29-2020 14:47-0500 BSA (Body Surface Area) 2.3 m2 Krystin Salcido LPN [facility]; [facility] Work Phone: Comment on above: patient reported 11-29-2020 14:47-0500 Height 177.8 cm Krystin Salcido LPN [facility]; [facility] Work Phone: Comment on above: patient reported 01-28-2020 09:14-0400 BMI (Body Mass Index) 38.89 kg/m2 Kishan Sanchez LPN [facility]; [facility] Work Phone: 01-28-2020 09:14-0400 Body Temperature 97.8 [degF] Kishan Sanchez LPN [facility]; [facility] Work Phone: Comment on above: Method: Temporal 01-28-2020 09:14-0400 Body weight 122.94 kg Kishan Sanchez LPN [facility]; [facility] Work Phone: 01-28-2020 09:14-0400 BP Diastolic 72 mm[Hg] Kishan Sanchez LPN [facility]; [facility] Work Phone: Comment on above: Patient Position: Sitting; Cuff Location : Left Arm; Cuff Size: Standard 01-28-2020 09:14-0400 BP Systolic 122 mm[Hg] Kishan Sanchez LPN [facility]; [facility] Work Phone: Comment on above: Patient Position: Sitting; Cuff Location : Left Arm; Cuff Size: Standard 01-28-2020 09:14-0400 BSA (Body Surface Area) 2.38 m2 Kishan Sanchez LPN [facility]; [facility] Work Phone: 01-28-2020 09:14-0400 Height 177.8 cm Kishan Sanchez LPN [facility]; [facility] Work Phone: 01-28-2020 09:14-0400 Pulse (Heart Rate) 75 /min Kishan Sanchez LPN [facility]; [facility] Work Phone: Comment on above: Pattern: Regular 01-28-2020 09:14-0400 Pulse Oximetry 95 % Leticia Matos [facility]; [facility] Work Phone: Comment on above: Room air 01-28-2020 09:14-0400 Respiratory Rate 16 /min Kishan Sanchez LPN [facility]; [facility] Work Phone: Comment on above: Pattern: Unlabored 01-28-2020 09:14-0400 SaO2% (BldA) [Mass fraction] 95 % Kishan Sanchez LPN [facility]; [facility] Work Phone: Comment on above: Room air 01-13-2020 08:10-0500 BMI (Body Mass Index) 39.32 kg/m2 Kishan Sanchez LPN [facility]; [facility] Work Phone: 01-13-2020 08:10-0500 Body Temperature 97.8 [degF] Kishan Sanchez LPN [facility]; [facility] Work Phone: Comment on above: Method: Temporal 01-13-2020 08:10-0500 Body weight 124.3 kg Kishan Sanchez LPN [facility]; [facility] Work Phone: 01-13-2020 08:10-0500 BP Diastolic 78 mm[Hg] Kishan Sanchez LPN [facility]; [facility] Work Phone: Comment on above: Patient Position: Sitting; Cuff Location : Left Arm; Cuff Size: Standard 01-13-2020 08:10-0500 BP Systolic 132 mm[Hg] Kishan Sanchez LPN [facility]; [facility] Work Phone: Comment on above: Patient Position: Sitting; Cuff Location : Left Arm; Cuff Size: Standard 01-13-2020 08:10-0500 BSA (Body Surface Area) 2.39 m2 Kishan Sanchez LPN [facility]; [facility] Work Phone: 01-13-2020 08:10-0500 Height 177.8 cm Kishan Sanchez LPN [facility]; [facility] Work Phone: 01-13-2020 08:10-0500 Pulse (Heart Rate) 87 /min Kishan Sanchez LPN [facility]; [facility] Work Phone: Comment on above: Pattern: Regular 01-13-2020 08:10-0500 Pulse Oximetry 95 % Leticia Matos [facility]; [facility] Work Phone: Comment on above: Room air 01-13-2020 08:10-0500 Respiratory Rate 16 /min Kishan Sanchez LPN [facility]; [facility] Work Phone: Comment on above: Pattern: Unlabored 01-13-2020 08:10-0500 SaO2% (BldA) [Mass fraction] 95 % Kishan Sanchez LPN [facility]; [facility] Work Phone: Comment on above: Room air 09-16-2019 13:57-0400 BMI (Body Mass Index) 39.32 kg/m2 Kishan Sanchez LPN [facility] Work Phone: 09-16-2019 13:57-0400 Body Temperature 97.3 [degF] Kishan Sanchez LPN [facility] Work Phone: Comment on above: Method: Temporal 09-16-2019 13:57-0400 Body weight 124.3 kg Kishan Sanchez LPN [facility] Work Phone: 09-16-2019 13:57-0400 BP Diastolic 82 mm[Hg] Kishan Sanchez LPN [facility] Work Phone: Comment on above: Patient Position: Sitting; Cuff Location : Left Arm; Cuff Size: Standard 09-16-2019 13:57-0400 BP Systolic 118 mm[Hg] Kishan Daniel RAMON [facility] Work Phone: Comment on above: Patient Position: Sitting; Cuff Location : Left Arm; Cuff Size: Standard 09-16-2019 13:57-0400 BSA (Body Surface Area) 2.39 m2 Kishan Sanchez LPN [facility] Work Phone: 09-16-2019 13:57-0400 Height 177.8 cm Kishan Sanchez LPN [facility] Work Phone: 09-16-2019 13:57-0400 Pulse (Heart Rate) 73 /min Kishan Sanchez LPN [facility] Work Phone: Comment on above: Pattern: Regular 09-16-2019 13:57-0400 Pulse Oximetry 96 % Leticia Matos [facility] Work Phone: Comment on above: Room air 09-16-2019 13:57-0400 Respiratory Rate 17 /min Kishan Sanchez LPN [facility] Work Phone: Comment on above: Pattern: Unlabored 09-16-2019 13:57-0400 SaO2% (BldA) [Mass fraction] 96 % Kishan Daniel RAMON [facility]; [facility] Work Phone: Comment on above: Room air 07-28-2019 10:26-0400 BMI (Body Mass Index) 38.63 kg/m2 Jade Thompson [facility] Work Phone: 07-28-2019 10:26-0400 Body weight 122.13 kg Jade Thompson [facility] Work Phone: 07-28-2019 10:26-0400 BP Diastolic 98 mm[Hg] Jade Thompson [facility] Work Phone: Comment on above: Patient Position: Sitting; Cuff Location : Left Arm; Cuff Size: Standard 07-28-2019 10:26-0400 BP Systolic 140 mm[Hg] Jade Thompson [facility] Work Phone: Comment on above: Patient Position: Sitting; Cuff Location : Left Arm; Cuff Size: Standard 07-28-2019 10:26-0400 BSA (Body Surface Area) 2.37 m2 Jade Thompson [facility] Work Phone: 07-28-2019 10:26-0400 Height 177.8 cm Jade Thompson [facility] Work Phone: 07-28-2019 10:26-0400 Pulse (Heart Rate) 80 /min Jade Thompson [facility] Work Phone: Comment on above: Pattern: Regular 07-28-2019 10:26-0400 Pulse Oximetry 97 % Leticia Matos [facility] Work Phone: Comment on above: Room air 07-28-2019 10:26-0400 Respiratory Rate 16 /min Jade Thompson [facility] Work Phone: Comment on above: Pattern: Unlabored 07-28-2019 10:26-0400 SaO2% (BldA) [Mass fraction] 97 % Jade Thompson [facility]; [facility] Work Phone: Comment on above: Room air 09-28-2016 08:51-0500 BMI (Body Mass Index) 34.48 kg/m2 Chris Santana RN [facility] Work Phone: 09-28-2016 08:51-0500 Body Temperature 98.3 [degF] Chris Santana RN [facility] Work Phone: Comment on above: Method: Temporal 09-28-2016 08:51-0500 Body weight 109.01 kg Chris Santana RN [facility] Work Phone: 09-28-2016 08:51-0500 BP Diastolic 82 mm[Hg] Chris Santana RN [facility] Work Phone: Comment on above: Patient Position: Sitting; Cuff Location : Left Arm; Cuff Size: Large 09-28-2016 08:51-0500 BP Systolic 128 mm[Hg] Chris Santana RN [facility] Work Phone: Comment on above: Patient Position: Sitting; Cuff Location : Left Arm; Cuff Size: Large 09-28-2016 08:51-0500 BSA (Body Surface Area) 2.26 m2 Chris Santana RN [facility] Work Phone: 09-28-2016 08:51-0500 Height 177.8 cm Chris Santana RN [facility] Work Phone: 09-28-2016 08:51-0500 Pulse (Heart Rate) 89 /min Chris Santana RN [facility] Work Phone: Comment on above: Pattern: Regular 09-28-2016 08:51-0500 Pulse Oximetry 97 % Leticia Rappamol [facility] Work Phone: Comment on above: Room air 09-28-2016 08:51-0500 SaO2% (BldA) [Mass fraction] 97 % Chris Santana RN [facility]; [facility] Work Phone: Comment on above: Room air 09-28-2016 08:51-0500 Weight 109.01 kg Leticia Campofrancois [facility] Work Phone: 09-27-2015 16:25-0500 BMI (Body Mass Index) 34.48 kg/m2 Krystin Slarb CARDIAC REHAB NURSE [facility] Work Phone: 09-27-2015 16:25-0500 Body Temperature 97.3 [degF] Krystin Slarb CARDIAC REHAB NURSE [facility] Work Phone: 09-27-2015 16:25-0500 Body weight 109.01 kg Krystin Slarb CARDIAC REHAB NURSE [facility] Work Phone: 09-27-2015 16:25-0500 BP Diastolic 84 mm[Hg] Krystin Slarb CARDIAC REHAB NURSE [facility] Work Phone: Comment on above: Patient Position: Sitting; Cuff Location : Left Arm; Cuff Size: Standard 09-27-2015 16:25-0500 BP Systolic 128 mm[Hg] Krystin Slarb CARDIAC REHAB NURSE [facility] Work Phone: Comment on above: Patient Position: Sitting; Cuff Location : Left Arm; Cuff Size: Standard 09-27-2015 16:25-0500 BSA (Body Surface Area) 2.26 m2 Krystin Slarb CARDIAC REHAB NURSE [facility] Work Phone: 09-27-2015 16:25-0500 Height 177.8 cm Krystin Salcido LPN [facility] Work Phone: 09-27-2015 16:25-0500 Pulse (Heart Rate) 83 /min Krystin Salcido LPN [facility] Work Phone: Comment on above: Pattern: Regular 09-27-2015 16:25-0500 Pulse Oximetry 98 % Leticia Matos [facility] Work Phone: Comment on above: Room air 09-27-2015 16:25-0500 Respiratory Rate 17 /min Krystin Salcido CARDIAC REHAB NURSE [facility] Work Phone: Comment on above: Pattern: Unlabored 09-27-2015 16:25-0500 SaO2% (BldA) [Mass fraction] 98 % Krystin Garciaever RAMON [facility]; [facility] Work Phone: Comment on above: Room air 09-27-2015 16:25-0500 Weight 109.01 kg Leticia Matos [facility] Work Phone: 01-11-2015 11:28-0500 BMI (Body Mass Index) 34.48 kg/m2 Jennifer Rodriguez TRISTEN [facility] Work Phone: 01-11-2015 11:28-0500 Body Temperature 98.6 [degF] Jennifer Rodriguez TRISTEN [facility] Work Phone: Comment on above: Method: Oral 01-11-2015 11:28-0500 Body weight 109.01 kg Jennifer Rodriguez TRISTEN [facility] Work Phone: 01-11-2015 11:28-0500 BP Diastolic 70 mm[Hg] Jennifer Clarkwillie RAMON [facility] Work Phone: Comment on above: Patient Position: Sitting; Cuff Location : Left Arm; Cuff Size: Standard 01-11-2015 11:28-0500 BP Systolic 118 mm[Hg] Jennifer Clarkwillie RAMON [facility] Work Phone: Comment on above: Patient Position: Sitting; Cuff Location : Left Arm; Cuff Size: Standard 01-11-2015 11:28-0500 BSA (Body Surface Area) 2.26 m2 Jennifer Rodriguez LPN [facility] Work Phone: 01-11-2015 11:28-0500 Height 177.8 cm Jennifer Rodriguez LPN [facility] Work Phone: 01-11-2015 11:28-0500 Pulse (Heart Rate) 68 /min Jennifer Rodriguez LPN [facility] Work Phone: Comment on above: Pattern: Regular 01-11-2015 11:28-0500 Pulse Oximetry 97 % Leticia Matos [facility] Work Phone: Comment on above: Room air 01-11-2015 11:28-0500 Respiratory Rate 18 /min Jennifer Rodriguez LPN [facility] Work Phone: 01-11-2015 11:28-0500 SaO2% (BldA) [Mass fraction] 97 % Jennifer Rodriguez CARDIAC REHAB NURSE [facility]; [facility] Work Phone: Comment on above: Room air 01-11-2015 11:28-0500 Weight 109.01 kg Leticia Matos [facility] Work Phone: 07-18-2013 11:16-0400 BMI (Body Mass Index) 34.48 kg/m2 Cynthia Parker [facility] Work Phone: 07-18-2013 11:16-0400 Body Temperature 97.4 [degF] Cynthia Parker [facility] Work Phone: Comment on above: Method: Temporal 07-18-2013 11:16-0400 Body weight 109.01 kg Cynthia Parker [facility] Work Phone: 07-18-2013 11:16-0400 BP Diastolic 86 mm[Hg] Cynthia Parker [facility] Work Phone: Comment on above: Patient Position: Sitting; Cuff Location : Left Arm; Cuff Size: Standard 07-18-2013 11:16-0400 BP Systolic 122 mm[Hg] Cynthia Parkre [facility] Work Phone: Comment on above: Patient Position: Sitting; Cuff Location : Left Arm; Cuff Size: Standard 07-18-2013 11:16-0400 BSA (Body Surface Area) 2.26 m2 Cynthia Parker [facility] Work Phone: 07-18-2013 11:16-0400 Height 177.8 cm Cynthia Parker [facility] Work Phone: 07-18-2013 11:16-0400 Pulse (Heart Rate) 87 /min Cynthia Parker [facility] Work Phone: Comment on above: Pattern: Regular 07-18-2013 11:16-0400 Pulse Oximetry 97 % Leticia Matos [facility] Work Phone: Comment on above: Room air 07-18-2013 11:16-0400 Respiratory Rate 16 /min Cynthia Parker [facility] Work Phone: Comment on above: Pattern: Unlabored 07-18-2013 11:16-0400 SaO2% (BldA) [Mass fraction] 97 % Cynthia Parker [facility]; [facility] Work Phone: Comment on above: Room air 07-18-2013 11:16-0400 Weight 109.01 kg Leticia Matos [facility] Work Phone: 10-08-2012 15:13-0500 BMI (Body Mass Index) 34.48 kg/m2 Jennifer Rodriguez LPN [facility] Work Phone: 10-08-2012 15:13-0500 Body Temperature 98.2 [degF] Jennifer Rodriguez LPN [facility] Work Phone: Comment on above: Method: Oral 10-08-2012 15:13-0500 Body weight 109.01 kg Jennifer Rodriguez LPN [facility] Work Phone: 10-08-2012 15:13-0500 BP Diastolic 78 mm[Hg] Jennifer Rodriguez TRISTEN [facility] Work Phone: Comment on above: Patient Position: Sitting; Cuff Location : Left Arm; Cuff Size: Standard 10-08-2012 15:13-0500 BP Systolic 122 mm[Hg] Jennifer Rodriguez TRISTEN [facility] Work Phone: Comment on above: Patient Position: Sitting; Cuff Location : Left Arm; Cuff Size: Standard 10-08-2012 15:13-0500 BSA (Body Surface Area) 2.26 m2 Jennifer Rodriguez TRISTEN [facility] Work Phone: 10-08-2012 15:13-0500 Height 177.8 cm Jennifer Rodriguez TRISTEN [facility] Work Phone: 10-08-2012 15:13-0500 Pulse (Heart Rate) 80 /min Jennifer Rodriguez TRISTEN [facility] Work Phone: Comment on above: Pattern: Regular 10-08-2012 15:13-0500 Pulse Oximetry 97 % Leticia Matos [facility] Work Phone: Comment on above: Room air 10-08-2012 15:13-0500 Respiratory Rate 18 /min Jennifer Rodriguez TRISTEN [facility] Work Phone: 10-08-2012 15:13-0500 SaO2% (BldA) [Mass fraction] 97 % Jennifer Clarkwillie RAMON [facility]; [facility] Work Phone: Comment on above: Room air 10-08-2012 15:13-0500 Weight 109.01 kg Leticia Matos [facility] Work Phone: 08-06-2012 15:20-0400 BMI (Body Mass Index) 34.48 kg/m2 Jennifer Rodriguez TRISTEN [facility] Work Phone: 08-06-2012 15:20-0400 Body Temperature 98.6 [degF] Jennifer Rodriguez TRISTEN [facility] Work Phone: Comment on above: Method: Oral 08-06-2012 15:20-0400 Body weight 109.01 kg Jennifer Rodriguez LPN [facility] Work Phone: 08-06-2012 15:20-0400 BP Diastolic 80 mm[Hg] Jennifer Rodriguez TRISTEN [facility] Work Phone: Comment on above: Patient Position: Sitting; Cuff Location : Left Arm; Cuff Size: Standard 08-06-2012 15:20-0400 BP Systolic 128 mm[Hg] Jennifer Rodriguez LPN [facility] Work Phone: Comment on above: Patient Position: Sitting; Cuff Location : Left Arm; Cuff Size: Standard 08-06-2012 15:20-0400 BSA (Body Surface Area) 2.26 m2 Jennifer Rodriguez TRISTEN [facility] Work Phone: 08-06-2012 15:20-0400 Height 177.8 cm Jennifer Rodriguez TRISTEN [facility] Work Phone: 08-06-2012 15:20-0400 Pulse (Heart Rate) 84 /min Jennifer Rodriguez LPN [facility] Work Phone: Comment on above: Pattern: Regular 08-06-2012 15:20-0400 Weight 109.01 kg Leticia Matos [facility] Work Phone: 07-03-2011 16:28-0400 Body Temperature 99 [degF] Jennifer Rodriguez LPN [facility] Work Phone: Comment on above: Method: Oral 07-03-2011 16:28-0400 Body weight 109.01 kg Jennifer Rodriguez TRISTEN [facility] Work Phone: 07-03-2011 16:28-0400 BP Diastolic 74 mm[Hg] Jennifer Rodriguez CARDIAC REHAB NURSE [facility] Work Phone: Comment on above: Patient Position: Sitting; Cuff Location : Left Arm; Cuff Size: Standard 07-03-2011 16:28-0400 BP Systolic 134 mm[Hg] Jennifer Rodriguez TRISTEN [facility] Work Phone: Comment on above: Patient Position: Sitting; Cuff Location : Left Arm; Cuff Size: Standard 07-03-2011 16:28-0400 Pulse (Heart Rate) 80 /min Jennifer Rodriguez TRISTEN [facility] Work Phone: Comment on above: Pattern: Regular 07-03-2011 16:28-0400 Respiratory Rate 16 /min Jennifer Rodriguez TRISTEN [facility] Work Phone: Comment on above: Pattern: Unlabored 07-03-2011 16:28-0400 Weight 109.01 kg Leticia Matos [facility] Work Phone: Encounters Encounter Date Encounter Type Care Provider Facility Start: 08-06-2025 ambulatory José Miguel Wu Facility:[facility] Start: 08-06-2025 Non-patient / Non-visit Dr. José Miguel Wu MD -[facility] Start: 08-03-2025 End: 08-03-[address] Christiano Barreto MD -[facility] Work Phone: Start: 08-03-2025 End: 08-03-2025 ambulatory Christiano Barreto Facility:[facility] Start: 08-03-2025 Non-patient / Non-visit Dr. José Miguel Wu MD -[facility] Start: 07-06-2025 End: 07-06-2025 Patient encounter procedure Pérez HUNTLEY -[facility] Work Phone: Start: 07-06-2025 End: 07-06-[address] Christiano Barreto MD Work Phone: -[facility] Start: 01-30-2025 Non-patient / Non-visit Dr. Abiel Smith MD -[facility] Start: 01-30-2025 End: 01-30-2025 Admission to same day surgery center Dr. Abiel Smith MD -Endoscopy Work Phone: Start: 01-30-2025 End: 01-30-[address] Christiano Barreto MD Work Phone: [facility] Work Phone: Start: 01-05-2025 End: 01-05-[address] Abiel Smith MD -[facility] Work Phone: Start: 01-05-2025 End: 01-05-2025 ambulatory Abiel Smith Facility:[facility] Start: 12-03-2024 End: 12-03-[address] Christiano Barreto MD -Laboratory Work Phone: Start: 12-03-2024 End: 12-03-2024 ambulatory Christiano Barreto Facility:[facility] Start: 09-22-2024 End: 09-22-2024 ambulatory Chris Ventura [facility] Start: 02-26-2024 End: 02-26-2024 ambulatory Facility:[facility] Start: 02-26-2024 End: 02-26-2024 Emergency department patient visit Dr. Christiano Barreto Work Phone: [facility]-Emergency Department Work Phone: Start: 02-26-2024 End: 02-26-2024 Patient encounter procedure July Anderson APRN.PRODUCT DEMONSTRATOR Work Phone: [facility] Comment on above: Lightheaded (Primary Dx); Visual changes Start: 12-20-2023 End: 12-20-[address] Christiano Barreto Work Phone: [facility]-Laboratory Work Phone: Start: 12-14-2023 End: 12-14-[address] Christiano Barreto Work Phone: [facility] Work Phone: Start: 10-19-2023 Non-patient / Non-visit Dr. Avinash Barreto Work Phone: [facility] Start: 10-18-2023 Non-patient / Non-visit Dr. Avinash Barreto Work Phone: [facility] Start: 10-18-2023 End: 10-19-2023 Evaluation and management of inpatient Dr. Avinash Barreto Work Phone: [facility]-Progressive Care Unit Work Phone: Start: 09-25-2023 End: 09-25-[address] Avinash Barreto Work Phone: [facility] Work Phone: Start: 09-25-2023 End: 09-25-[address] Avinash Barreto [facility] Phone[facility] Work Phone: Start: 08-14-2023 Non-patient / Non-visit Dr. Avinash Barreto Work Phone: [facility] Start: 08-14-2023 End: 08-14-[address] Avinash Barreto Work Phone: [facility] Work Phone: Start: 08-14-2023 End: 08-14-[address] Avinash Barreto Work Phone: [facility]-Pulmonary Services/Neurology Work Phone: Start: 04-10-2022 End: 04-10-[address] Rudi Dyer Work Phone: [facility] Start: 03-09-2022 End: 03-09-[address] Rudi Dyer Work Phone: [facility] Start: 02-23-2022 Non-patient / Non-visit Dr. Rudi Dyer Work Phone: [facility] Start: 02-23-2022 End: 02-23-2022 Admission to same day surgery center Dr. Rudi Dyer Work Phone: [facility]-Endoscopy Start: 01-05-2022 End: 01-05-[address] Rudi Dyer Work Phone: [facility]-Nuclear Medicine, [facility] Start: 12-26-2021 End: 12-26-[address] Rudi Dyer Work Phone: [facility] Start: 08-02-2021 End: 08-02-2021 Annotation/Addendum Leticia Tamelabrianfrancois [facility] Work Phone: [facility] Start: 07-28-2021 Review Leticia Matos PRODUCT DEMONSTRATOR Work Phone: [facility] Start: 07-20-2021 End: 07-20-2021 Lab Order Leticia Matos PRODUCT DEMONSTRATOR Work Phone: [facility] Start: 07-19-2021 End: 07-19-2021 Office outpatient visit 25 minutes Leticia Matos PRODUCT DEMONSTRATOR Work Phone: [facility] Start: 06-21-2021 End: 06-21-2021 Office outpatient visit 15 minutes Leticia Matos PRODUCT DEMONSTRATOR Work Phone: [facility] Start: 05-31-2021 End: 05-31-2021 Office outpatient visit 25 minutes Leticia Matos PRODUCT DEMONSTRATOR Work Phone: [facility] Start: 03-21-2021 End: 03-21-2021 Office outpatient visit 15 minutes Leticia Matos PRODUCT DEMONSTRATOR Work Phone: [facility] Start: 03-19-2021 Review Leticia Matos PRODUCT DEMONSTRATOR Work Phone: [facility] Start: 03-19-2021 End: 03-19-2021 Patient encounter procedure Leticia Matos PRODUCT DEMONSTRATOR Work Phone: [facility] Start: 03-15-2021 End: 03-15-2021 Office outpatient visit 15 minutes Leticia Matos PRODUCT DEMONSTRATOR Work Phone: [facility] Start: 03-07-2021 End: 03-07-2021 Office outpatient visit 10 minutes Leticia Matos PRODUCT DEMONSTRATOR Work Phone: [facility] Start: 03-02-2021 End: 03-02-2021 Annotation/Addendum Leticia Rappbrianfrancois [facility] [employer] [facility] Medicine Start: 03-01-2021 End: 03-01-2021 Office outpatient visit 10 minutes Leticia Rappbrianfrancois [facility] Start: 01-18-2021 End: 01-18-2021 Office outpatient visit 15 minutes Leticia [facility] Start: 11-29-2020 End: 11-29-2020 Office outpatient visit 15 minutes Leticia [facility] Start: 02-09-2020 End: 02-09-2020 Annotation/Addendum Leticia Rappbrianfrancois [facility] [employer] Examiner [facility] Start: 01-28-2020 End: 01-28-2020 Office outpatient visit 15 minutes Leticia Jahairafrancois [facility] Start: 01-14-2020 End: 01-14-2020 Annotation/Addendum Leticia Jahairafrancois [facility] Examiner al Medicine Start: 01-13-2020 End: 01-13-2020 Office outpatient visit 15 minutes eLticia Tamelaamol [facility] Start: 09-16-2019 End: 09-16-2019 Office outpatient visit 15 minutes Leticia Tamelaamol [facility] Start: 07-28-2019 End: 07-28-2019 Office outpatient visit 15 minutes Leticia Tamleaamol [facility] Start: 09-28-2016 End: 09-28-2016 Office outpatient visit 15 minutes Leticia [facility] Start: 01-10-2016 End: 01-10-2016 Lab Order Leticia Jahairafrancois [facility] [employer] [facility] Start: 09-27-2015 End: 09-27-2015 Office outpatient visit 15 minutes Leticia Matos [facility] Start: 07-13-2015 End: 07-30-2015 Lab Order Leticia Campofrancois [facility] [employer] [facility] Start: 01-11-2015 End: 01-11-2015 Annotation/Addendum Leticia Rappbrianfrancois [facility] [employer] [facility] Start: 01-11-2015 End: 01-11-2015 Office outpatient visit 15 minutes Leticia [facility] Start: 07-15-2014 End: 07-15-2014 Lab Order Leticia Rappbrianfrancois [facility] [employer] [facility] Start: 07-18-2013 End: 07-18-2013 Office outpatient visit 15 minutes Leticia Matos [facility] Start: 10-08-2012 End: 10-08-2012 [facility] Start: 08-06-2012 End: 08-06-2012 Office outpatient visit 5 minutes [facility] Start: 10-30-2011 End: 10-30-2011 Phone Encounter Leticia Matos [facility] [employer] Examiner al Medicine Start: 07-03-2011 End: 07-03-2011 Office outpatient new 45 minutes [facility] Procedures Date Procedure Procedure Detail Performing Clinician Start: 08-03-2025 CT angiography of coronary arteries Dr. Christiano Barreto MD Work Phone: Start: 01-30-[address] Christiano Barreto MD Work Phone: Start: 02-26-2024 CT angiography of head and neck Dr. Martine Barreto Work Phone: Start: 02-26-2024 Gluc bld gluc mntr dev cleared fda spec home use July Anderson APRN.PRODUCT DEMONSTRATOR Work Phone: Start: 10-18-2023 Plain chest X-ray Dr. Avinash Barreto Work Phone: Start: 09-25-2023 Plain chest X-ray Dr. Avinash Barreto Work Phone: Start: 04-10-[address] Rudi Dyer Work Phone: Start: 02-22-2022 End: 02-22-[address] Rudi Dyer Work Phone: Start: 01-05-[address] empt[address] study [address] Rudi Dyer Work Phone: Start: 08-08-2021 End: 08-09-2021 Abdomen/Pelvis without Cont Comments: See Note; NOTES: [facility] Imaging Services [address] [place] [address] Abdomen/Pelvis without Cont MR#: [id number] Acct: [id number] Name: LISA RODRIGUEZ Rep #: [id number] : 1970 M 50 From: Los Murphy MD PCP: YUKO Suarez Status: REG CLI Study: Abdomen/Pelvis without Cont Date of Exam: 07/21 Exam# [id number] Ordering Dr: Leticia Matos NP MEDICAL DEVICE SALES CONSULTANT-C STUDY: CT ABDOMEN AND PELVIS WITHOUT CONTRAST REASON FOR EXAM: Male, 50 years old. Flank pain RADIATION DOSAGE (If Supplied By Facility): CTDIvol = ( 17.26 ) mGy, DLP = ( 1430.01 ) mGycm TECHNIQUE: Transaxial images were obtained from the dome of the diaphragm to the symphysis pubis without oral contrast, and without intravenous contrast. Sagittal and coronal images were reconstructed. Individualized dose optimization techniques were used for this CT. COMPARISON: 01/11/15 FINDINGS: Evaluation of the abdominal viscera is limited in the absence of intravenous contrast. The visualized lung bases are clear. The visualized portions of the heart and pericardium are within normal limits. There are no calcified gallstones present. The liver demonstrates an unremarkable unenhanced appearance. The spleen is normal in size. The pancreas demonstrates an unremarkable unenhanced appearance. The adrenal glands are within normal limits. There is a 3 mm nonobstructing right renal stone. There are no additional renal or ureteral stones. There is no hydronephrosis. Normal visualized stomach. There is no bowel obstruction or inflammation. The appendix is visualized and appears normal. The aorta is normal in caliber. There is no abdominal or pelvic free air, free fluid, fluid collection or lymphadenopathy. There are no destructive osseous lesions. There are mild degenerative changes noted in the spine. 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 CT/Abdomen/Pelvis without Cont IMPRESSION: 3 mm nonobstructing right renal stone. No additional urinary calculi. No hydronephrosis. No bowel obstruction or inflammation. Normal appendix. Electronically Signed: Los Murphy MD at 10:15 EDT Tel , Service support , CC: YUKO Matos Framing Consultant: Signed Leticia Matos CNP Work Phone: Start: 07-19-2021 End: 07-19-2021 Testicular with Arterial Flow Comments: See Note; NOTES: [facility] Imaging Services [address] [place] [address] Testicular with Arterial Flow MR#: [id number] Acct: [id number] Name: LISA RODRIGUEZ Rep #: [id number] : 1970 M 50 From: Wilton Cook DO PCP: YUKO Suarez Status: REG CLI Study: Testicular with Arterial Flow Date of Exam: Exam# [id number] Ordering Dr: Leticia Matos NP STUDY: SCROTUM ULTRASOUND REASON FOR EXAM: Male, 50 years old. TESTICULAR PAIN,RIGHT TECHNIQUE: Ultrasound evaluation of the scrotum was performed with color Doppler and static mohamud-scale imaging. COMPARISON: None. FINDINGS: RIGHT TESTICLE INTRATESTICULAR: There is a normal size of the right testicle. The right testicle measures 4.1 x 2.8 x 2.3 cm. There is a homogenous echotexture. There is normal arterial and normal venous vascularity. There is no demonstrated right testicular mass or cyst. EXTRATESTICULAR: The epididymis is normal in size. The epididymis head measures 0.8 x 1.3 x 0.9 cm. There is normal vascularity of the epididymis. There is no demonstrated epididymal cystic structure. There is a mild complex hydrocele. There is no demonstrated varicocele. There is no demonstrated extratesticular mass or cyst. LEFT TESTICLE INTRATESTICULAR: There is a normal size of the left testicle. The left testicle measures 4.6 x 2.9 x 2.1 cm. There is a homogenous echotexture. There is normal arterial and normal venous vascularity. There is no demonstrated left testicular mass or cyst. EXTRATESTICULAR: The epididymis is normal in size. The epididymis head measures 0.9 x 1.1 x 1.3 cm. There is normal vascularity of the epididymis. There is a 5 x 7 mm epididymal cyst. There is a small complex hydrocele. There is no demonstrated varicocele. There is no demonstrated extratesticular mass or cyst. US/Testicular with Arterial Flow IMPRESSION: Normal bilateral testicles. Small complex hydroceles bilaterally. Small left epididymal cyst. Electronically Signed: Wilton Cook DO at 17:33 EDT Tel [phone], Service support , CC: YUKO Matos Framing Consultant: Signed Leticia Matos PRODUCT DEMONSTRATOR Work Phone: Start: 05-31-2021 End: 05-31-2021 Chest PA and Lateral Comments: See Note; NOTES: [facility] Radiology [address] [place] [address] Chest PA and Lateral MR#: [id number] Acct: [id number] Name: LISA RODRIGUEZ Rep #: [id number] : 1970 50 From: Yoseph orourke MD PCP: YUKO Suarez Status: DEP AMB Study: Chest PA and Lateral Date of Exam: 05/31/21 Exam# [id number] Ordering Dr: Leticia Matos NP STUDY: X-RAY CHEST REASON FOR EXAM: Male, 50 years old. COUGH -- STAT TECHNIQUE: PA and lateral views of the chest. COMPARISON: Comparison is made with prior study of 01/17/2021. FINDINGS: The lungs are clear and expanded. Azygos lobe. Normal variant. There is no demonstrated pleural abnormality. Normal size heart. Normal mediastinum and mary jane. Normal visualized pulmonary arteries. Normal visualized aortic arch and descending thoracic aorta. Normal visualized thoracic spine. Normal visualized ribs, clavicles, and shoulders. There is no demonstrated abnormality of the visualized soft tissue structures of the upper abdomen. RAD/Chest PA and Lateral IMPRESSION: Normal x-ray examination of the chest. Electronically Signed: Yoseph Lewis MD at 12:15 EDT , Service support , CC: YUKO Matos Framing Consultant: Signed Leticia Matos PRODUCT DEMONSTRATOR Work Phone: Start: 01-17-2021 End: 01-17-2021 CTA Chest W/WO Contrast Comments: See Note; NOTES: [facility] Imaging Services [address] [place] [address] CTA Chest W/WO Contrast MR#: [id number] Acct: [id number] Name: LISA RODRIGUEZ Rep #: [id number] : 1970 50 From: Keith Cabrera MD PCP: YUKO Suarez Status: REG ER Study: CTA Chest W/WO Contrast Date of Exam: 01/17/21 Exam# [id number] Ordering Dr: Tonya Hollis MD STUDY: CTA CHEST REASON FOR EXAM: Male, 50 years old. r/o PE RADIATION DOSAGE (If Supplied By Facility): CTDIvol = ( 19.79 ) mGy, DLP = ( 574.29 ) mGycm TECHNIQUE: The examination was performed with the intravenous administration of IV 100mL Isovue-370. Post-processing of the angiographic images was performed, with multiplanar reformation and 3D reconstruction. Individualized dose optimization techniques were used for this CT. COMPARISON: None. FINDINGS: Normal enhancement of the main pulmonary artery and right and left pulmonary arteries. Normal enhancement of the bilateral peripheral pulmonary arteries. There is no demonstrated pulmonary embolism. Normal thoracic aorta and visualized great vessels. There is no demonstrated aortic dissection. Normal heart and pericardium. Normal mediastinum. Normal hilar regions. Normal visualized trachea and bronchi. The lungs are well expanded. Normal pulmonary parenchyma. Normal pleura. Azygos lobe which is a normal variant. Normal chest wall structures. Normal osseous structures. Normal visualized upper abdomen. CT/CTA Chest W/WO Contrast IMPRESSION: Normal CTA chest examination, without a demonstrated pulmonary embolism or arterial dissection. Electronically Signed: Keith Cabrera MD at 19:44 EST Tel , Service support , CC: YUKO Matos; Dr. Tonya Hollis MD Framing Consultant: Signed Leticia Matos Start: 01-17-2021 End: 01-17-2021 Chest 1 View (Portable) Comments: See Note; NOTES: [facility] Imaging Services [address] [place] [id number] Chest 1 View (Portable) MR#: [id number] Acct: [id number] Name: LISA RODRIGUEZ Rep #: [id number] : 1970 50 From: Keith Cabrera MD PCP: YUKO Suarez Status: REG ER Study: Chest 1 View (Portable) Date of Exam: 01/17/21 Exam# [id number] Ordering Dr: Tonya Hollis MD STUDY: X-RAY CHEST REASON FOR EXAM: Male, 50 years old. chest pain TECHNIQUE: Single AP portable view of the chest. COMPARISON: None. FINDINGS: The lungs are clear and expanded. There is no demonstrated pleural abnormality. Normal size heart. Normal mediastinum and mary jane. Normal visualized pulmonary arteries. Normal visualized aortic arch and descending thoracic aorta. Normal visualized thoracic spine. Normal visualized ribs, clavicles, and shoulders. There is no demonstrated abnormality of the visualized soft tissue structures of the upper abdomen. RAD/Chest 1 View (Portable) IMPRESSION: Normal x-ray examination of the chest. Electronically Signed: Keith Cabrera MD at 16:02 EST Tel , Service support , CC: YUKO Matos; Dr. Tonya Hollis MD Framing Consultant: Signed Leticia Matos Start: 01-17-2021 End: 01-22-2021 Emergency Department Summary Comments: See Note; NOTES: [facility] Medical Records Department [address] [place] [address] Emergency Department Summary 01/17/21 MR#: [id number] Acct: [id number] Name: LISA RODRIGUEZ Rep #: [id number] : 1970 50 From: Tonya Hollis MD PCP: YUKO Suarez Status:DEP ER - ER Visit Summary Date of Service: 01/17/21 Chief Complaint: Chest pain History of Present Illness: The patient is a 50 M presenting with chest pain. Patient states this started approximately 1 hour ago. He began having left-sided chest pain that worsened when he took a deep breath. He has associated mild shortness of breath. He states currently he has no pain unless he is taking a deep breath. He denies recent fever or cough. Denies PE/DVT risk factors. He is not a smoker. No family history of early heart disease. Physical Examination: Vitals are stable. Patient is afebrile. Alert no acute distress. HEENT exam is unremarkable. Neck is supple. Lungs are clear and equal bilaterally. Heart is regular rate and rhythm. Abdomen is soft nontender nondistended. Extremities are unremarkable. Skin is warm and dry. No focal neurologic deficit. Remainder of exam is unremarkable. Emergency Department Course and Treatment: Patient was given aspirin on arrival. EKG is sinus rhythm rate of 86 with no acute ischemic changes. CBC, chemistries unremarkable. Troponin is negative. D-dimer normal. Chest x-ray read by myself and radiology shows no acute process. Patient has a heart score of 1. He is resting comfortably on reevaluation. Delta troponin will be obtained and is pending at this time. Disposition: pending Impression: Chest pain This note was generated with Memoradoation software. It may contain incorrect words, spelling, and punctuation that were not noted in review of the chart prior to signing <Tonya Hollis - Last Filed: 01/17/21 18:17> - ER Visit Summary Date of Service: 01/17/21 Chief Complaint: [] History of Present Illness: The patient is a 50 M [] Physical Examination: [] Test Results: [] Emergency Department Course and Treatment: The patient's repeat troponin was still less than 0.015. CT of the chest is unremarkable as well. His heart score is 1. I feel the pain is either musculoskeletal or pleuritic in nature. Patient will be treated with NSAIDs. He will follow-up with her PCP. Treatment Plan: [] Disposition: Discharge Impression: Chest pain This note was generated with TinyTap dictation software. It may contain incorrect words, spelling, and punctuation that were not noted in review of the chart prior to signing <Jordon Colunga - Last Filed: 01/17/21 20:01> ED Disposition <Tonya Hollis - Last Filed: 01/17/21 18:17> <Jordon Colunga - Last Filed: 01/17/21 20:01> - Plan for ED Patient: Disposition: Home or Assisted Living Instructions: ED Chest Pain, Uncertain Cause Prescriptions: Naproxen [Naprosyn] 500 mg PO BID PRN #20 tab Prescription Printed Referrals: Leticia Matos MEDICAL DEVICE SALES CONSULTANT, MEDICAL DEVICE SALES CONSULTANT-C [Primary Care Provider] - What to do if you have Problems For any increased pain, shortness of breath, bleeding, nausea or vomiting, chest pain, or any unexpected problems, contact your Primary Care Provider. Call [facility] ([phone]) or report to the closest Emergency Room. Call 911 if necessary. 01/18/212152 <Electronically signed by Tonya Hollis MD> Date Tonya Hollis MD 01/17/212000<Electronically signed by Jordon Colunga MD> Cosigner Signature (If Indicated): Date Jordon Colunga MD CC: MEDICAL DEVICE SALES CONSULTANT-C Leticia Rappbrianfrancois Leticia Campofrancois Start: 01-17-2021 End: 01-18-2021 12 Lead EKG Comments: See Note; NOTES: [facility] Cardiovascular Services [address] [place] [address] 12 Lead EKG 01/17/21 1458 MR#: [id number] Acct: [id number] Name: LISA RODRIGUEZ Rep #: [id number] : 1970 50 From: Guero Pickett MD Attending Dr: Status: DEP ER Ordering Dr: Tonya Hollis MD Date: 01/17/21 Location: ED Sex: M C Admitted: Test Reason : Blood Pressure : / mmHG Vent. Rate : 086 BPM Atrial Rate : 086 BPM P-R Int : 156 ms QRS Dur : 096 ms QT Int : 368 ms P-R-T Axes : 061 028 037 degrees QTc Int : 440 ms Normal sinus rhythm Possible Left atrial enlargement Borderline ECG Confirmed by CONRAD HILLMAN, GUERO ([id number]), photographic editor LIZA TRAVIS ([id number]) on 01/18/2021 10:50:34 AM Referred By: BURT Confirmed By:GUERO PICKETT MD 01/18/21 1050 Date Guero Pickett MD CC: MEDICAL DEVICE SALES CONSULTANT-Carolina Matos; Dr. Tonya Hollis MD Signed Leticia Matos Start: 09-30-2020 End: 11-02-2020 Cerv Spine 2 or 3 Views Comments: See Note; NOTES: [facility] Imaging Services [address] [place] [address] Cerv Spine 2 or 3 Views MR#: [id number] Acct: [id number] Name: LISA RODRIGUEZ Rep #: [id number] : 1970 M 49 From: Yoseph orourke MD PCP: YUKO Suarez Status: REG CLI Study: Cerv Spine 2 or 3 Views Date of Exam: 09/30/20 Exam# [id number] Ordering Dr: Pérez Mirza MD STUDY: X-RAY - CERVICAL SPINE REASON FOR EXAM: Male, 49 years old. Left side head and neck pain, into left shoulder TECHNIQUE: 3 view(s) of the cervical spine were obtained. COMPARISON: None FINDINGS: Normal anterior atlantoaxial articulation. Normal odontoid process. There is straightening of the normal cervical lordosis. Minimal anterior spondylosis at the C5-C6 level. Normal disc space heights. Normal visualized intervertebral neuroforamina. The soft tissue structures are unremarkable. RAD/Cerv Spine 2 or 3 Views IMPRESSION: There is straightening of the normal cervical lordosis. Electronically Signed: Yoseph Lewis, at 10:48 EST , Service support , CC: MEDICAL DEVICE SALES CONSULTANT-Carolina Matos; Dr. Pérez Mirza MD Framing Consultant: Signed Leticia Matos Start: 09-30-2020 End: 11-02-2020 L/S Spine Min 4 Views Comments: See Note; NOTES: [facility] Imaging Services [address] [place] [address] L/S Spine Min 4 Views MR#: [id number] Acct: [id number] Name: LISA RODRIGUEZ Rep #: [id number] : 1970 M 49 From: Yoseph orourke MD PCP: YUKO Suarez Status: REG CLI Study: L/S Spine Min 4 Views Date of Exam: 09/30/20 Exam# [id number] Ordering Dr: Pérez Mirza MD STUDY: X-RAY - LUMBAR SPINE REASON FOR EXAM: Male, 49 years old. Low back pain, sharp when going from sitting to standing-intermittent TECHNIQUE: 5 view(s) of the lumbar spine were obtained including oblique views. COMPARISON: None FINDINGS: Normal lumbar lordosis. There is no substantial scoliosis. There is a normal alignment of the vertebrae. There is multilevel endplate spondylosis of the lumbar vertebrae. There is multi-level degenerative disc disease with multi-level disc space narrowing. The soft tissue structures are unremarkable. RAD/L/S Spine Min 4 Views IMPRESSION: Degenerative changes of the spine, as detailed above. Electronically Signed: Yoseph Lewis, at 10:46 EST , Service support , CC: YUKO Matos; Dr. Pérez Mirza MD Framing Consultant: Signed Leticia Matos Start: 02-06-2020 End: 02-06-2020 Spine Lumbar (Routine) Comments: See Note; NOTES: [facility] Imaging Services [address] [place] [address] Spine Lumbar (Routine) MR#: [id number] Acct: [id number] Name: LISA RODRIGUEZ Rep #: [id number] : 1970 M 49 From: Jose Luis Munoz MD PCP: YUKO Suarez Status: REG CLI Study: Spine Lumbar (Routine) Date of Exam: 02/06/20 Exam# [id number] Ordering Dr: Leticia Matos STUDY: MRI LUMBAR SPINE WITHOUT CONTRAST REASON FOR EXAM: Male, 49 years old. Spondylolisthesis grade 1, LBP, left thigh radiculopathy TECHNIQUE: Standardized fat and water weighted pulse sequences were obtained in the sagittal and axial planes. COMPARISON: None FINDINGS: There is narrowing of T11-12 disc space with desiccation of the disc and minor annular bulge mildly narrowing the central canal only viewed on sagittal images. T12-L1: Normal endplates. Normal disc height, hydration and morphology. Normal bilateral facet joints. Normal central canal and bilateral lateral recesses. Normal bilateral intervertebral neural foramina. Normal lumbar lordosis. There is no substantial scoliosis. Normal conus medullaris that terminates at T12-L1 L1-2: Minor endplate spurring. Normal disc height, desiccation and normal morphology. Normal bilateral facet joints. Normal central canal and bilateral lateral recesses. Normal bilateral intervertebral neural foramina. L2-3: Normal endplates. Normal disc height, desiccation and normal morphology. Normal bilateral facet joints. Normal central canal and bilateral lateral recesses. Normal bilateral intervertebral neural foramina. L3-4: Normal endplates. Normal disc height, desiccation and normal morphology. Normal bilateral facet joints. Normal central canal and bilateral lateral recesses. Normal bilateral intervertebral neural foramina. L4-5: Grade 1 retrolisthesis. Narrowed disc space with desiccation of disc and mild bulging disc osteophyte complex associated with small central disc extrusion with inferior migration of disc fragment. Bilateral facet arthropathy slightly greater on the left.. Mild narrowing of the central canal.. Mild right lateral recess and mild neural foraminal encroachment. Moderate left lateral recess and moderate neural foraminal stenosis L5-S1: Normal endplates. Normal disc height, desiccation and mild annular bulge.. Bilateral facet arthropathy.. Normal central canal and bilateral lateral recesses. Mild bilateral neural foraminal encroachment.. Normal visualized sacral ala. Normal visualized paraspinous soft tissue structures. MRI/Spine Lumbar (Routine) IMPRESSION: No evidence for acute fracture or subluxation.. Multilevel disc degeneration. Spinal stenosis at L4-5 secondary to disc disease and bony hypertrophy exaggerated by shortened pedicles greater on the left. Mild spinal stenosis at L5-S1 secondary to bulging annulus and mild facet arthropathy Electronically Signed: Jose uLis Munoz MD at 18:32 EDT , Service support , CC: YUKO Matos Framing Consultant: Signed Leticia Matos Work Phone: Start: 01-13-2020 End: 01-13-2020 L/S Spine Min 4 Views Comments: See Note; NOTES: [facility] Imaging Services [address] [place] [address] L/S Spine Min 4 Views MR#: [id number] Acct: [id number] Name: LISA RODRIGUEZ Rep #: [id number] : 1970 M 49 From: Pérez Galvan DO PCP: YUKO Suarez Status: REG CLI Study: L/S Spine Min 4 Views Date of Exam: 01/13/20 Exam# [id number] Ordering Dr: Leticia Matos STUDY: X-RAY - LUMBAR SPINE REASON FOR EXAM: Male, 49 years old. chronic low back pain radiating into left leg, numbness and tingling COMPARISON: Sagittal reconstruction images from the CT scan of the abdomen and pelvis obtained on 01/11/2015 TECHNIQUE: 4 view FINDINGS: Studies of the lumbar spine in 4 projections shows the superior 4 lumbar vertebrae to be in excellent anatomic position and alignment. The intervertebral disc spaces are all well maintained. There are bilateral spondylitic defects noted at L5, with 5 mm of spondylolisthesis of L5 on S1. RAD/L/S Spine Min 4 Views IMPRESSION: Bilateral spondylitic defects are noted of L5 with grade 1 spondylolisthesis of L5 on S1.. Electronically Signed: Pérez Galvan at 16:32 EST Tel , Service support , CC: YUKO Matos Framing Consultant: Signed Leticia Matos Work Phone: Start: 11-21-2017 End: 11-21-2017 Emergency Department Summary Comments: See Note; NOTES: [facility] Medical Records Department [address] [place] [address] Emergency Department Summary 11/20/17 2218 MR#: [id number] Acct: [id number] Name: LISA RODRIGUEZ Rep #: [id number] : 1970 47 From: Jordon Colunga MD PCP: Leticia Matos NP Status: DEP ER - ER Visit Summary Date of Service: 11/20/17 Chief Complaint: Throat and tongue swelling History of Present Illness: The patient is a 47 M who states he feels like his tongue and throat is swelling. Started yesterday. 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 His last episode happened a couple of years ago. He takes danazol daily for this. He denies a fever. He feels like his tongue is pushing against his teeth. He states nothing he did differently yesterday was he helped move and was lifting heavy objects. Physical Examination: Vital signs reviewed. HEENT exam unremarkable. There is no tongue swelling. His uvula is midline. Heart is regular rate and rhythm without murmurs. Lungs are clear to auscultation. Abdomen is soft and nontender. Extremities reveal no edema. Skin exam normal. Neurologic exam normal. Test Results: Patient was given Solu-Medrol and Pepcid. He declined Benadryl because he states he does not like the way it makes him feel. Emergency Department Course and Treatment: Patient will be observed in the ER. He will be discharged home with prednisone. He will need to follow-up with his primary care physician. Treatment Plan: [] Disposition: Discharge Impression: Throat swelling This note was generated with TinyTap dictation software. It may contain incorrect words, spelling, and punctuation that were not noted in review of the chart prior to signing ED Disposition - Plan for ED Patient: Chief Complaint: Allergic Reaction Referrals: Guero Streeter MD [STAFF PHYSICIAN] - What to do if you have Problems For any increased pain, shortness of breath, bleeding, nausea or vomiting, chest pain, or any unexpected problems, contact your Primary Care Provider. Call [facility] ([phone]) or report to the closest Emergency Room. Call 911 if necessary. 11/21/17 0802 <Electronically signed by Jordon Colunga MD> Date Jordon Colunga MD Cosigner Signature (If Indicated): Date CC: Leticia Matos NP Leticia Carlo Start: 11-20-2017 End: 11-20-2017 Discharge Instruction Comments: See Note; NOTES: [facility] Medical Records Department [address] [facility] [place] [address] Discharge Instruction 11/20/172306 MR#: [id number] Acct: [id number] Name: LISA RODRIGUEZ Rep #: [id number] : 1970 47 From: Jordon Colunga MD PCP: Leticia Matos NP Status: REG ER ED Disposition - Plan for ED Patient: Disposition: Home or Assisted Living Chief Complaint: Allergic Reaction Instructions: ED Angioedema Prescriptions: Prednisone [Deltasone] 60 mg PO DAILY #15 tab Referrals: Guero Streeter MD [STAFF PHYSICIAN] - What to do if you have Problems For any increased pain, shortness of breath, bleeding, nausea or vomiting, chest pain, or any unexpected problems, contact your Primary Care Provider. Call [facility] ([phone]) or report to the closest Emergency Room. Call 911 if necessary. 11/20/172307 <Electronically signed by Jordon Colunga MD> Date Jordon Colunga MD Cosigner Signature (If Indicated): Date CC: Leticia Matos Start: 01-11-2015 End: 01-11-2015 Gallbladder Comments: See Note; NOTES: [facility] Imaging Services [address] [place] [address] Ultrasound Report MR#: [id number] Acct: [id number] Name: LISA RODRIGUEZ Rep #: [id number] : 1970 M 44 From: Preet Zuniga MD PCP: Guero Streeter MD Status: REG CLI Study: Gallbladder Date of Exam: 01/11/15 Exam# [id number] Ordering Dr: Leticia Matos STUDY: ULTRASOUND GALLBLADDER REASON FOR VISIT: Male, 44 years old. Right upper quadrant pain x2 weeks. TECHNIQUE: Ultrasound evaluation of the gallbladder was performed with real-time and static mohamud-scale imaging. TECHNICAL QUALITY: Adequate. COMPARISON: CT abdomen and pelvis there are 2014 FINDINGS: Gallbladder: Normal distended gallbladder. The gallbladder wall measures 2 mm. There is a negative sonographic Spivey's sign. There is no pericholecystic fluid. There are no gallstones. Common Bile Duct (C.B.D.): The common bile duct measures 4 mm. The liver is normal in echogenicity and measures 15.4 cm. Hepatic color flow is in the normal direction. The pancreas is poorly visualized due to bowel gas. The right kidney measures 12.7 x 6.1 x 6.9 cm. The cortex measures 2 cm. There is a 5 x 6 x 6 mm echogenic focus consistent with a nonobstructing nephrolith. IMPRESSION: 5 mm nonobstructing nephrolith right kidney. Normal gallbladder without stones. No cholecystitis or common bile duct obstruction. Electronically Signed: Preet Zuniga MD at 16:51 EST , Service support [phone], CC: Leticia Matos; Guero Streeter MD Framing Consultant: Signed Leticia Matos Work Phone: Start: 01-11-2015 End: 01-11-2015 Abdomen/Pelvis WITH Contrast Comments: See Note; NOTES: [facility] Imaging Services [address] [place] [address] CAT Scan Report MR#: [id number] Acct: [id number] Name: LISA RODRIGUEZ Rep #: [id number] : 1970 M 44 From: Yoseph Lewis MD PCP: uGero Streeter MD Status: REG CLI Study: Abdomen/Pelvis WITH Contrast Date of Exam: 01/11/15 Exam# [id number] Ordering Dr: Leticia Matos STUDY: CT ABDOMEN AND PELVIS WITH CONTRAST REASON FOR EXAM: Male, 44 years old. Right-sided abdominal pain. RADIATION DOSAGE (If Supplied By Facility): CTDIvol = ( 16.71 ) mGy, DLP = ( 1793.65 ) mGycm TECHNIQUE: Transaxial images were obtained from the dome of the diaphragm to the symphysis pubis with oral contrast. 100ml ml of Isovue 300 contrast was administered. Sagittal and coronal images were reconstructed. Delayed imaging was obtained as well. COMPARISON: None. FINDINGS: Minimal increased markings in the medial aspect of the right middle lobe suggestive of scarring and/or atelectasis. The visualized portions of the heart are within normal limits. Normal liver. Normal gallbladder and extrahepatic biliary system. Normal spleen. Normal pancreas. Normal bilateral adrenal glands. There is a 3 mm nonobstructive calculus in the midpole calyx of the right kidney. Normal left kidney. There is a small hiatal hernia. Normal small intestine. There are multiple colonic diverticula consistent with diverticulosis. The appendix is visualized and appears normal. Normal abdominal aorta. Normal inferior vena cava. Normal retroperitoneum. The urinary bladder is only partially filled. I suspect bladder wall thickening. There is a small umbilical hernia containing fat. There is evidence of spondylolysis of the pars interarticularis of the L5 vertebrae. IMPRESSION: Findings suggest some bladder wall thickening although the bladder is not adequately distended at this time. Clinical correlation is recommended to rule out cystitis. Electronically Signed: Yoseph Lewis MD at 15:56 EST Tel [phone], Service support [phone], CC: Leticia Matos; Guero Streteer MD Framing Consultant: Signed Leticia Matos Work Phone: Plan of Treatment Date Care Activity Detail Author Start: 07-06-2025 End: 07-06-2025 Evaluation of diagnostic study results [facility] Start: 01-30-2025 Patient discharge [facility] Start: 07-20-2024 Influenza vaccination Influenza Vaccine (Season Ended) [facility] Start: 02-26-2024 [facility] Start: 02-26-2024 [facility] Start: 11-19-2023 Behavioral Health Screening Behavioral Health Screening [facility] Start: 10-19-2023 Patient discharge [facility] Start: 10-19-2023 Notification of physician [facility] Start: 10-19-2023 Patient education [facility] Start: 10-19-2023 Provision of activity privileges [facility] Start: 10-19-2023 Pulse taking [facility] Start: 10-19-2023 Taking patient vital signs [facility] Start: 10-19-2023 Wound care [facility] Start: 10-19-2023 [facility] Start: 10-19-2023 Catheterization of left heart [facility] Start: 10-18-2023 Catheterization of vein [facility] Start: 10-18-2023 Medication not administered [facility] Start: 10-18-2023 Notification of physician [facility] Start: 10-18-2023 [facility] Start: 10-18-2023 Ambulation without limitation [facility] Start: 10-18-2023 Assessment of risk of venous thromboembolism [facility] Start: 10-18-2023 Care regimes management [facility] Start: 10-18-2023 Incentive spirometry [facility] Start: 10-18-2023 Insertion of catheter into peripheral vein [facility] Start: 10-18-2023 Notification of physician [facility] Start: 10-18-2023 Providing care according to standard [facility] Start: 10-18-2023 Referral to perforator loader [facility] Start: 10-18-2023 [facility] Start: 10-18-2023 Following clinical pathway protocol [facility] Start: 10-18-2023 Verification routine [facility] Start: 10-18-2023 Admission procedure [facility] Start: 10-18-2023 Hospital admission, emergency, from emergency room, medical nature [facility] Start: 10-18-2023 [facility] Start: 10-18-2023 Inhalation therapy procedure [facility] Start: 10-18-2023 Patient referral to dietitian [facility] Start: 07-20-2023 Covid-19 Vaccine () Covid-19 Vaccine () [facility] Start: 2022 Shingrix Vaccine (1 of 2) Shingrix Vaccine (1 of 2) [facility] Start: 02-23-2022 Egd transoral biopsy single/multiple EGD BIOPSY SINGLE/MULTIPLE [facility] Work Phone: Start: 07-20-2021 Assay of phosphorus inorganic PHOSPHORUS (33553) [facility]; [facility] Work Phone: Start: 07-20-2021 Blood count complete auto&auto difrntl wbc CBC, PLATELETS & AUT DIFF (97222) [facility]; [facility] Work Phone: Start: 07-19-2021 Procedure Education Eprescribed prescriptions (G8553) [facility]; [facility] Work Phone: Start: 06-21-2021 Procedure Education Eprescribed prescriptions (G8553) [facility]; [facility] Work Phone: Start: 06-21-2021 Provider Instructions for Treatment [facility]; [facility] Work Phone: Start: 05-31-2021 Procedure Education Eprescribed prescriptions (G8553) [facility]; [facility] Work Phone: Start: 05-31-2021 Provider Instructions for Treatment Follow up in 3 weeks [facility]; [facility] Work Phone: Start: 03-21-2021 Blood count complete automated CBC & PLATELETS (AUTO) (80689) [facility]; [facility] Work Phone: Start: 03-21-2021 Renal function panel RENAL FUNCTION PANEL (38600) [facility]; [facility] Work Phone: Start: 03-21-2021 Procedure Education Eprescribed prescriptions (G8553) [facility]; [facility] Work Phone: Start: 03-15-2021 Procedure Education Eprescribed prescriptions (G8553) [facility]; [facility] Work Phone: Start: 03-15-2021 Provider Instructions for Treatment Follow up if no improvement or if symptoms worsen [facility]; [facility] Work Phone: Start: 03-15-2021 Iaadiadoo influenza 2019 Novel Coronavirus (COVID-19), CHRISTINE (62253) [facility]; [facility] Work Phone: Start: 03-07-2021 Procedure Education Eprescribed prescriptions (G8553) [facility]; [facility] Work Phone: Start: 03-07-2021 Provider Instructions for Treatment Follow up in 2 weeks [facility]; [facility] Work Phone: Start: 03-07-2021 Assay of thyroid stimulating hormone tsh TSH (THYROID STIMULATING HORMONE) (58188) [facility]; [facility] Work Phone: Start: 03-02-2021 Assay of testosterone free TESTOSTERONE FREE (46225) [facility]; [facility] Work Phone: Start: 03-02-2021 Assay of erythropoietin ERYTHROPOIETIN (67223) [facility]; [facility] Work Phone: Start: 03-01-2021 Troponin I.cardiac [Mass/Vol] Troponin I (66408) [facility]; [facility] Work Phone: Start: 03-01-2021 Sedimentation rate rbc non-automated SED RATE ERYTHROCYTE (28309) [facility]; [facility] Work Phone: Start: 03-01-2021 CRP [Mass/Vol] C-Reactive Protein (76292) [facility]; [facility] Work Phone: Start: 03-01-2021 Blood count complete auto&auto difrntl wbc CBC, Platelets & Auto Diff (77461) [facility]; [facility] Work Phone: Start: 03-01-2021 Procedure Education Eprescribed prescriptions (G8553) [facility]; [facility] Work Phone: Start: 03-01-2021 Provider Instructions for Treatment [facility]; [facility] Work Phone: Start: 01-18-2021 Procedure Education Eprescribed prescriptions (G8553) [facility]; [facility] Work Phone: Start: 01-18-2021 Provider Instructions for Treatment [facility]; [facility] Work Phone: Start: 12-03-2020 Blood count complete auto&auto difrntl wbc CBC, Platelets & Auto Diff (84808) [facility]; [facility] Work Phone: Start: 12-03-2020 Lipid panel Lipid Panel (84137) [facility]; [facility] Work Phone: Start: 12-03-2020 TSH Qn TSH (61127) [facility]; [facility] Work Phone: Start: 12-03-2020 Comprehensive metabolic panel Metabolic Panel, Comprehensive (02233) [facility]; [facility] Work Phone: Start: 11-29-2020 Procedure Education Eprescribed prescriptions (G8553) [facility]; [facility] Work Phone: Start: 11-29-2020 Provider Instructions for Treatment Follow up in 2 weeks for Virtual follow up [facility]; [facility] Work Phone: Start: 01-28-2020 Procedure Education Eprescribed prescriptions (G8553) [facility]; [facility] Work Phone: Start: 01-28-2020 Provider Instructions for Treatment Follow up - Make appt after diagnostic tests [facility]; [facility] Work Phone: Start: 01-13-2020 Procedure Education Eprescribed prescriptions (G8553) [facility]; [facility] Work Phone: Start: 01-13-2020 Provider Instructions for Treatment Follow up in 2 weeks [facility]; [facility] Work Phone: Start: 09-16-2019 Bacteria identified Respiratory culture Nom (Sput) Sputum Culture (51072) [facility] Work Phone: Start: 09-16-2019 Procedure Education Eprescribed prescriptions (G8553) [facility] Work Phone: Start: 09-16-2019 Provider Instructions for Treatment Follow up if no improvement or if symptoms worsen [facility] Work Phone: Start: 07-28-2019 Procedure Education Eprescribed prescriptions (G8553) [facility] Work Phone: Start: 2017 Diabetes Screening Diabetes Screening [facility] Start: 2017 Screening for malignant neoplasm of colon [facility] Start: 09-28-2016 Provider Instructions for Treatment *Antibiotic Usage Education - Male [facility] Work Phone: Start: 01-10-2016 Hepatic function panel HEPATIC FUNCTION PANEL (78353) [facility] Work Phone: Start: 01-10-2016 Comprehensive metabolic panel Metabolic Panel, Comprehensive (22996) [facility] Work Phone: Start: 01-10-2016 Blood count manual cell count each CBC WITH MANUAL DIFF (08627) [facility] Work Phone: Start: 09-27-2015 Provider Instructions for Treatment [facility] Work Phone: Start: 01-11-2015 Provider Instructions for Treatment Follow up if no improvement or if symptoms worsen [facility] Work Phone: Start: 07-15-2014 Blood count complete auto&auto difrntl wbc CBC, Platelets & Auto Diff (99963) [facility] Work Phone: Start: 07-15-2014 Hepatic function panel HEPATIC FUNCTION PANEL (25773) [facility] Work Phone: Start: 07-15-2014 Comprehensive metabolic panel Metabolic Panel, Comprehensive (40066) [facility] Work Phone: Start: 07-18-2013 Patient Education Sore throat: diagnosis and treatment [facility] Work Phone: Start: 07-18-2013 Provider Instructions for Treatment [facility] Work Phone: Start: 10-08-2012 Provider Instructions for Treatment [facility] Work Phone: Start: 08-06-2012 Cul bact xcpt urine blood/stool aerobic isol YOLANDA CULTURE-OTHER (72611) [facility] Work Phone: Start: 07-03-2011 Comprehensive metabolic panel Metabolic Panel, Comprehensive (71985) [facility] Work Phone: Start: 07-03-2011 Assay of thyroid stimulating hormone tsh TSH (THYROID STIMULATING HORMONE) (23882) [facility]; [facility] Work Phone: Start: 07-03-2011 Thyrotropin Qn TSH (THYROID STIMULATING HORMONE) (24400) [facility] Work Phone: Start: 07-03-2011 Blood count manual cell count each CBC with manual diff (38577) [facility] Work Phone: Start: 07-03-2011 Provider Instructions for Treatment [facility] Work Phone: Start: 2007 Lipid panel Lipid Screening [facility] Start: 1991 Hepatitis B Vaccine (1 of 3 - 19+ 3-dose series) Hepatitis B Vaccine (1 of 3 - 19+ 3-dose series) [facility] Start: 1991 Urine microalbumin profile DTaP,Tdap,Td Vaccine (1 - Tdap) [facility] Start: 1990 Hepatitis C screening Hepatitis C Screening [facility] Start: 1990 HIV screening HIV Screening [facility] Colonoscopy [facility] Patient Education [facility] Work Phone: Patient referral [facility] Work Phone: [facility] Work [facility]: [facility] Work Phone: [facility] Work Phone: [facility] Work Phone: [facility] Work Phone: [facility] Work Phone: [facility] Work [facility] Work [facility] Work Phone[facility] Work Phone[facility] Work Phone: [facility] Work Phone: [facility] Work Phone: [facility] Work Phone: [facility] Work Phone: [facility] Work Phone: [facility] Work Phone: [facility] Work Phone: Payers Date Payer Category Payer Self-pay [id number] 2019 Unknown 2019 Unknown [id number] 2014 Unknown [id number] Unknown [id number] [id number] [id number] Unknown [id number] 2.16.8 [id number] Unknown [id number] 2.16.8 [id number] Unknown [id number] 2.16.8 [id number] Unknown [id number] 2.16.8 [id number] Unknown [id number] 2.16.8 [id number] Unknown [id number] 2.16.8 [id number] Unknown [id number] 2.16.8 [id number] Social History Date Type Detail Facility Alcohol Use: Occasional alcoh ol use. [facility] Work Phone: Caffeine Use [facility] Work Phone: Comment on above: 2 [facility] Living Situation: Lives with spouse. [facility] Work Phone: Comment on above: Jennifer rodriguez Tobacco Use: Uses snuff. [facility] Work Phone: Alcohol Use: Alcohol Use: [facility] Work Phone: Living Situation: Living Situation: [facility] Work Phone: Comment on above: Jennifer rodriguez Tobacco Use: Tobacco Use: [facility] Work Phone: Start: 03-09-2022 End: 02-26-2024 Tobacco smoking status NHIS Unknown if ever smoked [facility] Start: 1970 Sex Assigned At Male [facility] Start: 1970 Sex Assigned At Not on file [facility] Gender identity Not on file [facility] Start: 01-29-2025 [facility] Start: 01-30-2025 Sex Male (finding) [facility] Medical Equipment Procedure Code Equipment Code Equipment Origin al Text Equipment Identifier Dates Pen Needle, Diab etic (Bd Ultra-Fine Short Pen Needle) 31 gauge x 5/16 needle Start: 10-19-2023 Pen Needle, Diab etic (Bd Ultra-Fine Short Pen Needle) 31 gauge x 5/16 needle Start: 10-19-2023 Pen Needle, Diab etic (Bd Ultra-Fine Short Pen Needle) 31 gauge x 5/16 needle Start: 10-19-2023 Pen Needle, Diab etic (Bd Ultra-Fine Short Pen Needle) 31 gauge x 5/16 needle Start: 10-19-2023 Pen Needle, Diab etic (Bd Ultra-Fine Short Pen Needle) 31 gauge x 5/16 needle Start: 10-19-2023 Goals Date Patient Goal Desired Activity /State Functional Status Date Assessment Result Facility 10-19-[address] [facility] Work Phone: Mental Status Date Assessment Result Facility 01-30-2025 Cognitive function Voice/Name [facility] Work Phone: 02-26-2024 Cognitive function Voice/Name [facility] Work Phone: 10-19-2023 Cognitive function Voice/Name [facility] Work Phone: 10-18-2023 Cognitive function Level Of Cons ciousness Awake;Alert;Appropriate;Follow s Commands [facility] Work Phone: 02-23-2022 Cognitive function Voice/Name [facility] Work Phone: Clinical Notes 09-16-2019 to 08-06-2025 Note Date & Type Note Facility 08-06-2025 Radiology Diagnostic study note [facility] Imaging Services [address] [place] [address] 08/06/25 1135 MR#: [id number] Acct: [id number] Name: LISA RODRIGUEZ Rep #:[id number] : 1970 54 From: José Miguel Wu MD PCP: Dr. Christiano Barreto MD Status :REG CLI Y Location: CT Calcium Scoring Date of Study:: 08/03/25 Indications Indications: Hypertension Coronary Calcium Scoring: High-resolution Computed Tomographic imaging of the chest was performed on [08/03/2025], with particular attention paid to the coronary arteries. Images from the examination were analyzed for the presence and extent of coronary artery calcification , using coronary calcium quantification software. The patient tolerated the procedure well and there were no complications. The results of the coronary calcification analysis are provided below. Findings Coronary Artery Left Main (LM): 0 Left Anterior Descending (LAD): 0 Left Circumflex (LCX): 0 Right Coronary Artery (RCA): 4.77 Total Agatston Score: 4.77 Percentile Rankin-50 Calcium Scoring Interpretation: Different methods to categorize the overall amount of coronary plaque. Overall amount CAC SIS Visual of coronary plaque P1 Mild -100 <2 1-2 vessels with mild amount of plaque P2 Moderate 101-300 3-4 1-2 vessels with moderate amount, 3 vessels with mild amount of plaque P3 Severe 301-999 5-7 3 vessels with moderate amount, 1 vessel with severe amount of plaque P4 Extensive >1000 >8 2-3 vessels with severe amount of plaque Calcium Score: Mild: 1-2 vessels w/mild amount of plaque Conclusion: Mild single-vessel atherosclerotic plaquing present 08/06/25 1136 Date __ _ José Miguel Wu MD Cosigner Signature (if applicable): Date ___ CC: Dr. Christiano Barreto MD; Dr. José Miguel Wu MD ~ Signed [facility] Work Phone: 08-03-2025 Radiology Diagnostic study note [facility] Imaging Services [address] [place] [address] Cardiac Only MR#: [id number] Acct: [id number] Name: LISA RODRIGUEZ Rep #: [id number] : 1970 M 54 From: Roger Lewis MD PCP: Dr. Christiano Barreto MD Status: REG CLI Study:Limited Chest CT Cardiac Only Date of E xam: 08/03/25 Exam# [id number] Ordering Dr: Carolina Barreto MD PROCEDURE: LIMITED CHEST CT CARDIAC ONLY 08/03/2025 REASON FOR EXAM: DYSLIPIDEMIA, HTN, HOCM TECHNIQUE: Procedure Code: [id number] Modality: CT Procedure: LIMITED CHEST CT CARDIAC ONLY CONTRAST: None One or more dose reduction techniques were used (e.g., Automated exposure control, adjustment of the mA and/or kV according to patient size, use of iterative reconstruction technique). RADIATION DOSE SUMMARY: CTDlvol: 12.19 mGy DLP: 219.42 mGycm COMPARISON: None FINDINGS: No coronary artery calcification is seen. The heart is nonenlarged. The lungs are clear. CT/Limited Chest CT Cardiac Only IMPRESSION: No coronary artery calcification seen. Reading Location: [place] [address] CC: Dr. Christiano Barreto MD ~ Framing Consultant: Signed [facility] 07-06-2025 Evaluation note Diagnosis Onset Date Resolution Dyslipidemia acute July 06, 2025 3:18pm HOCM (hypertrophic obstructive cardiomyopathy) acute July 06 3:18pm [facility] Work Phone: 1(917) 344-189403-14-2025 Consult note [facility] Medical Records Department [address] [place] [id number] Anesthesia Postop Eval I 01/30/25 0947 MR#: [id number] Acct: [id number] Name: LISA RODRIGUEZ Rep #:[id number] : 1970 54 From: Markus Arango PCP: Dr. Christiano Barreto MD Status :REG SDC Y Race: C Location: [place] [address] Anesthesia: Postop Eval I Current Vital Signs Temperature: 97.4 F Pulse Rate: 87 Blood Pressure: 103/70 Respiratory Rate: 16 Pulse Ox: 93 Oxygen Delivery Method: Room Air Assessment Airway patent: Yes Spontaneous unlabored respirations: Yes Mental status: Asleep nausea: No Vomiting: No Anesthesia Complication: No Fluid Hydration Crystalloid volume administer (ml): 40 Total IV fluid infused: 40 Progress Note Anesthesia document: Postop Eval 1 completed: Yes 01/30/25 0947 > Date _ Markus Quinteros Signature: Date CC: ~ Signed [facility]03-14-2025 History and physical note Author Abiel Smith [facility] Note Date/Time January 30, 2025 8:1 9am [facility] Medical Records Department [address] [place] [address] History & Physical Exam 01/30/25 0819 MR#: [id number] Acct: [id number] Name: LISA RODRIGUEZ Rep #:[id number] : 1970 54 From: Abiel crews MD PCP: Dr. Christiano Barreto MD Status :[facility] Location: [place] [address] History and Physical Date of Admission: 01/30/25 Intake Vital Signs 09/22/2415:24 01/05/2514:11 Height 5 ft 10 in 5 ft 10 in Weight: 244 lb BMI 34.9 BP 129/77 H Blood Pressure Location Rt brachial Position Sitting Respiration 18 Pulse 58 L Pulse Source Monitor Pulse Oximetry (%) 92 Oxygen Delivery Method room air Intake Visit Reasons: SCOPE - CONSTIPATION Chief Complaint: c-scope /constipation Is patient in pain?: No Allergies cephalexin (From Keflex) Allergy (Intermediate, Verified 01/05/25 14:13) HivesEnvironmental Allergies: Uncoded Allergy (Mild, Verified 01/05/25 14:13) Othermetformin Allergy (Mild, Verified 01/05/25 14:13) Rash Medications ?Medication ?Instructions ?Recorded ?Confirmed ?Type albuterol sulfate 90 mcg/actuation 2 puff inhalation Q6H PRN SOB 12/26/21 01/05/25 History aerosol inhaler (Ventolin HFA) danazol 200 mg capsule 200 mg PO BID hormones 12/26/21 01/05/25 History loratadine 10 mg tablet (Claritin) 10 mg PO DAILY PRN ALLERGIES 02/21/22 01/05/25 History pen needle, diabetic 31 gauge x #100 ea 10/19/23 09/22/24 Rx /16 (BD Ultra-Fine Short Pen Needle) losartan 25 mg tablet 25 mg PO DAILY #90 tabs 09/22/24 5 Rx metoprolol succinate 50 mg 50 mg PO DAILY #90 tabs 09/22/24 5 Rx tablet,extended release 24 hr semaglutide 1 mg/dose (4 mg/3 mL) 1 mg subcut QWEEK 01/05/25 01/05/25 Hist ory subcutaneous pen injector (Ozempic) PFSH Medical History (Reviewed 09/22/24 @ 16:14 by Chris Ventura MEDICAL DEVICE SALES CONSULTANT, MEDICAL DEVICE SALES CONSULTANT-C) Sleep apnea CPAP (continuous positive airway pressure) dependence Chest pain Exertional chest pain COVID Anxiety Alcohol use Joint stiffness Restless legs Back pain Vertigo History of hiatal hernia Gastric reflux History of diverticulitis Former smoker Asthma Shortness of breath on exertion History of pain when walking History of irregular heartbeat History of Holter monitoring Gastroparesis Surgical History History of excision of pilonidal cyst Family History (Updated 01/05/25 @ 14:11 by Leticia Sexton) Mother Arthritis Hypertension High cholesterol AngioedemaUncle Melanoma AngioedemaDaughter Angioedema Social History Smoking Status: Former smoker alcohol intake: current alcohol intake frequency: a few times a month Alcohol type: beer substance use type: does not use what type of physical activity do you participate in: none HPI HPI HPI: Patient is a 54-year-old male here for colonoscopy. He has never had a colonoscopy in the past. He denies abdominal pain or blood in the stool. He does have an issue with constipation but he believes that was his Ozempic and ever since stopping Ozempic he has been having regular bowel movements. He has no family history of colon cancer. ROS General General: No weight change, appetite, fatigue, colon cancer, breast cancer or weakness HEENT HEENT: No difficulty swallowing, eye injury, eye surgery, swollen glands or hoarseness Endo Endocrine: Yes diabetes mellitus; No thyroid disease, thyroid cancer, Hair loss, heat intolerance or cold intolerance Skin Skin: No rash or changing moles Musc Musculoskeletal: No back problems, arthritis, rheumatoid arthritis, gout or joint pain Cardio Cardiovascular: Yes high blood pressure; No murmur, pacemaker, heart disease, atrial fibrillation, heart attack, heart stent, palpitations, shortness of breat with exertion or chest pain Psych Psychiatric: No depression, anxiety or hearing voices Resp Respiratory: No shortness of breath, Yes sleep apnea, No cough, No COPD, Yes asthma, No emphysema and No wheezing Gastro Gastrointestinal: No abdominal pain, No nausea or vomiting, Yes diarrhea, Yes constipation, Yes blood in stool, No acid reflux, No hemorrhoids, No ulcers, No gallbladder problem and No black,tarry stools Romel Hematologic: No blood thinners, No blood disorders, No bleeding, No anemia and No blood clots Neuro Neurologic: No system reviewed and no additional complaints, except as documented, No as per HPI, No abnormal gait, No abnormal hearing, No abnormal movements, No abnormal speech, No behavioral changes, No burning sensations, No confusion, No convulsions, No disequilibrium, No dizziness, No localized weakness, No frequent falls, No headache(s), No lack of coordination, No loss ofvision, No memory loss, No numbness, No other visual disturbances, No radicular pain, No restless legs, No sensory deficit, No syncope, No tingling, No tremor(s), No weakness and No other Exam Const General: cooperative Orientation: alert and oriented x3 [facility] Head: normal to inspection Neck Neck: normal visual inspection and full ROM Chest Chest palpation & inspection: normal inspection of the chest Resp Effort & Inspection: normal respiratory effort Auscultation: clear to auscultation bilaterally Cardio Rate: regular rate Rhythm: regular rhythm GI Inspection: non-distended Palpation: soft and nontender Skin General: no rashes or lesions noted Neuro General: patient alert and patient oriented x3 Extrem General: full ROM Psych Appearance: grossly normal Mental Status: mental status grossly normal Assessment and Plan Assessment and Plan (1) Screening for malignant neoplasm of colon: Status: Acute Plan: I explained endoscopy in detail to the patient. I explained the risks includingbut not limited to stroke or heart attack with anesthesia, perforation of the GItract, bleeding, infection. I explained that any of these could necessitate further emergency surgery. The patient understands and all questions were answered sufficiently. The patient wishes to proceed with procedure. Abiel Smith MD Pager: [facility] [address], [address] [place] [address] Office: I have examined the patient and the H&P has been reviewed. There are no clinicalchanges since date of exam. 01/30/25818 <Electronically signed by Abiel Smith MD> Cosigner Signature (if applicable): CC: Dr. Abiel Smith MD; Dr. Christiano Barreto MD~ Signed [facility] Work Phone: 1(831) 590-809003-14-2025 Consult note Author Andrei mike [facility] Note Date/Time January 30, 2025 7:4 8am [facility] Medical Records Department [address] [place] [id number] Pre-Anesthesia Evaluation 01/30/25 0747 MR#: [id number] Acct: [id number] Name: LISA RODRIGUEZ Rep #:[id number] : 1970 54 From: Andrei Burgess MD PCP: Dr. Christiano Barreto MD Status :REG [facility] Y Race: C Location: [place] [address] ASA Classification* ASA Classification ASA Classification: 2 Assessment & Plan Anesthesia* Anesthesia Assessment Anesthesia Assessment: Discussed sedation and/or anesthesia options, risks, benefits, and alternatives with patient/parents/legal guardian/POA. Questions invited. The patient/parents/legal guardian/POA seems to understand and agrees to proceedwith anesthesia plan. Reviewed the physical assessment, medical history, allergy history and patient home medications list prior to surgery/procedure/anesthetic and documented any changes. Performed airway and anesthesia risk assessments. Anesthesia Type Anesthesia Type: MAC Anesthesia Focused Assessment* Airway Assessment Mouth opens: >3 cm Mallampati Score: II Focused Labs Anesthesia Preop lab: CBC WBC 8.0 K/mm3 (4.4-11.0) 02/26/24 17:50 02/26/24 RBC 6.13 M/mm3 (4.6-6.2) 02/26/24 17:50 02/26/24 Hgb 17.1 g/dL (13.0-16.5) H 02/26/24 17:50 4 Hct 53.3 % (40-54) 02/26/24 17:50 02/26/24 Plt Count 204 K/mm3 (150-450) 02/26/24 17:50 02/26/24 CHEMISTRY Potassium 4.2 mmol/L (3.5-5.1) 12/03/24 08:56 12/03/24 Sodium 140 mmol/L (136-145) 12/03/24 08:56 12/03/24 BUN 12 mg/dL (7-18) 12/03/24 08:56 12/03/24 Creatinine 0.81 mg/dL (0.70-1.30) 12/03/24 08:56 12/03/24 Glucose 97 mg/dL (74-106) 12/03/24 08:56 12/03/24 POC Glucose 261 mg/dL (74-106) H 10/19/23 11:25 10/19/23 TSH 1.720 uIU/mL (0.358-3.740) 12/03/24 08:56 11/19 04/12 COAG PT 13.4 SECONDS (11.7-14.9) 02/26/24 17:50 Pre-Assessment Diagnosis/Proposed Procedure Planned Operative Procedure(s): COLONOSCOPY Anesthesia History Anesthesia History - high reach 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 When Was Last Pacemaker Check QUESTION #4 FULL TEXT: You/Your Family Experience fever (hyperthermia) with Anesthesia Last Oral Intake Last Oral intake: Last Oral Intake NPO since Meds taken in AM with sips of water? Meds patient instructed to take am of surgery PONV PONV - high reach operator: PONV - high reach operator Female No 01/29/25 15:12 HX of Motion Sickness No 01/29/25 15:12 HX of N/V After Surgery No 01/29/25 15:12 Non-Smoker Yes 01/29/25 15:12 Duration of Surgery greater No 01/29/25 15:12 than 60 minutes Number of Risk Factors 1 01/29/25 15:12 PONV Score Low Risk 01/29/25 15:12 Height & Weight Height & Weight: Anesthesia: Height & Weight Height 5 ft 10 in 01/05/25 14:11 Respiratory Assessment Respiratory Assessment - high reach operator: Respiratory Tract Infection Hx - high reach operator Hx Respiratory Tract Infection No 01/29/25 15:12 STOP Sleep Apnea STOP Sleep Apnea - high reach operator: STOP Sleep Apnea - high reach operator Hx Hypertension Yes 01/29/25 15:12 Hx Sleep Apnea Yes 01/29/25 15:12 CPAP Yes 01/29/25 15:12 BIPAP No 01/29/25 15:12 Do you snore loudly (louder than talking or can be heard Do you often feel tired/ fatigued/ sleepy during daytime? Has anyone observed you stop breathing during sleep? STOP Results Positive 01/29/25 15:12 QUESTION #5 FULL TEXT : Do you snore loudly (louder than talking or can be heard through closed doors)? 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 Specify any problems Hx of Preganancy in last 3 N/A 01/29/25 15:12 Months Nurse Filling Out Transfusion [facility] 01/29/25 15:12 & Questions: Date: 01/29/25 01/29/25 15:12 Time: 15:20 01/29/25 15:12 Patient unable to answer at this time (ie. 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: /Reproductive Hx- high reach operator Hx Now Gestational Age (in weeks): EDC: Hx Hx Para Hx Section SAB No 02/21/22 15:40 [facility] Medical History Wears glasses Diabetes Dietary restriction History of echocardiogram Cardiology follow-up encounter Sleep apnea CPAP (continuous positive airway pressure) dependence Exertional chest pain COVID Anxiety Alcohol use Joint stiffness Restless legs Back pain Vertigo History of hiatal hernia Gastric reflux History of diverticulitis Former smoker Asthma Shortness of breath on exertion History of pain when walking History of irregular heartbeat History of Holter monitoring Gastroparesis Home Medications ?Medication ?Instructions ?Recorded ?Last Taken ?Type albuterol sulfate 90 mcg/actuation 2 puff inhalation Q 6H PRN SOB 12/26/21 Unknown History aerosol inhaler (Ventolin HFA) danazol 200 mg capsule 200 mg PO BID hormones 12/26 Unknown History pen needle, diabetic 31 gauge x #100 ea 10/19/23 Unkno wn Rx 5/16 (BD Ultra-Fine Short Pen Needle) losartan 25 mg tablet 25 mg PO DAILY #90 tabs 03/12 Unknown Rx metoprolol succinate 50 mg 50 mg PO DAILY #90 tabs 03/12 Unknown Rx tablet,extended release 24 hr semaglutide 1 mg/dose (4 mg/3 mL) 1 mg subcut QWEEK 01/19/25 History subcutaneous pen injector (Ozempic) Allergy/AdvReac Type Severity Reaction Status Date / Time cephalexin (From Keflex) Allergy Intermediate Hives Verified 01/29/25 15:08 Environmental Allergies: Allergy Mild Other Verified 01/29/25 15:08 Uncoded metformin Allergy Mild Rash Verified 01/29/25 15:08 Family History Mother Arthritis Hypertension High cholesterol Angioedema Uncle Melanoma Angioedema Daughter Angioedema Surgical History History of cardiac catheterization History of excision of pilonidal cyst Social History Smoking Status: Former smoker alcohol intake: current alcohol intake frequency: a few times a month Alcohol type: beer substance use type: does not use what type of physical activity do you participate in: none Review of Systems (Anesthesia) ROS Narrative System reviewed and no additional complaints, except as documented. 01/30/25747 <Electronically signed by Andrei Burgess MD > Date _ Andrei Burgess MD Cosigner Signature: Date CC: ~ Signed [facility] Work Phone: 1(735) 666-386603-14-2025 Procedure note [facility] Medical Records Department [address] [place] [address] Colonoscopy Report MR#: [id number] Acct: [id number] Name: LISA RODRIGUEZ Rep #:[id number] : 1970 54 From: Abiel crews MD PCP: Dr. Christiano Barreto MD Status :[facility] Patient Name: Lisa Rodriguez Procedure Date: 01/30/2025 8:45 AM Date of : 1970 Age: 54 Procedure: Colonoscopy Indications: Screening for colorectal malignant neoplasm Providers: Abiel Smith MD Referring MD: Avinash Barreto Medicines: Propofol per Anesthesia Patient Profile: This is a 54 year old male. Refer to note in patient chart for documentation of history and physical. Last Colonoscopy: none. The patient's first colonoscopy is today. Complications: No immediate complications. Procedure: Pre-Anesthesia Assessment: - Prior to the procedure, a History and Physical was performed, and patient medications and allergies were reviewed. The patient's tolerance of previous anesthesia was also reviewed. The risks and benefits of the procedure and the sedation options and risks were discussed with the patient. All questions were answered, and informed consent was obtained. Prior Anticoagulants: The patient has taken no anticoagulant or antiplatelet agents. After reviewing the risks and benefits, the patient was deemed in satisfactory condition to undergo the procedure. After I obtained informed consent, the scope was passed under direct vision. Throughout the procedure, the patient's blood pressure, pulse, and oxygen saturations were monitored continuously. The Colonoscope was introduced through the anus and advanced to the cecum, identified by appendiceal orifice and ileocecal valve. The colonoscopy was performed without difficulty. The patient tolerated the procedure well. The quality of the bowel preparation was good. Anatomical landmarks were photographed. Scope In: 9:30:36 AM Scope Withdrawal Time 0 hours 6 minutes 14 seconds Scope Out: 9:39:30 AM Total Procedure Duration Time 0 hours 8 minutes 54 seconds Findings: The entire examined colon appeared normal on direct and retroflexion views. Impression: - The entire examined colon is normal on direct and retroflexion views. - No specimens collected. Recommendation: - Discharge patient to home. - Resume previous diet. - Continue present medications. - Repeat colonoscopy in 10 years for screening purposes. Procedure Code(s): --- Professional --- 51097, Colonoscopy, flexible; diagnostic, including collection of specimen(s) by brushing or washing, when performed (separate procedure) Diagnosis Code(s): --- Professional --- Z12.11, Encounter for screening for malignant neoplasm of colon CPT copyright 2021 [employer]. All rights reserved. The codes documented in this report are preliminary and upon senior living sales counselor review may be revised to meet current compliance requirements. Abiel Smith MD 01/30/2025 9:43:41 AM This report has been signed electronically. Number of Addenda: 0 Note Initiated On: 01/30/2025 8:45 AM 01/30/25 0943 Date _ Abiel Quinteros Signature: Date (if indicated) CC: Dr. Abiel Smith MD; Dr. Christiano Barreto MD ~ Date Dictated: 01/30/2545 Date Transcribed: Framing Consultant: AC Signed [facility]03-14-2025 Procedure note [facility] Medical Records Department [address] [place] [address] Operative Report - CC Letter MR#: [id number] Acct: [id number] Name: LISA RODRIGUEZ Rep #:[id number] : 1970 54 From: Abiel crews MD PCP: Dr. Christiano Barreto MD Status :REG [facility] 01/30/2025 Avinash Barreto [address] [place] [address] Re : Colonoscopy procedure for Lisa Rodriguez Dear Dr. Barreto This procedure was performed on Thursday, January 30, 2025. My impressions and recommendations are as follows: Impressions : - The entire examined colon is normal on direct and retroflexion views. - No specimens collected. Recommendations : - Discharge patient to home. - Resume previous diet. - Continue present medications. - Repeat colonoscopy in 10 years for screening purposes. My findings are described in the full procedure note, which is enclosed. If I can be of further assistance, please feel free to contact me at Doctor phone number(s): , Work: . Sincerely, Abiel Smith MD 01/30/2025 9:43:41 AM This report has been signed electronically. 01/30/2543 Date _ Abiel Quinteros Signature: Date (if indicated) CC: Dr. Abiel Smith MD; Dr. Christiano Barreto MD ~ Date Dictated: 01/30/2545 Date Transcribed: Framing Consultant: ERNESTINE Signed [facility]03-14-2025 History and physical note [facility] Medical Records Department [address] [place] [address] History & Physical Exam 01/30/25818 MR#: [id number] Acct: [id number] Name: LISA RODRIGUEZ Rep #:[id number] : 1970 54 From: Abiel crews MD PCP: Dr. Christiano Barreto MD Status :[facility] Location: [place] [address]- History and Physical Date of Admission: 01/30/25 Intake Vital Signs 09/22/2415:24 01/05/2514:11 Height 5 ft 10 in 5 ft 10 in Weight: 244 lb BMI 34.9 BP 129/77 H Blood Pressure Location Rt brachial Position Sitting Respiration 18 Pulse 58 L Pulse Source Monitor Pulse Oximetry (%) 92 Oxygen Delivery Method room air Intake Visit Reasons: SCOPE - CONSTIPATION Chief Complaint: c-scope /constipation Is patient in pain?: No Allergies cephalexin (From Keflex) Allergy (Intermediate, Verified 01/05/25 14:13) HivesEnvironmental Allergies: Uncoded Allergy (Mild, Verified 01/05/25 14:13) Othermetformin Allergy (Mild, Verified 01/05/25 14:13) Rash Medications ?Medication ?Instructions ?Recorded ?Confirmed ?Type albuterol sulfate 90 mcg/actuation 2 puff inhalation Q6H PRN SOB 12/26/21 01/05/25 History aerosol inhaler (Ventolin HFA) danazol 200 mg capsule 200 mg PO BID hormones 12/26/21 01/05/25 History loratadine 10 mg tablet (Claritin) 10 mg PO DAILY PRN ALLERGIES 02/21/22 01/05/25 History pen needle, diabetic 31 gauge x #100 ea 10/19/23 09/22/24 Rx 5/16 (BD Ultra-Fine Short Pen Needle) losartan 25 mg tablet 25 mg PO DAILY #90 tabs 09/22/24 5 Rx metoprolol succinate 50 mg 50 mg PO DAILY #90 tabs 09/22/24 5 Rx tablet,extended release 24 hr semaglutide 1 mg/dose (4 mg/3 mL) 1 mg subcut QWEEK 01/05/25 01/05/25 Hist ory subcutaneous pen injector (Ozempic) PFSH Medical History (Reviewed 09/22/24 @ 16:14 by Chris Ventura MEDICAL DEVICE SALES CONSULTANT, MEDICAL DEVICE SALES CONSULTANT-C) Sleep apnea CPAP (continuous positive airway pressure) dependence Chest pain Exertional chest pain COVID Anxiety Alcohol use Joint stiffness Restless legs Back pain Vertigo History of hiatal hernia Gastric reflux History of diverticulitis Former smoker Asthma Shortness of breath on exertion History of pain when walking History of irregular heartbeat History of Holter monitoring Gastroparesis Surgical History History of excision of pilonidal cyst Family History (Updated 01/05/25 @ 14:11 by Leticia Sexton) Mother Arthritis Hypertension High cholesterol AngioedemaUncle Melanoma AngioedemaDaughter Angioedema Social History Smoking Status: Former smoker alcohol intake: current alcohol intake frequency: a few times a month Alcohol type: beer substance use type: does not use what type of physical activity do you participate in: none HPI HPI HPI: Patient is a 54-year-old male here for colonoscopy. He has never had a colonoscopy in the past. He denies abdominal pain or blood in the stool. He does have an issue with constipation but he believesthat was his Ozempic and ever since stopping Ozempic he has been having regular bowel movements. Hehas no family history of colon cancer. ROS General General: No weight change, appetite, fatigue, colon cancer, breast cancer or weakness HEENT HEENT: No difficulty swallowing, eye injury, eye surgery, swollen glands or hoarseness Endo Endocrine: Yes diabetes mellitus; No thyroid disease, thyroid cancer, Hair loss, heat intolerance or cold intolerance Skin Skin: No rash or changing moles Musc Musculoskeletal: No back problems, arthritis, rheumatoid arthritis, gout or joint pain Cardio Cardiovascular: Yes high blood pressure; No murmur, pacemaker, heart disease, atrial fibrillation, heart attack, heart stent, palpitations, shortness of breat with exertion or chest pain Psych Psychiatric: No depression, anxiety or hearing voices Resp Respiratory: No shortness of breath, Yes sleep apnea, No cough, No COPD, Yes asthma, No emphysema and No wheezing Gastro Gastrointestinal: No abdominal pain, No nausea or vomiting, Yes diarrhea, Yes constipation, Yes blood in stool, No acid reflux, No hemorrhoids, No ulcers, No gallbladder problem and No black,tarry stools Romel Hematologic: No blood thinners, No blood disorders, No bleeding, No anemia and No blood clots Neuro Neurologic: No system reviewed and no additional complaints, except as documented, No as per HPI, No abnormal gait, No abnormal hearing, No abnormal movements, No abnormal speech, No behavioral changes, No burning sensations, No confusion, No convulsions, No disequilibrium, No dizziness, No localized weakness, No frequent falls, No headache(s), No lack of coordination, No loss ofvision, No memoryloss, No numbness, No other visual disturbances, No radicular pain, No restless legs, No sensory deficit, No syncope, No tingling, No tremor(s), No weakness and No other Exam Const General: cooperative Orientation: alert and oriented x3 HENMT Head: normal to inspection Neck Neck: normal visual inspection and full ROM Chest Chest palpation & inspection: normal inspection of the chest Resp Effort & Inspection: normal respiratory effort Auscultation: clear to auscultation bilaterally Cardio Rate: regular rate Rhythm: regular rhythm GI Inspection: non-distended Palpation: soft and nontender Skin General: no rashes or lesions noted Neuro General: patient alert and patient oriented x3 Extrem General: full ROM Psych Appearance: grossly normal Mental Status: mental status grossly normal Assessment and Plan Assessment and Plan (1) Screening for malignant neoplasm of colon: Status: Acute Plan: I explained endoscopy in detail to the patient. I explained the risks includingbut not limited to stroke or heart attack with anesthesia, perforation of the GItract, bleeding, infection. I explained that any of these could necessitate further emergency surgery. The patient understands and all questions were answered sufficiently. The patient wishes to proceed with procedure. Abiel Smith MD Pager: [facility] [address] [place] [address], [address] [place] [address] Office: I have examined the patient and the H&P has been reviewed. There are no clinicalchanges since date of exam. 01/30/25818 Cosigner Signature (if applicable): CC: Dr. Abiel Smith MD; Dr. Christiano Barreto MD~ Signed [facility]14[facility] Department [address] [place] [address] History Physical Exam 01/30/25818 MR#: [id number] Acct: [id number] Name: LISA RODRIGUEZ Rep #: [id number] : 1970 54 From: Abiel Smith MD PCP: Dr. Christiano Barreto MD Status:[facility] Location: [place] [address] History and Physical Date of Admission: 01/30/25 Intake Vital Signs 09/22/2415:24 01/05/2514:11 Height 5 ft 10 in 5 ft 10 in Weight: 244 lb BMI 34.9 BP 129/77 H Blood Pressure Location Rt brachial Position Sitting Respiration 18 Pulse 58 L Pulse Source Monitor Pulse Oximetry (%) 92 Oxygen Delivery Method room air Intake Visit Reasons: SCOPE - CONSTIPATION Chief Complaint: c-scope /constipation Is patient in pain?: No Allergies cephalexin (From Keflex) Allergy (Intermediate, Verified 01/05/25 14:13) HivesEnvironmental Allergies: Uncoded Allergy (Mild, Verified 01/05/25 14:13) Othermetformin Allergy (Mild, Verified 01/05/25 14:13) Rash Medications ???Medication ???Instructions ???Recorded ???Confirmed ???Type albuterol sulfate 90 mcg/actuation 2 puff inhalation Q6H PRN SOB 12/26/21 01/05/25 Hi story aerosol inhaler (Ventolin HFA) danazol 200 mg capsule 200 mg PO BID hormones 12/26/21 01/05/25 History loratadine 10 mg tablet (Claritin) 10 mg PO DAILY PRN ALLERGIES 02/21/22 01/05/25 His tory pen needle, diabetic 31 gauge x #100 ea 10/19/23 09/22/24 Rx 5/16 (BD Ultra-Fine Short Pen Needle) losartan 25 mg tablet 25 mg PO DAILY #90 tabs 09/22/24 01/05/25 Rx metoprolol succinate 50 mg 50 mg PO DAILY #90 tabs 09/22/24 01/05/25 Rx tablet,extended release 24 hr semaglutide 1 mg/dose (4 mg/3 mL) 1 mg subcut QWEEK 01/05/25 01/05/25 History subcutaneous pen injector (Ozempic) PFSH Medical History (Reviewed 09/22/24 @ 16:14 by Chris Ventura MEDICAL DEVICE SALES CONSULTANT, MEDICAL DEVICE SALES CONSULTANT-C) Sleep apnea CPAP (continuous positive airway pressure) dependence Chest pain Exertional chest pain COVID Anxiety Alcohol use Joint stiffness Restless legs Back pain Vertigo History of hiatal hernia Gastric reflux History of diverticulitis Former smoker Asthma Shortness of breath on exertion History of pain when walking History of irregular heartbeat History of Holter monitoring Gastroparesis Surgical History History of excision of pilonidal cyst Family History (Updated 01/05/25 @ 14:11 by Leticia Sexton) Mother Arthritis Hypertension High cholesterol AngioedemaUncle Melanoma AngioedemaDaughter Angioedema Social History Smoking Status: Former smoker alcohol intake: current alcohol intake frequency: a few times a month Alcohol type: beer substance use type: does not use what type of physical activity do you participate in: none HPI HPI HPI: Patient is a 54-year-old male here for colonoscopy. He has never had a colonoscopy in the past. He denies abdominal pain or blood in the stool. He does have an issue with constipation but he believes that was his Ozempic and ever since stopping Ozempic he has been having regular bowel movements. He has no family history of colon cancer. ROS General General: No weight change, appetite, fatigue, colon cancer, breast cancer or weakness HEENT HEENT: No difficulty swallowing, eye injury, eye surgery, swollen glands or hoarseness Endo Endocrine: Yes diabetes mellitus; No thyroid disease, thyroid cancer, Hair loss, heat intolerance or cold intolerance Skin Skin: No rash or changing moles Musc Musculoskeletal: No back problems, arthritis, rheumatoid arthritis, gout or joint pain Cardio Cardiovascular: Yes high blood pressure; No murmur, pacemaker, heart disease, atrial fibrillation, heart attack, heart stent, palpitations, shortness of breat with exertion or chest pain Psych Psychiatric: No depression, anxiety or hearing voices Resp Respiratory: No shortness of breath, Yes sleep apnea, No cough, No COPD, Yes asthma, No emphysema and No wheezing Gastro Gastrointestinal: No abdominal pain, No nausea or vomiting, Yes diarrhea, Yes constipation, Yes blood in stool, No acid reflux, No hemorrhoids, No ulcers, No gallbladder problem and No black,tarry stools Romel Hematologic: No blood thinners, No blood disorders, No bleeding, No anemia and No blood clots Neuro Neurologic: No system reviewed and no additional complaints, except as documented, No as per HPI, No abnormal gait, No abnormal hearing, No abnormal movements, No abnormal speech, No behavioral changes, No burning sensations, No confusion, No convulsions, No disequilibrium, No dizziness, No localized weakness, No frequent falls, No headache(s), No lack of coordination, No loss of vision, No memory loss, No numbness, No other visual (more content not included)... [facility]03-14-2025 Consult note [facility] Medical Records Department [address] [place] [address] Pre-Anesthesia Evaluation 01/30/25 0747 MR#: [id number] Acct: [id number] Name: LISA RODRIGUEZ Rep #:[id number] : 1970 54 From: Andrei Burgess MD PCP: Dr. Christiano Barreto MD Status :REG [facility] Y Race: C Location: [place] [address] [facility] Classification* ASA Classification ASA Classification: 2 Assessment & Plan Anesthesia* Anesthesia Assessment Anesthesia Assessment: Discussed sedation and/or anesthesia options, risks, benefits, and alternatives with patient/parents/legal guardian/POA. Questions invited. The patient/parents/legal guardian/POA seems to understand and agrees to proceedwith anesthesia plan. Reviewed the physical assessment, medical history, allergy history and patient home medications list prior to surgery/procedure/anesthetic and documented any changes. Performed airway and anesthesia risk assessments. Anesthesia Type Anesthesia Type: MAC Anesthesia Focused Assessment* Airway Assessment Mouth opens: >3 cm Mallampati Score: II Focused Labs Anesthesia Preop lab: CBC WBC 8.0 K/mm3 (4.4-11.0) 02/26/24 17:50 02/26/24 RBC 6.13 M/mm3 (4.6-6.2) 02/26/24 17:50 02/26/24 Hgb 17.1 g/dL (13.0-16.5) H 02/26/24 17:50 4 Hct 53.3 % (40-54) 02/26/24 17:50 02/26/24 Plt Count 204 K/mm3 (150-450) 02/26/24 17:50 02/26/24 CHEMISTRY Potassium 4.2 mmol/L (3.5-5.1) 12/03/24 08:56 12/03/24 Sodium 140 mmol/L (136-145) 12/03/24 08:56 12/03/24 BUN 12 mg/dL (7-18) 12/03/24 08:56 12/03/24 Creatinine 0.81 mg/dL (0.70-1.30) 12/03/24 08:56 12/03/24 Glucose 97 mg/dL (74-106) 12/03/24 08:56 12/03/24 POC Glucose 261 mg/dL (74-106) H 10/19/23 11:25 10/19/23 TSH 1.720 uIU/mL (0.358-3.740) 12/03/24 08:56 11/19 04/12 COAG PT 13.4 SECONDS (11.7-14.9) 02/26/24 17:50 Pre-Assessment Diagnosis/Proposed Procedure Planned Operative Procedure(s): COLONOSCOPY Anesthesia History Anesthesia History - high reach 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 When Was Last Pacemaker Check QUESTION #4 FULL TEXT: You/Your Family Experience fever (hyperthermia) with Anesthesia Last Oral Intake Last Oral intake: Last Oral Intake NPO since Meds taken in AM with sips of water? Meds patient instructed to take am of surgery PONV PONV - high reach operator: PONV - high reach operator Female No 01/29/25 15:12 HX of Motion Sickness No 01/29/25 15:12 HX of N/V After Surgery No 01/29/25 15:12 Non-Smoker Yes 01/29/25 15:12 Duration of Surgery greater No 01/29/25 15:12 than 60 minutes Number of Risk Factors 1 01/29/25 15:12 PONV Score Low Risk 01/29/25 15:12 Height & Weight Height & Weight: Anesthesia: Height & Weight Height 5 ft 10 in 01/05/25 14:11 Respiratory Assessment Respiratory Assessment - high reach operator: Respiratory Tract Infection Hx - high reach operator Hx Respiratory Tract Infection No 01/29/25 15:12 STOP Sleep Apnea STOP Sleep Apnea - high reach operator: STOP Sleep Apnea - high reach operator Hx Hypertension Yes 01/29/25 15:12 Hx Sleep Apnea Yes 01/29/25 15:12 CPAP Yes 01/29/25 15:12 BIPAP No 01/29/25 15:12 Do you snore loudly (louder than talking or can be heard Do you often feel tired/ fatigued/ sleepy during daytime? Has anyone observed you stop breathing during sleep? STOP Results Positive 01/29/25 15:12 QUESTION #5 FULL TEXT : Do you snore loudly (louder than talking or can be heard through closeddoors)? 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 Specify any problems Hx of Preganancy in last 3 N/A 01/29/25 15:12 Months Nurse Filling Out Transfusion [facility] 01/29/25 15:12 & Questions: Date: 01/29/25 01/29/25 15:12 Time: 15:20 01/29/25 15:12 Patient unable to answer at this time (ie. 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: /Reproductive Hx- high reach operator Hx Now Gestational Age (in weeks): EDC: Hx Hx Para Hx Section SAB No 02/21/22 15:40 [facility] Medical History Wears glasses Diabetes Dietary restriction History of echocardiogram Cardiology follow-up encounter Sleep apnea CPAP (continuous positive airway pressure) dependence Exertional chest pain COVID Anxiety Alcohol use Joint stiffness Restless legs Back pain Vertigo History of hiatal hernia Gastric reflux History of diverticulitis Former smoker Asthma Shortness of breath on exertion History of pain when walking History of irregular heartbeat History of Holter monitoring Gastroparesis Home Medications ?Medication ?Instructions ?Recorded ?Last Taken ?Type albuterol sulfate 90 mcg/actuation 2 puff inhalation Q 6H PRN SOB 12/26/21 Unknown History aerosol inhaler (Ventolin HFA) danazol 200 mg capsule 200 mg PO BID hormones 12/26 Unknown History pen needle, diabetic 31 gauge x #100 ea 10/19/23 Unkno wn Rx 5/16 (BD Ultra-Fine Short Pen Needle) losartan 25 mg tablet 25 mg PO DAILY #90 tabs 03/12 Unknown Rx metoprolol succinate 50 mg 50 mg PO DAILY #90 tabs 03/12 Unknown Rx tablet,extended release 24 hr semaglutide 1 mg/dose (4 mg/3 mL) 1 mg subcut QWEEK 01/19/25 History subcutaneous pen injector (Ozempic) Allergy/AdvReac Type Severity Reaction Status Date / Time cephalexin (From Keflex) Allergy Intermediate Hives Verified 01/29/25 15:08 Environmental Allergies: Allergy Mild Other Verified 01/29/25 15:08 Uncoded metformin Allergy Mild Rash Verified 01/29/25 15:08 Family History Mother Arthritis Hypertension High cholesterol Angioedema Uncle Melanoma Angioedema Daughter Angioedema Surgical History History of cardiac catheterization History of excision of pilonidal cyst Social History Smoking Status: Former smoker alcohol intake: current alcohol intake frequency: a few times a month Alcohol type: beer substance use type: does not use what type of physical activity do you participate in: none Review of Systems (Anesthesia) ROS Narrative System reviewed and no additional complaints, except as documented. 01/30/25 0748 > Date _ Andrei Burgess MD Cosigner Signature: Date CC: ~ Signed [facility]02-17-2025 Evaluation note* Diagnosis Onset Date Resolution Status Admit Date Screening for malignant neoplasm of colon acute January 05, 2025 1:52pm [facility] Work Phone: 1(337) 716-984004-09-2024 NoteHNO ID: [id number] Author: JULY ANDERSON APRN.PRODUCT DEMONSTRATOR Service: ? Author Type: Nurse Practitioner Type: Progress Notes Filed: 02/26/2024 17:18 Note Text: Subjective Dizziness Associated symptoms include dizziness. Pertinent negatives include no abdominal pain, fever, headaches, nausea or vomiting. Lisa Rodriguez is a 53 year old male who presents with concern that his blood sugar is low. He was at work and suddenly felt dizzy, and lightheaded and has flashing lights in his left eye/visual field. When he looked at his computer screen it looked like it was underwater. He denies fever, nausea or vomiting. He viewed the eclipse yesterday but was wearing solar glasses. He was diagnosed with T2DM in October. He has been on Ozempic for 3 weeks. He states he has lost 45 lbs since starting this medication. Review of Systems Constitutional: Negative for chills and fever. Eyes: Flashing lights in his left eye Respiratory: Negative. Cardiovascular: Negative. Gastrointestinal: Negative for abdominal pain, diarrhea, nausea and vomiting. Musculoskeletal: Negative. Neurological: Positive for dizziness. Negative for headaches. Psychiatric/Behavioral: The patient is nervous/anxious. BP 122/72 Pulse 76 Temp 36.2 ?C (97.1 ?F) Resp 16 Wt 114.7 kg (252 lb 13.9 oz) SpO2 95% No past medical history on file. No past surgical history on file. ALLERGIES Metformin MEDICATIONS danazol (DANOCRINE) 200 mg capsule OZEMPIC 0.25 mg or 0.5 mg (2 mg/3 mL) pen INJECT 0.25MG SUBCUTANEOUSLY ONCE A WEEK metoprolol succinate ER (TOPROL XL) 50 mg 24 hr tablet Take 1 tablet by mouth every afternoon. losartan (COZAAR) 25 mg tablet Take 1 tablet by mouth every afternoon. No family history on file. Objective Physical Exam Vitals and nursing note reviewed. Constitutional: General: He is not in acute distress. Appearance: Normal appearance. He is not ill-appearing. Cardiovascular: Rate and Rhythm: Normal rate and regular rhythm. Heart sounds: Normal heart sounds. Pulmonary: Effort: Pulmonary effort is normal. No respiratory distress. Breath sounds: Normal breath sounds. No wheezing or rales. Skin: General: Skin is warm and dry. Findings: No erythema or rash. Neurological: Mental Status: He is alert. Psychiatric: Mood and Affect: Mood normal. Behavior: Behavior normal. ASSESSMENT/PLAN: 1. Lightheaded - ICD9: 780.4, ICD10: R42 (primary diagnosis) - GLUCOSE, BLOOD (POC) Office Visit on 02/26/2024 Component Date Value Ref Range Status Glucose, Point of Care 02/26/2024 83 74 - 99 mg/dL Final Comment: Location:[address], [place], [address] The Accu-Chek Inform II glucose meter has not been approved for testing on patients receiving intensive medical intervention or therapy and results from this point of care glucose test should not be used for patient management decisions in these cases. Inaccurate results may also occur from other interfering factors, such as N-acetylcysteine (blood concentrations of greater than 5mg/dL), galactose, extremes of hematocrit (<10 or >65), or high doses of ascorbic acid (vitamin C) greater than 3mg/dL. Consider alternate testing mechanisms (e.g. core lab, blood gas instrument) in the above situations. - likely due to Ozempic but cannot rule out other more serious causes in [facility]. 2. Visual changes - ICD9: 368.9, ICD10: H53.9 - referred to ER for further evaluation and treatment. Patient agreeable. Coworker will drive him there. July Anderson APRN.[facility] History of Present illness Narrative* July Anderson APRN.PRODUCT DEMONSTRATOR - 02/26/2024 4:48 PM EDT Subjective Dizziness Associated symptoms include dizziness. Pertinent negatives include no abdominal pain, fever, headaches, nausea or vomiting. Lisa Rodriguez is a 53 year old male who presents with concern that his blood sugar is low. He was at work and suddenly felt dizzy, and lightheaded and has flashing lights in his left eye/visual field. When he looked at his computer screen it looked like it was underwater. He denies fever, nausea or vomiting. He viewed the eclipse yesterday but was wearing solar glasses. He was diagnosed with T2DM in October. He has been on Ozempic for 3 weeks. He states he has lost 45 lbs since starting this medication. Review of Systems Constitutional: Negative for chills and fever. Eyes: Flashing lights in his left eye Respiratory: Negative. Cardiovascular: Negative. Gastrointestinal: Negative for abdominal pain, diarrhea, nausea and vomiting. Musculoskeletal: Negative. Neurological: Positive for dizziness. Negative for headaches. Psychiatric/Behavioral: The patient is nervous/anxious. BP 122/72 Pulse 76 Temp 36.2 C (97.1 F) Resp 16 Wt 114.7 kg (252 lb 13.9 oz) SpO2 95% No past medical history on file. No past surgical history on file. ALLERGIES Metformin MEDICATIONS danazol (DANOCRINE) 200 mg capsule OZEMPIC 0.25 mg or 0.5 mg (2 mg/3 mL) pen INJECT 0.25MG SUBCUTANEOUSLY ONCE A WEEK metoprolol succinate ER (TOPROL XL) 50 mg 24 hr tablet Take 1 tablet by mouth every afternoon. losartan (COZAAR) 25 mg tablet Take 1 tablet by mouth every afternoon. No family history on file. Objective Physical Exam Vitals and nursing note reviewed. Constitutional: General: He is not in acute distress. Appearance: Normal appearance. He is not ill-appearing. Cardiovascular: Rate and Rhythm: Normal rate and regular rhythm. Heart sounds: Normal heart sounds. Pulmonary: Effort: Pulmonary effort is normal. No respiratory distress. Breath sounds: Normal breath sounds. No wheezing or rales. Skin: General: Skin is warm and dry. Findings: No erythema or rash. Neurological: Mental Status: He is alert. Psychiatric: Mood and Affect: Mood normal. Behavior: Behavior normal. ASSESSMENT/PLAN: 1. Lightheaded - ICD9: 780.4, ICD10: R42 (primary diagnosis) - GLUCOSE, BLOOD (POC) Office Visit on 02/26/2024 Component Date Value Ref Range Status Glucose, Point of Care 02/26/2024 83 74 - 99 mg/dL Final Comment: Location:[address], [facility] The Accu-Chek Inform II glucose meter has not been approved for testing on patients receiving intensive medical intervention or therapy and results from this point of care glucose test should not be used for patient management decisions in these cases. Inaccurate results may also occur from other interfering factors, such as N-acetylcysteine (blood concentrations of greater than 5mg/dL), galactose, extremes of hematocrit (<10 or >65), or high doses of ascorbic acid (vitamin C) greater than 3mg/dL. Consider alternate testing mechanisms (e.g. core lab, blood gas instrument) in the above situations. - likely due to Ozempic but cannot rule out other more serious causes in Express [facility]. 2. Visual changes - ICD9: 368.9, ICD10: H53.9 - referred to ER for further evaluation and treatment. Patient agreeable. Coworker will drive him there. July Anderson APRN.PRODUCT DEMONSTRATOR [facility] Progress note Author José Miguel Wu [facility] October 19, 2023 8:17am Note Date/Time October 19, 2023 8 :17am [facility] Medical Records Department [address] [place] [address] Progress Note - Cardiology 10/19/23 08 MR#: [id number] Acct: [id number] Name: LISA RODRIGUEZ Rep #:[id number] : 1970 53 From: José Miguel Wu MD PCP: Dr. Avinash Barreto MD Status: ADM IN Location: [place] [address] Subjective Subjective Patient seen and evaluated. Doing well. Underwent cardiac catheterization today. Objective Data Vital Signs: Vital Signs Temp Pulse Resp BP Pulse Ox O2 Del Method 97.5 F L 65 18 138/95 H 97 Room Air 10/19/23 06:30 10/19/23 06:30 10/19/23 06:30 10/19/23 06:30 10/19/23 06:30 10/19/23 06:30 Oxygen Delivery Method Room Air Weight: 267 lb 6.731 oz Body Mass Index (BMI) 38.3 Intake & Output: Intake and Output for Last 24 Hours 10/17/23 10/18/23 10/19/23 23:59 23:59 23:59 Intake Total 1240 / 1240 Balance 1240 / 1240 Lab / Micro Data 10/19/23 04:25 10/19/23 04:25 Labs: Laboratory Results - last 24 hr 10/18/23 13:03: POC Glucose 381 H 10/18/23 13:10: WBC 7.5, RBC 5.81, Hgb 16.8 H, Hct 49.0, MCV 84.3, MCH 28.9, MCHC 34.3, RDW Std Deviation 41.6, RDW Coeff of Darrel 13.5, Plt Count 218, MPV 10.5, Immature Gran % (Auto) 0.800, Neut % (Auto) 74.9 H, Lymph % (Auto) 14.9 L,[place] % (Auto) 5.6, Eos % (Auto) 3.1, Baso % (Auto) 0.7, Absolute Neuts (auto) 5.6, Absolute Lymphs (auto) 1.11, Nucleated RBC % 0, Sodium 133 L, Potassium 4.1, Chloride 101, Carbon Dioxide 27.0, Anion Gap 5, BUN 12, Creatinine 1.07, Estim Creat Clear Calc 84.33, Est GFR (MDRD) Af Amer 94, Est GFR (MDRD) Non-Af 77, BUN/Creatinine Ratio 11.2, Glucose 386 H, Hemoglobin A1c 11.4 H, Calcium 8.6, Troponin I High Sens 40, Triglycerides 420 H, Cholesterol 196, LDL Cholesterol TNP, VLDL Cholesterol TNP, HDL Cholesterol 14 L, TSH 0.97 10/18/23 17:58: POC Glucose 257 H 10/18/23 22:31: POC Glucose 389 H 10/19/23 03:19: POC Glucose 254 H 10/19/23 04:25: WBC 8.8, RBC 5.53, Hgb 15.8, Hct 47.9, MCV 86.6, MCH 28.6, MCHC 33.0, RDW Std Deviation 42.5, RDW Coeff of Darrel 13.4, Plt Count 215, MPV 10.8, Sodium 137, Potassium 3.9, Chloride 104, Carbon Dioxide 28.0, Anion Gap 5, BUN 12, Creatinine 0.95, Estim Creat Clear Calc 94.99, Est GFR (MDRD) Af Amer 108, Est GFR (MDRD) Non-Af 89, BUN/Creatinine Ratio 12.6, Glucose 270 H, Calcium 7.8 L 10/19/23 06:35: POC Glucose 237 H Rhythm Strip Rhythm Strip: Sinus Rhythm Rate: 86 Ectopy: None and - (Deep T waves noted symmetrically throughout the precordium) Cardiology Labs/Tests 10/18/23 13:10: WBC 7.5, RBC 5.81, Hgb 16.8 H, Hct 49.0, MCV 84.3, MCH 28.9, MCHC 34.3, Plt Count 218, MPV 10.5, Immature Gran % (Auto) 0.800, Neut % (Auto) 74.9 H, Lymph % (Auto) 14.9 L, [place] % (Auto) 5.6, Eos % (Auto) 3.1, Baso % (Auto) 0.7, Absolute Neuts (auto) 5.6, Nucleated RBC % 0, Sodium 133 L, Potassium 4.1, Chloride 101, Carbon Dioxide 27.0, Anion Gap 5, BUN 12, Creatinine 1.07, Est GFR (MDRD) Af Amer 94, Est GFR (MDRD) Non-Af 77, BUN/Creatinine Ratio 11.2, Glucose 386 H, Hemoglobin A1c 11.4 H, Calcium 8.6, Triglycerides 420 H, Cholesterol 196, LDL Cholesterol TNP, VLDL Cholesterol TNP,HDL Cholesterol 14 L 10/19/23 04:25: WBC 8.8, RBC 5.53, Hgb 15.8, Hct 47.9, MCV 86.6, MCH 28.6, MCHC 33.0, Plt Count 215, MPV 10.8, Sodium 137, Potassium 3.9, Chloride 104, Carbon Dioxide 28.0, Anion Gap 5, BUN 12, Creatinine 0.95, Est GFR (MDRD) Af Amer 108, Est GFR (MDRD) Non-Af 89, BUN/Creatinine Ratio 12.6, Glucose 270 H, Calcium 7.8 L Rhythm: EKG: ECHO: Stress Test: Cardiac Cath: PCI: CT Surgery: Holter monitor: EPS: PPM: CXR: Chest CT Scan: Radiography Diagnostic Testing: Radiology Impression Chest X-Ray 10/18/23 13:04 IMPRESSION: No acute abnormality is present. Electronically Signed: Yoseph Lewis MD at 13:19 EST Reading Location ID and State: [address] [place] [address] , Service support , Physical Exam Const alert, oriented x3 and no apparent distress General Appearance: cooperative HEENT hearing grossly normal bilaterally Head and Scalp: atraumatic Eyes EOMs intact bilaterally Neck General: normal visual inspection Chest inspection of chest normal and palpation of chest normal Resp normal respiratory effort Auscultation: clear to auscultation bilaterally Cardio regular rate, regular rhythm, S1 normal heart sound and S2 normal heart sound Jugular Venous Distention: JVD GI normal to inspection, nondistended, normoactive bowel sounds Extremity normal capillary refill and no pedal edema Peripheral Pulses: Yes pulses 2+ throughout and femoral pulses present Skin no rashes or lesions noted Neuro oriented x3 and CN's II-XII intact bilaterally Psych Appearance: grossly normal and appropriate Assessment & Plan Assessment/Plan (1) Abnormal ECG: PLAN: He has a markedly abnormal EKG with T wave inversions across the precordium. With his newly documented and diagnosed diabetes we need to excludecoronary ischemia. Hypertrophic cardiomyopathy especially of the apical varietycannot be completely excluded and an echocardiogram should be performed to exclude the above. Cardiac catheterization demonstrated the following: Normal coronary arteries. Left ventricular hypertrophy with apical spade like configuration consistent with hypertrophic cardiomyopathy of the apical variety. We will recommend beta-blockers. Thank you for allowing me to participate in the care of your patient. Please don't hesitate to call if any issues arise. 10/19/23 0817 <Electronically signed by José Miguel Wu MD> Cosigner Signature (if applicable): CC: ~ Signed [facility] Work Phone: 1(336) 903-272211-30-2023 History and physical note Author Andrew Brown [facility] October 18, 2023 8:59pm Note Date/Time October 18, 2023 2:49pm [facility] Medical Records Department [address] [place] [address] H&P Exam - Hospitalist 10/18/23 1441 MR#: [id number] Acct: [id number] Name: LISA RODRIGUEZ Rep #:[id number] : 1970 53 From: Andrew arce DO PCP: Dr. Avinash Barreto MD Status: ADM IN [facility] HPI - General General Date of Admission: 10/18/23 Date of Service: 10/18/23 Chief Complaint: Episode of near syncope, new onset diabetes mellitus HPI Narrative LISA RODRIGUEZ, is a 53 M who presented to [facility] ED on 10/18/2023 after a near syncope episode at the store. Patient seen at bedside inthe ED. Sitting comfortably in bed, conversing normally, no acute distress. Patient states that he was at [facility] today doing grocery shopping, when he had an episode of severe lightheadedness with tunnel vision. States he sat himself on a shopping cart for short time, did not lose consciousness. Patient states he has had several concerning symptoms over the past month or so. He began having upper respiratory symptoms about 1 month ago and was prescribed azithromycin and prednisone by his PCP. Patient states that after starting these medications, he began to have severe polyuria and polydipsia. States he was urinating about every 1/2 hour and was drinking 6-8 large water bottles per day. Patient also states he has lost about 20 pounds in the last few months without trying to. Denies any previous history of diabetes or prediabetes notedon outpatient lab work. No family history of diabetes. Patient states he actually received a second round of a short course of steroids because his symptoms were ongoing. Patient states over that timeframe he has had some chestdiscomfort and shortness of breath on exertion. No known history of cardiac disease. Patient currently states that he feels fatigued but otherwise denies any acute pain or discomfort. Denies any chest pain, shortness of breath, fevers chills, abdominal pain or discomfort. No other acute concerns at this time. [facility] Medical History Alcohol use Anxiety Asthma Back pain Chest pain COVID CPAP (continuous positive airway pressure) dependence Former smoker Gastric reflux Gastroparesis History of diverticulitis History of hiatal hernia History of Holter monitoring History of irregular heartbeat History of pain when walking Joint stiffness Restless legs Shortness of breath on exertion Sleep apnea Vertigo Home Medications albuterol sulfate 90 mcg/actuation aerosol inhaler (Ventolin HFA) 2 puff inhalation Q6H PRN SOB 12/26/21 [History Last Taken Unknown] danazol 200 mg capsule 200 mg PO BID 12/26/21 [History Last Taken Unknown] loratadine 10 mg tablet (Claritin) 10 mg PO DAILY PRN ALLERGIES 02/21/22 [History Last Taken Unknown] omeprazole 20 mg capsule,delayed release 20 mg PO DAILY 10/18/23 [History Last Taken Unknown] Allergy/AdvReac Type Severity Reaction Status Date / Time No Known Allergies Allergy Verified 10/18/23 13:40 Family History Mother Arthritis Hypertension High cholesterol Angioedema Uncle Melanoma Surgical History History of excision of pilonidal cyst Social History Smoking Status: Former smoker alcohol intake: current alcohol intake frequency: a few times a month Alcohol type: beer substance use type: does not use what type of physical activity do you participate in: none ROS Constitutional Constitutional: Reports change in weight and fatigue; Denies chills, fever(s), malaise or weakness Eyes Eyes: Reports blurry vision; Denies change in vision, discharge from eye(s), double vision, eye pain or loss of vision Cardiovascular Cardiovascular: Reports dyspnea on exertion and lightheadedness; Denies chest pain, edema, palpitations or syncope Respiratory/Chest Respiratory/Chest: Denies cough, excessive phlegm production, shortness of breath at rest or wheezing Gastrointestinal Gastrointestinal: Denies abdominal pain, constipation, diarrhea, nausea or vomiting Genitourinary Genitourinary: Reports nocturia and urinary frequency; Denies dysuria, urinary hesitancy or urinary incontinence Endocrine Endocrinology: Reports polydipsia and polyuria Vital Signs Vital Signs Vital Signs: 10/18/23 12:27 10/18/23 12:58 10/18/23 13:42 Temperature 96.8 F L Temperature Source Temporal Pulse Rate 91 81 Pulse Rate [Lying] Pulse Rate [Sitting (for 1 minute prior to obtaining)] Pulse Rate [Standing (for 1 minute prior to obtaining)] Respiratory Rate 18 20 H Respiratory Effort Respiratory Pattern Blood Pressure 154/113 H Blood Pressure [Lying] Blood Pressure [Sitting (for 1 minute prior to obtaining)] Blood Pressure [Standing (for 1 minute prior to obtaining)] Blood Pressure Mean 126 Blood Pressure Mean [Lying] Blood Pressure Mean [Sitting (for 1 minute prior to obtaining)] Blood Pressure Mean [Standing (for 1 minute prior to obtaining)] Pulse Ox 100 95 Oxygen Delivery Method Room Air Room Air Room Air 10/18/23 13:45 10/18/23 13:45 10/18/23 14:20 Temperature Temperature Source Pulse Rate 77 Pulse Rate [Lying] 76 Pulse Rate [Sitting (for 1 minute prior to obtaining)] 90 Pulse Rate [Standing (for 1 minute prior to obtaining)] 92 Respiratory Rate 18 Respiratory Effort Normal Respiratory Pattern Normal Blood Pressure 146/102 H Blood Pressure [Lying] 141/81 H Blood Pressure [Sitting (for 1 minute prior to obtaining)] 150/95 H Blood Pressure [Standing (for 1 minute prior to obtaining)] 150/94 H Blood Pressure Mean 116 Blood Pressure Mean [Lying] 101 Blood Pressure Mean [Sitting (for 1 minute prior to obtaining)] 113 Blood Pressure Mean [Standing (for 1 minute prior to obtaining)] 112 Pulse Ox 95 Oxygen Delivery Method Room Air Weight Weight: 123.785 kg Body Mass Index (BMI) 39.1 Physical Exam Const alert, oriented x3, no apparent distress, healthy appearing and well nourished Constitutional Narrative: Pleasant middle-age male, obese, sitting comfortably in bed, conversing normally, no acute distress. General Appearance: cooperative and comfortable HEENT normocephalic, head/scalp atraumatic, hearing grossly normal bilaterally, nasal mucous membranes and turbinates normal and moist oral mucous membranes Eyes PERRL, EOMs intact bilaterally and conjunctivae normal Neck full ROM, no lymphadenopathy and supple Lymph Lymphatic: no lymphadenopathy noted Chest inspection of chest normal Resp normal respiratory effort, normal air movement, no use of accessory muscles and clear to auscultation bilaterally Cardio regular rate, regular rhythm, no murmurs and peripheral pulses 2+ throughout GI normal to inspection, nondistended, normoactive bowel sounds, soft to palpation,non-tender and non-distended Back/Spine normal ROM Extremity normal to inspection, full ROM and no pedal edema Skin no rashes or lesions noted Neuro moves all extremities and no focal motor deficits Speech: speech normal Psych mental status grossly normal Results Lab / Micro Data 10/18/23 13:10 10/18/23 13:10 Labs: Laboratory Results - last 24 hr 10/18/23 13:03: POC Glucose 381 H 10/18/23 13:10: WBC 7.5, RBC 5.81, Hgb 16.8 H, Hct 49.0, MCV 84.3, MCH 28.9, MCHC 34.3, RDW Std Deviation 41.6, RDW Coeff of Darrel 13.5, Plt Count 218, MPV 10.5,Immature Gran % (Auto) 0.800, Neut % (Auto) 74.9 H, Lymph % (Auto) 14.9 L, [place] % (Auto) 5.6, Eos % (Auto) 3.1, Baso % (Auto) 0.7, Absolute Neuts (auto) 5.6, Absolute Lymphs (auto) 1.11, Nucleated RBC % 0, Sodium 133 L, Potassium 4.1, Chloride 101, Carbon Dioxide 27.0, Anion Gap 5, BUN 12, Creatinine 1.07, Estim Creat Clear Calc 84.33, Est GFR (MDRD) Af Amer 94, Est GFR (MDRD) Non-Af 77, BUN/Creatinine Ratio 11.2, Glucose 386 H, Calcium 8.6, Troponin I High Sens 40 Rhythm Strip Rhythm Strip: Sinus Rhythm Rate: 86 Ectopy: None Imagaing Radiology Impression Chest X-Ray 10/18/23 13:04 IMPRESSION: No acute abnormality is present. Electronically Signed: Yoseph Lewis MD at 13:19 EST , Assessment & Plan Assessment/Plan (1) Diabetes mellitus, new onset: (2) Abnormal ECG: (3) Near syncope: PLAN: Plan Patient is a 53-year-old male who presented to [facility] ED on 10/18/2023 after an episode of near syncope while at the store. 1. Episode of near syncope, abnormal EKG findings Seemed most likely secondary to orthostatic hypotension in setting of volume depletion from excessive urination in setting of new onset diabetes. However, patient notes intermittent exertional chest pain over the past few weeks. Was recently treated for an upper respiratory tract infection with azithromycin and steroids, with some improvement in symptoms. EKG in ED showed significant T wave inversions in the precordial leads and lateral leads. Initial troponin negative, repeat pending. A1c of 11.4% in the ED. ? Admit under inpatient status to PCU. Cardiology consulted. Evaluated by Dr. Wu on admission, noted patient's markedly abnormal EKG and given newly diagnosed diabetes, plan is for left heart catheterization tomorrow to rule out coronary ischemia. N.p.o. at midnight. Orthostatic vital signs ordered. Lipidpanel ordered. Follow-up a.m. labs. 2. Presumed new onset type 2 diabetes mellitus A1c of 11.4% on admission. No previously diagnosed history of diabetes. Patient reports excessive polyuria and polydipsia over the last 4 to 6 weeks. Suspect patient has new onset type 2 diabetes that was exacerbated by his recentshort course of steroids prescribed by his PCP for an upper respiratory tract infection. BG 386 on admit. ? Will initiate patient on high?medium dosing of sliding-scale insulin for now. Given his very elevated A1c, suspect patient will need to be started on insulin on discharge. S/p 1 L bolus of IV fluids in the ED, encouraged p.o. intake going forward. 3. Pseudohyponatremia ? Sodium 133 on admit, corrected sodium of 136-137 in setting of hyperglycemia. Chronic medical conditions: ? Obesity: BMI 38 on admit. Encouraged lifestyle modifications. Complicates patient's care and prognosis. ? Hereditary angioedema: Continue home danazol, loratadine, albuterol inhaler asneeded. ? GERD: Continue home PPI. DVT prophylaxis: Lovenox CODE STATUS: Full code, verified Expected disposition: Home, TBD Total clinical time spent by myself addressing the patient's medical issues, reviewing all the data, and collaborating with patient's care team: 55 minutes. Charges/Coding Visit Charges Inpatient E&M: 10788 Init Hosp L2 10/18/232058 <Electronically signed by Andrew Brown DO> Cosigner Signature (if applicable): CC: Dr. Andrew Brown DO; Dr. Avinash Barreto MD~ Signed [facility] Work Phone: 1(763) 536-887711-30-2023 Consult note Author José Miguel Wu [facility] October 18, 2023 6:46pm Note Date/Time October 18, 2023 6:46pm [facility] Medical Records Department [address] [place] [id number] Consultation - Cardiology 10/18/23 1842 MR#: [id number] Acct: [id number] Name: LISA RODRIGUEZ Rep #:[id number] : 1970 53 From: José Miguel Wu MD PCP: Dr. Avinash Barreto MD Status: ADM IN Location: [place] [id number] Assessment & Plan Assessment/Plan (1) Abnormal ECG: PLAN: He has a markedly abnormal EKG with T wave inversions across the precordium. With his newly documented and diagnosed diabetes we need to excludecoronary ischemia. Hypertrophic cardiomyopathy especially of the apical varietycannot be completely excluded and an echocardiogram should be performed to exclude the above. I will also recommend invasive cardiac catheterization. The risk benefits alternatives of been explained to him he understands and agrees to proceed. Depending on those findings further recommendations will be made. Thank you for allowing me to participate in the care of your patient. Please don't hesitate to call if any issues arise. HPI Consult Data Date of Consult: 10/18/23 HPI Narrative HPI Narrative: LISA RODRIGUEZ, is a 53 M who presents to the emergency room after having a near syncopal spell while he was checking out of [employer]. He says that he only has ahistory of asthma and hereditary angioedema. He has noted a 20 pound weight loss and has been drinking a significant amount of fluid as well as increased thirst. He got lightheaded with tunnel vision and had to lean over his cart to prevent him from falling. He presented to the emergency room after denying any chest pain paroxysmal nocturnal dyspnea palpitations, or pedal edema. An EKG was done which demonstrated diffuse T wave inversions. Cardiology was called for further evaluation and management. Blood work further reviewed that his blood sugar was noted to be markedly elevated and his hemoglobin A1c was over 11. He has previously been on diagnosed diabetic. [facility] Medical History Alcohol use Anxiety Asthma Back pain Chest pain COVID CPAP (continuous positive airway pressure) dependence Former smoker Gastric reflux Gastroparesis History of diverticulitis History of hiatal hernia History of Holter monitoring History of irregular heartbeat History of pain when walking Joint stiffness Restless legs Shortness of breath on exertion Sleep apnea Vertigo Home Medications albuterol sulfate 90 mcg/actuation aerosol inhaler (Ventolin HFA) 2 puff inhalation Q6H PRN SOB 12/26/21 [History Last Taken Unknown] danazol 200 mg capsule 200 mg PO BID 12/26/21 [History Last Taken Unknown] loratadine 10 mg tablet (Claritin) 10 mg PO DAILY PRN ALLERGIES 02/21/22 [History Last Taken Unknown] omeprazole 20 mg capsule,delayed release 20 mg PO DAILY 10/18/23 [History Last Taken Unknown] Allergy/AdvReac Type Severity Reaction Status Date / Time No Known Allergies Allergy Verified 10/18/23 13:40 Family History Mother Arthritis Hypertension High cholesterol Angioedema Uncle Melanoma Surgical History History of excision of pilonidal cyst Social History Smoking Status: Former smoker alcohol intake: current alcohol intake frequency: a few times a month Alcohol type: beer substance use type: does not use what type of physical activity do you participate in: none ROS Constitutional Constitutional: Denies fever(s) or weight loss Eyes Eyes: Reports systems reviewed and no addt'l complaints, except as documented ENT HEENT: Reports systems reviewed and no addt'l complaints, except as documented Cardiovascular Cardiovascular: Denies chest pain at rest, chest pain with activity, dyspnea at rest, dyspnea on exertion, edema, palpitations or paroxysmal nocturnal dyspnea Respiratory/Chest Respiratory/Chest: Denies dyspnea on exertion, productive cough, shortness of breath at rest or shortness of breath with exertion Gastrointestinal Gastrointestinal: Denies change in bowel habits, nausea, vomiting or weight changes Genitourinary Genitourinary: Denies difficulty urinating Musculoskeletal Musculoskeletal: Denies joint stiffness or muscle weakness Integumentary Integumentary: Denies lesions Neurologic Neurologic: Denies dizziness or syncope Psychiatric Psychiatric: Denies anxiety Endocrine Endocrinology: Denies excessive sweating or fatigue Hematologic/Lymphatic Hematologic/Lymphatic: Denies anemia Allergic/Immunologic Allergic/Immunologic: Denies seasonal rhinorrhea Physical Exam Const alert, oriented x3 and no apparent distress General Appearance: cooperative HEENT hearing grossly normal bilaterally Head and Scalp: atraumatic Eyes EOMs intact bilaterally Neck General: normal visual inspection Chest inspection of chest normal and palpation of chest normal Resp normal respiratory effort Auscultation: clear to auscultation bilaterally Cardio regular rate, regular rhythm, S1 normal heart sound and S2 normal heart sound Jugular Venous Distention: JVD GI normal to inspection, nondistended, normoactive bowel sounds Extremity normal capillary refill and no pedal edema Peripheral Pulses: Yes pulses 2+ throughout and femoral pulses present Skin no rashes or lesions noted Neuro oriented x3 and CN's II-XII intact bilaterally Psych Appearance: grossly normal and appropriate Risk Stratification Risk Stratification Applicable: No Objective Data Vital Signs: Vital Signs Temp Pulse Resp BP Pulse Ox O2 Del Method 97.9 F 78 18 134/87 H 98 Room Air 10/18/23 16:36 10/18/23 16:36 10/18/23 16:36 10/18/23 16:36 10/18/23 16:36 10/18/23 16:36 Oxygen Delivery Method Room Air Weight: 267 lb 6.731 oz Body Mass Index (BMI) 38.3 Lab / Micro Data 10/18/23 13:10 10/18/23 13:10 Labs: Laboratory Results - last 24 hr 10/18/23 13:03: POC Glucose 381 H 10/18/23 13:10: WBC 7.5, RBC 5.81, Hgb 16.8 H, Hct 49.0, MCV 84.3, MCH 28.9, MCHC 34.3, RDW Std Deviation 41.6, RDW Coeff of Darrel 13.5, Plt Count 218, MPV 10.5, Immature Gran % (Auto) 0.800, Neut % (Auto) 74.9 H, Lymph % (Auto) 14.9 L,[place] % (Auto) 5.6, Eos % (Auto) 3.1, Baso % (Auto) 0.7, Absolute Neuts (auto) 5.6, Absolute Lymphs (auto) 1.11, Nucleated RBC % 0, Sodium 133 L, Potassium 4.1, Chloride 101, Carbon Dioxide 27.0, Anion Gap 5, BUN 12, Creatinine 1.07, Estim Creat Clear Calc 84.33, Est GFR (MDRD) Af Amer 94, Est GFR (MDRD) Non-Af 77, BUN/Creatinine Ratio 11.2, Glucose 386 H, Hemoglobin A1c 11.4 H, Calcium 8.6, Troponin I High Sens 40 10/18/23 17:58: POC Glucose 257 H Rhythm Strip Rhythm Strip: Sinus Rhythm Rate: 86 Ectopy: None and - (Deep T waves noted symmetrically throughout the precordium) Cardiology Labs/Tests 10/18/23 13:10: WBC 7.5, RBC 5.81, Hgb 16.8 H, Hct 49.0, MCV 84.3, MCH 28.9, MCHC 34.3, Plt Count 218, MPV 10.5, Immature Gran % (Auto) 0.800, Neut % (Auto) 74.9 H, Lymph % (Auto) 14.9 L, [place] % (Auto) 5.6, Eos % (Auto) 3.1, Baso % (Auto) 0.7, Absolute Neuts (auto) 5.6, Nucleated RBC % 0, Sodium 133 L, Potassium 4.1, Chloride 101, Carbon Dioxide 27.0, Anion Gap 5, BUN 12, Creatinine 1.07, Est GFR (MDRD) Af Amer 94, Est GFR (MDRD) Non-Af 77, BUN/Creatinine Ratio 11.2, Glucose 386 H, Hemoglobin A1c 11.4 H, Calcium 8.6 Rhythm: EKG: ECHO: Stress Test: Cardiac Cath: PCI: CT Surgery: Holter monitor: EPS: PPM: CXR: Chest CT Scan: Radiography Diagnostic Testing: Radiology Impression Chest X-Ray 10/18/23 13:04 IMPRESSION: No acute abnormality is present. Electronically Signed: Yoseph Lewis MD at 13:19 EST Reading Location ID and State: [facility] / [place] , Service support , 10/18/23 1846 <Electronically signed by José Miguel Wu MD> Cosigner Signature (if applicable): CC: Dr. Avinash Barreto MD; Dr. José Miguel Wu MD~ Signed [facility] Work Phone: 1(873) 149-741311-30-2023 Discharge summary Author Eduardo [facility] October 18, 2023 4:59pm Note Date/Time October 18, 2023 12:49pm [facility] Medical Records Department [address] [place] [address] Emergency Department Summary 10/18/23 MR#: [id number] Acct: [id number] Name: LISA RODRIGUEZ Rep #:[id number] : 1970 53 From: Eduardo Montgomery MD PCP: Dr. Avinash Barreto MD Status: ADM IN Location: [place] [address] HPI History of Present Illness Chief Complaint: Syncope Detail of Chief Complaint: Near-syncope. Patient did not lose consciousness. Informant: patient and spouse/S.O. Onset/Context/Timing Onset: Today Context: Sudden Onset Current Severity: Mild Maximum Severity: Moderate Narrative Narrative: 53-year-old male history of asthma and hereditary angioedema. States he had a bronchitis over the last month. He was on several courses of prednisone and Zithromax. He has had diarrhea for several days which is improving. He has hadexcessive thirst over the last month and has been drinking increased amounts of fluid with a 20 pound weight loss that is not specifically trying to lose weight. There is no family history of diabetes that he is aware of. Today he was at [facility]. Said he felt fine when he got up this morning. When he was in line at the checkout he said he started feeling lightheaded, getting tunnel vision and felt like he was in a pass out. He leaned over the cart to keep fromfalling to the ground. He denies any chest pain, headache or abdominal pain. He denies any prior events like this before. He has no history of cardiac disease or abnormal rhythm. He denies any melena. Prior similar symptoms: No Recent Illness/Hospitalization: No PFSH PFS Medical History Alcohol use Anxiety Asthma Back pain COVID Former smoker Gastric reflux Gastroparesis History of diverticulitis History of hiatal hernia History of Holter monitoring History of irregular heartbeat History of pain when walking Joint stiffness Restless legs Shortness of breath on exertion Vertigo Home Medications albuterol sulfate 90 mcg/actuation aerosol inhaler (Ventolin HFA) 2 puff inhalation Q6H PRN SOB 12/26/21 [History Last Taken Unknown] danazol 200 mg capsule 200 mg PO BID 12/26/21 [History Last Taken Unknown] loratadine 10 mg tablet (Claritin) 10 mg PO DAILY PRN ALLERGIES 02/21/22 [History Last Taken Unknown] omeprazole 20 mg capsule,delayed release 20 mg PO DAILY 10/18/23 [History Last Taken Unknown] Allergy/AdvReac Type Severity Reaction Status Date / Time No Known Allergies Allergy Verified 10/18/23 13:40 Family History Mother Arthritis Hypertension High cholesterol Angioedema Uncle Melanoma Surgical History History of excision of pilonidal cyst Social History Smoking Status: Former smoker alcohol intake: current alcohol intake frequency: a few times a month Alcohol type: beer substance use type: does not use what type of physical activity do you participate in: none ROS ROS ED ROS Narrative Diarrhea. Increased thirst. Increased urination. Unintentional weight loss. Review of Systems ROS Unobtainable: Denies due to encephalopathy Constitutional Constitutional ED: Denies chills or fever(s) Eyes Eyes: Denies blurry vision ENT ENT ED: Denies ear pain, rhinorrhea or sore throat Cardiovascular Cardiovascular: Denies chest pain, palpitations or racing heartbeat Respiratory/Chest Respiratory/Chest: Denies cough Gastrointestinal Gastrointestinal: Reports diarrhea; Denies abdominal pain, constipation, melena,nausea or vomiting Genitourinary Genitourinary ED: Reports urinary frequency; Denies dysuria or hematuria Musculoskeletal Musculoskeletal: Denies arthralgias or back pain Integumentary Denies abscess Neurologic Neurologic: Denies headache(s) Psychiatric Psychiatric: Denies anxiety Endocrine Endocrinology: Denies cold intolerance Hematologic/Lymphatic Hematologic/Lymphatic: Reports none Allergic/Immunologic Allergic/Immunologic ED: Denies mouth swelling, tongue swelling, urticaria or other EXAM Physical Exam Narrative Exam Narrative: Well-appearing 53-year-old male. Sitting upright in bed. No distress. atbedside. HEENT Shows mildly dry mucous membranes. Tongue midline. Pupils round react to light. No facial droop or trauma. Normal speech. Neck nontender. No lymphadenopathy. Lungs clear to auscultation bilaterally. Heartregular rhythm rate about 90 no murmur. Chest wall and ribs nontender. Abdomensoft nontender. Moving all 4 extremities. Trace edema in both lower extremities which is chronic. Back nontender. Neurologically is awake and alert with no focal motor deficits. Answering questions following commands. Normal strength. Const Vital Signs: 10/18/23 12:27 10/18/23 12:58 10/18/23 13:42 Temperature 96.8 F L Temperature Source Temporal Pulse Rate 91 81 Pulse Rate [Lying] Pulse Rate [Sitting (for 1 minute prior to obtaining)] Pulse Rate [Standing (for 1 minute prior to obtaining)] Respiratory Rate 18 20 H Respiratory Effort Respiratory Pattern Blood Pressure 154/113 H Blood Pressure [Lying] Blood Pressure [Sitting (for 1 minute prior to obtaining)] Blood Pressure [Standing (for 1 minute prior to obtaining)] Blood Pressure Mean 126 Blood Pressure Mean [Lying] Blood Pressure Mean [Sitting (for 1 minute prior to obtaining)] Blood Pressure Mean [Standing (for 1 minute prior to obtaining)] Pulse Ox 100 95 Oxygen Delivery Method Room Air Room Air Room Air 10/18/23 13:45 10/18/23 13:45 10/18/23 14:20 Temperature Temperature Source Pulse Rate 77 Pulse Rate [Lying] 76 Pulse Rate [Sitting (for 1 minute prior to obtaining)] 90 Pulse Rate [Standing (for 1 minute prior to obtaining)] 92 Respiratory Rate 18 Respiratory Effort Normal Respiratory Pattern Normal Blood Pressure 146/102 H Blood Pressure [Lying] 141/81 H Blood Pressure [Sitting (for 1 minute prior to obtaining)] 150/95 H Blood Pressure [Standing (for 1 minute prior to obtaining)] 150/94 H Blood Pressure Mean 116 Blood Pressure Mean [Lying] 101 Blood Pressure Mean [Sitting (for 1 minute prior to obtaining)] 113 Blood Pressure Mean [Standing (for 1 minute prior to obtaining)] 112 Pulse Ox 95 Oxygen Delivery Method Room Air Positive well nourished and well developed; Negative for cachectic, contracturesor unkempt General Appearance ED: well developed and NAD; Negative for unkempt, cachectic, contractures, cyanotic, diaphoretic or pallor Nutritional Appearance: Negative for cachectic HEENT Reports moist mucous membranes; Denies TM's clear or dry mucous membranes Negative for trauma or tenderness Tympanic Membrane ED: Negative for TM's clear Mouth ED: No dry mucous membranes Mouth: No dry mucous membranes Eyes PERRL and EOMs intact bilaterally General Eye ED: Negative for pale conjunctiva or scleral icterus Neck no lymphadenopathy, supple and no JVD General: Negative for tenderness Lymph Lymphatic: Negative for other Chest Wall inspection of chest normal and palpation of chest normal Chest: Negative for other Resp normal respiratory effort and clear to auscultation bilaterally Effort and Inspection: Negative for retractions Auscultation: Negative for rales, rhonchi or wheezes Cardio regular rate, regular rhythm, S1 normal heart sound, S2 normal heart sound and no murmurs Palpation: Negative for palpable S3 or palpable S4 Rate: Negative for bradycardia or tachycardic Rhythm: Negative for abnormal rhythm GI normal to inspection, nondistended, normoactive bowel sounds, non-tender, non-distended and no masses Inspection: Negative for abdominal distention Auscultation: normoactive bowel sounds Palpation: soft; Negative for tender or guarding Back/Spine no CVA tenderness General Back: Negative for CVA tenderness Cervical Spine: Negative for cervical spine tenderness Thoracic Spine / Upper Back: Negative for thoracic spinal tenderness Lumbar Spine / Lower Back: Negative for lumbar spinal tenderness Extremity normal to inspection Extremity Narrative: Trace edema. Nontender. Normal strength. Normal range of motion. General Extremety ED: Yes edema; Negative for tenderness General Extremity: edema Neuro oriented x3 and CN's II-XII intact bilaterally Sensorium / Orientation: alert; Negative for orientation impaired, lethargic or stuporous Motor Exam: strength 5/5 throughout; Negative for general weakness or strength abnormal Psych mental status grossly normal Appearance: Negative for unkempt Attitude: No agitated Mood & Affect: Negative for depressed, anxious or tearful Skin no rashes or lesions noted, no wounds and skin turgor normal General Skin Exam: Negative for elasticity normal, jaundice or pallor Lesions: No lesion noted Rashes: No rashes noted Trauma: Negative for abrasion Wounds: Negative for wounds noted MDM MDM MDM Narrative Medical decision making narrative: 53-year-old male near syncopal episode. Recent diarrhea and excessive thirst and weight loss. Concern would be dehydration, dysrhythmia, possible new onset diabetes versus other etiologies. Labs and chest x-ray are being obtained. Repeat exam patient is doing well at 2:35 PM. I discussed at length with him and his his new onset diabetes Mychel bigger acute concern is his significant EKG abnormalities with deep symmetrical T wave inversions in leads V2 through V6. This is new from an EKG done in March of this year. After furtherdiscussion he has had significant exertional dyspnea and some mild exertional chest pain. I think this needs to be admitted for further evaluation. I have the hospitalist on page. He will also be given a liter of normal saline for thehyperglycemia. I discussed the patient's case with Dr. José Miguel Wu of cardiology. Most likely the patient will need a cardiac catheterization tomorrow. History & Record Review Discussion w/independent historian: Patient and Family Additional record(s) reviewed:: Prior inpatient record, Prior outpatient record,Prior ED visit and Prior labs Lab Data Attestation: I reviewed the patient's lab results. Lab results narrative: CBC unremarkable. White count 7.5. H&H is 16 and 49. Platelets 218. Chemistries show sodium 133. Gap of 5 normal BUN of 12 creatinine of 1. Glucose is elevated 386 consistent with new onset diabetes. Troponin is normal at 40. Labs: Laboratory Results - last 24 hr 10/18/23 10/18/23 13:03 13:10 WBC 7.5 RBC 5.81 Hgb 16.8 H Hct 49.0 MCV 84.3 MCH 28.9 MCHC 34.3 RDW Std Deviation 41.6 RDW Coeff of Darrel 13.5 Plt Count 218 MPV 10.5 Immature Gran % (Auto) 0.800 Neut % (Auto) 74.9 H Lymph % (Auto) 14.9 L [place] % (Auto) 5.6 Eos % (Auto) 3.1 Baso % (Auto) 0.7 Absolute Neuts (auto) 5.6 Absolute Lymphs (auto) 1.11 Nucleated RBC % 0 Sodium 133 L Potassium 4.1 Chloride 101 Carbon Dioxide 27.0 Anion Gap 5 BUN 12 Creatinine 1.07 Estim Creat Clear Calc 84.33 Est GFR (MDRD) Af Amer 94 Est GFR (MDRD) Non-Af 77 BUN/Creatinine Ratio 11.2 Glucose 386 H Calcium 8.6 Troponin I High Sens 40 POC Glucose 381 H Radiography Chest X-Ray - ED: 1 View, Read by ED Physician, Read by Radiologist, Heart, Lungs, Mediastinum, Bony Structures, No Acute Disease and Chronic Changes Diagnostic Testing: Clinical Impression(s) from Imaging Studies Chest X-Ray 10/18/23 13:04 IMPRESSION: No acute abnormality is present. Electronically Signed: Yoseph Lewis MD at 13:19 EST , Chest x-ray, portable, single view shows no acute abnormality. Chronic changes. Normal cardiac silhouette. Normal mediastinum. Interpreted both by myself andthe radiologist. Rhythm Strip Rhythm Strip: Sinus Rhythm Rate: 86 Ectopy: None EKG Initial EKG: Attestation: I personally reviewed and interpreted this EKG as follows: Interpretation: Sinus Rhythm and No Acute Injury Pattern Comments: Normal sinus rhythm rate 86. Patient does have deep symmetricalT wave inversions in V2 through V6 also lead I and II which is all new from a prior EKG from January of this year which was basically normal. Prior EKG tracings: available for review Prior: Changed Discharge Plan Dx/Rx/DC Orders Clinical Impression: Near syncope, Abnormal ECG, Exertional chest pain, Diabetes mellitus, new onset Disposition Disposition: Acute Care Hospital [facility] What to do if you have Problems For any increased pain, shortness of breath, bleeding, nausea or vomiting, chestpain, or any unexpected problems, contact your Primary Care Provider. Call [facility] ([phone]) or report to the closest Emergency Room. Call 911 if necessary. 10/18/23 1659 <Electronically signed by Eduardo Montgomery MD> Cosigner Signature (if applicable): CC: Dr. Avinash Barreto MD ~ Signed [facility] Work Phone: [phone]) 240-465209-26-2023 Procedure [facility] 09-16-2019 Microscopic observation Gram stain Nom (Sput)Gram Stain Evaluation [facility]ACC (Normal)Comments:This specimen is of good quality and is acceptable for routinebacterial culture. [facility] Work Phone: comment on above:This specimen is of good quality and is acceptable for routinebacterial culture.PATIENT NOT FASTINGPERFORMED BY: [facility] [id number] [address] [id number] Information: SRC:SPConsult note Author Chris Chapmanwillie [facility] October 19, 2023 3:59pm Note Date/Time October 19, 2023 3 :59pm [facility] Medical Records Department [address] [place] [id number] Counseling Note - Pharmacy 10/19/23 1558 MR#: [id number] Acct: [id number] Name: LISA RODRIGUEZ Rep #:[id number] : 1970 53 From: Chris Pelaez PCP: Dr. Avinash Barreto MD Status: ADM IN Y Location: [facility] [id number] 1 Pharmacy [facility] has performed discharge medication reconciliation and counseling for this patient. The patient's discharge medication list was reviewed for discrepancies and discrepancies were resolved. The patient was counseled on the following discharge medications and changes in medications for homegoing were reviewed. The Reason for Use, instructions for use, and potential side effects were reviewed for all new medications. The patient's questions regarding all of their medications were answered. 1. Insulin glargine 10 units subcutaneous daily 2. Metoprolol succinate 50 mg PO daily The patient was able to verbally demonstrate an understanding of their dischargemedications. Medications at Discharge Home Medications albuterol sulfate 90 mcg/actuation aerosol inhaler (Ventolin HFA) 2 puff inhalation Q6H PRN SOB 12/26/21 danazol 200 mg capsule 200 mg PO BID hormones 12/26/21 loratadine 10 mg tablet (Claritin) 10 mg PO DAILY PRN ALLERGIES 02/21/22 omeprazole 20 mg capsule,delayed release 20 mg PO DAILY reflux 10/18/23 insulin glargine-yfgn 100 unit/mL (3 mL) subcutaneous pen 10 unit (0.1 mL) subcut DAILY #15 mL 10/19/23 metoprolol succinate 50 mg tablet,extended release 24 hr 50 mg PO DAILY #30 tabs112/20/22 pen needle, diabetic 31 gauge x 5/16 (BD Ultra-Fine Short Pen Needle) #100 ea 10/19/23 10/19/23 1559 <Electronically signed by Chris jamison> Date _ Chris Quniteros Signature (if applicable): Date CC: ~ Signed [facility] Work Phone: Consult note Author Markus Arango [facility] Note Date/Time January 30, 2025 10: 35am [facility] Medical Records Department [address] [place] [address] Anesthesia Postop Eval I 01/30/25 0947 MR#: [id number] Acct: [id number] Name: LISA RODRIGUEZ Rep #:[id number] : 1970 54 From: Markus Arango PCP: Dr. Christiano Barreto MD Status :REG SDC Y Race: C Location: [place] [address] Anesthesia: Postop Eval I Current Vital Signs Temperature: 97.4 F Pulse Rate: 87 Blood Pressure: 103/70 Respiratory Rate: 16 Pulse Ox: 93 Oxygen Delivery Method: Room Air Assessment Airway patent: Yes Spontaneous unlabored respirations: Yes Mental status: Asleep nausea: No Vomiting: No Anesthesia Complication: No Fluid Hydration Crystalloid volume administer (ml): 40 Total IV fluid infused: 40 Progress Note Anesthesia document: Postop Eval 1 completed: Yes 01/30/25 0947 <Electronically signed by Markus Arango > Date _ Markus Arango Cosigner Signature: Date CC: ~ Signed [facility] Work Phone: Discharge summary Author Lissy Goel [facility] October 19, 2023 2:49pm Note Date/Time October 19, 2023 2 :45pm [facility] Medical Records Department [address] [place] [id number] Instructions for Home/Discharge Instructions 10/19/23 1444 MR#: [id number] Acct: [id number] Name: LISA RODRIGUEZ Rep #:[id number] : 1970 53 From: Lissy Goel MD PCP: Dr. Avinash Barreto MD Status: ADM IN Discharge Instructions Diet Discharge Diet: Carb Control Diet Activity Discharge Activity: - (Increase activity as tolerated) Follow Up Care Test Results: Test results from this visit will be discussed in further detail at your follow- up appointment, if applicable. Discharge Plan Admission Admit Date/Time: 10/18/23 15:43 Primary Reason for Your Visit: Lightheaded episode Attending Provider: Lissy Goel Primary Care Provider: Avinash Barreto Consulting Providers: José Miguel Wu; Andrew Brown Instructions Patient Instructions: Insulin How To Use Where Inject, Injection Pens Dc, Insulin Pen Clear Insulin Steps, ED Using an Injection Pen Additional Instructions / Restrictions: DISCHARGE INSTRUCTIONS PLEASE READ *Please take this with you to your next doctors appointment* -You will be discharged on long-acting insulin, 10 units, and will likely need further adjustments on an outpatient basis so please check your blood glucose daily and take this log with you at your next primary care physician appointment -You will also be started on metoprolol, please take this as prescribed -Please follow-up with an eye doctor upon discharge -You will need to follow-up with cardiology upon discharge, please call the office of Dr. Wu upon discharge to schedule your hospital follow-up appointment (ph [phone]) -Please call your primary care provider's office upon discharge to schedule a hospital follow up within 1 week. -For any concerning signs or symptoms please call 911 or proceed to the nearest emergency department Discharge Orders/Prescriptions Prescriptions: New metoprolol succinate 50 mg Tablet Extended Release 24 Hr 50 mg PO DAILY Qty: 30 0RF (DME) pen needle, diabetic [BD Ultra-Fine Short Pen Needle] 31 gauge x 5/16 needle See Rx Instructions .Route Qty: 100 3RF Rx Instructions: As directed insulin glargine-yfgn 100 unit/mL (3 mL) Insulin Pen 10 unit subcut DAILY Qty: 15 0RF Rx Instructions: Inject 10 u daily Continued albuterol sulfate [Ventolin HFA] 90 mcg/actuation HFA aerosol inhaler 2 puff inhalation Q6H PRN (Reason: SOB) danazol 200 mg capsule 200 mg PO BID Patient Comments: loratadine [Claritin] 10 mg Tablet 10 mg PO DAILY PRN (Reason: ALLERGIES) omeprazole 20 mg capsule,delayed release(DR/EC) 20 mg PO DAILY Referrals / Follow Up: José Miguel Wu MD [Med Staff - Active Staff] - Avinash Barreto MD [Primary Care Provider] - Within 1 Week Disposition Disposition (needs filled in before D/C Order can be placed): Home, Self Care 10/19/23 7252<Electronically signed by Lissy Goel MD>Lissy Goel MD CC: Dr. Andrew Brown DO; Dr. Avinash Barreto MD; Dr. José Miguel Wu MD~ Signed [facility] Work Phone: Evaluation note* Diagnosis Onset Date Resolution Status Difficulty swallowing acute Difficulty swallowing acute Gastroesophageal reflux disease acute Gastroparesis acute [facility] Work Phone: Evaluation noteNo assessment information available [facility] Work Phone: Evaluation note* Diagnosis Onset Date Resolution Status Abnormal ECG acute Diabetes mellitus, new onset acute Exertional chest pain acute Near syncope acute [facility] Work Phone: Evaluation note* Diagnosis Onset Date Resolution Status HOCM (hypertrophic obstructive cardiomyopathy) acute Palpitations acute [facility] Work Phone: Evaluation note* Diagnosis Lightheaded- Primary Dizziness and giddiness Visual changes Unspecified visual disturbance [facility] Diagnosis Onset Date Resolution Status Admit Date Dyslipidemia acute July 06, 2025 3:18pm HOCM (hypertrophic obstructi ve cardiomyopathy) acute July 06 3:18pm [facility] Work Phone: Hospital Discharge instructions Additional Instructions Your tests and CAT scan and EKG were unremarkable tonight. No specific cause for your dizziness. Follow-up with your primary care physician. I will contact the physician on-call for them tonight so that they know you are in the ER and will need follow-up.[facility] Work Phone: Instructions* Name Dates Details Patient Instructions Indication:BMI 35.0-35.9,adult Start:07-Mar-2021 Instruction Type:Provider Instructions for Treatment How to Access Health Informa tion Online using Patient Portal and [employer] Apps Indication:BMI 35.0-35.9,adult Start:07-Mar-2021 Instruction Type:Patient Education Patient Instructions Indication:Non-smoker Start:01-Mar-2021 Instruction Type:Provider Instructions for Treatment How to Access Health Informa tion Online using Patient Portal and [employer] Apps Indication:Non-smoker Start:01-Mar-2021 Instruction Type:Patient Education Patient Instructions Indication:Non-smoker Start:18-Jan-2021 Instruction Type:Provider Instructions for Treatment How to Access Health Informa tion Online using Patient Portal and [employer]rd [employer] Apps Indication:Non-smoker Start:18-Jan-2021 Instruction Type:Patient Education Patient Instructions Indication:BMI 35.0-35.9,adult Start:29-Nov-2020 Instruction Type:Provider Instructions for Treatment How to Access Health Informa tion Online using Patient Portal and [employer]rd [employer] Apps Indication:BMI 35.0-35.9,adult Start:29-Nov-2020 Instruction Type:Patient Education How to access health informa tion online Indication:Non-smoker Start:28-Jan-2020 Instruction Type:Patient Education How to access health informa tion online - Detail Indication:Non-smoker Start:28-Jan-2020 Instruction Type:Patient Education Patient Instructions Indication:Non-smoker Start:28-Jan-2020 Instruction Type:Provider Instructions for Treatment How to access health informa tion online Indication:Non-smoker Start:13-Jan-2020 Instruction Type:Patient Education How to access health informa tion online - Detail Indication:Non-smoker Start:13-Jan-2020 Instruction Type:Patient Education Patient Instructions Indication:Non-smoker Start:13-Jan-2020 Instruction Type:Provider Instructions for Treatment How to access health informa tion online Indication:BMI 39.0-39.9,adult Start:16-Sep-2019 Instruction Type:Patient Education How to access health informa tion online - Detail Indication:BMI 39.0-39.9,adult Start:16-Sep-2019 Instruction Type:Patient Education Patient Instructions Indication:BMI 39.0-39.9,adult Start:16-Sep-2019 Instruction Type:Provider Instructions for Treatment How to access health informa tion online Indication:Non-smoker Start:28-Jul-2019 Instruction Type:Patient Education How to access health informa tion online - Detail Indication:Non-smoker Start:28-Jul-2019 Instruction Type:Patient Education Patient Instructions Indication:Non-smoker Start:28-Jul-2019 Instruction Type:Provider Instructions for Treatment Patient Instructions Indication:Allergic rhinitis Start:27-Sep-2015 Instruction Type:Provider Instructions for Treatment Patient Instructions Indication:Serous conjunctivitis, unspecified laterality Start:18-Jul-2013 Instruction Type:Provider Instructions for Treatment Patient Instructions Indication:Neoplasm of uncertain behavior of skin Start:06-Aug-2012 Instruction Type:Provider Instructions for Treatment [facility] Work Phone: Instructions* Name Dates Details How to Access Health Informa tion Online using Patient Portal and [employer]rd [employer] Apps Indication:Non-smoker Start:15-Mar-2021 Instruction Type:Patient Education Patient Instructions Indication:Non-smoker Start:15-Mar-2021 Instruction Type:Provider Instructions for Treatment Patient Instructions Indication:BMI 35.0-35.9,adult Start:07-Mar-2021 Instruction Type:Provider Instructions for Treatment How to Access Health Informa tion Online using Patient Portal and [employer]rd [employer] Apps Indication:BMI 35.0-35.9,adult Start:07-Mar-2021 Instruction Type:Patient Education Patient Instructions Indication:Non-smoker Start:01-Mar-2021 Instruction Type:Provider Instructions for Treatment How to Access Health Informa tion Online using Patient Portal and [employer]rd [employer] Apps Indication:Non-smoker Start:01-Mar-2021 Instruction Type:Patient Education Patient Instructions Indication:Non-smoker Start:18-Jan-2021 Instruction Type:Provider Instructions for Treatment How to Access Health Informa tion Online using Patient Portal and [employer]rd [employer] Apps Indication:Non-smoker Start:18-Jan-2021 Instruction Type:Patient Education Patient Instructions Indication:BMI 35.0-35.9,adult Start:29-Nov-2020 Instruction Type:Provider Instructions for Treatment How to Access Health Informa tion Online using Patient Portal and 3rd [employer] Apps Indication:BMI 35.0-35.9,adult Start:29-Nov-2020 Instruction Type:Patient Education How to access health informa tion online Indication:Non-smoker Start:28-Jan-2020 Instruction Type:Patient Education How to access health informa tion online - Detail Indication:Non-smoker Start:28-Jan-2020 Instruction Type:Patient Education Patient Instructions Indication:Non-smoker Start:28-Jan-2020 Instruction Type:Provider Instructions for Treatment How to access health informa tion online Indication:Non-smoker Start:13-Jan-2020 Instruction Type:Patient Education How to access health informa tion online - Detail Indication:Non-smoker Start:13-Jan-2020 Instruction Type:Patient Education Patient Instructions Indication:Non-smoker Start:13-Jan-2020 Instruction Type:Provider Instructions for Treatment How to access health informa tion online Indication:BMI 39.0-39.9,adult Start:16-Sep-2019 Instruction Type:Patient Education How to access health informa tion online - Detail Indication:BMI 39.0-39.9,adult Start:16-Sep-2019 Instruction Type:Patient Education Patient Instructions Indication:BMI 39.0-39.9,adult Start:16-Sep-2019 Instruction Type:Provider Instructions for Treatment How to access health informa tion online Indication:Non-smoker Start:28-Jul-2019 Instruction Type:Patient Education How to access health informa tion online - Detail Indication:Non-smoker Start:28-Jul-2019 Instruction Type:Patient Education Patient Instructions Indication:Non-smoker Start:28-Jul-2019 Instruction Type:Provider Instructions for Treatment Patient Instructions Indication:Allergic rhinitis Start:27-Sep-2015 Instruction Type:Provider Instructions for Treatment Patient Instructions Indication:Serous conjunctivitis, unspecified laterality Start:18-Jul-2013 Instruction Type:Provider Instructions for Treatment Patient Instructions Indication:Neoplasm of uncertain behavior of skin Start:06-Aug-2012 Instruction Type:Provider Instructions for Treatment [facility] Work Phone: Instructions* Name Dates Details How to Access Health Informa tion Online using Patient Portal and [employer] Apps Indication:Non-smoker Start:15-Mar-2021 Instruction Type:Patient Education Patient Instructions Indication:Non-smoker Start:15-Mar-2021 Instruction Type:Provider Instructions for Treatment Patient Instructions Indication:BMI 35.0-35.9,adult Start:07-Mar-2021 Instruction Type:Provider Instructions for Treatment How to Access Health Informa tion Online using Patient Portal and [employer] Apps Indication:BMI 35.0-35.9,adult Start:07-Mar-2021 Instruction Type:Patient Education Patient Instructions Indication:Non-smoker Start:01-Mar-2021 Instruction Type:Provider Instructions for Treatment How to Access Health Informa tion Online using Patient Portal and [employer]rd [employer] Apps Indication:Non-smoker Start:01-Mar-2021 Instruction Type:Patient Education Patient Instructions Indication:Non-smoker Start:18-Jan-2021 Instruction Type:Provider Instructions for Treatment How to Access Health Informa tion Online using Patient Portal and [employer]rd [employer] Apps Indication:Non-smoker Start:18-Jan-2021 Instruction Type:Patient Education Patient Instructions Indication:BMI 35.0-35.9,adult Start:29-Nov-2020 Instruction Type:Provider Instructions for Treatment How to Access Health Informa tion Online using Patient Portal and [employer]rd [employer] Apps Indication:BMI 35.0-35.9,adult Start:29-Nov-2020 Instruction Type:Patient Education How to access health informa tion online Indication:Non-smoker Start:28-Jan-2020 Instruction Type:Patient Education How to access health informa tion online - Detail Indication:Non-smoker Start:28-Jan-2020 Instruction Type:Patient Education Patient Instructions Indication:Non-smoker Start:28-Jan-2020 Instruction Type:Provider Instructions for Treatment How to access health informa tion online Indication:Non-smoker Start:13-Jan-2020 Instruction Type:Patient Education How to access health informa tion online - Detail Indication:Non-smoker Start:13-Jan-2020 Instruction Type:Patient Education Patient Instructions Indication:Non-smoker Start:13-Jan-2020 Instruction Type:Provider Instructions for Treatment How to access health informa tion online Indication:BMI 39.0-39.9,adult Start:16-Sep-2019 Instruction Type:Patient Education How to access health informa tion online - Detail Indication:BMI 39.0-39.9,adult Start:16-Sep-2019 Instruction Type:Patient Education Patient Instructions Indication:BMI 39.0-39.9,adult Start:16-Sep-2019 Instruction Type:Provider Instructions for Treatment How to access health informa tion online Indication:Non-smoker Start:28-Jul-2019 Instruction Type:Patient Education How to access health informa tion online - Detail Indication:Non-smoker Start:28-Jul-2019 Instruction Type:Patient Education Patient Instructions Indication:Non-smoker Start:28-Jul-2019 Instruction Type:Provider Instructions for Treatment Patient Instructions Indication:Allergic rhinitis Start:27-Sep-2015 Instruction Type:Provider Instructions for Treatment Patient Instructions Indication:Serous conjunctivitis, unspecified laterality Start:18-Jul-2013 Instruction Type:Provider Instructions for Treatment Patient Instructions Indication:Neoplasm of uncertain behavior of skin Start:06-Aug-2012 Instruction Type:Provider Instructions for Treatment [facility] Work Phone: Instructions* Name Dates Details How to Access Health Informa tion Online using Patient Portal and [employer] Apps Indication:Non-smoker Start:15-Mar-2021 Instruction Type:Patient Education Patient Instructions Indication:Non-smoker Start:15-Mar-2021 Instruction Type:Provider Instructions for Treatment Patient Instructions Indication:BMI 35.0-35.9,adult Start:07-Mar-2021 Instruction Type:Provider Instructions for Treatment How to Access Health Informa tion Online using Patient Portal and [employer] Apps Indication:BMI 35.0-35.9,adult Start:07-Mar-2021 Instruction Type:Patient Education Patient Instructions Indication:Non-smoker Start:01-Mar-2021 Instruction Type:Provider Instructions for Treatment How to Access Health Informa tion Online using Patient Portal and [employer] Apps Indication:Non-smoker Start:01-Mar-2021 Instruction Type:Patient Education Patient Instructions Indication:Non-smoker Start:18-Jan-2021 Instruction Type:Provider Instructions for Treatment How to Access Health Informa tion Online using Patient Portal and [employer] Apps Indication:Non-smoker Start:18-Jan-2021 Instruction Type:Patient Education Patient Instructions Indication:BMI 35.0-35.9,adult Start:29-Nov-2020 Instruction Type:Provider Instructions for Treatment How to Access Health Informa tion Online using Patient Portal and [employer] Apps Indication:BMI 35.0-35.9,adult Start:29-Nov-2020 Instruction Type:Patient Education How to access health informa tion online Indication:Non-smoker Start:28-Jan-2020 Instruction Type:Patient Education How to access health informa tion online - Detail Indication:Non-smoker Start:28-Jan-2020 Instruction Type:Patient Education Patient Instructions Indication:Non-smoker Start:28-Jan-2020 Instruction Type:Provider Instructions for Treatment How to access health informa tion online Indication:Non-smoker Start:13-Jan-2020 Instruction Type:Patient Education How to access health informa tion online - Detail Indication:Non-smoker Start:13-Jan-2020 Instruction Type:Patient Education Patient Instructions Indication:Non-smoker Start:13-Jan-2020 Instruction Type:Provider Instructions for Treatment How to access health informa tion online Indication:BMI 39.0-39.9,adult Start:16-Sep-2019 Instruction Type:Patient Education How to access health informa tion online - Detail Indication:BMI 39.0-39.9,adult Start:16-Sep-2019 Instruction Type:Patient Education Patient Instructions Indication:BMI 39.0-39.9,adult Start:16-Sep-2019 Instruction Type:Provider Instructions for Treatment How to access health informa tion online Indication:Non-smoker Start:28-Jul-2019 Instruction Type:Patient Education How to access health informa tion online - Detail Indication:Non-smoker Start:28-Jul-2019 Instruction Type:Patient Education Patient Instructions Indication:Non-smoker Start:28-Jul-2019 Instruction Type:Provider Instructions for Treatment Patient Instructions Indication:Allergic rhinitis Start:27-Sep-2015 Instruction Type:Provider Instructions for Treatment Patient Instructions Indication:Serous conjunctivitis, unspecified laterality Start:18-Jul-2013 Instruction Type:Provider Instructions for Treatment Patient Instructions Indication:Neoplasm of uncertain behavior of skin Start:06-Aug-2012 Instruction Type:Provider Instructions for Treatment [facility] Work Phone: Instructions* Name Dates Details Patient Instructions Indication:Non-smoker Start:21-Mar-2021 Instruction Type:Provider Instructions for Treatment How to Access Health Informa tion Online using Patient Portal and [employer] Apps Indication:Non-smoker Start:21-Mar-2021 Instruction Type:Patient Education How to Access Health Informa tion Online using Patient Portal and [employer] Apps Indication:Non-smoker Start:15-Mar-2021 Instruction Type:Patient Education Patient Instructions Indication:Non-smoker Start:15-Mar-2021 Instruction Type:Provider Instructions for Treatment Patient Instructions Indication:BMI 35.0-35.9,adult Start:07-Mar-2021 Instruction Type:Provider Instructions for Treatment How to Access Health Informa tion Online using Patient Portal and [employer]rd [employer] Indication:BMI 35.0-35.9,adult Start:07-Mar-2021 Instruction Type:Patient Education Patient Instructions Indication:Non-smoker Start:01-Mar-2021 Instruction Type:Provider Instructions for Treatment How to Access Health Informa tion Online using Patient Portal and [employer]rd [employer] Apps Indication:Non-smoker Start:01-Mar-2021 Instruction Type:Patient Education Patient Instructions Indication:Non-smoker Start:18-Jan-2021 Instruction Type:Provider Instructions for Treatment How to Access Health Informa tion Online using Patient Portal and [employer]rd [employer] Apps Indication:Non-smoker Start:18-Jan-2021 Instruction Type:Patient Education Patient Instructions Indication:BMI 35.0-35.9,adult Start:29-Nov-2020 Instruction Type:Provider Instructions for Treatment How to Access Health Informa tion Online using Patient Portal and [employer]rd [employer] Apps Indication:BMI 35.0-35.9,adult Start:29-Nov-2020 Instruction Type:Patient Education How to access health informa tion online Indication:Non-smoker Start:28-Jan-2020 Instruction Type:Patient Education How to access health informa tion online - Detail Indication:Non-smoker Start:28-Jan-2020 Instruction Type:Patient Education Patient Instructions Indication:Non-smoker Start:28-Jan-2020 Instruction Type:Provider Instructions for Treatment How to access health informa tion online Indication:Non-smoker Start:13-Jan-2020 Instruction Type:Patient Education How to access health informa tion online - Detail Indication:Non-smoker Start:13-Jan-2020 Instruction Type:Patient Education Patient Instructions Indication:Non-smoker Start:13-Jan-2020 Instruction Type:Provider Instructions for Treatment How to access health informa tion online Indication:BMI 39.0-39.9,adult Start:16-Sep-2019 Instruction Type:Patient Education How to access health informa tion online - Detail Indication:BMI 39.0-39.9,adult Start:16-Sep-2019 Instruction Type:Patient Education Patient Instructions Indication:BMI 39.0-39.9,adult Start:16-Sep-2019 Instruction Type:Provider Instructions for Treatment How to access health informa tion online Indication:Non-smoker Start:28-Jul-2019 Instruction Type:Patient Education How to access health informa tion online - Detail Indication:Non-smoker Start:28-Jul-2019 Instruction Type:Patient Education Patient Instructions Indication:Non-smoker Start:28-Jul-2019 Instruction Type:Provider Instructions for Treatment Patient Instructions Indication:Allergic rhinitis Start:27-Sep-2015 Instruction Type:Provider Instructions for Treatment Patient Instructions Indication:Serous conjunctivitis, unspecified laterality Start:18-Jul-2013 Instruction Type:Provider Instructions for Treatment Patient Instructions Indication:Neoplasm of uncertain behavior of skin Start:06-Aug-2012 Instruction Type:Provider Instructions for Treatment [facility] Work Phone: Instructions* Name Dates Details Patient Instructions Indication:Non-smoker Start:21-Mar-2021 Instruction Type:Provider Instructions for Treatment How to Access Health Informa tion Online using Patient Portal and [employer]rd [employer] Apps Indication:Non-smoker Start:21-Mar-2021 Instruction Type:Patient Education How to Access Health Informa tion Online using Patient Portal and [employer]rd [employer] Apps Indication:Non-smoker Start:15-Mar-2021 Instruction Type:Patient Education Patient Instructions Indication:Non-smoker Start:15-Mar-2021 Instruction Type:Provider Instructions for Treatment Patient Instructions Indication:BMI 35.0-35.9,adult Start:07-Mar-2021 Instruction Type:Provider Instructions for Treatment How to Access Health Informa tion Online using Patient Portal and [employer]rd [employer] Apps Indication:BMI 35.0-35.9,adult Start:07-Mar-2021 Instruction Type:Patient Education Patient Instructions Indication:Non-smoker Start:01-Mar-2021 Instruction Type:Provider Instructions for Treatment How to Access Health Informa tion Online using Patient Portal and [employer] Apps Indication:Non-smoker Start:01-Mar-2021 Instruction Type:Patient Education Patient Instructions Indication:Non-smoker Start:18-Jan-2021 Instruction Type:Provider Instructions for Treatment How to Access Health Informa tion Online using Patient Portal and [employer]rd [employer] Apps Indication:Non-smoker Start:18-Jan-2021 Instruction Type:Patient Education Patient Instructions Indication:BMI 35.0-35.9,adult Start:29-Nov-2020 Instruction Type:Provider Instructions for Treatment How to Access Health Informa tion Online using Patient Portal and [employer]rd [employer] Apps Indication:BMI 35.0-35.9,adult Start:29-Nov-2020 Instruction Type:Patient Education How to access health informa tion online Indication:Non-smoker Start:28-Jan-2020 Instruction Type:Patient Education How to access health informa tion online - Detail Indication:Non-smoker Start:28-Jan-2020 Instruction Type:Patient Education Patient Instructions Indication:Non-smoker Start:28-Jan-2020 Instruction Type:Provider Instructions for Treatment How to access health informa tion online Indication:Non-smoker Start:13-Jan-2020 Instruction Type:Patient Education How to access health informa tion online - Detail Indication:Non-smoker Start:13-Jan-2020 Instruction Type:Patient Education Patient Instructions Indication:Non-smoker Start:13-Jan-2020 Instruction Type:Provider Instructions for Treatment How to access health informa tion online Indication:BMI 39.0-39.9,adult Start:16-Sep-2019 Instruction Type:Patient Education How to access health informa tion online - Detail Indication:BMI 39.0-39.9,adult Start:16-Sep-2019 Instruction Type:Patient Education Patient Instructions Indication:BMI 39.0-39.9,adult Start:16-Sep-2019 Instruction Type:Provider Instructions for Treatment How to access health informa tion online Indication:Non-smoker Start:28-Jul-2019 Instruction Type:Patient Education How to access health informa tion online - Detail Indication:Non-smoker Start:28-Jul-2019 Instruction Type:Patient Education Patient Instructions Indication:Non-smoker Start:28-Jul-2019 Instruction Type:Provider Instructions for Treatment Patient Instructions Indication:Allergic rhinitis Start:27-Sep-2015 Instruction Type:Provider Instructions for Treatment Patient Instructions Indication:Serous conjunctivitis, unspecified laterality Start:18-Jul-2013 Instruction Type:Provider Instructions for Treatment Patient Instructions Indication:Neoplasm of uncertain behavior of skin Start:06-Aug-2012 Instruction Type:Provider Instructions for Treatment [facility] Work Phone: Instructions* Name Dates Details Patient Instructions Indication:BMI 38.0-38.9,adult Start:31-May-2021 Instruction Type:Provider Instructions for Treatment How to Access Health Informa tion Online using Patient Portal and [employer]rd [employer] Apps Indication:BMI 38.0-38.9,adult Start:31-May-2021 Instruction Type:Patient Education Patient Instructions Indication:Non-smoker Start:21-Mar-2021 Instruction Type:Provider Instructions for Treatment How to Access Health Informa tion Online using Patient Portal and [employer]rd [employer] Apps Indication:Non-smoker Start:21-Mar-2021 Instruction Type:Patient Education How to Access Health Informa tion Online using Patient Portal and [employer]rd [employer] Apps Indication:Non-smoker Start:15-Mar-2021 Instruction Type:Patient Education Patient Instructions Indication:Non-smoker Start:15-Mar-2021 Instruction Type:Provider Instructions for Treatment Patient Instructions Indication:BMI 35.0-35.9,adult Start:07-Mar-2021 Instruction Type:Provider Instructions for Treatment How to Access Health Informa tion Online using Patient Portal and [employer]rd [employer] Apps Indication:BMI 35.0-35.9,adult Start:07-Mar-2021 Instruction Type:Patient Education Patient Instructions Indication:Non-smoker Start:01-Mar-2021 Instruction Type:Provider Instructions for Treatment How to Access Health Informa tion Online using Patient Portal and [employer]rd [employer] Apps Indication:Non-smoker Start:01-Mar-2021 Instruction Type:Patient Education Patient Instructions Indication:Non-smoker Start:18-Jan-2021 Instruction Type:Provider Instructions for Treatment How to Access Health Informa tion Online using Patient Portal and [employer]rd [employer] Apps Indication:Non-smoker Start:18-Jan-2021 Instruction Type:Patient Education Patient Instructions Indication:BMI 35.0-35.9,adult Start:29-Nov-2020 Instruction Type:Provider Instructions for Treatment How to Access Health Informa tion Online using Patient Portal and [employer]rd [employer] Apps Indication:BMI 35.0-35.9,adult Start:29-Nov-2020 Instruction Type:Patient Education How to access health informa tion online Indication:Non-smoker Start:28-Jan-2020 Instruction Type:Patient Education How to access health informa tion online - Detail Indication:Non-smoker Start:28-Jan-2020 Instruction Type:Patient Education Patient Instructions Indication:Non-smoker Start:28-Jan-2020 Instruction Type:Provider Instructions for Treatment How to access health informa tion online Indication:Non-smoker Start:13-Jan-2020 Instruction Type:Patient Education How to access health informa tion online - Detail Indication:Non-smoker Start:13-Jan-2020 Instruction Type:Patient Education Patient Instructions Indication:Non-smoker Start:13-Jan-2020 Instruction Type:Provider Instructions for Treatment How to access health informa tion online Indication:BMI 39.0-39.9,adult Start:16-Sep-2019 Instruction Type:Patient Education How to access health informa tion online - Detail Indication:BMI 39.0-39.9,adult Start:16-Sep-2019 Instruction Type:Patient Education Patient Instructions Indication:BMI 39.0-39.9,adult Start:16-Sep-2019 Instruction Type:Provider Instructions for Treatment How to access health informa tion online Indication:Non-smoker Start:28-Jul-2019 Instruction Type:Patient Education How to access health informa tion online - Detail Indication:Non-smoker Start:28-Jul-2019 Instruction Type:Patient Education Patient Instructions Indication:Non-smoker Start:28-Jul-2019 Instruction Type:Provider Instructions for Treatment Patient Instructions Indication:Allergic rhinitis Start:27-Sep-2015 Instruction Type:Provider Instructions for Treatment Patient Instructions Indication:Serous conjunctivitis, unspecified laterality Start:18-Jul-2013 Instruction Type:Provider Instructions for Treatment Patient Instructions Indication:Neoplasm of uncertain behavior of skin Start:06-Aug-2012 Instruction Type:Provider Instructions for Treatment [facility] Work Phone: Instructions* Name Dates Details Patient Instructions Indication:BMI 38.0-38.9,adult Start:19-Jul-2021 Instruction Type:Provider Instructions for Treatment How to Access Health Informa tion Online using Patient Portal and 3rd [employer] Apps Indication:BMI 38.0-38.9,adult Start:19-Jul-2021 Instruction Type:Patient Education Patient Instructions Indication:Non-smoker Start:21-Jun-2021 Instruction Type:Provider Instructions for Treatment How to Access Health Informa tion Online using Patient Portal and [employer]rd [employer] Apps Indication:Non-smoker Start:21-Jun-2021 Instruction Type:Patient Education Patient Instructions Indication:BMI 38.0-38.9,adult Start:31-May-2021 Instruction Type:Provider Instructions for Treatment How to Access Health Informa tion Online using Patient Portal and [employer]rd [employer] Apps Indication:BMI 38.0-38.9,adult Start:31-May-2021 Instruction Type:Patient Education Patient Instructions Indication:Non-smoker Start:21-Mar-2021 Instruction Type:Provider Instructions for Treatment How to Access Health Informa tion Online using Patient Portal and [employer]rd [employer] Apps Indication:Non-smoker Start:21-Mar-2021 Instruction Type:Patient Education How to Access Health Informa tion Online using Patient Portal and [employer]rd [employer] Apps Indication:Non-smoker Start:15-Mar-2021 Instruction Type:Patient Education Patient Instructions Indication:Non-smoker Start:15-Mar-2021 Instruction Type:Provider Instructions for Treatment Patient Instructions Indication:BMI 35.0-35.9,adult Start:07-Mar-2021 Instruction Type:Provider Instructions for Treatment How to Access Health Informa tion Online using Patient Portal and 3rd [employer] Apps Indication:BMI 35.0-35.9,adult Start:07-Mar-2021 Instruction Type:Patient Education Patient Instructions Indication:Non-smoker Start:01-Mar-2021 Instruction Type:Provider Instructions for Treatment How to Access Health Informa tion Online using Patient Portal and 3rd [employer] Apps Indication:Non-smoker Start:01-Mar-2021 Instruction Type:Patient Education Patient Instructions Indication:Non-smoker Start:18-Jan-2021 Instruction Type:Provider Instructions for Treatment How to Access Health Informa tion Online using Patient Portal and [employer]rd [employer] Apps Indication:Non-smoker Start:18-Jan-2021 Instruction Type:Patient Education Patient Instructions Indication:BMI 35.0-35.9,adult Start:29-Nov-2020 Instruction Type:Provider Instructions for Treatment How to Access Health Informa tion Online using Patient Portal and 3rd [employer] Apps Indication:BMI 35.0-35.9,adult Start:29-Nov-2020 Instruction Type:Patient Education How to access health informa tion online Indication:Non-smoker Start:28-Jan-2020 Instruction Type:Patient Education How to access health informa tion online - Detail Indication:Non-smoker Start:28-Jan-2020 Instruction Type:Patient Education Patient Instructions Indication:Non-smoker Start:28-Jan-2020 Instruction Type:Provider Instructions for Treatment How to access health informa tion online Indication:Non-smoker Start:13-Jan-2020 Instruction Type:Patient Education How to access health informa tion online - Detail Indication:Non-smoker Start:13-Jan-2020 Instruction Type:Patient Education Patient Instructions Indication:Non-smoker Start:13-Jan-2020 Instruction Type:Provider Instructions for Treatment How to access health informa tion online Indication:BMI 39.0-39.9,adult Start:16-Sep-2019 Instruction Type:Patient Education How to access health informa tion online - Detail Indication:BMI 39.0-39.9,adult Start:16-Sep-2019 Instruction Type:Patient Education Patient Instructions Indication:BMI 39.0-39.9,adult Start:16-Sep-2019 Instruction Type:Provider Instructions for Treatment How to access health informa tion online Indication:Non-smoker Start:28-Jul-2019 Instruction Type:Patient Education How to access health informa tion online - Detail Indication:Non-smoker Start:28-Jul-2019 Instruction Type:Patient Education Patient Instructions Indication:Non-smoker Start:28-Jul-2019 Instruction Type:Provider Instructions for Treatment Patient Instructions Indication:Allergic rhinitis Start:27-Sep-2015 Instruction Type:Provider Instructions for Treatment Patient Instructions Indication:Serous conjunctivitis, unspecified laterality Start:18-Jul-2013 Instruction Type:Provider Instructions for Treatment Patient Instructions Indication:Neoplasm of uncertain behavior of skin Start:06-Aug-2012 Instruction Type:Provider Instructions for Treatment [facility] Work Phone: Instructions* Name Dates Details Patient Instructions Indication:BMI 38.0-38.9,adult Start:19-Jul-2021 Instruction Type:Provider Instructions for Treatment How to Access Health Informa tion Online using Patient Portal and [employer]rd [employer] Apps Indication:BMI 38.0-38.9,adult Start:19-Jul-2021 Instruction Type:Patient Education Patient Instructions Indication:Non-smoker Start:21-Jun-2021 Instruction Type:Provider Instructions for Treatment How to Access Health Informa tion Online using Patient Portal and [employer]rd [employer] Apps Indication:Non-smoker Start:21-Jun-2021 Instruction Type:Patient Education Patient Instructions Indication:BMI 38.0-38.9,adult Start:31-May-2021 Instruction Type:Provider Instructions for Treatment How to Access Health Informa tion Online using Patient Portal and [employer]rd [employer] Apps Indication:BMI 38.0-38.9,adult Start:31-May-2021 Instruction Type:Patient Education Patient Instructions Indication:Non-smoker Start:21-Mar-2021 Instruction Type:Provider Instructions for Treatment How to Access Health Informa tion Online using Patient Portal and [employer]rd [employer] Apps Indication:Non-smoker Start:21-Mar-2021 Instruction Type:Patient Education How to Access Health Informa tion Online using Patient Portal and [employer]rd [employer] Apps Indication:Non-smoker Start:15-Mar-2021 Instruction Type:Patient Education Patient Instructions Indication:Non-smoker Start:15-Mar-2021 Instruction Type:Provider Instructions for Treatment Patient Instructions Indication:BMI 35.0-35.9,adult Start:07-Mar-2021 Instruction Type:Provider Instructions for Treatment How to Access Health Informa tion Online using Patient Portal and 3rd [employer] Apps Indication:BMI 35.0-35.9,adult Start:07-Mar-2021 Instruction Type:Patient Education Patient Instructions Indication:Non-smoker Start:01-Mar-2021 Instruction Type:Provider Instructions for Treatment How to Access Health Informa tion Online using Patient Portal and [employer]rd [employer] Apps Indication:Non-smoker Start:01-Mar-2021 Instruction Type:Patient Education Patient Instructions Indication:Non-smoker Start:18-Jan-2021 Instruction Type:Provider Instructions for Treatment How to Access Health Informa tion Online using Patient Portal and [employer]rd [employer] Apps Indication:Non-smoker Start:18-Jan-2021 Instruction Type:Patient Education Patient Instructions Indication:BMI 35.0-35.9,adult Start:29-Nov-2020 Instruction Type:Provider Instructions for Treatment How to Access Health Informa tion Online using Patient Portal and 3rd [employer] Apps Indication:BMI 35.0-35.9,adult Start:29-Nov-2020 Instruction Type:Patient Education How to access health informa tion online Indication:Non-smoker Start:28-Jan-2020 Instruction Type:Patient Education How to access health informa tion online - Detail Indication:Non-smoker Start:28-Jan-2020 Instruction Type:Patient Education Patient Instructions Indication:Non-smoker Start:28-Jan-2020 Instruction Type:Provider Instructions for Treatment How to access health informa tion online Indication:Non-smoker Start:13-Jan-2020 Instruction Type:Patient Education How to access health informa tion online - Detail Indication:Non-smoker Start:13-Jan-2020 Instruction Type:Patient Education Patient Instructions Indication:Non-smoker Start:13-Jan-2020 Instruction Type:Provider Instructions for Treatment How to access health informa tion online Indication:BMI 39.0-39.9,adult Start:16-Sep-2019 Instruction Type:Patient Education How to access health informa tion online - Detail Indication:BMI 39.0-39.9,adult Start:16-Sep-2019 Instruction Type:Patient Education Patient Instructions Indication:BMI 39.0-39.9,adult Start:16-Sep-2019 Instruction Type:Provider Instructions for Treatment How to access health informa tion online Indication:Non-smoker Start:28-Jul-2019 Instruction Type:Patient Education How to access health informa tion online - Detail Indication:Non-smoker Start:28-Jul-2019 Instruction Type:Patient Education Patient Instructions Indication:Non-smoker Start:28-Jul-2019 Instruction Type:Provider Instructions for Treatment Patient Instructions Indication:Allergic rhinitis Start:27-Sep-2015 Instruction Type:Provider Instructions for Treatment Patient Instructions Indication:Serous conjunctivitis, unspecified laterality Start:18-Jul-2013 Instruction Type:Provider Instructions for Treatment Patient Instructions Indication:Neoplasm of uncertain behavior of skin Start:06-Aug-2012 Instruction Type:Provider Instructions for Treatment [facility] Work Phone: reason for referral (narrative)No [facility]: Family History Unknown Family Member Name Dates Details Father Comments: Status:Active Mother Comments:heridatary angioede ma Status:Active Unknown Family Member Name Dates Details Father Comments: Status:Active Mother Comments:heridatary angioede ma Status:Active Unknown Family Member Name Dates Details Father Comments: Status:Active Mother Comments:heridatary angioede ma Status:Active Unknown Family Member Name Dates Details Father Comments: Status:Active Mother Comments:heridatary angioede ma Status:Active Unknown Family Member Name Dates Details Father Comments: Status:Active Mother Comments:heridatary angioede ma Status:Active Unknown Family Member Name Dates Details Father Comments: Status:Active Mother Comments:heridatary angioede ma Status:Active Unknown Family Member Name Dates Details Father Comments: Status:Active Mother Comments:heridatary angioede ma Status:Active Unknown Family Member Name Dates Details Father Comments: Status:Active Mother Comments:heridatary angioede ma Status:Active Unknown Family Member Name Dates Details Father Comments: Status:Active Mother Comments:heridatary angioede ma Status:Active Unknown Family Member Name Dates Details Father Comments: Status:Active Mother Comments:heridatary angioede ma Status:Active Unknown Family Member Name Dates Details Father Comments: Status:Active Mother Comments:heridatary angioede ma Status:Active Unknown Family Member Name Dates Details Father Comments: Status:Active Mother Comments:heridatary angioede ma Status:Active Unknown Family Member Name Dates Details Father Comments: Status:Active Mother Comments:heridatary angioede ma Status:Active Unknown Family Member Name Dates Details Father Comments: Status:Active Mother Comments:heridatary angioede ma Status:Active Unknown Family Member Name Dates Details Father Comments: Status:Active Mother Comments:heridatary angioede ma Status:Active Unknown Family Member Name Dates Details Father Comments: Status:Active Mother Comments:heridatary angioede ma Status:Active Unknown Family Member Name Dates Details Father Comments: Status:Active Mother Comments:heridatary angioede ma Status:Active Unknown Family Member Name Dates Details Father Comments: Status:Active Mother Comments:heridatary angioede ma Status:Active Unknown Family Member Name Dates Details Father Comments: Status:Active Mother Comments:heridatary angioede ma Status:Active Relationship Condition Age at Onset Recorded Date/T adiel mother Arthritis Unknown Hypertension Unknown High blood cholesterol Unknown Angioedema Unknown uncle Malignant melanoma Unknown Unknown Family Member Name Dates Details Father Comments: Status:Active Mother Comments:heridatary angioede ma Status:Active Relationship Condition Age at Onset Recorded Date/T adiel mother Arthritis Unknown Hypertension Unknown High blood cholesterol Unknown Angioedema Unknown uncle Malignant melanoma Unknown daughter Angioedema Unknown Instructions Name Dates Details Patient Instructions Indication:Allergic rhinitis Start:27-Sep-2015 Instruction Type:Provider Instructions for Treatment Patient Instructions Indication:Serous conjunctivitis, unspecified laterality Start:18-Jul-2013 Instruction Type:Provider Instructions for Treatment Patient Instructions Indication:Neoplasm of uncertain behavior of skin Start:06-Aug-2012 Instruction Type:Provider Instructions for Treatment Name Dates Details How to access health informa tion online Indication:Non-smoker Start:28-Jul-2019 Instruction Type:Patient Education How to access health informa tion online - Detail Indication:Non-smoker Start:28-Jul-2019 Instruction Type:Patient Education Patient Instructions Indication:Non-smoker Start:28-Jul-2019 Instruction Type:Provider Instructions for Treatment Patient Instructions Indication:Allergic rhinitis Start:27-Sep-2015 Instruction Type:Provider Instructions for Treatment Patient Instructions Indication:Serous conjunctivitis, unspecified laterality Start:18-Jul-2013 Instruction Type:Provider Instructions for Treatment Patient Instructions Indication:Neoplasm of uncertain behavior of skin Start:06-Aug-2012 Instruction Type:Provider Instructions for Treatment Name Dates Details How to access health informa tion online Indication:BMI 39.0-39.9,adult Start:16-Sep-2019 Instruction Type:Patient Education How to access health informa tion online - Detail Indication:BMI 39.0-39.9,adult Start:16-Sep-2019 Instruction Type:Patient Education Patient Instructions Indication:BMI 39.0-39.9,adult Start:16-Sep-2019 Instruction Type:Provider Instructions for Treatment How to access health informa tion online Indication:Non-smoker Start:28-Jul-2019 Instruction Type:Patient Education How to access health informa tion online - Detail Indication:Non-smoker Start:28-Jul-2019 Instruction Type:Patient Education Patient Instructions Indication:Non-smoker Start:28-Jul-2019 Instruction Type:Provider Instructions for Treatment Patient Instructions Indication:Allergic rhinitis Start:27-Sep-2015 Instruction Type:Provider Instructions for Treatment Patient Instructions Indication:Serous conjunctivitis, unspecified laterality Start:18-Jul-2013 Instruction Type:Provider Instructions for Treatment Patient Instructions Indication:Neoplasm of uncertain behavior of skin Start:06-Aug-2012 Instruction Type:Provider Instructions for Treatment Name Dates Details Patient Instructions Indication:BMI 35.0-35.9,adult Start:29-Nov-2020 Instruction Type:Provider Instructions for Treatment How to Access Health Informa tion Online using Patient Portal and [employer] Indication:BMI 35.0-35.9,adult Start:29-Nov-2020 Instruction Type:Patient Education How to access health informa tion online Indication:Non-smoker Start:28-Jan-2020 Instruction Type:Patient Education How to access health informa tion online - Detail Indication:Non-smoker Start:28-Jan-2020 Instruction Type:Patient Education Patient Instructions Indication:Non-smoker Start:28-Jan-2020 Instruction Type:Provider Instructions for Treatment How to access health informa tion online Indication:Non-smoker Start:13-Jan-2020 Instruction Type:Patient Education How to access health informa tion online - Detail Indication:Non-smoker Start:13-Jan-2020 Instruction Type:Patient Education Patient Instructions Indication:Non-smoker Start:13-Jan-2020 Instruction Type:Provider Instructions for Treatment How to access health informa tion online Indication:BMI 39.0-39.9,adult Start:16-Sep-2019 Instruction Type:Patient Education How to access health informa tion online - Detail Indication:BMI 39.0-39.9,adult Start:16-Sep-2019 Instruction Type:Patient Education Patient Instructions Indication:BMI 39.0-39.9,adult Start:16-Sep-2019 Instruction Type:Provider Instructions for Treatment How to access health informa tion online Indication:Non-smoker Start:28-Jul-2019 Instruction Type:Patient Education How to access health informa tion online - Detail Indication:Non-smoker Start:28-Jul-2019 Instruction Type:Patient Education Patient Instructions Indication:Non-smoker Start:28-Jul-2019 Instruction Type:Provider Instructions for Treatment Patient Instructions Indication:Allergic rhinitis Start:27-Sep-2015 Instruction Type:Provider Instructions for Treatment Patient Instructions Indication:Serous conjunctivitis, unspecified laterality Start:18-Jul-2013 Instruction Type:Provider Instructions for Treatment Patient Instructions Indication:Neoplasm of uncertain behavior of skin Start:06-Aug-2012 Instruction Type:Provider Instructions for Treatment Name Dates Details Patient Instructions Indication:BMI 35.0-35.9,adult Start:29-Nov-2020 Instruction Type:Provider Instructions for Treatment How to Access Health Informa tion Online using Patient Portal and [employer] Indication:BMI 35.0-35.9,adult Start:29-Nov-2020 Instruction Type:Patient Education How to access health informa tion online Indication:Non-smoker Start:28-Jan-2020 Instruction Type:Patient Education How to access health informa tion online - Detail Indication:Non-smoker Start:28-Jan-2020 Instruction Type:Patient Education Patient Instructions Indication:Non-smoker Start:28-Jan-2020 Instruction Type:Provider Instructions for Treatment How to access health informa tion online Indication:Non-smoker Start:13-Jan-2020 Instruction Type:Patient Education How to access health informa tion online - Detail Indication:Non-smoker Start:13-Jan-2020 Instruction Type:Patient Education Patient Instructions Indication:Non-smoker Start:13-Jan-2020 Instruction Type:Provider Instructions for Treatment How to access health informa tion online Indication:BMI 39.0-39.9,adult Start:16-Sep-2019 Instruction Type:Patient Education How to access health informa tion online - Detail Indication:BMI 39.0-39.9,adult Start:16-Sep-2019 Instruction Type:Patient Education Patient Instructions Indication:BMI 39.0-39.9,adult Start:16-Sep-2019 Instruction Type:Provider Instructions for Treatment How to access health informa tion online Indication:Non-smoker Start:28-Jul-2019 Instruction Type:Patient Education How to access health informa tion online - Detail Indication:Non-smoker Start:28-Jul-2019 Instruction Type:Patient Education Patient Instructions Indication:Non-smoker Start:28-Jul-2019 Instruction Type:Provider Instructions for Treatment Patient Instructions Indication:Allergic rhinitis Start:27-Sep-2015 Instruction Type:Provider Instructions for Treatment Patient Instructions Indication:Serous conjunctivitis, unspecified laterality Start:18-Jul-2013 Instruction Type:Provider Instructions for Treatment Patient Instructions Indication:Neoplasm of uncertain behavior of skin Start:06-Aug-2012 Instruction Type:Provider Instructions for Treatment Name Dates Details Patient Instructions Indication:Non-smoker Start:18-Jan-2021 Instruction Type:Provider Instructions for Treatment How to Access Health Informa tion Online using Patient Portal and [employer] Indication:Non-smoker Start:18-Jan-2021 Instruction Type:Patient Education Patient Instructions Indication:BMI 35.0-35.9,adult Start:29-Nov-2020 Instruction Type:Provider Instructions for Treatment How to Access Health Informa tion Online using Patient Portal and [employer] Indication:BMI 35.0-35.9,adult Start:29-Nov-2020 Instruction Type:Patient Education How to access health informa tion online Indication:Non-smoker Start:28-Jan-2020 Instruction Type:Patient Education How to access health informa tion online - Detail Indication:Non-smoker Start:28-Jan-2020 Instruction Type:Patient Education Patient Instructions Indication:Non-smoker Start:28-Jan-2020 Instruction Type:Provider Instructions for Treatment How to access health informa tion online Indication:Non-smoker Start:13-Jan-2020 Instruction Type:Patient Education How to access health informa tion online - Detail Indication:Non-smoker Start:13-Jan-2020 Instruction Type:Patient Education Patient Instructions Indication:Non-smoker Start:13-Jan-2020 Instruction Type:Provider Instructions for Treatment How to access health informa tion online Indication:BMI 39.0-39.9,adult Start:16-Sep-2019 Instruction Type:Patient Education How to access health informa tion online - Detail Indication:BMI 39.0-39.9,adult Start:16-Sep-2019 Instruction Type:Patient Education Patient Instructions Indication:BMI 39.0-39.9,adult Start:16-Sep-2019 Instruction Type:Provider Instructions for Treatment How to access health informa tion online Indication:Non-smoker Start:28-Jul-2019 Instruction Type:Patient Education How to access health informa tion online - Detail Indication:Non-smoker Start:28-Jul-2019 Instruction Type:Patient Education Patient Instructions Indication:Non-smoker Start:28-Jul-2019 Instruction Type:Provider Instructions for Treatment Patient Instructions Indication:Allergic rhinitis Start:27-Sep-2015 Instruction Type:Provider Instructions for Treatment Patient Instructions Indication:Serous conjunctivitis, unspecified laterality Start:18-Jul-2013 Instruction Type:Provider Instructions for Treatment Patient Instructions Indication:Neoplasm of uncertain behavior of skin Start:06-Aug-2012 Instruction Type:Provider Instructions for Treatment Name Dates Details Patient Instructions Indication:Non-smoker Start:18-Jan-2021 Instruction Type:Provider Instructions for Treatment How to Access Health Informa tion Online using Patient Portal and [employer] Indication:Non-smoker Start:18-Jan-2021 Instruction Type:Patient Education Patient Instructions Indication:BMI 35.0-35.9,adult Start:29-Nov-2020 Instruction Type:Provider Instructions for Treatment How to Access Health Informa tion Online using Patient Portal and [employer] Indication:BMI 35.0-35.9,adult Start:29-Nov-2020 Instruction Type:Patient Education How to access health informa tion online Indication:Non-smoker Start:28-Jan-2020 Instruction Type:Patient Education How to access health informa tion online - Detail Indication:Non-smoker Start:28-Jan-2020 Instruction Type:Patient Education Patient Instructions Indication:Non-smoker Start:28-Jan-2020 Instruction Type:Provider Instructions for Treatment How to access health informa tion online Indication:Non-smoker Start:13-Jan-2020 Instruction Type:Patient Education How to access health informa tion online - Detail Indication:Non-smoker Start:13-Jan-2020 Instruction Type:Patient Education Patient Instructions Indication:Non-smoker Start:13-Jan-2020 Instruction Type:Provider Instructions for Treatment How to access health informa tion online Indication:BMI 39.0-39.9,adult Start:16-Sep-2019 Instruction Type:Patient Education How to access health informa tion online - Detail Indication:BMI 39.0-39.9,adult Start:16-Sep-2019 Instruction Type:Patient Education Patient Instructions Indication:BMI 39.0-39.9,adult Start:16-Sep-2019 Instruction Type:Provider Instructions for Treatment How to access health informa tion online Indication:Non-smoker Start:28-Jul-2019 Instruction Type:Patient Education How to access health informa tion online - Detail Indication:Non-smoker Start:28-Jul-2019 Instruction Type:Patient Education Patient Instructions Indication:Non-smoker Start:28-Jul-2019 Instruction Type:Provider Instructions for Treatment Patient Instructions Indication:Allergic rhinitis Start:27-Sep-2015 Instruction Type:Provider Instructions for Treatment Patient Instructions Indication:Serous conjunctivitis, unspecified laterality Start:18-Jul-2013 Instruction Type:Provider Instructions for Treatment Patient Instructions Indication:Neoplasm of uncertain behavior of skin Start:06-Aug-2012 Instruction Type:Provider Instructions for Treatment Name Dates Details Patient Instructions Indication:Non-smoker Start:18-Jan-2021 Instruction Type:Provider Instructions for Treatment How to Access Health Informa tion Online using Patient Portal and [employer] Indication:Non-smoker Start:18-Jan-2021 Instruction Type:Patient Education Patient Instructions Indication:BMI 35.0-35.9,adult Start:29-Nov-2020 Instruction Type:Provider Instructions for Treatment How to Access Health Informa tion Online using Patient Portal and [employer] Indication:BMI 35.0-35.9,adult Start:29-Nov-2020 Instruction Type:Patient Education How to access health informa tion online Indication:Non-smoker Start:28-Jan-2020 Instruction Type:Patient Education How to access health informa tion online - Detail Indication:Non-smoker Start:28-Jan-2020 Instruction Type:Patient Education Patient Instructions Indication:Non-smoker Start:28-Jan-2020 Instruction Type:Provider Instructions for Treatment How to access health informa tion online Indication:Non-smoker Start:13-Jan-2020 Instruction Type:Patient Education How to access health informa tion online - Detail Indication:Non-smoker Start:13-Jan-2020 Instruction Type:Patient Education Patient Instructions Indication:Non-smoker Start:13-Jan-2020 Instruction Type:Provider Instructions for Treatment How to access health informa tion online Indication:BMI 39.0-39.9,adult Start:16-Sep-2019 Instruction Type:Patient Education How to access health informa tion online - Detail Indication:BMI 39.0-39.9,adult Start:16-Sep-2019 Instruction Type:Patient Education Patient Instructions Indication:BMI 39.0-39.9,adult Start:16-Sep-2019 Instruction Type:Provider Instructions for Treatment How to access health informa tion online Indication:Non-smoker Start:28-Jul-2019 Instruction Type:Patient Education How to access health informa tion online - Detail Indication:Non-smoker Start:28-Jul-2019 Instruction Type:Patient Education Patient Instructions Indication:Non-smoker Start:28-Jul-2019 Instruction Type:Provider Instructions for Treatment Patient Instructions Indication:Allergic rhinitis Start:27-Sep-2015 Instruction Type:Provider Instructions for Treatment Patient Instructions Indication:Serous conjunctivitis, unspecified laterality Start:18-Jul-2013 Instruction Type:Provider Instructions for Treatment Patient Instructions Indication:Neoplasm of uncertain behavior of skin Start:06-Aug-2012 Instruction Type:Provider Instructions for Treatment Name Dates Details Patient Instructions Indication:Allergic rhinitis Start:27-Sep-2015 Instruction Type:Provider Instructions for Treatment Patient Instructions Indication:Serous conjunctivitis, unspecified laterality Start:18-Jul-2013 Instruction Type:Provider Instructions for Treatment Patient Instructions Indication:Neoplasm of uncertain behavior of skin Start:06-Aug-2012 Instruction Type:Provider Instructions for Treatment Name Dates Details Patient Instructions Indication:Non-smoker Start:01-Mar-2021 Instruction Type:Provider Instructions for Treatment How to Access Health Informa tion Online using Patient Portal and [employer] Indication:Non-smoker Start:01-Mar-2021 Instruction Type:Patient Education Patient Instructions Indication:Non-smoker Start:18-Jan-2021 Instruction Type:Provider Instructions for Treatment How to Access Health Informa tion Online using Patient Portal and [employer] Indication:Non-smoker Start:18-Jan-2021 Instruction Type:Patient Education Patient Instructions Indication:BMI 35.0-35.9,adult Start:29-Nov-2020 Instruction Type:Provider Instructions for Treatment How to Access Health Informa tion Online using Patient Portal and [employer] Indication:BMI 35.0-35.9,adult Start:29-Nov-2020 Instruction Type:Patient Education How to access health informa tion online Indication:Non-smoker Start:28-Jan-2020 Instruction Type:Patient Education How to access health informa tion online - Detail Indication:Non-smoker Start:28-Jan-2020 Instruction Type:Patient Education Patient Instructions Indication:Non-smoker Start:28-Jan-2020 Instruction Type:Provider Instructions for Treatment How to access health informa tion online Indication:Non-smoker Start:13-Jan-2020 Instruction Type:Patient Education How to access health informa tion online - Detail Indication:Non-smoker Start:13-Jan-2020 Instruction Type:Patient Education Patient Instructions Indication:Non-smoker Start:13-Jan-2020 Instruction Type:Provider Instructions for Treatment How to access health informa tion online Indication:BMI 39.0-39.9,adult Start:16-Sep-2019 Instruction Type:Patient Education How to access health informa tion online - Detail Indication:BMI 39.0-39.9,adult Start:16-Sep-2019 Instruction Type:Patient Education Patient Instructions Indication:BMI 39.0-39.9,adult Start:16-Sep-2019 Instruction Type:Provider Instructions for Treatment How to access health informa tion online Indication:Non-smoker Start:28-Jul-2019 Instruction Type:Patient Education How to access health informa tion online - Detail Indication:Non-smoker Start:28-Jul-2019 Instruction Type:Patient Education Patient Instructions Indication:Non-smoker Start:28-Jul-2019 Instruction Type:Provider Instructions for Treatment Patient Instructions Indication:Allergic rhinitis Start:27-Sep-2015 Instruction Type:Provider Instructions for Treatment Patient Instructions Indication:Serous conjunctivitis, unspecified laterality Start:18-Jul-2013 Instruction Type:Provider Instructions for Treatment Patient Instructions Indication:Neoplasm of uncertain behavior of skin Start:06-Aug-2012 Instruction Type:Provider Instructions for Treatment Name Dates Details Patient Instructions Indication:Non-smoker Start:01-Mar-2021 Instruction Type:Provider Instructions for Treatment How to Access Health Informa tion Online using Patient Portal and [employer] Indication:Non-smoker Start:01-Mar-2021 Instruction Type:Patient Education Patient Instructions Indication:Non-smoker Start:18-Jan-2021 Instruction Type:Provider Instructions for Treatment How to Access Health Informa tion Online using Patient Portal and [employer] Indication:Non-smoker Start:18-Jan-2021 Instruction Type:Patient Education Patient Instructions Indication:BMI 35.0-35.9,adult Start:29-Nov-2020 Instruction Type:Provider Instructions for Treatment How to Access Health Informa tion Online using Patient Portal and [employer] Indication:BMI 35.0-35.9,adult Start:29-Nov-2020 Instruction Type:Patient Education How to access health informa tion online Indication:Non-smoker Start:28-Jan-2020 Instruction Type:Patient Education How to access health informa tion online - Detail Indication:Non-smoker Start:28-Jan-2020 Instruction Type:Patient Education Patient Instructions Indication:Non-smoker Start:28-Jan-2020 Instruction Type:Provider Instructions for Treatment How to access health informa tion online Indication:Non-smoker Start:13-Jan-2020 Instruction Type:Patient Education How to access health informa tion online - Detail Indication:Non-smoker Start:13-Jan-2020 Instruction Type:Patient Education Patient Instructions Indication:Non-smoker Start:13-Jan-2020 Instruction Type:Provider Instructions for Treatment How to access health informa tion online Indication:BMI 39.0-39.9,adult Start:16-Sep-2019 Instruction Type:Patient Education How to access health informa tion online - Detail Indication:BMI 39.0-39.9,adult Start:16-Sep-2019 Instruction Type:Patient Education Patient Instructions Indication:BMI 39.0-39.9,adult Start:16-Sep-2019 Instruction Type:Provider Instructions for Treatment How to access health informa tion online Indication:Non-smoker Start:28-Jul-2019 Instruction Type:Patient Education How to access health informa tion online - Detail Indication:Non-smoker Start:28-Jul-2019 Instruction Type:Patient Education Patient Instructions Indication:Non-smoker Start:28-Jul-2019 Instruction Type:Provider Instructions for Treatment Patient Instructions Indication:Allergic rhinitis Start:27-Sep-2015 Instruction Type:Provider Instructions for Treatment Patient Instructions Indication:Serous conjunctivitis, unspecified laterality Start:18-Jul-2013 Instruction Type:Provider Instructions for Treatment Patient Instructions Indication:Neoplasm of uncertain behavior of skin Start:06-Aug-2012 Instruction Type:Provider Instructions for Treatment Chief Complaint and Reason for Visit Chief Complaint Gastroesophageal ref lux disease (GERD) N/V, GASTROPARESIS Pre-Surgical Testing PAT 6 wk FU GASTROPARESIS Reason for Visit Difficulty swallowin g Difficulty swallowing Gastroesophageal reflux disease Gastroparesis Chief Complaint BUE PARESTHESIA OF S KIN BUE PARESTHESIA OF SKIN Chief Complaint BUE PARESTHESIA OF S KIN BUE PARESTHESIA OF SKIN NEAR SNYCOPE Reason for Visit Abnormal ECG Diabetes mellitus, new onset Exertional chest pain Near syncope Chief Complaint BUE PARESTHESIA OF S KIN BUE PARESTHESIA OF SKIN NEAR SNYCOPE WITH EKG CHANGES/NEW ONSET DIABETES NEAR SNYCOPE NEAR SNYCOPE Reason for Visit Abnormal ECG Diabetes mellitus, new onset Exertional chest pain Near syncope Chief Complaint S/P [facility] 10/19 ABN EKG neuro Reason for Visit HOCM (hypertrophic o bstructive cardiomyopathy) Palpitations Chief Complaint Admit Date SCOPE - CONSTIPATION January 05, 2025 1:52pm Reason for Visit Admit Date Screening for malignant neoplasm of colo n January 05, 2025 1:52pm Chief Complaint Admit Date 9 M FU July 06, 2025 3: 18pm Reason for Visit Admit Date Dyslipidemia July 06, 2025 3: 18pm HOCM (hypertrophic obstructive cardiomyo [place]) July 06, 2025 3:18pm Chief Complaint Admit Date 9 M FU July 06, 2025 3: 18pm dyslipidemia, htn, HOCM August 03, 2025 12:00am dyslipidemia, htn, HOCM August 03, 2025 7:39am dyslipidemia, htn, HOCM August 06, 2025 11:35am Advance Directives Advance Directive Response Recorded Date/ Time Living Will No February 21, 2022 3:40pm Power of Marriage Counselor Minister No February 21 3:40pm Advance Directive Response Recorded Date/ Time Living Will No February 21, 2022 2:40pm Power of Marriage Counselor Minister No February 21 2:40pm Advance Directive Response Recorded Date/ Time Living Will No October 18, 2 023 1:43pm Power of Marriage Counselor Minister No October 18, 2023 1:43pm Advance Directive Response Recorded Date/ Time Living Will No October 18, 2 023 4:36pm Power of Marriage Counselor Minister No October 18, 2023 4:36pm Advance Directive Response Recorded Date/ Time Living Will No February 26, 2024 6:24pm Power of Marriage Counselor Minister No February 25 6:24pm Advance Directive Response Recorded Date/ Time Living Will No January 29, 2025 3:12pm Power of Marriage Counselor Minister No January 29 3:12pm Advance Directive Response Recorded Date/ Time Living Will No February 26, 2024 6:24pm Do you have a Healthcare Power of Marriage Counselor Minister? No February 26, 2024 6:24pm Summary Purpose Additional Source Comments Goals (unrecognized section and content) Goals may be documented in a n alternate sectionGoals may be documented in an alternate sectionGoals may be documented in an alternate sectionGoals may be documented in an alternate sectionGoals may be documented in an alternate sectionGoals may be documented in an alternate sectionGoals may be documented in an alternate section Care Teams (unrecognized sec tion and content) Team Status: Active Member Role Status Dates Leticia Matos MEDICAL DEVICE SALES CONSULTANT, MEDICAL DEVICE SALES CONSULTANT-C Family Provider Active Dr. Avinash Barreto MD Primary Care Provider Activ e Team Status: Active Member Role Status Dates Dr. Avinash Barreto MD Primary Care Provider Activ e Dr. Rodolfo Avendaño MD Referring Provider, Other Provi adilene Active Dr. Christiane Grande MD Attending Provider Active Team Status: Inactive Member Role Status Dates Dr. Avinash Barreto MD Primary Care Provider Activ e Dr. Rodolfo Avendaño MD Attending Provider, Referring P rovider Active Team Status: Inactive Member Role Status Dates Dr. Avinash Barreto MD Primary Care Provider, Attending Provider, Referring Provider Active Team Status: Active Member Role Status Dates Dr. Avinash Barreto MD Primary Care Provider Activ e Dr. Eduardo Montgomery MD Emergency Provider Active Dr. Andrew Brown , DO Admit Provider, Attending Provider Active Team Status: Active Member Role Status Dates Dr. Avinash Barreto MD Primary Care Provider Activ e Dr. Eduardo Montgomery MD Emergency Provider Active Dr. Andrew Brown , DO Admit Provider, Other Pro vider Active Dr. José Miguel Wu MD Attending Provider, Other Provide r Active Team Status: Active Member Role Status Dates Dr. Avinash Barreto MD Primary Care Provider Activ e Dr. Eduardo Montgomery MD Emergency Provider Active Dr. Andrew Brown , DO Admit Provider, Other Pro vider Active Dr. José Miguel Wu MD Attending Provider, Other Provide r Active Dr. Lissy Goel MD Other Provider Active Team Status: Inactive Member Role Status Dates Dr. Avinash Barreto MD Primary Care Provider Activ e Dr. Eduardo Montgomery MD Emergency Provider Active Dr. Andrew Brown , DO Admit Provider, Other Pro vider Active Dr. José Miguel Wu MD Other Provider Active Dr. Lissy Goel MD Attending Provider Active Team Status: Active Member Role Status Dates Leticia Matos MEDICAL DEVICE SALES CONSULTANT, MEDICAL DEVICE SALES CONSULTANT-C Family Provider Active Dr. Christiano Barreto MD Primary Care Provider Acti ve Team Status: Inactive Member Role Status Dates Dr. Christiano Barreto MD Primary Care Provider, Ref erring Provider Active Chris Ventura MEDICAL DEVICE SALES CONSULTANT, MEDICAL DEVICE SALES CONSULTANT-C Attending Provider Active Team Status: Inactive Member Role Status Dates Dr. Christiano Barreto MD Primary Care Provider Acti ve Chris Ventura MEDICAL DEVICE SALES CONSULTANT, MEDICAL DEVICE SALES CONSULTANT-C Attending Provider Active Team Status: Inactive Member Role Status Dates Dr. Christiano Barreto MD Primary Care Provider Acti ve Dr. Eduardo Montgomery MD Emergency Provider Active Team Status: Active Member Role Status Dates Dr. Christiano Barreto MD Primary Care Provider Acti ve Team Status: Inactive Member Role Status Dates Dr. Christiano Barreto MD Primary Care Provider Acti ve Start: December 03, 2024 End: December 03, 2024 Dr. Christiano Barreto MD Attending Provider Active Start: December 03, 2024 End: December 03, 2024 Dr. Christiano Barreto MD Referring Provider Active Start: December 03, 2024 End: December 03, 2024 Team Status: Inactive Member Role Status Dates Dr. Christiano Barreto MD Primary Care Provider Acti ve Start: January 05, 2025 End: January 05, 2025 Dr. Christiano Barreto MD Referring Provider Active Start: January 05, 2025 End: January 05, 2025 Dr. Abiel Smith MD Attending Provider Active Start: January 05, 2025 End: January 05, 2025 Team Status: Inactive Member Role Status Dates Dr. Christiano Barreto MD Primary Care Provider Acti ve Start: January 30, 2025 End: January 30, 2025 Dr. Christiano Barreto MD Referring Provider Active Start: January 30, 2025 End: January 30, 2025 Dr. Abiel Smith MD Attending Provider Active Start: January 30, 2025 End: January 30, 2025 Team Status: Active Member Role Status Dates Dr. Christiano Barreto MD Primary Care Provider Acti ve Start: January 30, 2025 Dr. Christiano Barreto MD Referring Provider Active Start: January 30, 2025 Dr. Abiel Smith MD Attending Provider Active Start: January 30, 2025 Dr. Abiel Smith MD Other Provider Active Start: January 30, 2025 Team Status: Active Member Role/Relationship Status Dates Dr. Christiano Barreto MD Primary Care Provider Acti ve Team Status: Inactive Member Role/Relationship Status Dates Dr. Christiano Barreto MD Primary Care Provider Acti ve Start: July 06, 2025 End: July 06, 2025 Dr. Christiano Barreto MD Referring Provider Active Start: July 06, 2025 End: July 06, 2025 Pérez Maynard MEDICAL DEVICE SALES CONSULTANT, MEDICAL DEVICE SALES CONSULTANT-C Attending Provider Active S tart: July 06, 2025 End: July 06, 2025 Team Status: Active Member Role/Relationship Status Dates Dr. Christiano Barreto MD Primary care physician [place] Team Status: Inactive Member Role/Relationship Status Dates Dr. Christiano Barreto MD Primary care physician [place] Start: July 06, 2025 End: July 06, 2025 Dr. Christiano Barreto MD Referring Provider Active Start: July 06, 2025 End: July 06, 2025 Pérez Maynard MEDICAL DEVICE SALES CONSULTANT, MEDICAL DEVICE SALES CONSULTANT-C Attending physician Active Start: July 06, 2025 End: July 06, 2025 Team Status: Active Member Role/Relationship Status Dates Dr. Christiano Barreto MD Primary care physician [place] Start: August 03, 2025 Dr. Christiano Barreto MD Referring Provider Active Start: August 03, 2025 Dr. José Miguel Wu MD Attending physician Active Start: August 03, 2025 Team Status: Inactive Member Role/Relationship Status Dates Dr. Christiano Barreto MD Primary care physician [place] Start: August 03, 2025 End: August 03, 2025 Dr. Christiano Barreto MD Attending physician Active Start: August 03, 2025 End: August 03, 2025 Dr. Christiano Barreto MD Referring Provider Active Start: August 03, 2025 End: August 03, 2025 Team Status: Active Member Role/Relationship Status Dates Dr. Christiano Barreto MD Primary care physician [place] Start: August 06, 2025 Dr. Christiano Barreto MD Referring Provider Active Start: August 06, 2025 Dr. Christiano Barreto MD Nurse Practitioner Active Start: August 06, 2025 Dr. José Miguel Wu MD Attending physician Active Start: August 06, 2025 Source Comments (unrecognize d section and content) In the event this informatio n is protected by the Federal Confidentiality of Alcohol and Drug Abuse Patient Records regulations: The Federal rules restrict any use of the information to criminally investigate or prosecute any alcohol or drug abuse patient.[facility] Reason for Visit (unrecogniz ed section and content) Reason Comments Dizziness blurred vision x tod ay (unrecognized sect ion and content) No Status Records FoundNo Status Records Found INFORMATION SOURCE (unrecogn ized section and content) DATE CREATED AUTHOR 02/27/2024 [facility] DATE CREATED AUTHOR AUTHOR'S ORGANIZ ATION 08/21/2025 [facility] FOR RECORDS PERTAINING TO PATIENTS WHO ARE OR HAVE BEEN ENROLLED IN A CHEMICAL DEPENDENCY/SUBSTANCEABUSE PROGRAM, SOME INFORMATION MAY BE OMITTED. This clinical summary was aggregated from multiple sources. Caution should be exercised in using it in the provision of clinical care. This summary normalizes information from multiple sources, and as a consequence, information in this document may materially change the coding, format and clinical context of patient data. In addition, data may be omitted in some cases. CLINICAL DECISIONS SHOULD BE BASED ON THE PRIMARY CLINICAL RECORDS. [facility] [employer] [facility]. provides no warranty or guarantee of the accuracy or completeness of information in this document.
== END | disposition home or self-care (01) ==
LOC: CVS 07:50
PROVIDERS: PCP Family Medicine; Referring Provider Nurse Practitioner Family; Visit Provider Nurse Practitioner Family
DX: I42.1 Obstructive hypertrophic cardiomyopathy (principal)
CPT/HCPCS: 93306; Q9957; A4216; C8929